=== PATIENT | female | born 1955 | race Caucasian/White ===

== ENCOUNTER → 2019-06-13 | Outpatient (CLI) | payer SELFPAY | PROVIDERS: Family Provider Family Medicine; Visit Provider Internal Medicine Rheumatology | DX: M85.872 Other specified disorders of bone density and structure, left ankle and foot (principal) | CPT/HCPCS: 73130 ×2; 73630 ×2 ==

== ENCOUNTER → 2019-06-20 10:30 | Outpatient (BNVA) | payer MEDICARE, MEDICAID, SELFPAY | PROVIDERS: PCP Family Medicine; Visit Provider Internal Medicine Rheumatology | DX: M06.00 Rheumatoid arthritis without rheumatoid factor, unspecified site (principal); E11.65 Type 2 diabetes mellitus with hyperglycemia; I10 Essential (primary) hypertension; D64.9 Anemia, unspecified; Z79.52 Long term (current) use of systemic steroids; Z79.4 Long term (current) use of insulin | CPT/HCPCS: 99214 ==

== ENCOUNTER → 2019-07-24 09:52 | Outpatient (BNVA) | payer MEDICARE, MEDICAID, SELFPAY | PROVIDERS: Family Provider Family Medicine; PCP Family Medicine; Visit Provider Internal Medicine Rheumatology | DX: M06.00 Rheumatoid arthritis without rheumatoid factor, unspecified site (principal); Z79.899 Other long term (current) drug therapy | CPT/HCPCS: 36415; 80076; 82565; 85651; 86140 ==

== ENCOUNTER → 2019-07-24 11:37 | Outpatient (BNVA) | payer MEDICARE, MEDICAID, SELFPAY | PROVIDERS: Family Provider Family Medicine; PCP Family Medicine; Visit Provider Internal Medicine Rheumatology | DX: M06.00 Rheumatoid arthritis without rheumatoid factor, unspecified site (principal) | CPT/HCPCS: 85025 ==

== ENCOUNTER → 2019-08-21 09:18 | Outpatient (BNVA) | payer MEDICARE, MEDICAID, SELFPAY | PROVIDERS: Family Provider Family Medicine; PCP Family Medicine; Visit Provider Internal Medicine Rheumatology | DX: M06.00 Rheumatoid arthritis without rheumatoid factor, unspecified site (principal); Z79.899 Other long term (current) drug therapy; M06.4 Inflammatory polyarthropathy; E11.69 Type 2 diabetes mellitus with other specified complication; D64.9 Anemia, unspecified; R59.0 Localized enlarged lymph nodes; R91.1 Solitary pulmonary nodule; Z79.4 Long term (current) use of insulin; I10 Essential (primary) hypertension | CPT/HCPCS: 99214 ==

== ENCOUNTER → 2019-09-28 12:51 | Outpatient (BNVA) | payer MEDICARE, MEDICAID, SELFPAY | PROVIDERS: Family Provider Family Medicine; PCP Family Medicine; Visit Provider Internal Medicine Rheumatology | DX: Z79.899 Other long term (current) drug therapy (principal); M06.00 Rheumatoid arthritis without rheumatoid factor, unspecified site | CPT/HCPCS: 36415; 80076; 82565; 85025; 85651; 86140 ==

== ENCOUNTER → 2019-10-19 08:55 | Outpatient (BNVA) | payer MEDICARE, MEDICAID, SELFPAY | PROVIDERS: Family Provider Family Medicine; PCP Family Medicine; Visit Provider Internal Medicine Rheumatology | DX: M06.00 Rheumatoid arthritis without rheumatoid factor, unspecified site (principal); Z79.899 Other long term (current) drug therapy; M06.4 Inflammatory polyarthropathy; E11.69 Type 2 diabetes mellitus with other specified complication; D64.9 Anemia, unspecified; R59.0 Localized enlarged lymph nodes; R91.1 Solitary pulmonary nodule; Z79.4 Long term (current) use of insulin; I10 Essential (primary) hypertension | CPT/HCPCS: 36415; 80076; 82565; 85025; 85651; 86140 ==

== ENCOUNTER → 2019-10-19 09:52 | Outpatient (BNVA) | payer MEDICARE, MEDICAID, SELFPAY | PROVIDERS: Family Provider Family Medicine; PCP Family Medicine; Visit Provider Internal Medicine Rheumatology | DX: Z79.899 Other long term (current) drug therapy (principal) | CPT/HCPCS: 85025 ==

== ENCOUNTER → 2019-10-26 14:03 | Outpatient (BNVA) | payer MEDICARE, SELFPAY | PROVIDERS: Family Provider Family Medicine; PCP Family Medicine; Visit Provider Internal Medicine Rheumatology | DX: M06.00 Rheumatoid arthritis without rheumatoid factor, unspecified site (principal); Z79.899 Other long term (current) drug therapy; E11.22 Type 2 diabetes mellitus with diabetic chronic kidney disease; N18.3 Chronic kidney disease, stage 3 (moderate); Z79.4 Long term (current) use of insulin; Z90.5 Acquired absence of kidney; Z89.421 Acquired absence of other right toe(s) | CPT/HCPCS: 99214 ==

== ENCOUNTER 2019-11-14 08:05 | Outpatient (CLI) | payer MEDICARE, SELFPAY ==
--- NOTE | 2019-11-14 13:05 | PFTS_ITS ---
Date of Study:11/14/19 Date of Dictation: MECHANICS: Forced vital capacity (FVC) is reduced. Forced expiratory volume in one second (FEV1) is normal. FEV1/FVC is normal. FLOW VOLUME LOOP: Narrow. There is a plateau phase in the forced expiratory maneuver. This could be related to intrathoracic variable obstruction or chest be related to the effort. LUNG VOLUMES: Total lung capacity (TLC) is reduced. Residual volume (RV) is reduced. DIFFUSING CAPACITY FOR CARBON MONOXIDE: Normal. INTERPRETATION: The pulmonary function tests are consistent with mild restriction. Total lung capacity is mildly diminished.. Gas exchange (DLCO) is normal. The contour of the flow volume loop could be suggestive of variable intrathoracic obstruction. MTDD
== END 2019-11-14 08:06 | disposition home or self-care (01) ==
LOC: RT 08:09
PROVIDERS: Family Provider Family Medicine; PCP Family Medicine; Visit Provider Internal Medicine Critical Care Medicine
DX: R59.0 Localized enlarged lymph nodes (principal)
CPT/HCPCS: 94010; 94726; 94729

== ENCOUNTER → 2020-02-08 14:05 | Outpatient (BNVA) | payer MEDICARE, SELFPAY | PROVIDERS: Family Provider Family Medicine; PCP Family Medicine; Visit Provider Internal Medicine Rheumatology | DX: M06.00 Rheumatoid arthritis without rheumatoid factor, unspecified site (principal); Z79.899 Other long term (current) drug therapy; D64.9 Anemia, unspecified; R91.1 Solitary pulmonary nodule; E11.22 Type 2 diabetes mellitus with diabetic chronic kidney disease; I13.0 Hypertensive heart and chronic kidney disease with heart failure and stage 1 through stage 4 chronic kidney disease, or unspecified chronic kidney disease; N18.3 Chronic kidney disease, stage 3 (moderate); I50.30 Unspecified diastolic (congestive) heart failure; Z79.4 Long term (current) use of insulin | CPT/HCPCS: 99214 ==

== ENCOUNTER → 2020-02-09 11:39 | Outpatient (BNVA) | payer MEDICARE, SELFPAY | PROVIDERS: Family Provider Family Medicine; PCP Family Medicine; Visit Provider Internal Medicine Rheumatology | DX: Z79.899 Other long term (current) drug therapy (principal) | CPT/HCPCS: 80076; 82565; 85025; 85651; 86140 ==

== ENCOUNTER → 2020-03-06 15:13 | Outpatient (BNVA) | payer MEDICARE, SELFPAY | PROVIDERS: Family Provider Family Medicine; PCP Family Medicine; Visit Provider Nurse Practitioner Family | DX: E11.65 Type 2 diabetes mellitus with hyperglycemia (principal); N18.9 Chronic kidney disease, unspecified; D64.9 Anemia, unspecified; E04.1 Nontoxic single thyroid nodule; E78.2 Mixed hyperlipidemia; Z76.89 Persons encountering health services in other specified circumstances; E03.9 Hypothyroidism, unspecified; I10 Essential (primary) hypertension; E55.9 Vitamin D deficiency, unspecified; N39.0 Urinary tract infection, site not specified | CPT/HCPCS: 80053; 80061; 81003; 82306; 82607; 82746; 83036; 83550; 83721; 83735; 83880; 84100; 84439; 84443; 84481; 85025; 87077; 87086; 87186 ==

== ENCOUNTER → 2020-03-14 16:36 | Outpatient (BNVA) | payer MEDICARE, SELFPAY | PROVIDERS: Family Provider Family Medicine; PCP Family Medicine; Visit Provider Nurse Practitioner Family | DX: R31.9 Hematuria, unspecified (principal) | CPT/HCPCS: 81003 ==

== ENCOUNTER → 2020-03-21 11:34 | Outpatient (BNVA) | payer MEDICARE, SELFPAY | PROVIDERS: Family Provider Family Medicine; PCP Family Medicine; Visit Provider Nurse Practitioner Family | DX: R31.9 Hematuria, unspecified (principal); N39.0 Urinary tract infection, site not specified; E11.65 Type 2 diabetes mellitus with hyperglycemia; R60.9 Edema, unspecified | CPT/HCPCS: 80053; 81003; 85025 ==

== ENCOUNTER → 2020-04-01 14:39 | Outpatient (BNVA) | payer MEDICARE, SELFPAY | PROVIDERS: Family Provider Family Medicine; PCP Family Medicine; Visit Provider Internal Medicine Nephrology | DX: N18.30 Chronic kidney disease, stage 3 unspecified (principal) | CPT/HCPCS: 80069; 82043; 85025 ==

== ENCOUNTER → 2020-04-22 10:13 | Outpatient (BNVA) | payer MEDICARE, SELFPAY | PROVIDERS: Family Provider Family Medicine; PCP Nurse Practitioner Family; Visit Provider Nurse Practitioner Family | DX: N18.30 Chronic kidney disease, stage 3 unspecified (principal); R60.1 Generalized edema | CPT/HCPCS: 36415; 80053; 80069; 82043; 85025 ==

== ENCOUNTER → 2020-06-04 10:20 | Outpatient (BNVA) | payer MEDICARE, SELFPAY | PROVIDERS: Family Provider Family Medicine; PCP Nurse Practitioner Family; Visit Provider Family Medicine | DX: N39.0 Urinary tract infection, site not specified (principal); A49.9 Bacterial infection, unspecified | CPT/HCPCS: 81003; 87077; 87086; 87184 ==

== ENCOUNTER → 2020-06-21 13:49 | Outpatient (BNVA) | payer MEDICARE, SELFPAY | PROVIDERS: Family Provider Family Medicine; PCP Nurse Practitioner Family; Visit Provider Nurse Practitioner Family | DX: R06.02 Shortness of breath (principal); I51.7 Cardiomegaly; I25.10 Atherosclerotic heart disease of native coronary artery without angina pectoris | CPT/HCPCS: 71046 ==

== ENCOUNTER 2020-07-08 14:14 | Inpatient (IN) | payer MEDICARE, MEDICAID, SELFPAY ==
[2020-07-08] VITALS (8 sets, daily range): BP systolic 150–193; BP diastolic 66–90; PULSE 89–95; RESP 16–30; TEMP 36.8–36.9; O2SAT 86–94; BMI 49.5
--- NOTE | 2020-07-08 15:11 | XR_ITS ---
WS: [id number] Exam: XR chest 1V portable [id number] Date/Time of Exam: 07/08/2020 3:35 PM Reason For Exam: sob Comparison 06/21/2020 There are patchy groundglass infiltrates identified in the upper and lower left lung and also the rig ht perihilar region. Cardiac enlargement with slightly increased pulmonary vascularity. There may be small left pleural effusion. The lungs are fully inflated. A permanent cardiac pacer superimposes the left chest. The mediastinum and bony thorax are unremarkable. XR/XR chest 1V portable [id number] IMPRESSION: 1. Patchy groundglass infiltrates throughout most of the left lung and the righ t perihilar region. These findings suggest active pneumonia. This pattern is no nspecific but can be seen with Covid pneumonia. 2. Mild cardiac enlargement with increased pulmonary vascularity.
--- NOTE | 2020-07-08 15:11 | ECG_ITS ---
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: CHARLI HEALYB: 1955 Requested By: Kj Jeronimo Order Number: [id number] Reading MD: MEGHANN BARRON Measurements Intervals [place] Rate: 92 P: 57 MO: 165 QRS: 93 QRSD: 137 T: -40 QT: 376 QTc: 465 Interpretive Statements SINUS RHYTHM RIGHT BUNDLE BRANCH BLOCK [120+ ms QRS DURATION, UPRIGHT V1, 40+ ms S IN I/aVL/V4/V5/V6] MODERATE T-WAVE ABNORMALITY, CONSIDER INFERIOR ISCHEMIA [-0.1+ mV T WAVE IN II/aVF] Compared to ECG 05/31/2019 00:33:07 T-wave abnormality now present Possible ischemia now present Electronically Signed On 07-08-2020 18:32:54 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
[2020-07-08 15:28] LABS: Basophils # 0.1 10^3/uL (0.0-0.1); Basophils % 0.3 %; Eosinophils # 0.2 10^3/uL (0.0-0.8); Eosinophils % 0.7 %; Hematocrit 30.2 % (37.0-47.0); Hemoglobin 9.4 g/dL (11.5-15.3); Lymphocytes # 1.8 10^3/uL (0.8-4.8); Lymphocytes % 6.9 %; Mean Corpuscular HGB Conc 31.1 g/dL (30.0-36.0); Mean Corpuscular Hemoglobin 29.4 pg (28.0-34.0); Mean Corpuscular Volume 94.4 fL (81-99); Mean Platelet Volume 10.4 fL (7.4-10.4); Monocytes # 1.2 10^3/uL (0.2-0.9); Monocytes % 4.8 %; Neutrophils # 22.12 10^3/uL (1.8-7.7); Neutrophils % 86.6 %; Nucleated Red Blood Cells % 0 %; Platelet Count 288 10^3/cmm (130-400); Red Cell Distribution Width 14.4 % (12.1-15.1); White Blood Count 25.6 10^3/uL (4.0-10.0)
[2020-07-08 15:36] LABS: INR 1.04 (0.8-1.2)
[2020-07-08 16:07] LABS: Troponin(5th) Baseline 42 ng/L (0-10)
[2020-07-08 16:16] LABS: Alanine Aminotransferase 14 U/L (0-33); Albumin Level 3.7 g/dL (3.5-5.2); Alkaline Phosphatase 120 IU/L (35-105); Anion Gap 14.1 (5-19); Aspartate Amino Transferase 12 U/L (0-32); Blood Urea Nitrogen 46 mg/dL (8-23); Calcium 9.2 mg/dL (8.5-10.5); Carbon Dioxide 33 mmol/L (22-29); Chloride 92 mmol/L (98-107); Globulin 2.7 g/dL (1.3-4.6); Glomerular Filtration Rate 28.5 mL/min (90-130); Glucose 234 mg/dL (65-115); NT Pro B Type Natriuretic Pept 1030 pg/mL (0-125); Osmolality Calculated 297 mOsm/kg (285-295); Potassium 5.1 mmol/L (3.5-5.1); Sodium 134 mmol/L (136-145); Total Bilirubin 0.5 mg/dL (0.15-1.2); Total Protein 6.4 g/dL (6.6-8.7)
--- NOTE | 2020-07-08 16:22 | ED_ITS ---
HPI - SOB/Dyspnea General: Chief Complaint: Shortness of Breath/Dyspnea Stated Complaint: SOB/FLUID OVERLOAD/CP Time Seen by Provider: 07/08/20 15:40 History of Present Illness: HPI Narrative: 64-year-old female presents emergency room complaining of shortness of breath bilateral pitting lower edema up into the level of the umbilicus. She is much more short of breath than usual and normally she is using 2 L/min now in triage she was at 89% on 2 L and requi red 3 to 4 L/min to maintain her sats in the mid 90s. She is also noticed increasing orthopnea. In April 2020 she had a pacemaker replacement the pacemaker site has dry eschar in place with localized erythema there is not been any drainage. MD elicited complaint: shortness of breath, cough and chest pain Pertinent past history: COPD, congestive heart failure and other (History of coronary artery disease) Onset (ago): day(s) Context: occurred during exertion Timing: intermittent and progressively worsening Severity: moderate Exacerbating factors: lying flat, exertion and coughing Relieving factors: oxygen, rest and upright position Known history of: COPD and congestive heart failure Associated symptoms: Reports chest congestion, chest pain, cough and orthopnea; Deny abdominal pain, diaphoresis, dizziness, extremity pain, fever(s), hemoptysis, lightheadedness, myalgias, nausea, palpitations, paresthesias, polydipsia, polyuria, rash, sense of impending doom or vomiting Treatment prior to arrival: oxygen Review of Systems Const: Denies: fever(s) or diaphoresis Card: Reports: chest pain and orthopnea; Denies: palpitations or lightheadedness Resp: Reports: chest congestion; Denies: hemoptysis GI: Denies: abdominal pain, nausea or vomiting Musc: Denies: extremity pain Neuro: Denies: dizziness Endo: Denies: polyuria or polydipsia PFSH ED PFSH: Medical History (Updated 07/09/20 @ 07:35 by Pramod Rivera DO) Allergic conjunctivitis Anemia Cellulitis of drainage site, post-operative Chronic kidney disease (CKD) Diabetes mellitus type 2, uncontrolled Diastolic heart failure Dyslipidemia Easy bruising Edema Essential (primary) hypertension Fibromyalgia Generalized weakness Hematuria High risk medication use Hilar lymphadenopathy Hypothyroid Hypoxia Immunization counseling Lung nodule Mixed hyperlipidemia Obesity Otitis media Rheumatoid arthritis with negative rheumatoid factor Seronegative erosive rheumatoid arthritis Thyroid nodule She has history of biopsy of thyroid nodule that was done at [facility] Urinary tract infection Vitamin D deficiency Surgical History (Updated 07/09/20 @ 07:35 by Pramod Rivera DO) H/O removal of cyst H/O shoulder surgery H/O toe surgery H/O total cystectomy History of hysterectomy Hx of cataract surgery Hx of tonsillectomy No pertinent past surgical history Status post placement of other cardiac pacemaker Family History Mother Cancer Fibromyalgia Arthritis Father Cancer Arthritis Social History Smoking and tobacco status: never smoked Alcohol intake: never Current occupational status: disabled History of recent travel: No Current gender identity: Female Physical Exam Const: COMMON NORMALS: no acute distress GENERAL APPEARANCE: cooperative and comfortable ORIENTATION/CONSCIOUSNESS: Yes awake, Yes oriented to person, Yes oriented to place and Yes oriented to time HENMT: COMMON NORMALS: normocephalic, atraumatic and hearing grossly normal bilaterally HEAD & SCALP: normocephalic and atraumatic Neck/C-Spine: COMMON NORMALS: no JVD Lymph: LYMPHATIC: no lymphadenopathy noted and no lymphedema noted Resp: AUSCULTATION: rales and wheezes Cardio: COMMON NORMALS: no JVD, regular rate, regular rhythm and No murmurs present (Cardio) RATE: regular rate RHYTHM: regular rhythm GI: COMMON NORMALS: Soft to palpation and No hepatosplenomegaly present AUSCULTATION: Yes normoactive bowel sounds PALPATION: Yes Soft to palpation, No Tenderness to palpation present (GI), No Guarding due to palpation present (GI) and Yes No hepatosplenomegaly present Extremity: GENERAL: Yes edema (To the level of the thighs and umbilicus) Neuro: SENSORIUM/ORIENTATION: Yes oriented to person, Yes oriented to place and Yes oriented to time Skin: COMMON NORMALS: no rashes or lesions noted GENERAL SKIN EXAM: no rashes or lesions noted Course Vital Signs: Vital signs: Vital Signs Temperature 97.6 F 07/09/20 07:19 Pulse Rate 88 07/09/20 07:19 Respiratory Rate 17 07/09/20 07:19 Blood Pressure 175/72 07/09/20 07:19 Pulse Oximetry 90 07/09/20 07:19 MDM - SOB/Dyspnea MDM Narrative: Medical decision making narrative: Patient hypoxic on arrival having increased need for oxygen. Suspicious of possible COVID-19 she did have some diarrhea early on when this started rapid antigen is negative a PCR is pending we will cover for community-acquired pneumonia also given her some Lasix to diurese him and think there is some component of heart failure given the amount of swelling she has in the lower extremities. Discussed Dr. Ngo orders have been written. Lab Data: Labs: Lab Results 07/08/20 07/08/20 07/08/20 Range/Units 15:11 15:11 15:11 WBC 25.6 H (4.0-10.0) 10^3/ uL RBC 3.20 L (4.1-5.3) 10^6/u L Hgb 9.4 L (11.5-15.3) g/dL Hct 30.2 L (37.0-47.0) % MCV 94.4 (81-99) fL MCH 29.4 (28.0-34.0) pg MCHC 31.1 (30.0-36.0) g/dL RDW 14.4 (12.1-15.1) % Plt Count 288 (130-400) 10^3/c mm MPV 10.4 (7.4-10.4) fL Neut % (Auto) 86.6 % Lymph % (Auto) 6.9 % [place] % (Auto) 4.8 % Eos % (Auto) 0.7 % Baso % (Auto) 0.3 % Neut # (Auto) 22.12 H (1.8-7.7) 10^3/u L Lymph # (Auto) 1.8 (0.8-4.8) 10^3/u L [place] # (Auto) 1.2 H (0.2-0.9) 10^3/u L Eos # (Auto) 0.2 (0.0-0.8) 10^3/u L Baso # (Auto) 0.1 (0.0-0.1) 10^3/u L Nucleated RBC % (a uto) 0 % Nucleated RBCs # 0.0 /100WBC PT 13.90 (12.1-14.9) SECO NDS INR 1.04 (0.8-1.2) D-Dimer (0-0.59) ug/mIFE U Specimen Type Sample Site ABG pH (7.35-7.45) ABG pCO2 (35-45) mmHg ABG pO2 (80.0-100.0) mmH g ABG HCO3 (22-26) mmol/L ABG Base Excess (-2.0-2.0) mmol/ L Artem Test Hematocrit (37-47) % O2 Delivery Device O2 Liters/Min % FiO2 % Leave Manager ID Sodium 134 L (136-145) mmol/L Potassium 5.1 (3.5-5.1) mmol/L Chloride 92 L (98-107) mmol/L Carbon Dioxide 33 H (22-29) mmol/L Anion Gap 14.1 (5-19) BUN 46 H (8-23) mg/dL Creatinine 1.8 H (0.5-0.9) mg/dL GFR Calculation 28.5 L (90-130) mL/min Glucose 234 H (65-115) mg/dL Calculated Osmolal ity 297 H (285-295) mOsm/k g Calcium 9.2 (8.5-10.5) mg/dL Total Bilirubin 0.5 (0.15-1.2) mg/dL AST 12 (0-32) U/L ALT 14 (0-33) U/L Alkaline Phosphata se 120 H (35-105) IU/L Troponin T Baselin e (0-10) ng/L Troponin T 120 Min rampart (0-10) ng/L Delta Troponin T (0-10) ABS# NT-Pro-B Natriuret Pep 1030 H (0-125) pg/mL Total Protein 6.4 L (6.6-8.7) g/dL Albumin 3.7 (3.5-5.2) g/dL Globulin 2.7 (1.3-4.6) g/dL Procalcitonin (0-0.5) ng/mL SARS-CoV-2 Ag (Rap id) (Negative) 07/08/20 07/08/20 07/08/20 Range/Units 15:11 16:00 16:20 WBC (4.0-10.0) 10^3/ uL RBC (4.1-5.3) 10^6/u L Hgb (11.5-15.3) g/dL Hct (37.0-47.0) % MCV (81-99) fL MCH (28.0-34.0) pg MCHC (30.0-36.0) g/dL RDW (12.1-15.1) % Plt Count (130-400) 10^3/c mm MPV (7.4-10.4) fL Neut % (Auto) % Lymph % (Auto) % [place] % (Auto) % Eos % (Auto) % Baso % (Auto) % Neut # (Auto) (1.8-7.7) 10^3/u L Lymph # (Auto) (0.8-4.8) 10^3/u L [place] # (Auto) (0.2-0.9) 10^3/u L Eos # (Auto) (0.0-0.8) 10^3/u L Baso # (Auto) (0.0-0.1) 10^3/u L Nucleated RBC % (a uto) % Nucleated RBCs # /100WBC PT (12.1-14.9) SECO NDS INR (0.8-1.2) D-Dimer (0-0.59) ug/mIFE U Specimen Type Arterial Sample Site Radial, left ABG pH 7.40 (7.35-7.45) ABG pCO2 53.1 H (35-45) mmHg ABG pO2 69.0 L (80.0-100.0) mmH g ABG HCO3 33.1 H (22-26) mmol/L ABG Base Excess 7.2 H (-2.0-2.0) mmol/ L Artem Test Pos Hematocrit 30.1 L (37-47) % O2 Delivery Device Nc O2 Liters/Min 3.0 % FiO2 32.0 % Leave Manager ID Cak Sodium (136-145) mmol/L Potassium (3.5-5.1) mmol/L Chloride (98-107) mmol/L Carbon Dioxide (22-29) mmol/L Anion Gap (5-19) BUN (8-23) mg/dL Creatinine (0.5-0.9) mg/dL GFR Calculation (90-130) mL/min Glucose (65-115) mg/dL Calculated Osmolal ity (285-295) mOsm/k g Calcium (8.5-10.5) mg/dL Total Bilirubin (0.15-1.2) mg/dL AST (0-32) U/L ALT (0-33) U/L Alkaline Phosphata se (35-105) IU/L Troponin T Baselin e 42 H (0-10) ng/L Troponin T 120 Min rampart (0-10) ng/L Delta Troponin T (0-10) ABS# NT-Pro-B Natriuret Pep (0-125) pg/mL Total Protein (6.6-8.7) g/dL Albumin (3.5-5.2) g/dL Globulin (1.3-4.6) g/dL Procalcitonin (0-0.5) ng/mL SARS-CoV-2 Ag (Rap id) Negative (Negative) 07/08/20 07/08/20 07/08/20 Range/Units 16:50 16:50 16:50 WBC (4.0-10.0) 10^3/ uL RBC (4.1-5.3) 10^6/u L Hgb (11.5-15.3) g/dL Hct (37.0-47.0) % MCV (81-99) fL MCH (28.0-34.0) pg MCHC (30.0-36.0) g/dL RDW (12.1-15.1) % Plt Count (130-400) 10^3/c mm MPV (7.4-10.4) fL Neut % (Auto) % Lymph % (Auto) % [place] % (Auto) % Eos % (Auto) % Baso % (Auto) % Neut # (Auto) (1.8-7.7) 10^3/u L Lymph # (Auto) (0.8-4.8) 10^3/u L [place] # (Auto) (0.2-0.9) 10^3/u L Eos # (Auto) (0.0-0.8) 10^3/u L Baso # (Auto) (0.0-0.1) 10^3/u L Nucleated RBC % (a uto) % Nucleated RBCs # /100WBC PT (12.1-14.9) SECO NDS INR (0.8-1.2) D-Dimer 1.42 H (0-0.59) ug/mIFE U Specimen Type Sample Site ABG pH (7.35-7.45) ABG pCO2 (35-45) mmHg ABG pO2 (80.0-100.0) mmH g ABG HCO3 (22-26) mmol/L ABG Base Excess (-2.0-2.0) mmol/ L Artem Test Hematocrit (37-47) % O2 Delivery Device O2 Liters/Min % FiO2 % Leave Manager ID Sodium (136-145) mmol/L Potassium (3.5-5.1) mmol/L Chloride (98-107) mmol/L Carbon Dioxide (22-29) mmol/L Anion Gap (5-19) BUN (8-23) mg/dL Creatinine (0.5-0.9) mg/dL GFR Calculation (90-130) mL/min Glucose (65-115) mg/dL Calculated Osmolal ity (285-295) mOsm/k g Calcium (8.5-10.5) mg/dL Total Bilirubin (0.15-1.2) mg/dL AST (0-32) U/L ALT (0-33) U/L Alkaline Phosphata se (35-105) IU/L Troponin T Baselin e (0-10) ng/L Troponin T 120 Min rampart 36.62 H (0-10) ng/L Delta Troponin T -5.38 L (0-10) ABS# NT-Pro-B Natriuret Pep (0-125) pg/mL Total Protein (6.6-8.7) g/dL Albumin (3.5-5.2) g/dL Globulin (1.3-4.6) g/dL Procalcitonin 0.19 (0-0.5) ng/mL SARS-CoV-2 Ag (Rap id) (Negative) Discharge Plan Discharge Admit Provider: George Montaño Clinical Impression: Acute and chronic respiratory failure with hypoxia, Diabetes mellitus type 2, uncontrolled, Essential (primary) hypertension, Anemia, Chronic kidney disease (CKD), Status post placement of other cardiac pacemaker, CHF exacerbation, At risk for complication at site of pacemaker, Community acquired pneumonia, Suspected 2019-nCoV infection Condition: Stable Coding Level of Care Code ED Screening Representative for Wilfred Morel
[2020-07-08 16:32] LABS: ABG PCO2 53.1 mmHg (35-45); Arterial Blood Gas Hematocrit 30.1 % (37-47); Base Excess ABG 7.2 mmol/L (-2.0-2.0); Blood Gas Allen Test Pos; Blood Gas Operator Identificat CAK; Blood Gas Sample Site Radial, left; Blood Gas Sample Type Arterial; HCO3 ABG 33.1 mmol/L (22-26); Oxygen Device NC
--- NOTE | 2020-07-08 17:11 | ECG_ITS ---
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
[2020-07-08] MEDS: FUROsemide 10 mg/mL SDV 4mL 40 MG IVP (17:19)
[2020-07-08 17:28] LABS: SARS Covid-2 Antigen Negative (Negative)
[2020-07-08 17:44] LABS: D Dimer 1.42 ug/mIFEU (0-0.59)
[2020-07-08 18:14] LABS: Troponin 5 2HR 36.62 ng/L (0-10)
--- NOTE | 2020-07-08 18:14 | CTR_ITS ---
PROCEDURE INFORMATION: Exam: CT Chest Without Contrast; Diagnostic Exam date and time: 07/08/2020 7:09 PM Age: 64 years old Clinical indication: Cough and shortness of breath; Prior surgery; Surgery type: Pacemaker; Additional info: Chest wall abscess, pneumonia TECHNIQUE: Imaging protocol: Diagnostic computed tomography of the chest without contrast. Radiation optimization: All CT scans at this facility use at least one of these dose optimization techniques: automated exposure control; mA and/or kV adjustment per patient size (includes targeted exams where dose is matched to clinical indication); or iterative reconstruction. COMPARISON: 1. CTA Chest-Pulmonary Emb [id number] 05/30/2019 11:40 PM 2. CR - XR chest 2V* [id number] 06/21/2020 2:02:48 PM 3. CR - XR chest 1V portable [id number] 07/08/2020 3:33:37 PM RADIATION DOSE METRICS: Total DLP (mGy-cm): 968.78 FINDINGS: Limitations: Evaluation of the mediastinum and vasculature is limited without intravenous contrast. Tubes, catheters and devices: There is a single lead cardiac pacer via left subclavian approach. Thyroid: Calcification in the right thyroid lobe. Low-density nodule with peripheral calcification in the left thyroid lobe. This measures 1.4 x 1.1 cm, findings are stable (series 2, image 7). Lungs: Tracheobronchial structures are patent. Dense opacification with air bronchograms in the posterior left upper lobe, left lingula, and majority of the left lower lobe. Mild airspace disease and multiple areas of patchy ground-glass opacification in the right upper, middle, and lower lobes. No pulmonary parenchymal nodules or masses. Pleural space: Small left pleural effusion. Heart: Stable mild enlargement of the heart. Mediastinal space: The esophagus is unremarkable. No mediastinal hematoma. No pneumomediastinum. Aorta: Mild atherosclerotic changes in the visualized arteries. Lymph nodes: Enlarged mediastinal and right hilar lymph nodes are stable, the largest measures 1.6 cm in short axis (series 2, image 22). Liver: The visualized liver is unremarkable. Pancreas: Mild atrophy of the visualized pancreas. Spleen: The visualized spleen is unremarkable. Adrenal glands: The right and left adrenal glands are unremarkable. Kidneys and ureters: The visualized right and left kidneys are unremarkable. Bones/joints: Multilevel degenerative changes of varying severity in the visualized spine. Soft tissues: Mild body wall edema. CT/CT chest wo con [id number] IMPRESSION: 1. Findings suspicious for bilateral pneumonia, including atypical organisms. Findings are worse in the left lung. Recommend clinical correlation. Recommend followup chest imaging in 4-6 weeks to insure resolution of these findings. 2. Small left pleural effusion. 3. Mild body wall edema. 4. Stable nonspecific mediastinal and right hilar lymphadenopathy, which could be reactive in nature. 5. Stable focal calcification in the right thyroid lobe and stable nodule in the left thyroid lobe. No follow-up is recommended. The 6. Incidental/nonacute findings are listed in the report. COMMENTS: Consistent with the [employer]'s Incidental Findings Committee white paper (J Am Ines Radiol 2015): In patients aged 35 years and older with an incidental thyroid nodule equal to or greater than 1.[address], MRI or extrathyroidal US, further evaluation with dedicated thyroid US is recommended for patients with normal life expectancy and without comorbidities. For smaller nodules without suspicious features, no further evaluation or follow up is recommended. Radiation Dose CTDIVOL = (mGy): DLP = 968.78 (mGy-cm)
[2020-07-08 18:17] LABS: Troponin 5 2HR Delta -5.38 ABS# (0-10)
--- NOTE | 2020-07-08 19:40 | P.HP_ITS ---
Providers/Chief Complaint Admitting Physician: George Montaño MD Primary Care Provider: ANUSHA De La Rosa Chief Complaint: SOB History of Present Illness Ayla Montilla is a 64 year old female who has multiple comorbidities such as rheumatoid arthritis, preserved ejection fraction heart failure, grade 1 diastolic dysfunction, mild aortic valve regurgitation, immunocompromised takes prednisone and immunomodulators, status post pacemaker placement for third- degree AV block in April last year presented today with chief complaint of worsening shortness of breath. Patient is stating that at home she takes 2 L nasal cannula [id number], for last few weeks she has been experiencing more shortness of breath on exertion and now it has gotten worse to the point of orthopnea and PND, she has gained 4-5 pounds in last few days as well, she was 268 pounds last week today she was 271 pounds, she tries to follow diabetic restricted diet, denies fever, nausea but experienced 1 episode of emesis after excessive bouts of cough. She is also noticing some abdominal bloating without any pain, she experienced 1 episode of loose stools on Wednesday which resolved. She went to her PCP because of above-mentioned complaints who recommended her to go to the hospital. No active chest pain, syncope, dysuria recent change in bowel movement. Diagnostics in the ER revealed acute on chronic hypoxic respiratory failure she was requiring 4 to 5 L of nasal cannula oxygen supplementation, on exertion she was getting hypoxic in 80s on her regular 2 L nasal cannula, she met sepsis criteria in the ED, she received 40 mg IV Lasix along morphine, CT chest revealed bilateral pulmonary edema with consolidation more prominent on the left with left-sided pleural effusion however I do not see any abscess around pacemaker site, her left-sided pacemaker site does have purulent cellulitis, C ovid PCR has been sent, I have talked with shaker repairer Dr. Shaw for possible surgical site exploration. I will start her on linezolid and cefepime, will obtain blood cultures urine antigens along Covid pcr, judicious use of fluids Review of Systems Const: Denies: fever(s) Eyes: Denies: change in vision ENMT: Denies: throat pain Card: Reports: swelling of feet/ankles, dyspnea on exertion and orthopnea Resp: Reports: dyspnea and non-productive cough GI: Denies: abdominal pain : Denies: flank pain or urinary frequency Musc: Reports: muscle cramps Skin/Breast: Reports: new lesions (Pacemaker site granulation tissue with mild hyperemia and pain) Neuro: Denies: headache(s) Psych: Denies: anxiety Endo: Denies: polyuria Leeroy/Lymph: Denies: easy bruising All/Imm: Denies: urticaria Medications/Allergies Home Medications Medication Instructions Recorded Confirmed Last Taken Type montelukast 10 mg tablet 10 mg PO DAILY@1999 tab 06/12/19 07/08/20 07/07/20 History insulin lispro 100 unit/mL 1 sliding scale dose SUBCUT TID ml 09/18/19 07/08/20 07/08/20 History subcutaneous solution nitroglycerin 0.4 mg sublingual 0.4 mg SUBLINGUAL Q5M PRN 09/18/19 07/08/20 Unknown History tablet ergocalciferol (vitamin D2) 1,250 1,250 mcg PO .weekly cap 02/15/20 07/08/20 07/05/20 History mcg (50,000 unit) capsule insulin glargine 100 unit/mL 50 unit SUBCUT BID@0800,1999 ml 03/06/20 07/08/20 07/08/20 History subcutaneous solution sitagliptin 50 mg tablet See Rx Instructions .ROUTE 03/29/20 07/08/20 07/08/20 Rx .COMPLEX #30 tab furosemide 80 mg tablet 80 mg PO BID@0800,1999 PRN tab 05/14/20 07/08/20 07/08/20 History hydrocodone 5 mg-acetaminophen 325 1 tab PO TID@08,, tab 05/14/20 07/08/20 07/08/20 History mg tablet Home Oxygen Continous #1 ea 05/23/20 07/08/20 Unknown Rx Shower chair #1 ea 05/23/20 07/08/20 Unknown Rx tocilizumab 162 mg/0.9 mL 162 mg SUBCUT .Q7days #4 ml 06/03/20 07/08/20 07/07/20 Rx subcutaneous syringe atorvastatin 80 mg tablet 80 mg PO DAILY@0800 06/04/20 07/08/20 07/08/20 History Pataday 1 drp OPHTHALMIC (EYE) DAILY@0800 07/08/20 07/08/20 Unknown History albuterol sulfate See Rx Instructions .ROUTE .COMPLEX 07/08/20 07/08/20 07/08/20 History amlodipine 10 mg PO DAILY@0800 07/08/20 07/08/20 07/08/20 History duloxetine 60 mg PO DAILY@0800 07/08/20 07/08/20 07/08/20 History hydralazine 25 mg PO TID@08,12,20 07/08/20 07/08/20 07/08/20 History ketoconazole 1 applic TOPICAL BID@0800,199907/08/20 07/08/20 Unknown History metolazone 5 mg PO DAILY@0800 07/08/20 07/08/20 Unknown History pantoprazole 40 mg PO DAILY@0800 07/08/20 07/08/20 07/08/20 History potassium chloride 20 meq PO DAILY@0800 07/08/20 07/08/20 07/08/20 History prednisone 5 mg PO DAILY@0800 07/08/20 07/08/20 07/08/20 History Allergies Allergy/AdvReac Type Severity Reaction Status Date / Time Iodinated Contrast Media Allergy Hypertensio Verified 07/08/20 12:51 n sulfamethoxazole Allergy Rash Verified 07/08/20 12:51 [From Bactrim] trimethoprim [From Bactrim] Allergy Rash Verified 07/08/20 12:51 leflunomide AdvReac Intermediate diarrhea Verified 07/08/20 12:51 PFSH Acute PFSH: Medical History (Updated 07/08/20 @ 21:32 by Jesus Hancock MD) Allergic conjunctivitis Anemia Cellulitis of drainage site, post-operative Chronic kidney disease (CKD) Diabetes mellitus type 2, uncontrolled Diastolic heart failure Dyslipidemia Easy bruising Edema Essential (primary) hypertension Fibromyalgia Generalized weakness Hematuria High risk medication use Hilar lymphadenopathy Hypothyroid Hypoxia Immunization counseling Lung nodule Mixed hyperlipidemia Obesity Otitis media Rheumatoid arthritis with negative rheumatoid factor Seronegative erosive rheumatoid arthritis Thyroid nodule She has history of biopsy of thyroid nodule that was done at [facility] Urinary tract infection Vitamin D deficiency Surgical History H/O removal of cyst H/O shoulder surgery H/O toe surgery H/O total cystectomy History of hysterectomy Hx of cataract surgery Hx of tonsillectomy No pertinent past surgical history Status post placement of other cardiac pacemaker Family History Mother Cancer Fibromyalgia Arthritis Father Cancer Arthritis Social History Smoking and tobacco status: never smoked Alcohol intake: never Current occupational status: disabled History of recent travel: No Current gender identity: Female Vitals/I&O/Wt Last Vital Signs Temp 98.4 F 07/08/20 15:04 Pulse 91 07/08/20 18:50 Resp 26 H 07/08/20 18:50 BP 193/74 07/08/20 18:50 Pulse Ox 94 07/08/20 18:50 Weight last 48 hrs Weight 122.924 kg Physical Exam Narrative: EXAM NARRATIVE: Very pleasant middle-aged female who appears more than stated age Currently saturating well on 4 L nasal cannula 92% Clinical signs of fluid overload S1, S2, systolic aortic regurgitation murmur appreciated right second interc ostal space Swelling of lower extremities extending up to her abdominal wall 3+ pitting edema, Venous stasis dermatitis of lower extremities Left subclavian pacemaker site doesn't look infected with purulent cellulitis, there is granulation tissue however 0.5x0.5 wound has been purulent base, no flu ctuant deep abscess noted, pacemaker site itself is not tender Bilateral breath sounds with crepitation and crackles left greater than right No acute respiratory distress Abdomen soft bowel sound present distended abdomen Appropriate mood and affect Neurologically nonfocal deficit EOMI, PERRLA No joint swelling Urinary Catheter Management^: Culp: Cath Placed During This Visit: yes Urinary Catheter Date of Insertion: 07/08/20 Urinary Catheter Time of Insertion: 18:50 Data : 07/08/20 15:11 07/08/20 15:11 A&P Assessment and plan (1) CHF exacerbation: Status: Acute (2) Acute and chronic respiratory failure with hypoxia: Status: Acute (3) Sepsis: Status: Acute (4) Acute kidney injury superimposed on chronic kidney disease: Status: Acute (5) Cellulitis: Status: Acute (6) At risk for complication at site of pacemaker: Status: Acute Additional A&P Information Acute Grade 1 diastolic dysfunction exacerbation Clinical signs of fluid overload, x-ray consistent with pulmonary edema High BNP, hemoglobin stable 9.4 I would switch her Lasix to Bumex 1 mg twice a day along with metolazone No active sign of chest pain EKG not showing ischemic or infarctive changes Troponin with negative delta This seems to be gradual worsening of her underlying CHF I will repeat echo in the morning Acute on chronic hypoxic respiratory failure with sepsis Sepsis criteria met with tachypnea, leukocytosis, she is immunocompromised, take steroids 5 mg prednisone every day along immunomodulators I would start her on Decadron, linezolid and cefepime to cover MRSA and pseudomonal infection considering left-sided dense consolidation however procalcitonin is not high we'll get blood cultures, urine antigens sputum culture and Covid PCR Reason these antibiotics have been chosen is because of worsening creatinine DuoNeb Currently saturating well on 4 L nasal cannula at home she requires 2 L, current increase O2 demand is secondary to CHF exacerbation and possible pneumonia, heart rate has been in 80s sinus rhythm, high D-dimer is most likely secondary to underlying infection, rule out lower extremity DVT will get venous Dopplers, considering CHF exacerbation VQ scan will not be effective at this point Pacemaker site purulent cellulitis No drainable abscess seen on CT scan of chest, I will get ultrasound as well in the morning Dr. Pichardo consulted who will evaluate the patient in the morning MRSA and pseudomonal coverage with linezolid and cefepime Follow-up with blood cultures Acute on chronic kidney disease This most likely is secondary to cardiorenal, anticipate improvement with diuresis No active UTI Considering worsening creatinine I would hold duloxetine Full code Diabetic diet because of type 2 diabetes, consistent carb diet along moderate sliding scale DVT prophylaxis Heparin Attestations Medical Necessity Statement*: Anticipating stay in the hospital cross more than 2 midnights continued IV antibiotics for sepsis, diuresis with CHF and evaluation for pacemaker site infection Time Spent in Patient Care: (>than 50% of time spent in counselling and/or direct pt care on unit) . 50mins Coding Level of Care Code Acute Kier Drier for Wilfred Fwclay Diagnoses CHF exacerbation I50.9 Acute and chronic respiratory failure with hypoxia J96.21 Sepsis A41.9 Acute kidney injury superimposed on chronic kidney disease N17.9; N18.9 Cellulitis L03.90 At risk for complication at site of pacemaker Z91.89
[2020-07-08 20:41] LABS: Procalcitonin 0.19 ng/mL (0-0.5)
[2020-07-08 20:53] LABS: Glucose Point of Care 240 mg/dL (70-110)
--- NOTE | 2020-07-08 21:11 | ECG_ITS ---
[facility] Test Date: 2020-07-08 Pat Name: Ayla Montilla Department: Room: 262 Gender: Female Adult And Pediatric Neurologist: : 1955 Requested By: Kj Jeronimo Order Number: [id number] Nitish MD: Chicho Doe M.D. Measurements Intervals [place] Rate: 89 P: 59 PA: 164 QRS: 95 QRSD: 136 T: -41 QT: 379 QTc: 464 Interpretive Statements SINUS RHYTHM RIGHT BUNDLE BRANCH BLOCK [120+ ms QRS DURATION, UPRIGHT V1, 40+ ms S IN I/aVL/V4/V5/V6] MODERATE T-WAVE ABNORMALITY, CONSIDER INFERIOR ISCHEMIA [-0.1+ mV T WAVE IN II/aVF] Compared to ECG 07/08/2020 17:39:14 T-wave abnormality now present Possible ischemia now present Electronically Signed On 07-09-2020 17:15:44 ELECTRONIC COMPONENTS ASSEMBLER by Chicho Doe M.D. [email or web address]
[2020-07-08 21:17] LABS: Troponin 5 6HR 37.92 ng/L (0-10)
[2020-07-08 21:18] LABS: Troponin 5 6HR Delta -4.08 ng/L (0-12)
[2020-07-08] MEDS: heparin 5,000 unit/mL INJ 1 mL 5000 UNIT SUBCUT (21:22)
[2020-07-08] MEDS: insulin glargine 100 units/1 mL 50 UNIT SUBCUT (21:23)
[2020-07-08] MEDS: hyDRALAzine 25 mg Tablet PO (21:23)
[2020-07-08] MEDS: HYDROcodone-acetaminophen 5-325 mg Tablet 1 TAB PO (21:23)
[2020-07-08 21:55] LABS: Lactic Sepsis W/Reflex 1.2 mmol/L (0.5-2.2)
[2020-07-08] MEDS: cefepime 2,000 MG in sodium chloride 0.9% (plus) 50 ML 100 MG IV (22:15)
[2020-07-08] MEDS: ketoconazole Cream 15 gm 1 APPLIC TOPICAL (22:18)
[2020-07-09] VITALS (10 sets, daily range): BP systolic 148–175; BP diastolic 71–74; PULSE 84–89; RESP 16–18; TEMP 36.4–36.7; O2SAT 88–92
[2020-07-09] MEDS: linezolid premix 600 MG/300 ML PREMIX 300 MG IV (00:11)
[2020-07-09 01:38] LABS: Glucose Point of Care 222 mg/dL (70-110)
[2020-07-09 06:25] LABS: Glucose Point of Care 225 mg/dL (70-110)
[2020-07-09] MEDS: heparin 5,000 unit/mL INJ 1 mL 5000 UNIT SUBCUT ×2 (06:38→11:34)
[2020-07-09 06:43] LABS: Basophils # 0.1 10^3/uL (0.0-0.1); Basophils % 0.3 %; Eosinophils # 0.3 10^3/uL (0.0-0.8); Eosinophils % 1.1 %; Hematocrit 28.6 % (37.0-47.0); Hemoglobin 8.6 g/dL (11.5-15.3); Lymphocytes # 1.9 10^3/uL (0.8-4.8); Lymphocytes % 8.5 %; Mean Corpuscular HGB Conc 30.1 g/dL (30.0-36.0); Mean Corpuscular Hemoglobin 28.5 pg (28.0-34.0); Mean Corpuscular Volume 94.7 fL (81-99); Mean Platelet Volume 10.4 fL (7.4-10.4); Monocytes # 1.1 10^3/uL (0.2-0.9); Monocytes % 4.9 %; Neutrophils # 18.53 10^3/uL (1.8-7.7); Neutrophils % 84.3 %; Nucleated Red Blood Cells % 0 %; Platelet Count 284 10^3/cmm (130-400); Red Blood Count 3.02 10^6/uL (4.1-5.3); Red Cell Distribution Width 14.6 % (12.1-15.1)
[2020-07-09 07:14] LABS: Alanine Aminotransferase 11 U/L (0-33); Albumin Level 3.3 g/dL (3.5-5.2); Alkaline Phosphatase 154 IU/L (35-105); Anion Gap 14.1 (5-19); Aspartate Amino Transferase 10 U/L (0-32); Blood Urea Nitrogen 45 mg/dL (8-23); Calcium 8.9 mg/dL (8.5-10.5); Carbon Dioxide 32 mmol/L (22-29); Chloride 94 mmol/L (98-107); Globulin 3.4 g/dL (1.3-4.6); Glomerular Filtration Rate 30.5 mL/min (90-130); Glucose 208 mg/dL (65-115); Osmolality Calculated 300 mOsm/kg (285-295); Potassium 4.1 mmol/L (3.5-5.1); Sodium 136 mmol/L (136-145); Total Bilirubin 0.5 mg/dL (0.15-1.2); Total Protein 6.7 g/dL (6.6-8.7)
[2020-07-09] MEDS: metOLazone 5 MG Tablet PO (08:09)
[2020-07-09] MEDS: dexamethasone 4 mg Tablet 6 MG PO (08:09)
[2020-07-09] MEDS: pantoprazole DR 40 mg Tablet PO (08:10)
[2020-07-09] MEDS: atorvastatin 40 mg Tablet 80 MG PO (08:10)
[2020-07-09] MEDS: HYDROcodone-acetaminophen 5-325 mg Tablet 1 TAB PO ×2 (08:10→13:17)
[2020-07-09] MEDS: hyDRALAzine 25 mg Tablet PO ×2 (08:10→13:25)
[2020-07-09] MEDS: potassium chloride ER 20 mEq Tablet PO (08:11)
[2020-07-09] MEDS: bumetanide 0.25 mg/mL SDV 4 mL 1 MG IV (08:11)
[2020-07-09] MEDS: insulin glargine 100 units/1 mL 50 UNIT SUBCUT (08:36)
[2020-07-09] MEDS: ketoconazole Cream 15 gm 1 APPLIC TOPICAL (08:36)
[2020-07-09] MEDS: cefepime 2,000 MG in sodium chloride 0.9% (plus) 50 ML 100 MG IV (08:36)
--- NOTE | 2020-07-09 09:51 | PM.CONSULT ---
Providers/Reason For Consult Consulting Physican/Specialty*: Chicho Doe MD/ Cardiology Reason for Consult*: Possible pacemaker pocket infection Attending Physician: George Montaño MD Primary Care Provider: ANUSHA De La Rosa History of Present Illness History of Present Illness 64 year old female with past medical history of rheumatoid arthritis, preserved ejection fraction heart failure, grade 1 diastolic dysfunction, mild aortic valve regurgitation, immunocompromised takes prednisone and immunomodulators, status post pacemaker placement for third-degree AV block in [address] Cortez in [place] presented with worsening shortness of breath. Patient is on chronic 2 L oxygen however over the last few weeks her oxygen requirement was increasing and she was more short of breath. She has also gained some weight. Cough has been worsening. Her NT proBNP was 1030. She had a pacemaker placed in April 2020 for third-degree AV block at [facility]. She was consulted as there is concern for pacemaker pocket infection. Patient has been picking on the pacemaker site. It has a scab and is fluctuant. There was some pus seen oozing out at pacemaker site. She is afebrile however white cell count was 25,000 on presentation. Review of Systems Narrative: CONSTITUTIONAL: No fever chills weight loss or gain or night sweats. [] HEENT: Normocephalic, atraumatic.[] RESPIRATORY: No cough, sputum, hemoptysis or wheezing.[] CARDIOVASCULAR: No shortness of breath, chest pain, PND, orthopnea, lower extremity edema, presyncope or syncope. [] GI: no nausea vomiting diarrhea. [] FINISHING MANAGER: No numbness, tingling, weakness or loss of function in any part of the body. [] MUSCULOSKELETAL: No knee or joint pain or rashes. [] Meds/Allergies Home Medications and Allergies Home Medications Medication Instructions Recorded Confirmed Last Taken Type montelukast 10 mg tablet 10 mg PO DAILY@1999 tab 06/12/19 07/08/20 07/07/20 History insulin lispro 100 unit/mL 1 sliding scale dose SUBCUT TID ml 09/18/19 07/08/20 07/08/20 History subcutaneous solution nitroglycerin 0.4 mg sublingual 0.4 mg SUBLINGUAL Q5M PRN 09/18/19 07/08/20 Unknown History tablet ergocalciferol (vitamin D2) 1,250 1,250 mcg PO .weekly cap 02/15/20 07/08/20 07/05/20 History mcg (50,000 unit) capsule insulin glargine 100 unit/mL 50 unit SUBCUT BID@0800,1999 ml 03/06/20 07/08/20 07/08/20 History subcutaneous solution sitagliptin 50 mg tablet See Rx Instructions .ROUTE 03/29/20 07/08/20 07/08/20 Rx .COMPLEX #30 tab furosemide 80 mg tablet 80 mg PO BID@799,1999 PRN tab 05/14/20 07/08/20 07/08/20 History hydrocodone 5 mg-acetaminophen 325 1 tab PO TID@, tab 05/14/20 07/08/20 07/08/20 History mg tablet Home Oxygen Continous #1 ea 05/23/20 07/08/20 Unknown Rx Shower chair #1 ea 05/23/20 07/08/20 Unknown Rx tocilizumab 162 mg/0.9 mL 162 mg SUBCUT .Q7days #4 ml 06/03/20 07/08/20 07/07/20 Rx subcutaneous syringe atorvastatin 80 mg tablet 80 mg PO DAILY@0800 06/04/20 07/08/20 07/08/20 History Pataday 1 drp OPHTHALMIC (EYE) DAILY@79907/08/20 07/08/20 Unknown History albuterol sulfate See Rx Instructions .ROUTE .COMPLEX 07/08/20 07/08/20 07/08/20 History amlodipine 10 mg PO DAILY@79907/08/20 07/08/20 07/08/20 History duloxetine 60 mg PO DAILY@0807/08/20 07/08/20 07/08/20 History hydralazine 25 mg PO TID@08,12,07/08/20 07/08/20 07/08/20 History ketoconazole 1 applic TOPICAL BID@799,199907/08/20 07/08/20 Unknown History metolazone 5 mg PO DAILY@0807/08/20 07/08/20 Unknown History pantoprazole 40 mg PO DAILY@0807/08/20 07/08/20 07/08/20 History potassium chloride 20 meq PO DAILY@0807/08/20 07/08/2021 History prednisone 5 mg PO DAILY@0800 07/08/20 07/08/20 07/08/20 History Allergies Allergy/AdvReac Type Severity Reaction Status Date / Time Iodinated Contrast Media Allergy Hypertensio Verified 07/08/20 12:51 n sulfamethoxazole Allergy Rash Verified 07/08/20 12:51 [From Bactrim] trimethoprim [From Bactrim] Allergy Rash Verified 07/08/20 12:51 leflunomide AdvReac Intermediate diarrhea Verified 07/08/20 12:51 Current Medications Current Medications Generic Name Dose Route Start Last Admin Trade Name Freq PRN Reason Stop Dose Admin Hydrocodone Bitart/Acetaminophen 1 tab 07/08/20 20:05 07/09/20 08:10 Hydrocodone-Acetaminophen 5-325 Mg Tablet PO 1 tab TID@ JOHANN Administration Atorvastatin Calcium 80 mg 07/09/20 08:00 07/09/20 08:10 Atorvastatin 40 Mg Tablet PO 80 mg DAILY@0800 JOHANN Administration Bumetanide 1 mg 07/09/20 09:00 07/09/20 08:11 Bumetanide 0.25 Mg/Ml Sdv 4 Ml IV 1 mg BID JOHANN Administration Dexamethasone 6 mg 07/09/20 09:00 07/09/20 08:09 Dexamethasone 4 Mg Tablet PO 6 mg DAILY JOHANN Administration Heparin Sodium (Beef Lung) 5,000 unit 07/08/20 20:05 07/09/20 06:38 Heparin 5,000 Unit/Ml Inj 1 Ml SUBCUT 5,000 unit Q8H JOHANN Administration Hydralazine HCl 25 mg 07/08/20 20:05 07/09/20 08:10 Hydralazine 25 Mg Tablet PO 25 mg TID@ JOHANN Administration Linezolid 600 mg in 300 mls @ 300 mls/hr 07/08/20 22:00 07/09/20 00:11 Zyvox Premix IV 300 mls/hr Q12H JOHANN Administration Protocol Cefepime HCl 2,000 mg/ Sodium 50 mls @ 100 mls/hr 07/08/20 21:30 07/09/20 08:36 Chloride IV 100 mls/hr Q12H JOHANN Administration Protocol Insulin Aspart 0 unit 07/08/20 21:00 07/09/20 08:09 Insulin Aspart 100 Unit/1 Ml SUBCUT 8 unit WM&BEDTIME JOHANN Administration Protocol Insulin Glargine 50 unit 07/08/20 20:05 07/09/20 08:36 Insulin Glargine 100 Units/1 Ml SUBCUT 50 unit BID@ JOHANN Administration Ketoconazole 1 applic 07/08/20 20:05 07/09/20 08:36 Ketoconazole Cream 15 Gm TOPICAL 1 applic BID@ JOHANN Administration Metolazone 5 mg 07/09/20 09:00 07/09/20 08:09 Metolazone 5 Mg Tablet PO 5 mg BID JOHANN Administration Pantoprazole Sodium 40 mg 07/09/20 08:00 07/09/20 08:[address] 40 Mg Tablet PO 40 mg DAILY@0800 JOHANN Administration Potassium Chloride 20 meq 07/09/20 08:00 07/09/20 08:11 Potassium Chloride Er 20 Meq Tablet PO 20 meq DAILY@0800 JOHANN Administration PFSH Acute PFSH: Medical History Allergic conjunctivitis Anemia Cellulitis of drainage site, post-operative Chronic kidney disease (CKD) Diabetes mellitus type 2, uncontrolled Diastolic heart failure Dyslipidemia Easy bruising Edema Essential (primary) hypertension Fibromyalgia Generalized weakness Hematuria High risk medication use Hilar lymphadenopathy Hypothyroid Hypoxia Immunization counseling Lung nodule Mixed hyperlipidemia Obesity Otitis media Rheumatoid arthritis with negative rheumatoid factor Seronegative erosive rheumatoid arthritis Thyroid nodule She has history of biopsy of thyroid nodule that was done at [facility] Urinary tract infection Vitamin D deficiency Surgical History H/O removal of cyst H/O shoulder surgery H/O toe surgery H/O total cystectomy History of hysterectomy Hx of cataract surgery Hx of tonsillectomy No pertinent past surgical history Status post placement of other cardiac pacemaker Family History Mother Cancer Fibromyalgia Arthritis Father Cancer Arthritis Social History Smoking and tobacco status: never smoked Alcohol intake: never Current occupational status: disabled History of recent travel: No Current gender identity: Female Vitals/I&O/Wt Last Vital Signs Temp 97.6 F 07/09/20 07:19 Pulse 88 07/09/20 07:19 Resp 17 07/09/20 07:19 BP 175/72 07/09/20 07:19 Pulse Ox 90 07/09/20 07:19 07/08/20 07/09/20 07/09/20 22:59 06:59 14:59 Intake Total 50 / 50 720 / 720 Output Total 700 / 700 100 / 100 Balance 50 / 50 -700 / -650 620 / 620 Weight last 48 hrs Weight 271 lb Physical Exam Narrative: EXAM NARRATIVE: GENERAL: Patient is alert, awake and oriented x3. [] NECK: No jugular vein distension. [] HEENT: No cyanosis. No icterus. No pallor. [] Chest: Patient has scabs over the pacemaker site. There is mild fluctuance noted and pus seen at site. HEART: Regular S1 and S2. No murmur, rub or gallop. [] LUNGS: Clear to auscultate bilaterally. [] ABDOMEN: Soft, nontender and nondistended. Positive bowel sounds. No guarding, rebound or tenderness. [] CENTRAL NERVOUS SYSTEM: Grossly nonfocal. [] EXTREMITIES: Lower extremities with 1+ edema bilaterally. Pulses palpable in the lower extremities, both dorsalis pedis and posterior tibial. [] Urinary Catheter Management^: Culp: Cath Placed During This Visit: yes Reason for Continuing Indwelling Catheter: Accurate Measurement of Urinary Output in Critically Ill Patients Urinary Catheter Date of Insertion: 07/08/20 Urinary Catheter Time of Insertion: 18:50 Data Micro: Micro: Microbiology 07/08/20 21:15 Blood Culture - Pr eliminary Blood SPECIMEN [facility] 07/08/20 21:24 Blood Culture - Pr eliminary Blood SPECIMEN [facility] A&P Assessment and plan (1) At risk for complication at site of pacemaker: Status: Acute (2) CHF exacerbation: Status: Acute (3) Diastolic CHF: Status: Acute (4) Dyslipidemia: Status: Acute (5) Obesity: Status: Acute (6) Infection of pacemaker pocket: Status: Acute (7) Community acquired pneumonia: Status: Acute Patient has possible pacemaker pocket infection. There is fluctuance and small amount of pus seen at the pacemaker site. Her white cell count is elevated. Pacemaker was put in by Dr. Cortez in [facility]. I spoke with him that she will need evaluation and possible extraction of pacemaker secondary to infection. We will transfer the patient to [facility] in [place]. Continue diuresis. Continue antibiotics. She has possible pneumonia on the CT scan that was performed. Thank you for involving us with care of this patient. Please call with questions. Coding Level of Care Code Acute Cloth Measurer Machine for Wilfred Fwd Diagnoses At risk for complication at site of pacemaker Z91.89 CHF exacerbation I50.9 Diastolic CHF I50.30 Dyslipidemia E78.5 Obesity E66.9 Infection of pacemaker pocket T82.7XXA Community acquired pneumonia J18.9
[2020-07-09 10:37] LABS: Lactate Dehydrogenase 288 U/L (135-214)
[2020-07-09] MEDS: azithromycin 250 mg Tablet 500 MG PO (11:34)
[2020-07-09] MEDS: amlodipine 10 mg Tablet PO (11:35)
--- NOTE | 2020-07-09 12:38 | PM.TDS ---
Transfer Summary Providers Date of Admission: 07/08/20 18:21 Date of Discharge: 07/09/20 Attending Provider at Admission: George Montaño MD Attending Provider at Transfer: George Montaño MD Consults: Cardiology: Dr. Shaw Primary Care Provider: ANUSHA De La Rosa Anticipated Date of Transfer: Anticipated date of transfer: 07/09/20 Receiving Facility & Provider: Receiving Provider: [Dr. Brown] Receiving facility: [[facility]] Diagnoses at Discharge Discharge Diagnosis (1) CHF exacerbation: Status: Acute (2) Acute and chronic respiratory failure with hypoxia: Status: Acute (3) Sepsis: Status: Acute (4) Acute kidney injury superimposed on chronic kidney disease: Status: Acute (5) Cellulitis: Status: Acute (6) At risk for complication at site of pacemaker: Status: Acute Reason for Visit Reason for Visit: SOB Hospital Course Hospital Course Ayla Montilla is a 64 year old female who has multiple comorbidities such as rheumatoid arthritis, preserved ejection fraction heart failure, grade 1 diastolic dysfunction, mild aortic valve regurgitation, immunocompromised takes prednisone and immunomodulators, status post pacemaker placement for third-degree AV block in April last year presented today with chief complaint of worsening shortness of breath. Patient is stating that at home she takes 2 L nasal cannula [id number], for last few weeks she has been experiencing more shortness of breath on exertion and now it has gotten worse to the point of orthopnea and PND, she has gained 4-5 pounds in last few days as well, she was 268 pounds last week today she was 271 pounds, she tries to follow diabetic restricted diet, denies fever, nausea but experienced 1 episode of emesis after excessive bouts of cough. She is also noticing some abdominal bloating without any pain, she experienced 1 episode of loose stools on Wednesday which resolved. She went to her PCP because of above-mentioned complaints who recommended her to go to the hospital. No active chest pain, syncope, dysuria recent change in bowel movement. Diagnostics in the ER revealed acute on chronic hypoxic respiratory failure she was requiring 4 to 5 L of nasal cannula oxygen supplementation, on exertion she was getting hypoxic in 80s on her regular 2 L nasal cannula, she met sepsis criteria in the ED, she received 40 mg IV Lasix along morphine, CT chest revealed bilateral pulmonary edema with consolidation more prominent on the left with left-sided pleural effusion however I do not see any abscess around pacemaker site, her left-sided pacemaker site does have purulent cellulitis, Covid PCR has been sent. She was started on broad-spectrum antibiotics. Cardiology was consulted for high likelihood of pacemaker site infection. CT chest was done which was consistent with bilateral groundglass opacities more on the left. Patient remained hemodynamically stable and afebrile during hospitalization. As per cardiology recommendation patient has l high likelihood of possible pacemaker site infection because of arrhythmia, fluctuance. Because of the same cardiology recommended patient to be transferred to [facility] where patient got pacemaker implanted in April for possible pacemaker site exploration and if needed surgical debridement. Because of all the above cardiology team spoke with Dr. Cortez at [facility] who had done pacemaker implantation for the patient in April 2020. Patient was gracefully accepted by the team at [facility] and has been transferred for further care. She has been transferring hemodynamically stable condition. Physical Exam Narrative: EXAM NARRATIVE: Very pleasant middle-aged female who appears more than stated age Currently saturating well on 4 L nasal cannula 92% Clinical signs of fluid overload S1, S2, systolic aortic regurgitation murmur appreciated right second intercostal space Swelling of lower extremities extending up to her abdominal wall 3+ pitting edema, Venous stasis dermatitis of lower extremities Left subclavian pacemaker site doesn't look infected with purulent cellulitis, there is granulation tissue however 0.5x0.5 wound has been purulent base, no fluctuant deep abscess noted, pacemaker site itself is not tender Bilateral breath sounds with crepitation and crackles left greater than right No acute respiratory distress Abdomen soft bowel sound present distended abdomen Appropriate mood and affect Neurologically nonfocal deficit EOMI, PERRLA No joint swelling Urinary Catheter Management^: Culp: Cath Placed During This Visit: yes Reason for Continuing Indwelling Catheter: Accurate Measurement of Urinary Output in Critically Ill Patients Urinary Catheter Date of Insertion: 07/08/20 Urinary Catheter Time of Insertion: 18:50 TS Data Data Completed and Pending: Completed Studies During Hospitalization Category Date Time Status CT chest wo con 7 1250 Stat Cat Scan 07/08/20 18:14 Completed XR chest 1V tammy ble [id number] Stat Exams 07/08/20 15:11 Completed Pending at discharge Category Date Time Status Bacterial Antigen Stat Lab 07/08/20 20:09 Ordered Blood Culture Sta t Lab 07/08/20 21:15 Results Coronavirus Test [facility] ne Lab 07/08/20 18:53 Received Legionella Antige n STAT Stat Lab 07/08/20 20:09 Ordered Sputum Culture an d Gram Stain Stat Lab 07/09/20 10:03 Uncollected Urinalysis and Mi croscopic Routine Lab 07/09/20 10:03 Uncollected CV echo complete* [id number] Routine Ultrasound 07/09/20 21:41 Taken Labs from last 24 hours 07/09/20 07/09/20 07/09/20 06:10 05:48 05:48 WBC RBC Hgb Hct MCV MCH MCHC RDW Plt Count MPV Neut % (Auto) Lymph % (Auto) [place]ombs % (Auto) Eos % (Auto) Baso % (Auto) Neut # (Auto) Lymph # (Auto) [place]ombs # (Auto) Eos # (Auto) Baso # (Auto) Nucleated RBC % (a uto) Nucleated RBCs # PT INR D-Dimer Specimen Type Sample Site ABG pH ABG pCO2 ABG pO2 ABG HCO3 ABG Base Excess Artem Test Hematocrit O2 Delivery Device O2 Liters/Min FiO2 Microphone Boom Operator ID Sodium 136 Potassium 4.1 Chloride 94 L Carbon Dioxide 32 H Anion Gap 14.1 BUN 45 H Creatinine 1.7 H GFR Calculation 30.5 L Glucose 208 H POC Glucose 225 H Calculated Osmolal ity 300 H Lactic Acid Calcium 8.9 Total Bilirubin 0.5 AST 10 ALT 11 Alkaline Phosphata se 154 H Lactate Dehydrogen ase 288 H Troponin T Baselin e Troponin T 120 Min table mountain Delta Troponin T Troponin T Hi Sens 6Hr Troponin T Hi Sens 6Hr Delta NT-Pro-B Natriuret Pep Total Protein 6.7 Albumin 3.3 L Globulin 3.4 Procalcitonin Nasal/Oral COVID-1 9 PCR SARS-CoV-2 Ag (Rap id) 07/09/20 07/09/20 07/08/20 05:48 01:34 21:15 WBC 22.0 H RBC 3.02 L Hgb 8.6 L Hct 28.6 L MCV 94.7 MCH 28.5 MCHC 30.1 RDW 14.6 Plt Count 284 MPV 10.4 Neut % (Auto) 84.3 Lymph % (Auto) 8.5 Toombs % (Auto) 4.9 Eos % (Auto) 1.1 Baso % (Auto) 0.3 Neut # (Auto) 18.53 H Lymph # (Auto) 1.9 Toombs # (Auto) 1.1 H Eos # (Auto) 0.3 Baso # (Auto) 0.1 Nucleated RBC % (a uto) 0 Nucleated RBCs # 0.0 PT INR D-Dimer Specimen Type Sample Site ABG pH ABG pCO2 ABG pO2 ABG HCO3 ABG Base Excess Artem Test Hematocrit O2 Delivery Device O2 Liters/Min FiO2 Microphone Boom Operator ID Sodium Potassium Chloride Carbon Dioxide Anion Gap BUN Creatinine GFR Calculation Glucose POC Glucose 222 H Calculated Osmolal ity Lactic Acid 1.2 Calcium Total Bilirubin AST ALT Alkaline Phosphata se Lactate Dehydrogen ase Troponin T Baselin e Troponin T 120 Min table mountain Delta Troponin T Troponin T Hi Sens 6Hr Troponin T Hi Sens 6Hr Delta NT-Pro-B Natriuret Pep Total Protein Albumin Globulin Procalcitonin Nasal/Oral COVID-1 9 PCR SARS-CoV-2 Ag (Rap id) 07/08/20 07/08/20 07/08/20 20:41 20:32 18:53 WBC RBC Hgb Hct MCV MCH MCHC RDW Plt Count MPV Neut % (Auto) Lymph % (Auto) Toombs % (Auto) Eos % (Auto) Baso % (Auto) Neut # (Auto) Lymph # (Auto) Toombs # (Auto) Eos # (Auto) Baso # (Auto) Nucleated RBC % (a uto) Nucleated RBCs # PT INR D-Dimer Specimen Type Sample Site ABG pH ABG pCO2 ABG pO2 ABG HCO3 ABG Base Excess Artem Test Hematocrit O2 Delivery Device O2 Liters/Min FiO2 Microphone Boom Operator ID Sodium Potassium Chloride Carbon Dioxide Anion Gap BUN Creatinine GFR Calculation Glucose POC Glucose 240 H Calculated Osmolal ity Lactic Acid Calcium Total Bilirubin AST ALT Alkaline Phosphata se Lactate Dehydrogen ase Troponin T Baselin e Troponin T 120 Min table mountain Delta Troponin T Troponin T Hi Sens 6Hr 37.92 H Troponin T Hi Sens 6Hr Delta -4.08 L NT-Pro-B Natriuret Pep Total Protein Albumin Globulin Procalcitonin Nasal/Oral COVID-1 9 PCR Pending SARS-CoV-2 Ag (Rap id) 07/08/20 07/08/20 07/08/20 16:50 16:50 16:50 WBC RBC Hgb Hct MCV MCH MCHC RDW Plt Count MPV Neut % (Auto) Lymph % (Auto) Toombs % (Auto) Eos % (Auto) Baso % (Auto) Neut # (Auto) Lymph # (Auto) [place]ombs # (Auto) Eos # (Auto) Baso # (Auto) Nucleated RBC % (a uto) Nucleated RBCs # PT INR D-Dimer 1.42 H Specimen Type Sample Site ABG pH ABG pCO2 ABG pO2 ABG HCO3 ABG Base Excess Artem Test Hematocrit O2 Delivery Device O2 Liters/Min FiO2 Microphone Boom Operator ID Sodium Potassium Chloride Carbon Dioxide Anion Gap BUN Creatinine GFR Calculation Glucose POC Glucose Calculated Osmolal ity Lactic Acid Calcium Total Bilirubin AST ALT Alkaline Phosphata se Lactate Dehydrogen ase Troponin T Baselin e Troponin T 120 Min table mountain 36.62 H Delta Troponin T -5.38 L Troponin T Hi Sens 6Hr Troponin T Hi Sens 6Hr Delta NT-Pro-B Natriuret Pep Total Protein Albumin Globulin Procalcitonin 0.19 Nasal/Oral COVID-1 9 PCR SARS-CoV-2 Ag (Rap id) 07/08/20 07/08/20 07/08/20 16:20 16:00 15:11 WBC RBC Hgb Hct MCV MCH MCHC RDW Plt Count MPV Neut % (Auto) Lymph % (Auto) [place]ombs % (Auto) Eos % (Auto) Baso % (Auto) Neut # (Auto) Lymph # (Auto) [place]ombs # (Auto) Eos # (Auto) Baso # (Auto) Nucleated RBC % (a uto) Nucleated RBCs # PT INR D-Dimer Specimen Type Arterial Sample Site Radial, left ABG pH 7.40 ABG pCO2 53.1 H ABG pO2 69.0 L ABG HCO3 33.1 H ABG Base Excess 7.2 H Artem Test Pos Hematocrit 30.1 L O2 Delivery Device Nc O2 Liters/Min 3.0 FiO2 32.0 Microphone Boom Operator ID Cak Sodium Potassium Chloride Carbon Dioxide Anion Gap BUN Creatinine GFR Calculation Glucose POC Glucose Calculated Osmolal ity Lactic Acid Calcium Total Bilirubin AST ALT Alkaline Phosphata se Lactate Dehydrogen ase Troponin T Baselin e 42 H Troponin T 120 Min table mountain Delta Troponin T Troponin T Hi Sens 6Hr Troponin T Hi Sens 6Hr Delta NT-Pro-B Natriuret Pep Total Protein Albumin Globulin Procalcitonin Nasal/Oral COVID-1 9 PCR SARS-CoV-2 Ag (Rap id) Negative 07/08/20 07/08/20 07/08/20 15:11 15:11 15:11 WBC 25.6 H RBC 3.20 L Hgb 9.4 L Hct 30.2 L MCV 94.4 MCH 29.4 MCHC 31.1 RDW 14.4 Plt Count 288 MPV 10.4 Neut % (Auto) 86.6 Lymph % (Auto) 6.9 Toombs % (Auto) 4.8 Eos % (Auto) 0.7 Baso % (Auto) 0.3 Neut # (Auto) 22.12 H Lymph # (Auto) 1.8 Toombs # (Auto) 1.2 H Eos # (Auto) 0.2 Baso # (Auto) 0.1 Nucleated RBC % (a uto) 0 Nucleated RBCs # 0.0 PT 13.90 INR 1.04 D-Dimer Specimen Type Sample Site ABG pH ABG pCO2 ABG pO2 ABG HCO3 ABG Base Excess Artem Test Hematocrit O2 Delivery Device O2 Liters/Min FiO2 Microphone Boom Operator ID Sodium 134 L Potassium 5.1 Chloride 92 L Carbon Dioxide 33 H Anion Gap 14.1 BUN 46 H Creatinine 1.8 H GFR Calculation 28.5 L Glucose 234 H POC Glucose Calculated Osmolal ity 297 H Lactic Acid Calcium 9.2 Total Bilirubin 0.5 AST 12 ALT 14 Alkaline Phosphata se 120 H Lactate Dehydrogen ase Troponin T Baselin e Troponin T 120 Min table mountain Delta Troponin T Troponin T Hi Sens 6Hr Troponin T Hi Sens 6Hr Delta NT-Pro-B Natriuret Pep 1030 H Total Protein 6.4 L Albumin 3.7 Globulin 2.7 Procalcitonin Nasal/Oral COVID-1 9 PCR SARS-CoV-2 Ag (Rap id) Vitals: Last Vital Signs Temp 97.9 F 07/09/20 11:42 Pulse 85 07/09/20 11:42 Resp 17 07/09/20 11:42 BP 173/74 07/09/20 11:42 Pulse Ox 91 07/09/20 11:42 TS Medications Medications Home Medications montelukast 10 mg tablet 10 mg PO DAILY@1999 tab 06/12/19 [History Confirmed 07/08/20] insulin lispro 100 unit/mL subcutaneous solution 1 sliding scale dose SUBCUT TID ml 09/18/19 [History Confirmed 07/08/20] nitroglycerin 0.4 mg sublingual tablet 0.4 mg SUBLINGUAL Q5M PRN 09/18/19 [History Confirmed 07/08/20] ergocalciferol (vitamin D2) 1,250 mcg (50,000 unit) capsule 1,250 mcg PO .weekly cap 02/15/20 [History Confirmed 07/08/20] insulin glargine 100 unit/mL subcutaneous solution 50 unit SUBCUT BID@08,1999 ml 03/06/20 [History Confirmed 07/08/20] sitagliptin 50 mg tablet See Rx Instructions .ROUTE .COMPLEX #30 tab 03/29/20 [Rx Confirmed 07/08/20] furosemide 80 mg tablet 80 mg PO BID@799,1999 PRN tab 05/14/20 [History Confirmed 07/08/20] hydrocodone 5 mg-acetaminophen 325 mg tablet 1 tab PO TID@ tab 05/14/20 [History Confirmed 07/08/20] Home Oxygen Continous #1 ea 05/23/20 [Rx Confirmed 07/08/20] Shower chair #1 ea 05/23/20 [Rx Confirmed 07/08/20] tocilizumab 162 mg/0.9 mL subcutaneous syringe 162 mg SUBCUT .Q7days #4 ml 06/03/20 [Rx Confirmed 07/08/20] atorvastatin 80 mg tablet 80 mg PO DAILY@0800 06/04/20 [History Confirmed 07/08/20] Pataday 1 drp OPHTHALMIC (EYE) DAILY@0807/08/20 [History Confirmed 07/08/20] albuterol sulfate See Rx Instructions .ROUTE .COMPLEX 07/08/20 [History Confirmed 07/08/20] amlodipine 10 mg PO DAILY@0807/08/20 [History Confirmed 07/08/20] duloxetine 60 mg PO DAILY@0807/08/20 [History Confirmed 07/08/20] hydralazine 25 mg PO TID@07/08/20 [History Confirmed 07/08/20] ketoconazole 1 applic TOPICAL BID@07/08/20 [History Confirmed 07/08/20] metolazone 5 mg PO DAILY@0807/08/20 [History Confirmed 07/08/20] pantoprazole 40 mg PO DAILY@0807/08/20 [History Confirmed 07/08/20] potassium chloride 20 meq PO DAILY@0821 [History Confirmed 07/08/20] prednisone 5 mg PO DAILY@0800 07/08/20 [History Confirmed 07/08/20] Active Medications Hydrocodone Bitart/Acetaminophen (Hydrocodone-Acetaminophen 5-325 Mg Tablet) 1 tab PO TID@,, [facility] Last Admin: 07/09/20 08:10 Dose: 1 tab Documented by: Albuterol/Ipratropium (Ipratropium-Albuterol 3 Ml Neb) 3 ml INHALATION Q4H PRN PRN Reason: SHORTNESS OF BREATH Amlodipine Besylate (Amlodipine 10 Mg Tablet) 10 mg PO DAILY@0800 [facility] Last Admin: 07/09/20 11:35 Dose: 10 mg Documented by: Atorvastatin Calcium (Atorvastatin 40 Mg Tablet) 80 mg PO DAILY@0800 [facility] Last Admin: 07/09/20 08:10 Dose: 80 mg Documented by: Azithromycin (Azithromycin 250 Mg Tablet) 500 mg PO DAILY [facility]; Protocol Last Admin: 07/09/20 11:34 Dose: 500 mg Documented by: Duloxetine HCl (Duloxetine 60 Mg Capsule) 60 mg PO DAILY@0800 [facility] Furosemide (Furosemide 10 Mg/Ml Sdv 10ml) 80 mg IVP Q12H [facility] Heparin Sodium (Beef Lung) (Heparin 5,000 Unit/Ml Inj 1 Ml) 5,000 unit SUBCUT Q12H [facility] Last Admin: 07/09/20 11:34 Dose: 5,000 unit Documented by: Hydralazine HCl (Hydralazine 25 Mg Tablet) 25 mg PO TID@ [facility] Last Admin: 07/09/20 08:10 Dose: 25 mg Documented by: Piperacillin Sod/Tazobactam (Sod 3.375 gm/ Sodium Chloride) 50 mls @ 12.5 mls/hr IV Q8H [facility]; Protocol Vancomycin/PEG/NADA/Lysine/Water (Vancocin) 1,250 mg in 250 mls @ 200 mls/hr IV Q24H [facility] Insulin Aspart (Insulin Aspart 100 Unit/1 Ml) 0 unit SUBCUT WM&BEDTIME [facility]; Protocol Last Admin: 07/09/20 08:09 Dose: 8 unit Documented by: Insulin Glargine (Insulin Glargine 100 Units/1 Ml) 50 unit SUBCUT BID@0800,1999 [facility] Last Admin: 07/09/20 08:36 Dose: 50 unit Documented by: Ketoconazole (Ketoconazole Cream 15 Gm) 1 applic TOPICAL BID@ [facility] Last Admin: 07/09/20 08:36 Dose: 1 applic Documented by: Metolazone (Metolazone 5 Mg Tablet) 5 mg PO DAILY [facility] Montelukast Sodium (Montelukast Sodium 10 Mg Tablet) 10 mg PO DAILY@1999 [facility] Morphine Sulfate (Morphine 4 Mg/Ml Sdv 1 Ml) 2 mg IVP Q4H PRN PRN Reason: SEVERE PAIN Ondansetron HCl (Ondansetron 2 Mg/Ml Sdv 2 Ml) 4 mg IVP Q6H PRN PRN Reason: NAUSEA AND VOMITING Pantoprazole Sodium (Pantoprazole Dr 40 Mg Tablet) 40 mg PO DAILY@08 [facility] Last Admin: 07/09/20 08:10 Dose: 40 mg Documented by: Potassium Chloride (Potassium Chloride Er 20 Meq Tablet) 20 meq PO DAILY@08 [facility] Last Admin: 07/09/20 08:11 Dose: 20 meq Documented by: Prednisone (Prednisone 5 Mg Tablet) 5 mg PO DAILY@08 [facility] Discharge Plan Discharge Patient Disposition: Home Condition: Stable Prescriptions: No Action montelukast [Singulair] 10 mg tablet 10 mg PO DAILY@1999 RF: 0 hydrocodone-acetaminophen 5-325 mg tablet 1 tab PO TID@ RF: 0 furosemide [Lasix] 80 mg tablet 80 mg PO BID@ PRN (Reason: Edema) RF: 0 Lantus U-100 Insulin 100 unit/mL solution 50 unit SUBCUT BID@ RF: 0 (DME) Home Oxygen Continous See Rx Instructions .Route .MEDSUPPLY Qty: 1 RF: 0 (DME) Shower chair See Rx Instructions .Route .MEDSUPPLY Qty: 1 RF: 0 atorvastatin [Lipitor] 80 mg tablet 80 mg PO DAILY@08 RF: 0 insulin lispro [Humalog U-100 Insulin] 100 unit/mL solution 1 sliding scale dose SUBCUT TID RF: 0 nitroglycerin [Nitrostat] 0.4 mg tablet, sublingual 0.4 mg SUBLINGUAL Q5M PRN (Reason: chest pains) RF: 0 ergocalciferol (vitamin D2) 1,250 mcg (50,000 unit) capsule 1,250 mcg PO .weekly RF: 0 sitagliptin [Januvia] 50 mg tablet See Rx Instructions .ROUTE .COMPLEX Qty: 30 RF: 2 Actemra 162 mg/0.9 mL syringe 162 mg SUBCUT .Q7days Qty: 4 RF: 3 albuterol sulfate 90 mcg/actuation HFA aerosol inhaler See Rx Instructions .ROUTE .COMPLEX RF: 0 prednisone 5 mg tablet 5 mg PO DAILY@0800 RF: 0 metolazone 5 mg tablet 5 mg PO DAILY@0800 RF: 0 hydralazine 25 mg tablet 25 mg PO TID@08,12,20 RF: 0 potassium chloride 20 mEq tablet,ER particles/crystals 20 meq PO DAILY@0800 RF: 0 amlodipine 10 mg tablet 10 mg PO DAILY@0800 RF: 0 pantoprazole 40 mg tablet,delayed release (DR/EC) 40 mg PO DAILY@0800 RF: 0 ketoconazole 2 % cream 1 applic topical BID@0800,1999 RF: 0 duloxetine 60 mg capsule,delayed release(DR/EC) 60 mg PO DAILY@0800 RF: 0 Pataday 0.2 % drops 1 drp ophthalmic (eye) DAILY@0800 RF: 0 Discharge Orders: Transfer Out of Facility (Order); Ordered 07/09/20 Ordered By: George Montaño Transfer Attestations Time Spent in Transfer Care*: greater than 30 min Specific Discharge Activities: Specific discharge activities: educating patient, discussing with pcp/other providers, discussing with watch caser/social workers/dc planners and documenting/other paperwork Status at Transfer: Cognitive status at transfer: cognitively intact, Behavioral status at transfer: cooperative, Functional status at transfer: independent ambulation Overall status at transfer: patient is progressing back to baseline Quality Metrics Clinical Quality Measures: During this hospital stay, did patient experience: None Coding Level of Care Code Acute Tool Profiling Machine Set Up Operator for Wilfred Fwd Diagnoses CHF exacerbation I50.9 Acute and chronic respiratory failure with hypoxia J96.21 Sepsis A41.9 Acute kidney injury superimposed on chronic kidney disease N17.9; N18.9 Cellulitis L03.90 At risk for complication at site of pacemaker Z91.89
[2020-07-09] MEDS: vancomycin 1,250 MG/250 ML PIGGYBACK 200 MG IV (13:20)
[2020-07-09 14:10] LABS: Glucose Urine UA 2+ (Normal); Protein Urine 3+ (Negative); Specific Gravity, Urine 1.015 (1.005-1.030); Urine Appearance Hazy (CLEAR); Urine Color Yellow (Yellow); pH Urine 5 (5-7)
[2020-07-09 14:11] LABS: Bilirubin Urine Neg (Negative); Blood Urine 2+ (Negative); Ketones Urine Negative (Negative); Leukocyte Esterase Urine 2+ (Negative); Nitrate Urine Negative (Negative); Urobilinogen Urine Norm (Negative)
[2020-07-09 14:14] LABS: Amorphous Sediment Urine 2+ /hpf; Bacteria Urine 2+ /hpf; Mucus Urine 1+ /hpf; RBC Urine 0-4 /hpf (0-2); Squamous Epithelial Cell Urine 0-4 /hpf (0-5); WBC Urine TOO NUMEROUS TO CNT /hpf (0-5)
[2020-07-09 14:15] LABS: Add Urine Culture? Yes; Hyaline Casts Urine 25-40 /lpf
[2020-07-09] MEDS: piperacillin-tazobactam 3.375 GM in sodium chloride 0.9% (plus) 50 ML IV (14:18)
[2020-07-09 16:15] LABS: Glucose Point of Care 298 mg/dL (70-110)
[2020-07-09 16:15] LABS: Glucose Point of Care 388 mg/dL (70-110)
[2020-07-09 16:53] LABS: Coronavirus Test Green County Not Detected
[2020-07-09] MEDS: FUROsemide 10 mg/mL SDV 10mL 80 MG IVP (17:10)
--- NOTE | 2020-07-09 19:50 | PC.NURSE ---
1745 patient transferred to [facility] to drip pumper for possible pacemaker site infection. Patient discharged in the care of EMS in stable condition.
--- NOTE | 2020-07-09 21:41 | USCV_ITS ---
Ayla Montilla Age: 64 Gender: F : 1955 Exam Date: 07/09/2020 06:28 Ordering Phys: Jesus Hancock MD Technologist: Ralph Martinez Exam Location: [facility] [place] Indication: CHF AND PM CELLUTIS BP: 132 / 75 HR: 86 Rhythm: Sinus Technical Quality: Very technically difficult study MEASUREMENTS (Male / Female) Normal Values 2D ECHO LV Diastolic Diameter PLAX 4.0 cm 4.2 - 5.9 / 3.9 - 5.3 cm LV Systolic Diameter PLAX 2.9 cm IVS Diastolic Thickness 0.9 cm 0.6 - 1.0 / 0.6 - 0.9 cm IVS Systolic Thickness 1.4 cm LVPW Diastolic Thickness 1.1 cm 0.6 - 1.0 / 0.6 - 0.9 cm LVPW Systolic Thickness 1.5 cm LVOT Diameter 2.0 cm LV Ejection Fraction 2D Teich 54.7 % LV Ejection Fraction MOD 2C 62.0 % LV Ejection Fraction 2C AL 60.3 % LA Diameter 3.7 cm LA Width 4.4 cm LA Height 5.7 cm RA Width 4.1 cm RA Height 5.7 cm Aorta at Sinotubular Diameter 2.5 cm M-MODE LV Diastolic Diameter MM 5.1 cm 4.2 - 5.9 / 3.9 - 5.3 cm LV Systolic Diameter MM 3.1 cm LV Ejection Fraction MM Teich 69.7 % IVS Diastolic Thickness MM 1.3 cm 0.6 - 1.0 / 0.6 - 0.9 cm IVS Systolic Thickness MM 1.8 cm LVPW Diastolic Thickness MM 1.4 cm 0.6 - 1.0 / 0.6 - 0.9 cm LVPW Systolic Thickness MM 1.9 cm RV Diastolic Diameter MM 1.8 cm Aortic Annulus Diameter 3.7 cm LA Ao Ratio MM 1.2 MV E Point Septal Separation 0.8 cm DOPPLER AV Peak Velocity 187.0 cm/s LVOT Peak Velocity 124.0 cm/s AV Area Cont Eq vti 2.4 cm squared AV Area Cont Eq pk 2.2 cm squared MV Area PHT 5.0 cm squared Mitral E to A Ratio 0.9 MV E' Velocity 74.5 cm/s Mitral E to MV E' Ratio 17.8 Mitral E to LV E' Lateral Ratio 14.6 Mitral E to LV E' Septal Ratio 22.7 TR Peak Velocity 155.0 cm/s TR Peak Gradient 9.6 mmHg TV Peak E Velocity 85.0 cm/s Right Atrial Pressure 3.0 mmHg Pulmonary Artery Systolic Pressu 12.6 mmHg FINDINGS Left Ventricle Normal left ventricular cavity size. Normal left ventricular systolic function. Left ventricular ejection fraction is estimated at 69 %. No regional wall motion abnormalities. Grade I/IV diastolic dysfunction (abnormal relaxation filling pattern), normal to mildly elevated filling pressures. Right Ventricle The right ventricle is normal in size and function. Right Atrium The right atrium is normal in size. Left Atrium The left atrium is normal in size. Mitral Valve Structurally normal mitral valve without significant stenosis or prolapse. There is no mitral regurgitation. Aortic Valve Structurally normal aortic valve without significant sclerosis or stenosis. There is no aortic regurgitation. Tricuspid Valve Structurally normal tricuspid valve without significant stenosis or regurgitation. Pulmonary artery systolic pressure is normal. Pulmonic Valve Structurally normal pulmonic valve without significant stenosis. There is no pulmonic regurgitation. Pericardium Normal pericardium without effusion. Aorta Normal ascending aorta dimension. CONCLUSIONS 1-Normal left ventricular cavity size. Normal left ventricular systolic function. Left ventricular ejection fraction is estimated at 69 %. No regional wall motion abnormalities. Grade I/IV diastolic dysfunction (abnormal relaxation filling pattern), normal to mildly elevated filling pressures. 2-No significant valve abnormalities. 3-There is no pericardial effusion. 4-Pulmonary artery systolic pressure is within normal limits. 5-Right atrial pressure is around 5 mm of mercury. 6-No significant change since the prior echocardiogram study of 08/04/2018.. Jesus Tai MD (Electronically Signed) Final Date: 09 July 2020 18:53 S
== END 2020-07-09 17:45 | disposition skilled nursing facility (03) | DRG 871 ==
LOC: ER 15:40 → MEDSURG 19:21
PROVIDERS: Internal Medicine; Nurse Practitioner Family; Admitting Provider Student in an Organized Health Care Education/Training Program; Emergency Provider Family Medicine; PCP Nurse Practitioner Family; Visit Provider Student in an Organized Health Care Education/Training Program
DX: A41.9 Sepsis, unspecified organism (principal); J96.21 Acute and chronic respiratory failure with hypoxia; I50.33 Acute on chronic diastolic (congestive) heart failure; J18.9 Pneumonia, unspecified organism; D84.9 Immunodeficiency, unspecified; T82.7XXA Infection and inflammatory reaction due to other cardiac and vascular devices, implants and grafts, initial encounter; I13.0 Hypertensive heart and chronic kidney disease with heart failure and stage 1 through stage 4 chronic kidney disease, or unspecified chronic kidney disease; Z68.42 Body mass index [BMI] 45.0-49.9, adult; N17.9 Acute kidney failure, unspecified; M06.00 Rheumatoid arthritis without rheumatoid factor, unspecified site; I35.1 Nonrheumatic aortic (valve) insufficiency; Z95.0 Presence of cardiac pacemaker; Y71.1 Therapeutic (nonsurgical) and rehabilitative cardiovascular devices associated with adverse incidents; E11.22 Type 2 diabetes mellitus with diabetic chronic kidney disease; E11.65 Type 2 diabetes mellitus with hyperglycemia; N18.9 Chronic kidney disease, unspecified; E78.2 Mixed hyperlipidemia; M79.7 Fibromyalgia; R59.0 Localized enlarged lymph nodes; E03.9 Hypothyroidism, unspecified; E66.9 Obesity, unspecified; Z87.440 Personal history of urinary (tract) infections; E55.9 Vitamin D deficiency, unspecified; Z79.891 Long term (current) use of opiate analgesic; Z79.4 Long term (current) use of insulin
CPT/HCPCS: 12345; 36415; 36416; 36600; 51702; 71045; 71250; 80053; 81001; 82803; 82962; 83605; 83615; 83880; 84145; 84484; 85025; 85378; 85610; 87040; 87086; 87426; 87635; 93005; 93306; 96372; 99282; J0692; J1644; J1815 ×2; J1940; J2020; J2543; J3370; J3490; J8540; Q0144

== ENCOUNTER 2020-09-09 09:09 | Emergency (ER) | payer MEDICARE, MEDICAID, SELFPAY ==
[2020-09-09 09:09] VITALS: BP 161/74; PULSE 79; RESP 17; TEMP 36.8; O2SAT 97; BMI 47.5
--- NOTE | 2020-09-09 09:19 | W.ED.HA ---
HPI - Headache General: Chief Complaint: Headache Stated Complaint: HEADACHE/ FOOT PAIN Time Seen by Provider: 09/09/20 09:17 History of Present Illness: HPI Narrative: Patient is a 64-year-old female comes to the ED with headache. Patient has a past medical history of heart failure, hypertension, dyslipidemia, obesity, diabetes. patient says she woke up with a 10 out of 10 headache that starts in the front of her head. She also endorses nausea and some photophobia. She states she has had history of headaches in the past but has never woken up with this headache. She described it as her head being squeezed. Patient took a hydrocodone 5/325 mg tablet this morning when she woke up and now her headache is rated a 5 out of 10. She states she does not currently need 1 anything here to treat her headache. Denies any vision changes, numbness tingling to face or extremities, weakness to extremities or face. She did say that over the weekend she had bilateral ear pain. Denies any fever, chills, chest pain shortness of breath, abdominal pain, vomiting, bladder or bowel symptoms. Patient does endorse some bilateral lower extremity edema over the past several weeks that has been improving. She says that approximately 2 months ago she was hospitalized and her leg edema was a lot worse then. Client Solutions Manager put her on the current Lasix schedule to remove the fluid, while taking it easy on her kidneys. She states that her lower extremity edema is a lot better than it was previously but she still has some pain in her legs. She tries to elevate them daily. Patient takes furosemide and metolazone to help manage fluid retention. Patient also weighs herself daily and is currently been losing weight. Associated symptoms: Deny chest pain, fever(s), nausea, rash or vomiting Review of Systems Const: Denies: fever(s), chills or fatigue Eyes: Denies: change in vision or eye discomfort ENMT: Denies: throat pain, odynophagia, nasal discharge or nasal congestion Card: Denies: chest pain, palpitations, edema, swelling of feet/ankles, dyspnea on exertion or orthopnea Resp: Denies: dyspnea, productive cough or non-productive cough GI: Denies: abdominal pain, nausea, vomiting, diarrhea, constipation or hematochezia : Denies: flank pain, dysuria or hematuria Musc: Reports: extremity swelling (Bilateral lower extremity edema.); Denies: neck pain or back pain Skin/Breast: Denies: rash or new lesions Neuro: Reports: headache(s); Denies: numbness in extremities or weakness in extremities PFSH ED PFSH: Medical History Allergic conjunctivitis Anemia Cellulitis of drainage site, post-operative Chronic kidney disease (CKD) Diabetes mellitus type 2, uncontrolled Diastolic heart failure Dyslipidemia Easy bruising Edema Essential (primary) hypertension Fibromyalgia Generalized weakness Hematuria High risk medication use Hilar lymphadenopathy Hypothyroid Hypoxia Immunization counseling Lung nodule Mixed hyperlipidemia Obesity Otitis media Rheumatoid arthritis with negative rheumatoid factor Seronegative erosive rheumatoid arthritis Thyroid nodule She has history of biopsy of thyroid nodule that was done at [facility] Urinary tract infection Vitamin D deficiency Surgical History H/O removal of cyst H/O shoulder surgery H/O toe surgery H/O total cystectomy History of hysterectomy Hx of cataract surgery Hx of tonsillectomy No pertinent past surgical history Status post placement of other cardiac pacemaker Family History Mother Cancer Fibromyalgia Arthritis Father Cancer Arthritis Social History Smoking and tobacco status: never smoked Alcohol intake: never Current occupational status: disabled History of recent travel: No Current gender identity: Female Physical Exam Const: COMMON NORMALS: no acute distress, patient oriented x3 and alert GENERAL APPEARANCE: cooperative and comfortable NUTRITIONAL APPEARANCE: obese HENMT: COMMON NORMALS: normocephalic HEAD & SCALP: normocephalic TYMPANIC MEMBRANE: TM abnormal TM laterality: right Details: dull and left Details: obstructed by cerumen MOUTH: Normal oral and palatal mucosa present THROAT: posterior oropharynx normal and uvula midline Neck/C-Spine: COMMON NORMALS: supple GENERAL: Yes normal visual inspection Resp: COMMON NORMALS: normal respiratory effort, No retractions, No use of accessory muscles and clear to auscultation bilaterally AUSCULTATION: clear to auscultation bilaterally Cardio: COMMON NORMALS: regular rate, regular rhythm, S1 normal heart sound present, S2 normal heart sound present, No gallops present (Cardio), No clicks present (Cardio), No murmurs present (Cardio) and Peripheral pulses 2+ throughout RATE: regular rate RHYTHM: regular rhythm HEART SOUNDS: S1 normal heart sound present and S2 normal heart sound present PERIPHERAL PULSES: Peripheral pulses 2+ throughout GI: COMMON NORMALS: Normal to inspection, nondistended, normoactive bowel sounds present, Soft to palpation, non-tender and no masses PALPATION: Yes Soft to palpation : COMMON NORMALS: Yes no CVA tenderness BLADDER/KIDNEY EXAM: Yes no CVA tenderness Back/Pelvis: COMMON NORMALS: no CVA tenderness Extremity: GENERAL: Yes edema (Bilateral 3+ pitting edema in lower extremities?edema goes up to the knee) Neuro: COMMON NORMALS: patient oriented x3, CN's II-XII intact bilaterally, moves all extremities, no focal motor deficits and no sensory deficits noted SENSORIUM/ORIENTATION: Yes alert COORDINATION/BALANCE: [id number] test normal SPEECH: speech normal SENSORY EXAM: Yes extremities (intact bilaterally) MOTOR EXAM: 5/5 motor strength present throughout COORDINATION: [id number] test normal Skin: GENERAL SKIN EXAM: dry skin Course Vital Signs: Vital signs: Vital Signs Temperature 98.3 F 09/09/20 09:09 Pulse Rate 78 09/09/20 11:04 Respiratory Rate 18 09/09/20 11:04 Blood Pressure 162/86 09/09/20 11:04 Pulse Oximetry 92 09/09/20 11:04 MDM - Headache MDM Narrative: Medical decision making narrative: Patient is a 64-year-old female comes to the ED with headache. She reports having some nausea and photophobia. Patient also has some bilateral lower extremity edema. She states that the edema was a lot worse about a month ago doctor put her on a different Lasix schedule and her lower extremity edema has been improving ever since. Denies any shortness of breath or chest pain. Physical exam shows a 64-year-old female who appears nontoxic and is in no acute distress. Patient has 3+ lower extremity edema bilaterally. CT of head shows no acute findings. Patient was given hydrocodone while here in the ED and her symptoms improved. Patient was diagnosed with a migraine headache and discharged home. She was told to follow-up with her PCP and practice advisor within the next week for reevaluation. Return to ED precautions given. Patient understood and agree with plan. Imaging Data^: CT Head: Attestation: I personally reviewed and interpreted this imaging study as follows: Radiologist's impression: [address] [place] [address] CT Scan Report Signed Patient: Ayla Montilla Unit #: [id number] : 1955 Age/Sex: 64 / F ADM Date: 09/09/20 Loc: ER Room/Bed: Attending Dr: Ordering Provider/Ordering MD: Cisco Marcos Date of Service: 09/09/20 Procedure(s): CT head wo con* [id number] Accession Number(s): [id number] Report Number: [id number] WS: [id number] CT HEAD NONCONTRAST HISTORY: severe sudden headache TECHNIQUE: Contiguous axial imaging performed through the brain in 2.5 mm imaging. Bone and soft tissue windows. Sagittal and coronal reformats reviewed. All CT scans at [facility] use at least one of these dose optimization techniques: automated exposure control; mA and/or kV adjustment per patient size (includes targeted exams where dose is matched to clinical indication); or iterative reconstruction. DLP: 893.1 mGy.cm COMPARISON: None available. No acute intracranial hemorrhage, midline shift or mass effect. Mild atrophy and mild chronic microvascular ischemic disease. Very tiny lacunar infarcts in the anterior limbs of the internal capsules. Additional small lacunar infarct in the LEFT basal ganglia. Ventricles: Normal size with no hydrocephalus. Paranasal sinuses: As visualized are clear. Mastoid air cells: Well pneumatized. Calvarium and scalp: Hyperostosis frontalis interna. CT/CT head wo con* [id number] IMPRESSION: 1. No acute intracranial hemorrhage or edema. 2. Small lacunar infarcts as described above. No acute infarct. Dictated By: Mary Jordan DO Signed By: Mary Jordan DO Signed Date/Time: 09/09/20 1014 DD/ 1012 Discharge Plan Discharge Patient Disposition: Home Clinical Impression: Leg edema Migraine Qualifiers: Migraine type: without aura Status migrainosus presence: without status migrainosus Intractability: not intractable Qualified Code(s): G43.009 - Migraine without aura, not intractable, without status migrainosus Condition: Stable Prescriptions: No Action montelukast [Singulair] 10 mg tablet 10 mg PO DAILY@1999 RF: 0 hydrocodone-acetaminophen 5-325 mg tablet 1 tab PO TID@ RF: 0 furosemide [Lasix] 80 mg tablet 80 mg PO BID@799,1999 PRN (Reason: Edema) RF: 0 Lantus U-100 Insulin 100 unit/mL solution 50 unit SUBCUT BID@ RF: 0 (DME) Home Oxygen Continous See Rx Instructions .Route .MEDSUPPLY Qty: 1 RF: 0 (DME) Shower chair See Rx Instructions .Route .MEDSUPPLY Qty: 1 RF: 0 atorvastatin [Lipitor] 80 mg tablet 80 mg PO DAILY@799 RF: 0 insulin lispro [Humalog U-100 Insulin] 100 unit/mL solution 1 sliding scale dose SUBCUT TID RF: 0 nitroglycerin [Nitrostat] 0.4 mg tablet, sublingual 0.4 mg SUBLINGUAL Q5M PRN (Reason: chest pains) RF: 0 ergocalciferol (vitamin D2) 1,250 mcg (50,000 unit) capsule 1,250 mcg PO .weekly RF: 0 hydralazine 25 mg tablet 50 mg PO TID@ RF: 0 sitagliptin [Januvia] 50 mg tablet See Rx Instructions .ROUTE .COMPLEX Qty: 30 RF: 2 Actemra 162 mg/0.9 mL syringe 162 mg SUBCUT .Q7days Qty: 4 RF: 3 albuterol sulfate 90 mcg/actuation HFA aerosol inhaler See Rx Instructions .ROUTE .COMPLEX RF: 0 prednisone 5 mg tablet 5 mg PO DAILY@0800 RF: 0 metolazone 5 mg tablet 5 mg PO DAILY@0800 RF: 0 potassium chloride 20 mEq tablet,ER particles/crystals 20 meq PO DAILY@0800 RF: 0 amlodipine 10 mg tablet 10 mg PO DAILY@0800 RF: 0 pantoprazole 40 mg tablet,delayed release (DR/EC) 40 mg PO DAILY@0800 RF: 0 ketoconazole 2 % cream 1 applic topical BID@ RF: 0 duloxetine 60 mg capsule,delayed release(DR/EC) 60 mg PO DAILY@08 RF: 0 Pataday 0.2 % drops 1 drp ophthalmic (eye) DAILY@0800 RF: 0 Discharge Orders: Discharge ED (Routine); Ordered 09/09/20 Ordered By: Cisco Marcos Referrals: STELLA Trevino, GAMBLING COUNSELLOR [Primary Care Provider] - Discharge Diet: Regular Discharge Activity: Increase activity as tolerated Patient Instructions: Migraine Headache (ED) Activity Restrictions/Additional Instructions: Follow-up with medical provider as directed. Contact your practice advisor and PCP to set up an appointment for reevaluation. Continue taking all home medications as previously prescribed. Return to the ER or your medical provider if condition worsens. Please read and understand discharge instructions. If any questions, please ask. Coding Level of Care Code ED Senior Asic Design Engineer for Dominguezg Fwd Exam Comprehensive
--- NOTE | 2020-09-09 09:46 | CT_ITS ---
WS: [id number] CT HEAD NONCONTRAST HISTORY: severe sudden headache TECHNIQUE: Contiguous axial imaging performed through the brain in 2.5 mm imaging. Bone and soft tiss ue windows. Sagittal and coronal reformats reviewed. All CT scans at [facility] use at ast one of these dose optimization techniques: automated exposure control; mA and/or kV adjustment pe r patient size (includes targeted exams where dose is matched to clinical indication); or iterative r econstruction. DLP: 893.1 mGy.cm COMPARISON: None available. No acute intracranial hemorrhage, midline shift or mass effect. Mild atrophy and mild chronic microvascular ischemic disease. Very tiny lacunar infarcts in the anter ior limbs of the internal capsules. Additional small lacunar infarct in the LEFT basal ganglia. Ventricles: Normal size with no hydrocephalus. Paranasal sinuses: As visualized are clear. Mastoid air cells: Well pneumatized. Calvarium and scalp: Hyperostosis frontalis interna. CT/CT head wo con* [id number] IMPRESSION: 1. No acute intracranial hemorrhage or edema. 2. Small lacunar infarcts as described above. No acute infarct.
--- NOTE | 2020-09-09 09:56 | PC.NURSE ---
EMS started and maintained IV. IV flushes without difficulty.
--- NOTE | 2020-09-09 09:56 | PC.NURSE ---
Patient ambulated to the bathroom without difficulty.
[2020-09-09] MEDS: HYDROcodone-acetaminophen 5-325 mg Tablet 1 TAB PO (11:00)
[2020-09-09 11:04] VITALS: BP 162/86; PULSE 78; RESP 18; O2SAT 92
== END 2020-09-09 11:11 | disposition home or self-care (01) ==
PROVIDERS: Emergency Provider Physician Assistant; PCP Nurse Practitioner Family
DX: G43.009 Migraine without aura, not intractable, without status migrainosus (principal); Z79.4 Long term (current) use of insulin; E11.9 Type 2 diabetes mellitus without complications; I11.0 Hypertensive heart disease with heart failure; I50.30 Unspecified diastolic (congestive) heart failure; E78.2 Mixed hyperlipidemia; Z95.0 Presence of cardiac pacemaker
CPT/HCPCS: 70450; 99283

== ENCOUNTER 2020-10-04 16:39 | Inpatient (IN) | payer MEDICARE, MEDICAID, SELFPAY ==
[2020-10-04] VITALS (7 sets, daily range): BP systolic 175–197; BP diastolic 61–94; PULSE 80–87; RESP 14–18; TEMP 36.5; O2SAT 93–98; BMI 52.3
--- NOTE | 2020-10-04 16:53 | XRR_ITS ---
PROCEDURE INFORMATION: Exam: XR Chest Exam date and time: 10/04/2020 4:55 PM Age: 64 years old Clinical indication: Cough and dyspnea; Prior surgery; Surgery type: Pacemaker; Additional info: Dyspnea/cough TECHNIQUE: Imaging protocol: XR of the chest. Views: 1 view. COMPARISON: 1. CT chest wo con [id number] 07/08/2020 7:11 PM 2. CR XR chest 1V portable [id number] 07/08/2020 3:33:37 PM FINDINGS: Tubes, catheters and devices: Intact Single lead left subclavian pacemaker. Lungs: Vascular congestion. Diffuse interstitial and central ground-glass opacities in both lungs. No focal consolidation. Pleural spaces: Probable small pleural effusions. No pneumothorax. Heart/Mediastinum: Cardiomegaly. Bones/joints: Unremarkable. XR/XR chest 1V portable [id number] IMPRESSION: Congestive heart failure pattern.
--- NOTE | 2020-10-04 16:54 | ECG_ITS ---
[facility] Test Date: 2020-10-04 Pat Name: Ayla Montilla Department: Room: Gender: Female Roll Coverer: : 1955 Requested By: Pramod Bell Order Number: [id number] Nitish MD: Sruthi Coronel M.D. Measurements Intervals Muir Rate: 83 P: 48 MS: 151 QRS: 93 QRSD: 146 T: -17 QT: 408 QTc: 481 Interpretive Statements SINUS RHYTHM BORDERLINE RIGHT AXIS DEVIATION [QRS AXIS > 90] INTRAVENTRICULAR CONDUCTION DELAY [130+ ms QRS DURATION] Compared to ECG 07/08/2020 21:18:26 Intraventricular conduction delay now present Right bundle-branch block no longer present T-wave abnormality no longer present Possible ischemia no longer present Electronically Signed On 10-05-2020 5:15:20 CDT by Sruthi Coronel M.D. [id number]
--- NOTE | 2020-10-04 16:55 | W.ED.SOB ---
HPI - SOB/Dyspnea General: Chief Complaint: Shortness of Breath/Dyspnea Stated Complaint: SOB/ ACUTE CHF Time Seen by Provider: 10/04/20 16:42 History of Present Illness: HPI Narrative: 64-year-old female presents emergency room from the correction and [place]. She was seen by a midlevel practitioner who helps cover for the physician who is her attending. He is more short of breath or more swelling in her legs so she was sent to the emergency room. She has not had any chest pain she is not had any dysuria urgency or frequency no abdominal pain she did recently have an adjustment in her diuretics by her rate analyst. MD elicited complaint: shortness of breath Pertinent past history: congestive heart failure Onset (ago): hour(s) Timing: constant Severity: severe Exacerbating factors: exertion and coughing Relieving factors: oxygen, rest and upright position Known history of: congestive heart failure Associated symptoms: Reports chest congestion, extremity pain and orthopnea; Deny abdominal pain, chest pain, cough, diaphoresis, dizziness, fever(s), hemoptysis, lightheadedness, myalgias, nausea, palpitations, paresthesias, polydipsia, polyuria, rash, sense of impending doom, syncope or vomiting Treatment prior to arrival: oxygen Review of Systems Const: Denies: fever(s) or diaphoresis ENMT: Denies: throat pain, ear or mastoid pain, nasal discharge or nasal congestion Card: Reports: orthopnea; Denies: chest pain, palpitations, lightheadedness or syncope Resp: Reports: chest congestion; Denies: hemoptysis GI: Denies: abdominal pain, nausea or vomiting : Denies: flank pain, difficulty voiding, dysuria, urinary frequency or urinary urgency Musc: Reports: extremity pain Skin/Breast: Denies: rash or pruritus Neuro: Denies: dizziness Endo: Denies: polyuria or polydipsia PFSH ED PFSH: Medical History Allergic conjunctivitis Anemia Cellulitis of drainage site, post-operative Chronic kidney disease (CKD) Diabetes mellitus type 2, uncontrolled Diastolic heart failure Dyslipidemia Easy bruising Edema Essential (primary) hypertension Fibromyalgia Generalized weakness Hematuria High risk medication use Hilar lymphadenopathy Hypothyroid Hypoxia Immunization counseling Lung nodule Mixed hyperlipidemia Obesity Otitis media Rheumatoid arthritis with negative rheumatoid factor Seronegative erosive rheumatoid arthritis Thyroid nodule She has history of biopsy of thyroid nodule that was done at [facility] Urinary tract infection Vitamin D deficiency Surgical History H/O removal of cyst H/O shoulder surgery H/O toe surgery H/O total cystectomy History of hysterectomy Hx of cataract surgery Hx of tonsillectomy No pertinent past surgical history Status post placement of other cardiac pacemaker Family History Mother Cancer Fibromyalgia Arthritis Father Cancer Arthritis Social History Smoking and tobacco status: never smoked Alcohol intake: never Current occupational status: disabled History of recent travel: No Current gender identity: Female Physical Exam Const: COMMON NORMALS: no acute distress GENERAL APPEARANCE: cooperative and comfortable ORIENTATION/CONSCIOUSNESS: Yes awake, Yes oriented to person, Yes oriented to place and Yes oriented to time HENMT: COMMON NORMALS: normocephalic, atraumatic and hearing grossly normal bilaterally HEAD & SCALP: normocephalic and atraumatic Neck/C-Spine: COMMON NORMALS: no JVD Resp: COMMON NORMALS: normal respiratory effort, No retractions, No use of accessory muscles and clear to auscultation bilaterally AUSCULTATION: clear to auscultation bilaterally Cardio: COMMON NORMALS: no JVD, regular rate, regular rhythm and No murmurs present (Cardio) RATE: regular rate RHYTHM: regular rhythm GI: COMMON NORMALS: Soft to palpation and No hepatosplenomegaly present AUSCULTATION: Yes normoactive bowel sounds PALPATION: Yes Soft to palpation, No Tenderness to palpation present (GI), No Guarding due to palpation present (GI) and Yes No hepatosplenomegaly present Extremity: GENERAL: Yes edema Neuro: SENSORIUM/ORIENTATION: Yes oriented to person, Yes oriented to place and Yes oriented to time Skin: COMMON NORMALS: no rashes or lesions noted GENERAL SKIN EXAM: no rashes or lesions noted Course Vital Signs: Vital signs: Vital Signs Temperature 97.7 F 10/04/20 16:45 Pulse Rate 85 10/04/20 16:45 Respiratory Rate 18 10/04/20 16:45 Blood Pressure 175/61 10/04/20 16:45 Pulse Oximetry 96 10/04/20 16:45 Discharge Plan Discharge Prescriptions: No Action montelukast [Singulair] 10 mg tablet 10 mg PO DAILY@1999 RF: 0 hydrocodone-acetaminophen 5-325 mg tablet 1 tab PO TID@ RF: 0 furosemide [Lasix] 80 mg tablet 80 mg PO BID@799,1999 PRN (Reason: Edema) RF: 0 Lantus U-100 Insulin 100 unit/mL solution 50 unit SUBCUT BID@ RF: 0 (DME) Home Oxygen Continous See Rx Instructions .Route .MEDSUPPLY Qty: 1 RF: 0 (DME) Shower chair See Rx Instructions .Route .MEDSUPPLY Qty: 1 RF: 0 atorvastatin [Lipitor] 80 mg tablet 80 mg PO DAILY@799 RF: 0 insulin lispro [Humalog U-100 Insulin] 100 unit/mL solution 1 sliding scale dose SUBCUT TID RF: 0 nitroglycerin [Nitrostat] 0.4 mg tablet, sublingual 0.4 mg SUBLINGUAL Q5M PRN (Reason: chest pains) RF: 0 ergocalciferol (vitamin D2) 1,250 mcg (50,000 unit) capsule 1,250 mcg PO .weekly RF: 0 hydralazine 25 mg tablet 50 mg PO TID@ RF: 0 sitagliptin [Januvia] 50 mg tablet See Rx Instructions .ROUTE .COMPLEX Qty: 30 RF: 2 Actemra 162 mg/0.9 mL syringe 162 mg SUBCUT .Q7days Qty: 4 RF: 3 albuterol sulfate 90 mcg/actuation HFA aerosol inhaler See Rx Instructions .ROUTE .COMPLEX RF: 0 prednisone 5 mg tablet 5 mg PO DAILY@0800 RF: 0 metolazone 5 mg tablet 5 mg PO DAILY@0800 RF: 0 potassium chloride 20 mEq tablet,ER particles/crystals 20 meq PO DAILY@0800 RF: 0 amlodipine 10 mg tablet 10 mg PO DAILY@0800 RF: 0 pantoprazole 40 mg tablet,delayed release (DR/EC) 40 mg PO DAILY@0800 RF: 0 ketoconazole 2 % cream 1 applic topical BID@ RF: 0 duloxetine 60 mg capsule,delayed release(DR/EC) 60 mg PO DAILY@0800 RF: 0 Pataday 0.2 % drops 1 drp ophthalmic (eye) DAILY@0800 RF: 0 Coding Level of Care Code ED Golf Player Assistant for Wilfred Morel
[2020-10-04 17:16] LABS: Basophils # 0.1 10^3/uL (0.0-0.1); Basophils % 0.4 %; Eosinophils # 0.1 10^3/uL (0.0-0.8); Eosinophils % 0.5 %; Hematocrit 24.5 % (37.0-47.0); Hemoglobin 7.5 g/dL (11.5-15.3); Lymphocytes # 1.6 10^3/uL (0.8-4.8); Lymphocytes % 9.5 %; Mean Corpuscular HGB Conc 30.6 g/dL (30.0-36.0); Mean Corpuscular Hemoglobin 25.9 pg (28.0-34.0); Mean Corpuscular Volume 84.5 fL (81-99); Monocytes # 0.9 10^3/uL (0.2-0.9); Monocytes % 5.6 %; Neutrophils # 13.32 10^3/uL (1.8-7.7); Neutrophils % 80.9 %; Nucleated Red Blood Cells % 0.1 %; Platelet Count 340 10^3/cmm (130-400); Red Cell Distribution Width 16.1 % (12.1-15.1); White Blood Count 16.5 10^3/uL (4.0-10.0)
[2020-10-04 17:27] LABS: ABG PH Result 7.36 (7.35-7.45); Arterial Blood Gas Hematocrit 23.6 % (37-47); Base Excess ABG 11.2 mmol/L (-2.0-2.0); Blood Gas Allen Test Pos; Blood Gas Sample Site Radial, left; Blood Gas Sample Type Arterial; Carboxyhemoglobin 1.5 %THgb (0.4-20.1); HCO3 ABG 38.1 mmol/L (22-26); HGB O2 Sat 97.1 % (95-100); Ionized Calcium Level - ABG 1.1 mmol/L (1.1-1.4); Methemoglobin 0.7 % (0.4-1.5); Oxygen Device NC; Oxygen Saturation ABG 99.2; Potassium Level - ABG 4.1 mmol/L (3.5-5.0); Total Hemoglobin 7.7 g/dL (12-16)
[2020-10-04 17:28] LABS: ABG PCO2 67.1 mmHg (35-45)
[2020-10-04 17:30] LABS: Alanine Aminotransferase 12 U/L (0-33); Albumin Level 3.7 g/dL (3.5-5.2); Alkaline Phosphatase 120 IU/L (35-105); Aspartate Amino Transferase 14 U/L (0-32); Blood Urea Nitrogen 54 mg/dL (8-23); Calcium 8.3 mg/dL (8.5-10.5); Carbon Dioxide 36 mmol/L (22-29); Chloride 79 mmol/L (98-107); Creatine Phosphokinase 41 U/L (26-192); Globulin 2.8 g/dL (1.3-4.6); Glomerular Filtration Rate 25.2 mL/min (90-130); Glucose 343 mg/dL (65-115); Osmolality Calculated 286 mOsm/kg (285-295); Sodium 124 mmol/L (136-145); Total Bilirubin 0.3 mg/dL (0.15-1.2); Total Protein 6.5 g/dL (6.6-8.7)
[2020-10-04 17:32] LABS: Troponin(5th) Baseline 44 ng/L (0-10)
[2020-10-04 17:36] LABS: Anion Gap 13.5 (5-19); Potassium 4.5 mmol/L (3.5-5.1)
[2020-10-04 17:57] LABS: Add Urine Microscopic? NO; Charge for UA Resulting for Rev
[2020-10-04] MEDS: FUROsemide 10 mg/mL SDV 10mL 100 MG IVP (17:59)
[2020-10-04 18:00] LABS: Bilirubin Urine Neg (Negative); Blood Urine Neg (Negative); Glucose Urine UA Norm (Normal); Ketones Urine Negative (Negative); Leukocyte Esterase Urine Negative (Negative); Nitrate Urine Negative (Negative); Protein Urine Neg (Negative); Urine Appearance Clear (CLEAR); Urine Color Yellow (Yellow); Urobilinogen Urine Norm (Negative); pH Urine 7 (5-7)
--- NOTE | 2020-10-04 18:48 | PM.HP ---
Providers/Chief Complaint Admitting Physician: Triston Boles MD Primary Care Provider: ANUSHA De La Rosa Chief Complaint: SOB/ ACUTE CHF History of Present Illness Ayla Montilla is a 64 year old female with a past medical history of diastolic CHF, bilateral lower extremity edema, chronic O2 liters, history of pacemaker placement for third-degree AV block, with history of pacemaker site infection status post surgical intervention, insulin-dependent type 2 diabetes mellitus, hypertension, hyperlipidemia, GERD, rheumatoid arthritis on methotrexate and tocilizumab, who presents to [facility] from [facility] for complaints of shortness of breath and bilateral extremity edema. Patient tells me for the last month she has been feeling increased shortness of breath, bilateral extremity edema, increased swelling, increased weight gain, she tells me that her membership sales manager took her off Lasix and put her on Bumex, but she continues to swell. No chest pain, no palpitations, no lightheadedness, dizziness, no nausea, no vomiting. Does also complain of abdominal wall edema. Review of Systems Const: Denies: fever(s), chills, fatigue or malaise Eyes: Denies: change in vision or blurry vision ENMT: Denies: nasal congestion Card: Reports: edema; Denies: chest pain, palpitations or syncope Resp: Reports: dyspnea; Denies: productive cough, non-productive cough or wheezing GI: Denies: abdominal pain, nausea, vomiting, hematemesis, diarrhea, constipation, hematochezia or melena : Denies: flank pain, dysuria or urinary frequency Musc: Denies: neck pain or back pain Skin/Breast: Denies: rash Neuro: Denies: headache(s), dizziness or vertigo Psych: Denies: anxiety or depression Endo: Denies: polyuria or polydipsia Medications/Allergies Home Medications Medication Instructions Recorded Confirmed Last Taken Type montelukast 10 mg tablet 10 mg PO DAILY@1999 tab 06/12/19 10/04/20 10/03/20 History insulin lispro 100 unit/mL 1 sliding scale dose SUBCUT TID ml 09/18/19 10/04/20 10/04/20 History subcutaneous solution 5 UNITS nitroglycerin 0.4 mg sublingual 0.4 mg SUBLINGUAL Q5M PRN 09/18/19 10/04/20 Unknown History tablet ergocalciferol (vitamin D2) 1,250 1,250 mcg PO Q7D cap 02/15/20 10/04/20 10/04/20 History mcg (50,000 unit) capsule insulin glargine 100 unit/mL 62 unit SUBCUT BEDTIME@1999 ml 03/06/20 10/04/20 10/04/20 History subcutaneous solution hydrocodone 5 mg-acetaminophen 325 1 tab PO TID@ PRN tab 05/14/20 10/04/20 10/04/20 History mg tablet Home Oxygen Continous #1 ea 05/23/20 10/04/20 Unknown Rx Shower chair #1 ea 05/23/20 10/04/20 Unknown Rx tocilizumab 162 mg/0.9 mL 162 mg SUBCUT .Q7days #4 ml 06/03/20 10/04/20 07/07/20 Rx subcutaneous syringe atorvastatin 80 mg tablet 80 mg PO DAILY@199906/04/20 10/04/20 10/03/20 History amlodipine 10 mg PO DAILY@0807/08/20 10/04/20 10/04/20 History duloxetine [Cymbalta] 60 mg PO DAILY@79907/08/20 10/04/20 10/04/20 History metolazone 2.5 mg PO DAILY@0807/08/20 10/04/20 10/04/20 History pantoprazole 40 mg PO DAILY@0807/08/20 10/04/20 10/04/20 History potassium chloride 20 meq PO DAILY@79907/08/20 10/04/20 10/04/20 History hydralazine 25 mg tablet 50 mg PO Q8H tab 08/15/20 10/04/20 10/04/20 History Humalog U-100 Insulin 8 unit SUBCUT TID@10/04/20 10/04/20 10/04/20 History Januvia 50 mg PO DAILY@79910/04/20 10/04/20 10/04/20 History acetaminophen [Tylenol] 650 mg PO Q6H PRN 10/04/20 10/04/20 10/04/20 11:49 History bumetanide [Bumex] 2 mg PO BID@08,199910/04/20 10/04/20 10/04/20 History cetirizine [Zyrtec] 10 mg PO DAILY PRN 10/04/20 10/04/20 Unknown History dextromethorphan-guaifenesin 10 ml PO Q6H PRN 10/04/20 10/04/20 Unknown History [Robitussin Cough-Chest Antonio DM] docusate sodium [Colace] 100 mg PO BID@0800,199910/04/20 10/04/20 10/04/20 History fluticasone propionate [Flovent 2 inh INHALATION BID@0800,199910/04/20 10/04/20 10/04/20 History HFA] nystatin See Rx Instructions .ROUTE .COMPLEX 10/04/20 10/04/20 Unknown History prednisone 10 mg PO DAILY@0800 10/04/20 10/04/20 10/04/20 History triamcinolone acetonide See Rx Instructions .ROUTE .COMPLEX 10/04/20 10/04/20 10/04/20 History Allergies Allergy/AdvReac Type Severity Reaction Status Date / Time Iodinated Contrast Media Allergy Hypertensio Verified 09/09/20 09:16 n sulfamethoxazole Allergy Rash Verified 09/09/20 09:16 [From Bactrim] trimethoprim [From Bactrim] Allergy Rash Verified 09/09/20 09:16 leflunomide AdvReac Intermediate diarrhea Verified 09/09/20 09:16 PFSH Acute PFSH: Medical History Allergic conjunctivitis Anemia Cellulitis of drainage site, post-operative Chronic kidney disease (CKD) Diabetes mellitus type 2, uncontrolled Diastolic heart failure Dyslipidemia Easy bruising Edema Essential (primary) hypertension Fibromyalgia Generalized weakness Hematuria High risk medication use Hilar lymphadenopathy Hypothyroid Hypoxia Immunization counseling Lung nodule Mixed hyperlipidemia Obesity Otitis media Rheumatoid arthritis with negative rheumatoid factor Seronegative erosive rheumatoid arthritis Thyroid nodule She has history of biopsy of thyroid nodule that was done at [facility] Urinary tract infection Vitamin D deficiency Surgical History H/O removal of cyst H/O shoulder surgery H/O toe surgery H/O total cystectomy History of hysterectomy Hx of cataract surgery Hx of tonsillectomy No pertinent past surgical history Status post placement of other cardiac pacemaker Family History Mother Cancer Fibromyalgia Arthritis Father Cancer Arthritis Social History Smoking and tobacco status: never smoked Alcohol intake: never Current occupational status: disabled History of recent travel: No Current gender identity: Female Vitals/I&O/Wt Last Vital Signs Temp 97.7 F 10/04/20 16:45 Pulse 87 10/04/20 18:05 Resp 14 10/04/20 18:05 BP 197/87 10/04/20 18:05 Pulse Ox 98 10/04/20 18:05 Weight last 48 hrs Weight 129.727 kg Physical Exam Const: COMMON NORMALS: no acute distress and patient oriented x3 HENMT: COMMON NORMALS: normocephalic HEAD & SCALP: normocephalic Eye: COMMON NORMALS: Equal, round and reactive pupils present GENERAL EYE: appearance normal, both eyes and all related structures PUPIL: Yes Equal, round and reactive pupils present Neck/C-Spine: COMMON NORMALS: full ROM, no lymphadenopathy and no JVD Lymph: LYMPHATIC: no lymphadenopathy noted Resp: COMMON NORMALS: normal respiratory effort, No retractions and No use of accessory muscles AUSCULTATION: crackles Cardio: COMMON NORMALS: no JVD, regular rate, regular rhythm, S1 normal heart sound present, S2 normal heart sound present, No gallops present (Cardio), No clicks present (Cardio) and No murmurs present (Cardio) RATE: regular rate RHYTHM: regular rhythm HEART SOUNDS: S1 normal heart sound present and S2 normal heart sound present GI: COMMON NORMALS: Normal to inspection, nondistended, normoactive bowel sounds present, Soft to palpation, non-tender and No hepatosplenomegaly present PALPATION: Yes Soft to palpation and Yes No hepatosplenomegaly present OTHER: Abdominal wall edema Extremity: NARRATIVE EXTREMITY EXAM: 3+ pitting edema bilaterally Neuro: COMMON NORMALS: patient oriented x3, CN's II-XII intact bilaterally, moves all extremities and no focal motor deficits Psych: COMMON NORMALS: mental status grossly normal, Normal thought process present and cooperative THOUGHT PROCESS: Normal thought process present Urinary Catheter Management^: Culp: Cath Placed During This Visit: yes Urinary Catheter Date of Insertion: 10/04/20 Urinary Catheter Time of Insertion: 17:45 Data : 10/04/20 17:00 10/04/20 17:00 A&P Assessment and plan (1) Acute hypercapnic respiratory failure: -Secondary to diastolic CHF Plan: -Admit to CSU -Fluid restrictions 1500 cc -Bumex 2 mg IV every 8 hours -Monitor creatinine, monitor potassium, monitor urine output, Culp catheter in place -BiPAP -Monitor respiratory status closely -Full code -scd for DVT prophylaxis Status: Acute (2) Diastolic CHF: Status: Acute (3) Mixed hyperlipidemia: Status: Acute (4) Insulin dependent type 2 diabetes mellitus: -Insulin sliding scale -Lantus 62 units units at bedtime Status: Acute (5) Acute anemia: -Baseline hemoglobin is between 8 and 9 -Hemoglobin today 7.5 -No reported bloody or black stools -Monitor hemoglobin, monitor for bloody for black stools, ferritin, iron studies, -Hold Lovenox -Protonix 40 IV twice daily, Carafate -Etiology likely multifactorial from CKD, slow GI bleed Status: Acute (6) Chronic kidney disease (CKD): Status: Acute (7) Hyponatremia: Likely secondary to severe heart failure, monitor Status: Acute Attestations Medical Necessity Statement*: Patient requires hospitalization, inpatient, greater than 2 midnights, for diastolic CHF exacerbation, acute hypercapnic respiratory failure, anemia Coding Level of Care Code Acute Machine Clothing Replacer for [facility] Fwd Diagnoses Acute hypercapnic respiratory failure J96.02 Diastolic CHF I50.30 Mixed hyperlipidemia E78.2 Insulin dependent type 2 diabetes mellitus E11.9; Z79.4 Acute anemia D64.9 Chronic kidney disease (CKD) N18.9 Hyponatremia E87.1
[2020-10-04] MEDS: HYDROcodone-acetaminophen 5-325 mg Tablet 1 TAB PO (19:14)
[2020-10-04 19:26] LABS: Reticulocyte % 5.8 % (0.5-2.0)
--- NOTE | 2020-10-04 22:42 | PC.NURSE ---
NURSING NOTE: PT ARRIVED TO UNIT AT 2200 TODAY. BUMEX ORDERED AT 1815 AND NOT GIVEN IN ED. NOTIFIED DR. TALLEY AND RECEIVED ORDERS TO HOLD 1815 DOSE AND START MEDICATION IN AM.
--- NOTE | 2020-10-04 22:54 | ECG_ITS ---
[facility] Test Date: 2020-10-05 Pat Name: Ayla Montilla Department: Room: 103 Gender: Female Connie Cleaner: : 1955 Requested By: Pramod Bell Order Number: [id number] Reading MD: MEGHANN BARRON Measurements Intervals [place] Rate: 81 P: 36 NM: 164 QRS: 97 QRSD: 149 T: -33 QT: 404 QTc: 470 Interpretive Statements SINUS RHYTHM WITH OCCASIONAL VENTRICULAR PREMATURE COMPLEXES BORDERLINE RIGHT AXIS DEVIATION [QRS AXIS > 90] INTRAVENTRICULAR CONDUCTION DELAY [130+ ms QRS DURATION] POSSIBLE INFERIOR MYOCARDIAL INFARCTION [30 ms Q WAVE IN II/aVF], OF INDETERMINATE AGE Compared to ECG 10/04/2020 17:18:05 Ventricular premature complex(es) now present Myocardial infarct finding now present Electronically Signed On 10-05-2020 19:20:37 CDT by MEGHANN BARRON [id number]
[2020-10-04 22:57] LABS: Ferritin 77 ng/mL (15-150); Iron 20 ug/dL (37-145)
[2020-10-04 23:06] LABS: Glucose Point of Care 305 mg/dL (70-110)
[2020-10-04] MEDS: pantoprazole 40 mg SDV IVP (23:15)
[2020-10-04] MEDS: atorvastatin 40 mg Tablet 80 MG PO (23:15)
[2020-10-04] MEDS: montelukast sodium 10 mg Tablet PO (23:16)
[2020-10-04] MEDS: docusate sodium 100 mg Capsule PO (23:16)
[2020-10-04] MEDS: sucralfate 1 gm Tablet PO (23:17)
[2020-10-04] MEDS: insulin glargine 100 units/1 mL 62 UNIT SUBCUT (23:18)
[2020-10-04] MEDS: hyDRALAzine 50 mg Tablet PO (23:33)
[2020-10-04] MEDS: ergocalciferol (vitamin D2) 50,000 Unit Capsule 50000 UNIT PO (23:34)
[2020-10-05] VITALS (14 sets, daily range): BP systolic 153–183; BP diastolic 62–80; PULSE 77–85; RESP 13–20; TEMP 36.4–36.7; O2SAT 91–95
[2020-10-05] MEDS: bumetanide 0.25 mg/mL SDV 10 mL 2 MG IV ×3 (02:32→18:47)
[2020-10-05] MEDS: HYDROcodone-acetaminophen 5-325 mg Tablet 1 TAB PO ×3 (02:48→21:03)
[2020-10-05 04:46] LABS: Basophils # 0.1 10^3/uL (0.0-0.1); Basophils % 0.4 %; Eosinophils # 0.2 10^3/uL (0.0-0.8); Eosinophils % 1.1 %; Hematocrit 23.2 % (37.0-47.0); Hemoglobin 7.2 g/dL (11.5-15.3); Lymphocytes # 1.6 10^3/uL (0.8-4.8); Lymphocytes % 12.5 %; Mean Corpuscular Hemoglobin 26.2 pg (28.0-34.0); Mean Corpuscular Volume 84.4 fL (81-99); Mean Platelet Volume 9.3 fL (7.4-10.4); Monocytes # 0.8 10^3/uL (0.2-0.9); Monocytes % 6.1 %; Neutrophils # 10.09 10^3/uL (1.8-7.7); Neutrophils % 77.3 %; Nucleated Red Blood Cells % 0 %; Platelet Count 315 10^3/cmm (130-400); Red Blood Count 2.75 10^6/uL (4.1-5.3); Red Cell Distribution Width 16.3 % (12.1-15.1); White Blood Count 13.1 10^3/uL (4.0-10.0)
[2020-10-05 05:11] LABS: Alanine Aminotransferase 10 U/L (0-33); Albumin Level 3.6 g/dL (3.5-5.2); Alkaline Phosphatase 118 IU/L (35-105); Anion Gap 14.5 (5-19); Aspartate Amino Transferase 10 U/L (0-32); Blood Urea Nitrogen 57 mg/dL (8-23); Calcium 8.4 mg/dL (8.5-10.5); Carbon Dioxide 37 mmol/L (22-29); Chloride 82 mmol/L (98-107); Globulin 3.2 g/dL (1.3-4.6); Glomerular Filtration Rate 25.2 mL/min (90-130); Glucose 232 mg/dL (65-115); Magnesium 1.8 mg/dL (1.7-2.3); NT Pro B Type Natriuretic Pept 1638 pg/mL (0-125); Osmolality Calculated 293 mOsm/kg (285-295); Phosphorus 5.2 mg/dL (2.5-4.5); Potassium 3.5 mmol/L (3.5-5.1); Sodium 130 mmol/L (136-145); Thyroid Stimulating Hormone 3.71 uIU/mL (0.27-4.20); Total Bilirubin 0.3 mg/dL (0.15-1.2); Total Protein 6.8 g/dL (6.6-8.7)
[2020-10-05 05:23] LABS: ABG PH Result 7.38 (7.35-7.45); Arterial Blood Gas Hematocrit 24.3 % (37-47); Base Excess ABG 12.2 mmol/L (-2.0-2.0); Blood Gas Allen Test Pos; Blood Gas Sample Site Radial, right; Blood Gas Sample Type Arterial; HCO3 ABG 38.9 mmol/L (22-26); Oxygen Device NC; PO2 ABG 66.5 mmHg (80.0-100.0)
[2020-10-05 05:26] LABS: ABG PCO2 65.7 mmHg (35-45)
[2020-10-05 06:54] LABS: Glucose Point of Care 219 mg/dL (70-110)
--- NOTE | 2020-10-05 07:00 | XRR_ITS ---
PROCEDURE INFORMATION: Exam: XR Chest Exam date and time: 10/05/2020 4:55 AM Age: 64 years old Clinical indication: Prior surgery; Surgery type: Pacer; Patient HX: Chf exacerbation; Additional info: SOB TECHNIQUE: Imaging protocol: XR of the chest. Views: 1 view. COMPARISON: CR XR chest 1V portable [id number] 10/04/2020 4:54 PM FINDINGS: Tubes, catheters and devices: There is left-sided pacemaker with intact lead overlying the right ventricle.. Lungs: There is mild cardiomegaly with increase in pulmonary vascularity and interstitial markings. Pleural spaces: Unremarkable. No pleural effusion. No pneumothorax. Heart/Mediastinum: Unremarkable. No cardiomegaly. Bones/joints: Unremarkable. XR/XR chest 1V portable [id number] IMPRESSION: Mild improvement in congestive heart failure.
[2020-10-05] MEDS: sucralfate 1 gm Tablet PO ×2 (08:12→16:53)
[2020-10-05] MEDS: amlodipine 10 mg Tablet PO (08:13)
[2020-10-05] MEDS: duloxetine 60 mg Capsule PO (08:13)
[2020-10-05] MEDS: hyDRALAzine 50 mg Tablet PO ×3 (08:13→21:04)
[2020-10-05] MEDS: pantoprazole 40 mg SDV IVP ×2 (08:13→21:04)
[2020-10-05] MEDS: potassium chloride ER 20 mEq Tablet 40 MEQ PO (08:13)
[2020-10-05] MEDS: docusate sodium 100 mg Capsule PO ×2 (08:45→21:04)
[2020-10-05] MEDS: metOLazone 5 MG Tablet 10 MG PO (09:42)
--- NOTE | 2020-10-05 10:07 | PC.CHAP ---
Pastoral Care Encounter/Spiritual Assessment Type of Contact [] Declined chinchilla farmer visit [] Patient/Family/Request visit [] Outpatient visit [] Follow-up visit [] Physician referral [] Code/Alert [XX] Routine visit [] Staff referral [] Actively dying [XX] Patient sleeping [] Family support [] [] Out of room [] Palliative care [] [] Receiving care in room [] Pre-surgical visit [] Trauma [] Long length of stay [] ICU visit [] Other: Relational/Emotional Strength [] Patient feels connected with others/family/visitors/staff [] Distress [] Loneliness/isolation [] Abandonment Spirituality of Patient [] Person of Jessica [] Attends Cheondoism of their Jessica [] Believes in Prayer [] Reads Bible or Restoration materials [] There are Spiritual issues to be addressed Revenue Director Interventions [] Prayer [] Active listening [] Non-anxious presence [] Spiritual/emotional support [] Crisis/trauma care [] Spiritual counseling [] Bereavement support [] Provided bereavement packet [] Provided Bible/devotional materials [] Provided toy/stuffed animal, coloring book to patient or family member [] Provided Communion [] Anointing/[place] [] Salvation [] Completed spiritual assessment [] Other: Impact on Illness or Injury [] Angry [] Fearful [] Anxious [] Often cries [] Exhaustion [] Unable to work [] Unable to attend judaism [] Unable to walk/stand [] Unable to read [] Unable to drive [] Unable to eat/drink [] Unable to sleep [] Unable to be with family [] Patient intubated [] Other: Summary Time spent with patient
[2020-10-05 12:24] LABS: Glucose Point of Care 460 mg/dL (70-110)
--- NOTE | 2020-10-05 14:23 | PC.NUTR ---
NUTR WT ASSESSMENT: Pt ht 64 and wt of 286 lbs with BMI of 52.3 kg/m2 indicates MORBID OBESITY.
--- NOTE | 2020-10-05 14:49 | PM.PN ---
Subjective Subjective: Interval history: Patient was examined this morning, she tells me that she is doing a bit better, is ambulating a bit more without shortness of breath, but still has bilateral extremity edema, she uses a BiPAP minimally overnight, as she has trouble using BiPAP Vitals/I&O/Wt Last Vital Signs Temp 98.0 F 10/05/20 10:52 Pulse 82 10/05/20 10:52 Resp 16 10/05/20 10:52 BP 161/77 10/05/20 10:52 Pulse Ox 92 10/05/20 10:52 10/04/20 10/05/20 10/05/20 22:59 06:59 14:59 Intake Total 120 / 120 240 / 240 Output Total 350 / 350 1175 / 1525 900 / 900 Balance -230 / -230 -1175 / -1405 -660 / -660 Weight last 48 hrs Weight 129.727 kg Physical Exam Const: COMMON NORMALS: no acute distress and patient oriented x3 Eye: COMMON NORMALS: Equal, round and reactive pupils present GENERAL EYE: appearance normal, both eyes and all related structures PUPIL: Yes Equal, round and reactive pupils present Neck/C-Spine: COMMON NORMALS: no JVD Resp: COMMON NORMALS: normal respiratory effort, No retractions and No use of accessory muscles AUSCULTATION: crackles Cardio: COMMON NORMALS: no JVD, regular rate, regular rhythm, S1 normal heart sound present, S2 normal heart sound present, No gallops present (Cardio), No clicks present (Cardio) and No murmurs present (Cardio) RATE: regular rate RHYTHM: regular rhythm HEART SOUNDS: S1 normal heart sound present and S2 normal heart sound present GI: COMMON NORMALS: Normal to inspection, nondistended, normoactive bowel sounds present, Soft to palpation, non-tender and No hepatosplenomegaly present PALPATION: Yes Soft to palpation and Yes No hepatosplenomegaly present OTHER: Abdominal wall edema Extremity: NARRATIVE EXTREMITY EXAM: 3+ pitting edema bilaterally Neuro: COMMON NORMALS: patient oriented x3 Urinary Catheter Management^: Culp: Cath Placed During This Visit: yes Reason for Continuing Indwelling Catheter: Accurate Measurement of Urinary Output in Critically Ill Patients Urinary Catheter Date of Insertion: 10/04/20 Urinary Catheter Time of Insertion: 17:45 Data : 10/05/20 03:19 10/05/20 03:19 A&P Assessment and plan (1) Acute hypercapnic respiratory failure: -Secondary to diastolic CHF Plan: -Admit to CSU -Fluid restrictions 1500 cc -Bumex 2 mg IV every 8 hours -Add metolazone 10 mg daily -Monitor creatinine 2.0, monitor potassium 3.5, monitor urine output 2 L, Culp catheter in place -BiPAP -Monitor respiratory status closely -Full code -scd for DVT prophylaxis Status: Acute (2) Diastolic CHF: Status: Acute (3) Mixed hyperlipidemia: Status: Acute (4) Insulin dependent type 2 diabetes mellitus: -Insulin sliding scale -Lantus 62 units units at bedtime Status: Acute (5) Acute anemia: -Baseline hemoglobin is between 8 and 9 -Hemoglobin today 7.2 -No reported bloody or black stools -Monitor hemoglobin, monitor for bloody for black stools, ferritin, iron studies, -Hold Lovenox -Protonix 40 IV twice daily, Carafate -Etiology likely multifactorial from CKD, slow GI bleed Status: Acute (6) Chronic kidney disease (CKD): Status: Acute (7) Hyponatremia: Likely secondary to severe heart failure, monitor Status: Acute Attestations Medical Necessity Statement*: Patient requires hospitalization for acute hypercapnic respiratory failure, hyponatremia, anemia Coding Level of Care Code Acute Power Lineman Technician for [facility] Diagnoses Acute hypercapnic respiratory failure J96.02 Diastolic CHF I50.30 Mixed hyperlipidemia E78.2 Insulin dependent type 2 diabetes mellitus E11.9; Z79.4 Acute anemia D64.9 Chronic kidney disease (CKD) N18.9 Hyponatremia E87.1
[2020-10-05 16:36] LABS: Glucose Point of Care 293 mg/dL (70-110)
[2020-10-05 19:24] LABS: Basophils # 0.1 10^3/uL (0.0-0.1); Basophils % 0.4 %; Eosinophils # 0.2 10^3/uL (0.0-0.8); Eosinophils % 1.7 %; Hematocrit 24.3 % (37.0-47.0); Hemoglobin 7.3 g/dL (11.5-15.3); Lymphocytes # 1.6 10^3/uL (0.8-4.8); Lymphocytes % 11.1 %; Mean Corpuscular Hemoglobin 25.5 pg (28.0-34.0); Mean Platelet Volume 8.8 fL (7.4-10.4); Monocytes % 7.2 %; Neutrophils % 77.9 %; Nucleated Red Blood Cells % 0.1 %; Platelet Count 329 10^3/cmm (130-400); Red Blood Count 2.86 10^6/uL (4.1-5.3); Red Cell Distribution Width 16.6 % (12.1-15.1); White Blood Count 14.4 10^3/uL (4.0-10.0)
[2020-10-05 19:59] LABS: Anion Gap 14.5 (5-19); Blood Urea Nitrogen 58 mg/dL (8-23); Calcium 8.4 mg/dL (8.5-10.5); Carbon Dioxide 36 mmol/L (22-29); Chloride 80 mmol/L (98-107); Glomerular Filtration Rate 26.8 mL/min (90-130); Glucose 237 mg/dL (65-115); Osmolality Calculated 288 mOsm/kg (285-295); Potassium 3.5 mmol/L (3.5-5.1); Sodium 127 mmol/L (136-145)
--- NOTE | 2020-10-05 20:05 | PC.NURSE ---
Patient is refusing to wear Bipap. Patient was educated on importance and need for Bipap. Patient states she feels like she is choking when she wears it.
[2020-10-05 20:22] LABS: Glucose Point of Care 294 mg/dL (70-110)
[2020-10-05] MEDS: montelukast sodium 10 mg Tablet PO (21:03)
[2020-10-05] MEDS: insulin glargine 100 units/1 mL 62 UNIT SUBCUT (21:04)
[2020-10-05] MEDS: atorvastatin 40 mg Tablet 80 MG PO (21:04)
[2020-10-06] VITALS (15 sets, daily range): BP systolic 156–173; BP diastolic 59–76; PULSE 77–86; RESP 13–25; TEMP 36.4–36.7; O2SAT 85–96
[2020-10-06] MEDS: bumetanide 0.25 mg/mL SDV 10 mL 2 MG IV ×3 (01:00→17:34)
--- NOTE | 2020-10-06 01:08 | PC.NURSE ---
Patient has been assisted to the chair and back to bed x3 throughout shift. Patient did well with standy by assist.
--- NOTE | 2020-10-06 04:07 | PC.RESP ---
Pt is refusing for RT to draw ABG at this time. Pt states that she has been getting poked so much throughout her stay, and that she would prefer not to be stuck at this time. Pt has not been wearing the BIPAP at night, as for she states that she cannot tolerate the pressure. I spoke with nurse earlier regarding this matter, and there was no medication ordered to help with her anxiety.
[2020-10-06 06:17] LABS: Basophils # 0.1 10^3/uL (0.0-0.1); Basophils % 0.3 %; Eosinophils # 0.3 10^3/uL (0.0-0.8); Eosinophils % 1.8 %; Hematocrit 24.8 % (37.0-47.0); Hemoglobin 7.5 g/dL (11.5-15.3); Lymphocytes # 1.7 10^3/uL (0.8-4.8); Lymphocytes % 11.3 %; Mean Corpuscular HGB Conc 30.2 g/dL (30.0-36.0); Mean Corpuscular Hemoglobin 25.6 pg (28.0-34.0); Mean Corpuscular Volume 84.6 fL (81-99); Monocytes # 1.1 10^3/uL (0.2-0.9); Monocytes % 7.4 %; Neutrophils # 11.57 10^3/uL (1.8-7.7); Neutrophils % 77.7 %; Nucleated Red Blood Cells % 0.1 %; Platelet Count 351 10^3/cmm (130-400); Red Blood Count 2.93 10^6/uL (4.1-5.3); Red Cell Distribution Width 16.6 % (12.1-15.1); White Blood Count 14.9 10^3/uL (4.0-10.0)
[2020-10-06 06:41] LABS: Glucose Point of Care 176 mg/dL (70-110)
[2020-10-06 06:51] LABS: Alanine Aminotransferase 9 U/L (0-33); Albumin Level 3.3 g/dL (3.5-5.2); Alkaline Phosphatase 123 IU/L (35-105); Anion Gap 13.3 (5-19); Aspartate Amino Transferase 8 U/L (0-32); Blood Urea Nitrogen 57 mg/dL (8-23); Calcium 8.7 mg/dL (8.5-10.5); Carbon Dioxide 38 mmol/L (22-29); Chloride 82 mmol/L (98-107); Globulin 3.3 g/dL (1.3-4.6); Glomerular Filtration Rate 28.5 mL/min (90-130); Glucose 153 mg/dL (65-115); Magnesium 1.7 mg/dL (1.7-2.3); NT Pro B Type Natriuretic Pept 1316 pg/mL (0-125); Osmolality Calculated 289 mOsm/kg (285-295); Phosphorus 4.4 mg/dL (2.5-4.5); Potassium 3.3 mmol/L (3.5-5.1); Sodium 130 mmol/L (136-145); Total Bilirubin 0.3 mg/dL (0.15-1.2); Total Protein 6.6 g/dL (6.6-8.7)
[2020-10-06] MEDS: HYDROcodone-acetaminophen 5-325 mg Tablet 1 TAB PO ×2 (07:13→15:44)
[2020-10-06] MEDS: sucralfate 1 gm Tablet PO ×2 (08:12→16:25)
[2020-10-06] MEDS: hyDRALAzine 50 mg Tablet PO ×3 (08:12→22:20)
[2020-10-06] MEDS: duloxetine 60 mg Capsule PO (08:13)
[2020-10-06] MEDS: amlodipine 10 mg Tablet PO (08:13)
[2020-10-06] MEDS: potassium chloride ER 20 mEq Tablet 40 MEQ PO (08:13)
[2020-10-06] MEDS: pantoprazole 40 mg SDV IVP ×2 (08:13→21:33)
[2020-10-06] MEDS: docusate sodium 100 mg Capsule PO ×2 (08:13→21:33)
[2020-10-06] MEDS: metOLazone 5 MG Tablet 10 MG PO (09:35)
[2020-10-06] MEDS: spironolactone 25 mg Tablet PO ×2 (09:35→21:33)
[2020-10-06] MEDS: acetaZOLAMIDE 250 mg Tablet PO ×2 (09:35→21:31)
[2020-10-06 11:27] LABS: Glucose Point of Care 265 mg/dL (70-110)
--- NOTE | 2020-10-06 12:34 | P.PN_ITS ---
Subjective Subjective: Interval history: This morning patient was examined, she tells me that she is feeling better, continues to have bilateral lower extremity edema, anasarca, but overall doing better, Vitals/I&O/Wt Last Vital Signs Temp 98.0 F 10/06/20 07:51 Pulse 78 10/06/20 10:38 Resp 19 H 10/06/20 07:51 BP 162/59 10/06/20 07:51 Pulse Ox 96 10/06/20 10:38 10/05/20 10/06/20 10/06/20 22:59 06:59 14:59 Intake Total 360 / 600 300 / 900 120 / 120 Output Total 300 / 1200 1000 / 2200 500 / 500 Balance 60 / -600 -700 / -1300 -380 / -380 Weight last 48 hrs Weight 129.727 kg Physical Exam Const: COMMON NORMALS: no acute distress and patient oriented x3 HENMT: COMMON NORMALS: normocephalic HEAD & SCALP: normocephalic Neck/C-Spine: COMMON NORMALS: no JVD Resp: COMMON NORMALS: normal respiratory effort, No retractions, No use of accessory muscles and clear to auscultation bilaterally AUSCULTATION: clear to auscultation bilaterally Cardio: COMMON NORMALS: no JVD, regular rate, regular rhythm, S1 normal heart sound present and S2 normal heart sound present RATE: regular rate RHYTHM: regular rhythm HEART SOUNDS: S1 normal heart sound present and S2 normal heart sound present GI: COMMON NORMALS: Normal to inspection, nondistended, normoactive bowel sounds present, Soft to palpation, non-tender, No hepatosplenomegaly present, no masses and no bruits PALPATION: Yes Soft to palpation and Yes No hepatosplenomegaly present Extremity: NARRATIVE EXTREMITY EXAM: 2+ pitting edema, with generalized anasarca Neuro: COMMON NORMALS: patient oriented x3 Psych: COMMON NORMALS: mental status grossly normal Urinary Catheter Management^: Culp: Cath Placed During This Visit: yes Reason for Continuing Indwelling Catheter: Other Urinary Catheter Date of Insertion: 10/04/20 Urinary Catheter Time of Insertion: 17:45 Data : 10/06/20 04:53 10/06/20 04:53 A&P Assessment and plan (1) Acute hypercapnic respiratory failure: -Secondary to diastolic CHF Plan: -Admit to CSU -Fluid restrictions 1500 cc -Bumex 2 mg IV every 8 hours -Add metolazone 10 mg daily -Add spironolactone 25 mg BID -Has cardiorenal syndrome, creatinine improving with diuresis -Monitor creatinine 1.8, monitor potassium 3.3, monitor urine output 2.2 L, Culp catheter in place -BiPAP -Monitor respiratory status closely -Full code -scd for DVT prophylaxis Status: Acute (2) Diastolic CHF: Status: Acute (3) Mixed hyperlipidemia: Status: Acute (4) Insulin dependent type 2 diabetes mellitus: -Insulin sliding scale -Lantus 62 units units at bedtime Status: Acute (5) Acute anemia: -Baseline hemoglobin is between 8 and 9 -Hemoglobin today 7.5 -No reported bloody or black stools -Monitor hemoglobin, monitor for bloody for black stools, ferritin, iron stud ies, -Hold Lovenox -Protonix 40 IV twice daily, Carafate -Etiology likely multifactorial from CKD, slow GI bleed Status: Acute (6) Chronic kidney disease (CKD): Status: Acute (7) Hyponatremia: Likely secondary to severe heart failure, monitor Status: Acute Additional A&P Information Hypertension, add clonidine 0.1 mg twice daily, spironolactone 25 mg twice daily Attestations Medical Necessity Statement*: Patient requires hospitalization, due to acute respiratory failure, sacral diastolic CHF,, anemia Coding Level of Care Code Acute Mold Presser for [facility] Fwd Diagnoses Acute hypercapnic respiratory failure J96.02 Diastolic CHF I50.30 Mixed hyperlipidemia E78.2 Insulin dependent type 2 diabetes mellitus E11.9; Z79.4 Acute anemia D64.9 Chronic kidney disease (CKD) N18.9 Hyponatremia E87.1
[2020-10-06] MEDS: cloNIDine 0.1 mg Tablet PO ×2 (14:30→17:33)
[2020-10-06 18:43] LABS: Basophils % 0.3 %; Eosinophils # 0.2 10^3/uL (0.0-0.8); Eosinophils % 1.8 %; Hematocrit 24.3 % (37.0-47.0); Hemoglobin 7.4 g/dL (11.5-15.3); Lymphocytes # 1.3 10^3/uL (0.8-4.8); Lymphocytes % 10.1 %; Mean Corpuscular HGB Conc 30.5 g/dL (30.0-36.0); Mean Corpuscular Hemoglobin 26.2 pg (28.0-34.0); Mean Corpuscular Volume 86.2 fL (81-99); Mean Platelet Volume 9.2 fL (7.4-10.4); Monocytes # 0.8 10^3/uL (0.2-0.9); Monocytes % 6.5 %; Neutrophils % 80.2 %; Nucleated Red Blood Cells % 0 %; Platelet Count 334 10^3/cmm (130-400); Red Blood Count 2.82 10^6/uL (4.1-5.3); Red Cell Distribution Width 16.7 % (12.1-15.1); White Blood Count 12.8 10^3/uL (4.0-10.0)
[2020-10-06 19:00] LABS: Anion Gap 9.8 (5-19); Blood Urea Nitrogen 56 mg/dL (8-23); Calcium 8.4 mg/dL (8.5-10.5); Carbon Dioxide 40 mmol/L (22-29); Chloride 83 mmol/L (98-107); Glomerular Filtration Rate 28.5 mL/min (90-130); Glucose 257 mg/dL (65-115); Osmolality Calculated 292 mOsm/kg (285-295); Potassium 3.8 mmol/L (3.5-5.1); Sodium 129 mmol/L (136-145)
[2020-10-06] MEDS: montelukast sodium 10 mg Tablet PO (21:31)
[2020-10-06] MEDS: potassium chloride ER 20 mEq Tablet PO (21:32)
[2020-10-06] MEDS: atorvastatin 40 mg Tablet 80 MG PO (21:32)
[2020-10-06] MEDS: potassium chloride ER 10 mEq Tablet PO (21:33)
[2020-10-06] MEDS: insulin glargine 100 units/1 mL 62 UNIT SUBCUT (21:34)
[2020-10-06 21:40] LABS: Glucose Point of Care 327 mg/dL (70-110)
[2020-10-07] VITALS (23 sets, daily range): BP systolic 129–171; BP diastolic 49–83; PULSE 78–94; RESP 16–26; TEMP 36.6–36.8; O2SAT 90–98
[2020-10-07] MEDS: bumetanide 0.25 mg/mL SDV 10 mL 2 MG IV ×3 (02:25→17:48)
[2020-10-07 05:07] LABS: Alanine Aminotransferase 6 U/L (0-33); Albumin Level 3.1 g/dL (3.5-5.2); Alkaline Phosphatase 106 IU/L (35-105); Anion Gap 10.7 (5-19); Aspartate Amino Transferase 6 U/L (0-32); Blood Urea Nitrogen 58 mg/dL (8-23); Calcium 8.4 mg/dL (8.5-10.5); Carbon Dioxide 39 mmol/L (22-29); Chloride 84 mmol/L (98-107); Globulin 3.2 g/dL (1.3-4.6); Glomerular Filtration Rate 30.5 mL/min (90-130); Glucose 176 mg/dL (65-115); Magnesium 1.7 mg/dL (1.7-2.3); NT Pro B Type Natriuretic Pept 1015 pg/mL (0-125); Osmolality Calculated 290 mOsm/kg (285-295); Phosphorus 4.4 mg/dL (2.5-4.5); Potassium 3.7 mmol/L (3.5-5.1); Sodium 130 mmol/L (136-145); Total Bilirubin 0.3 mg/dL (0.15-1.2); Total Protein 6.3 g/dL (6.6-8.7)
[2020-10-07 05:25] LABS: Basophils % 0.3 %; Eosinophils # 0.2 10^3/uL (0.0-0.8); Eosinophils % 2.1 %; Hematocrit 23.1 % (37.0-47.0); Hemoglobin 6.9 g/dL (11.5-15.3); Lymphocytes # 1.4 10^3/uL (0.8-4.8); Lymphocytes % 12.2 %; Mean Corpuscular HGB Conc 29.9 g/dL (30.0-36.0); Mean Corpuscular Hemoglobin 25.7 pg (28.0-34.0); Mean Corpuscular Volume 85.9 fL (81-99); Mean Platelet Volume 9.2 fL (7.4-10.4); Monocytes # 0.9 10^3/uL (0.2-0.9); Monocytes % 7.4 %; Neutrophils # 8.87 10^3/uL (1.8-7.7); Neutrophils % 76.8 %; Nucleated Red Blood Cells % 0 %; Platelet Count 333 10^3/cmm (130-400); Red Blood Count 2.69 10^6/uL (4.1-5.3); Red Cell Distribution Width 16.7 % (12.1-15.1); White Blood Count 11.6 10^3/uL (4.0-10.0)
[2020-10-07] MEDS: hyDRALAzine 50 mg Tablet PO ×3 (06:07→20:22)
[2020-10-07] MEDS: sucralfate 1 gm Tablet PO ×2 (06:08→17:48)
[2020-10-07 06:58] LABS: Glucose Point of Care 228 mg/dL (70-110)
[2020-10-07] MEDS: cloNIDine 0.1 mg Tablet PO ×2 (10:14→17:48)
[2020-10-07] MEDS: acetaZOLAMIDE 250 mg Tablet PO ×2 (10:15→20:21)
[2020-10-07] MEDS: docusate sodium 100 mg Capsule PO ×2 (10:16→20:22)
[2020-10-07] MEDS: metOLazone 5 MG Tablet 10 MG PO (10:16)
[2020-10-07] MEDS: potassium chloride ER 20 mEq Tablet PO ×2 (10:16→20:22)
[2020-10-07] MEDS: potassium chloride ER 10 mEq Tablet PO ×2 (10:16→20:21)
[2020-10-07] MEDS: duloxetine 60 mg Capsule PO (10:17)
[2020-10-07] MEDS: amlodipine 10 mg Tablet PO (10:17)
[2020-10-07] MEDS: spironolactone 25 mg Tablet PO ×2 (10:17→20:21)
[2020-10-07] MEDS: pantoprazole 40 mg SDV IVP ×2 (10:19→20:22)
--- NOTE | 2020-10-07 11:12 | PC.SOCIAL ---
*IMM UPDATE* Gave patient IMM update. Provided copy of page 2 of IMM. Verbalized understanding. 10/07/20 @ 1027 Initialed, dated, timed and placed in chart.
[2020-10-07 11:30] LABS: Glucose Point of Care 442 mg/dL (70-110)
[2020-10-07] MEDS: HYDROcodone-acetaminophen 5-325 mg Tablet 1 TAB PO ×2 (12:21→20:22)
[2020-10-07] MEDS: sodium chloride 0.9% (100 ml) 100 ML 50 ML (12:24)
[2020-10-07] MEDS: magnesium sulfate premix 2 GM/50 ML PIGGYBACK IV (15:18)
[2020-10-07 15:40] LABS: Retic Production Index 3.36; Reticulocyte % 5.6 % (0.5-2.0)
[2020-10-07 15:42] LABS: LAB Peripheral Smear Sent for Review
[2020-10-07 17:03] LABS: Glucose Point of Care 249 mg/dL (70-110)
[2020-10-07 19:59] LABS: Glucose Point of Care 263 mg/dL (70-110)
[2020-10-07] MEDS: montelukast sodium 10 mg Tablet PO (20:21)
[2020-10-07] MEDS: atorvastatin 40 mg Tablet 80 MG PO (20:22)
[2020-10-07] MEDS: insulin glargine 100 units/1 mL 62 UNIT SUBCUT (20:22)
--- NOTE | 2020-10-07 21:42 | PM.PN ---
Subjective Subjective: Interval history: Today she is feeling tired. Overall she is losing water weight, with some decrease in significant swelling in her lower extremities, upper extremities. Denies chest pain. Vitals/I&O/Wt Last Vital Signs Temp 98.1 F 10/07/20 19:17 Pulse 91 10/07/20 19:38 Resp 18 10/07/20 19:36 BP 165/70 10/07/20 19:17 Pulse Ox 94 10/07/20 19:36 10/07/20 10/07/20 10/07/20 06:59 14:59 22:59 Intake Total 150 / 1310 360 / 360 610 / 970 Output Total 2000 / 3575 1400 / 1400 700 / 2100 Balance -1850 / -2265 -1040 / -1040 -90 / -1130 Physical Exam Const: COMMON NORMALS: no acute distress, patient oriented x3 and alert GENERAL APPEARANCE: cooperative NUTRITIONAL APPEARANCE: obese ORIENTATION/CONSCIOUSNESS: Yes awake OTHER: Pleasant, conversant. HENMT: COMMON NORMALS: oropharynx normal Neck/C-Spine: COMMON NORMALS: no JVD Resp: COMMON NORMALS: normal respiratory effort OTHER: Few minimal crackles at bases. Cardio: COMMON NORMALS: no JVD, regular rhythm, S1 normal heart sound present, S2 normal heart sound present and No murmurs present (Cardio) RHYTHM: regular rhythm HEART SOUNDS: S1 normal heart sound present and S2 normal heart sound present GI: COMMON NORMALS: Normal to inspection, nondistended, normoactive bowel sounds present, Soft to palpation and non-tender PALPATION: Yes Soft to palpation Extremity: COMMON NORMALS: no joint enlargement GENERAL: Yes edema (Severe bilateral lower, moderate upper extremity edema. No weeping.) Neuro: COMMON NORMALS: patient oriented x3 and moves all extremities SENSORIUM/ORIENTATION: Yes alert Skin: COMMON NORMALS: no rashes or lesions noted GENERAL SKIN EXAM: no rashes or lesions noted Urinary Catheter Management^: Culp: Cath Placed During This Visit: yes Reason for Continuing Indwelling Catheter: Accurate Measurement of Urinary Output in Critically Ill Patients Urinary Catheter Date of Insertion: 10/04/20 Urinary Catheter Time of Insertion: 17:45 Data : 10/07/20 02:55 10/07/20 02:55 A&P Assessment and plan (1) Diastolic CHF: Continue diuresis, but will slow down as she is becoming symptomatic and fatigue. Discussed with her some of the fatigue may be secondary to anemia for which transfusion was requested. We will hold metolazone for now. Reduce Bumex to twice daily dosing. We will give a small dose of albumin. Otherwise continue Bumex 2 mg every 12 hours. Continue spironolactone, acetazolamide for now. Continue to monitor renal function. Status: Acute (2) Acute anemia: Hemoglobin decreased to 6.9. PBC transfusion. Discussed with her and her son. Appears she has had quite extensive work-up for anemia back in February. Appears most likely cause at this time that this is anemia of chronic disease. However, discussed with her cannot entirely exclude anemia with acute blood loss. Normal MCV. Hemoccult requested. She has had bowel movements, denies melena or hematochezia. Denies hematuria. No outward bleeding. Discussed with her concern otherwise also regarding production of RBC cell line. Requested reticulocyte production index. Peripheral smear. Previously B12, folic acid checked and were normal. TSH noncontributory. -Hold Lovenox -Protonix 40 IV twice daily, Carafate Status: Acute (3) Acute hypercapnic respiratory failure: Continue treatment of CHF exacerbation. -BiPAP support as needed -Monitor respiratory status closely Status: Acute (4) Mixed hyperlipidemia: Status: Acute (5) Insulin dependent type 2 diabetes mellitus: -Insulin sliding scale -Lantus Status: Acute (6) Chronic kidney disease (CKD): Status: Acute (7) Hyponatremia: With gradual improvement. Continue treatment of CHF. Likely secondary to severe heart failure, monitor Status: Acute Additional A&P Information Hypertension: Continue diuresis, clonidine 0.1 mg twice daily, spironolactone 25 mg twice daily Attestations Medical Necessity Statement*: Continue admission for assessment and management of acute CHF, acute on chronic anemia requiring PRBC transfusion. Coding Level of Care Code Acute Ct Scan Special Procedures Technologist for Wilfred Morel Diagnoses Diastolic CHF I50.30 Acute anemia D64.9 Acute hypercapnic respiratory failure J96.02 Mixed hyperlipidemia E78.2 Insulin dependent type 2 diabetes mellitus E11.9; Z79.4 Chronic kidney disease (CKD) N18.9 Hyponatremia E87.1
[2020-10-07] MEDS: albumin 12.5 GM/50 ML VIAL IV (22:57)
[2020-10-08] VITALS (36 sets, daily range): BP systolic 132–188; BP diastolic 54–83; PULSE 78–95; RESP 11–29; TEMP 36.6–37.2; O2SAT 82–95; BMI 52.3
[2020-10-08 05:16] LABS: Basophils % 0.3 %; Eosinophils # 0.2 10^3/uL (0.0-0.8); Eosinophils % 1.8 %; Hematocrit 25.4 % (37.0-47.0); Hemoglobin 7.7 g/dL (11.5-15.3); Lymphocytes # 1.4 10^3/uL (0.8-4.8); Lymphocytes % 14.1 %; Mean Corpuscular HGB Conc 30.3 g/dL (30.0-36.0); Mean Corpuscular Hemoglobin 26.1 pg (28.0-34.0); Mean Corpuscular Volume 86.1 fL (81-99); Mean Platelet Volume 9.1 fL (7.4-10.4); Monocytes # 0.9 10^3/uL (0.2-0.9); Monocytes % 8.9 %; Neutrophils # 7.22 10^3/uL (1.8-7.7); Neutrophils % 73.6 %; Nucleated Red Blood Cells % 0 %; Platelet Count 312 10^3/cmm (130-400); Red Blood Count 2.95 10^6/uL (4.1-5.3); Red Cell Distribution Width 16.8 % (12.1-15.1); White Blood Count 9.8 10^3/uL (4.0-10.0)
[2020-10-08] MEDS: HYDROcodone-acetaminophen 5-325 mg Tablet 1 TAB PO (05:35)
[2020-10-08] MEDS: sucralfate 1 gm Tablet PO ×2 (05:35→17:12)
[2020-10-08] MEDS: bumetanide 0.25 mg/mL SDV 10 mL 2 MG IV ×2 (05:36→17:13)
[2020-10-08] MEDS: hyDRALAzine 50 mg Tablet PO ×3 (05:36→21:15)
[2020-10-08 06:02] LABS: Alanine Aminotransferase < 5 U/L (0-33); Albumin Level 3.2 g/dL (3.5-5.2); Alkaline Phosphatase 95 IU/L (35-105); Anion Gap 9.8 (5-19); Aspartate Amino Transferase 7 U/L (0-32); Blood Urea Nitrogen 56 mg/dL (8-23); Calcium 8.7 mg/dL (8.5-10.5); Chloride 84 mmol/L (98-107); Globulin 3.1 g/dL (1.3-4.6); Glomerular Filtration Rate 32.7 mL/min (90-130); Glucose 163 mg/dL (65-115); Osmolality Calculated 291 mOsm/kg (285-295); Potassium 3.8 mmol/L (3.5-5.1); Sodium 131 mmol/L (136-145); Total Bilirubin 0.4 mg/dL (0.15-1.2); Total Protein 6.3 g/dL (6.6-8.7)
[2020-10-08 06:22] LABS: Carbon Dioxide 41 mmol/L (22-29)
[2020-10-08 06:51] LABS: Glucose Point of Care 189 mg/dL (70-110)
[2020-10-08] MEDS: acetaZOLAMIDE 250 mg Tablet PO ×2 (08:32→21:16)
[2020-10-08] MEDS: spironolactone 25 mg Tablet PO ×2 (08:32→21:16)
[2020-10-08] MEDS: duloxetine 60 mg Capsule PO (08:32)
[2020-10-08] MEDS: potassium chloride ER 10 mEq Tablet PO ×2 (08:33→21:16)
[2020-10-08] MEDS: potassium chloride ER 20 mEq Tablet PO ×2 (08:33→21:16)
[2020-10-08] MEDS: cloNIDine 0.1 mg Tablet PO ×2 (08:33→17:12)
[2020-10-08] MEDS: amlodipine 10 mg Tablet PO (08:34)
[2020-10-08] MEDS: docusate sodium 100 mg Capsule PO ×2 (08:34→21:16)
[2020-10-08] MEDS: pantoprazole 40 mg SDV IVP ×2 (08:34→21:17)
[2020-10-08] MEDS: acetaminophen 325 mg Tablet 650 MG PO ×2 (10:54→21:15)
[2020-10-08 11:12] LABS: Glucose Point of Care 179 mg/dL (70-110)
--- NOTE | 2020-10-08 11:42 | PM.PN ---
Subjective Subjective: Interval history: She is feeling a little bit less tired than yesterday. Denies chest pain. Denies trouble breathing. Noticed having occasional drops/jerks in her hands/arms when lifting them. Vitals/I&O/Wt Last Vital Signs Temp 97.8 F 10/08/20 07:43 Pulse 89 10/08/20 09:05 Resp 18 10/08/20 09:00 BP 137/68 10/08/20 08:33 Pulse Ox 91 10/08/20 09:00 10/07/20 10/08/20 10/08/20 22:59 06:59 14:59 Intake Total 655.833 / 1115.833 200 / 1315.833 360 / 360 Output Total 700 / 2100 1800 / 3900 Balance -44.167 / -984.167 -1600 / -2584.167 360 / 360 Weight last 48 hrs Weight 129.727 kg Physical Exam Narrative: EXAM NARRATIVE: Son at bedside Const: COMMON NORMALS: no acute distress, patient oriented x3 and alert GENERAL APPEARANCE: cooperative NUTRITIONAL APPEARANCE: obese ORIENTATION/CONSCIOUSNESS: Yes awake OTHER: Pleasant, conversant. HENMT: COMMON NORMALS: oropharynx normal Neck/C-Spine: COMMON NORMALS: no JVD Resp: COMMON NORMALS: normal respiratory effort and clear to auscultation bilaterally AUSCULTATION: clear to auscultation bilaterally and crackles (Bases, left greater than right) Cardio: COMMON NORMALS: no JVD, regular rhythm, S1 normal heart sound present, S2 normal heart sound present and No murmurs present (Cardio) RHYTHM: regular rhythm HEART SOUNDS: S1 normal heart sound present and S2 normal heart sound present GI: COMMON NORMALS: Normal to inspection, nondistended, normoactive bowel sounds present, Soft to palpation and non-tender PALPATION: Yes Soft to palpation Extremity: COMMON NORMALS: no joint enlargement and no pedal edema GENERAL: Yes edema (Severe bilateral lower, moderate upper extremity edema. No weeping.) Neuro: COMMON NORMALS: patient oriented x3 and moves all extremities SENSORIUM/ORIENTATION: Yes alert Skin: COMMON NORMALS: no rashes or lesions noted GENERAL SKIN EXAM: no rashes or lesions noted Urinary Catheter Management^: Culp: Cath Placed During This Visit: yes Reason for Continuing Indwelling Catheter: Accurate Measurement of Urinary Output in Critically Ill Patients Urinary Catheter Date of Insertion: 10/04/20 Urinary Catheter Time of Insertion: 17:45 Data : 10/08/20 04:19 10/08/20 04:19 A&P Assessment and plan (1) Diastolic CHF: Seems to be doing a bit better with slowing down diuresis somewhat. Still negative balance, -2.5 L since yesterday. Not feeling as fatigued today. Severe edema of lower extremities with slow gradual improvement. Continue diuresis. Discussed with her and her son difficulty that may be posed by her current kidney disease, although so far renal functions allow diuresis. Mobilize with physical therapy. Continue spironolactone, acetazolamide for now. Continue to monitor renal function. Status: Acute (2) Acute anemia: Received 1 unit PBC transfusion. Hemoglobin up to 7.7 up from 6.9. Follow hemoglobin. Follow-up pending studies. Pending peripheral smear. Request MMA. Reticulocyte production index appears to be diminished slightly at 1.6. Perhaps there is a degree of hypoproliferation as well. Appears she has had quite extensive work-up for anemia back in February. Appears most likely cause at this time that this is anemia of chronic disease. However, discussed with her cannot entirely exclude anemia with acute blood loss. Normal MCV. Hemoccult requested. She has had bowel movements, denies melena or hematochezia. Denies hematuria. No outward bleeding. Previously B12, folic acid checked and were normal. TSH noncontributory. -Hold Lovenox -Protonix 40 IV twice daily, Carafate Status: Acute (3) Acute hypercapnic respiratory failure: Continue treatment of CHF exacerbation. -BiPAP support as needed -Monitor respiratory status closely Reports she has history of sleep apnea diagnosed several years ago, but could not tolerate CPAP well. She is willing to repeat sleep study to see if there are different options for masks that she could tolerate better. Discussed with her and her son concern regarding contribution not only from CHF, CHANNING, but also possible contribution from O[facility]. We discussed that long-term even after treatment/improvement of CHF is admission, will benefit from weight loss. After discharge consider referral for PFT, sleep study. Status: Acute (4) Metabolic encephalopathy: Noted minimal metabolic encephalopathy, does appear to have some mild intermittent asterixis symptoms which she had noticed. Discussed with her son. Possibly combination secondary to hypercapnia noted on presentation. Electrolyte alert derangements, although sodium appears to be improving. Potassium is normal. Labs do not seem to suggest significant hepatic dysfunction. TSH was normal. We will go ahead and decrease her Cymbalta dose. Low threshold for additional assessment by ABG in case of worsening. Status: Acute (5) Mixed hyperlipidemia: Status: Acute (6) Insulin dependent type 2 diabetes mellitus: -Insulin sliding scale -Lantus Status: Acute (7) Chronic kidney disease (CKD): Status: Acute (8) Hyponatremia: Improving. Continue treatment of CHF. Likely secondary to severe heart failure, monitor Status: Acute Additional A&P Information Hypertension: Blood pressure is variable, ranging from 130s systolic to 180 early this afternoon. Add isosorbide. Continue hydralazine. Continue diuresis, clonidine 0.1 mg twice daily, spironolactone 25 mg twice daily Attestations Medical Necessity Statement*: Continue admission for assessment management of acute diastolic_failure, severe edema, in setting of chronic kidney disease, optimization of hypertension control, assessment of mild metabolic encephalopathy. Coding Level of Care Code Acute Dietary Worker for g Fwd Diagnoses Diastolic CHF I50.30 Acute anemia D64.9 Acute hypercapnic respiratory failure J96.02 Metabolic encephalopathy G93.41 Mixed hyperlipidemia E78.2 Insulin dependent type 2 diabetes mellitus E11.9; Z79.4 Chronic kidney disease (CKD) N18.9 Hyponatremia E87.1
[2020-10-08] MEDS: isosorbide dinitrate 20 mg Tablet PO ×2 (15:08→21:16)
--- NOTE | 2020-10-08 15:57 | PC.NURSE ---
Pt presents lying in bed resting with eyes open talking to staff. Pt A&O x3. Pt resp even and non-labored no distress noted. Pt IV patent no redness or swelling noted. Pt had no c/o pain or discomfort at the present time. Call light in reach.
[2020-10-08 16:56] LABS: Glucose Point of Care 199 mg/dL (70-110)
[2020-10-08 20:42] LABS: Glucose Point of Care 217 mg/dL (70-110)
[2020-10-08] MEDS: atorvastatin 40 mg Tablet 80 MG PO (21:16)
[2020-10-08] MEDS: montelukast sodium 10 mg Tablet PO (21:16)
[2020-10-08] MEDS: insulin glargine 100 units/1 mL 62 UNIT SUBCUT (21:16)
--- NOTE | 2020-10-08 21:27 | PC.NURSE ---
Patient is currently on 4 L NC with oxygen saturation of 93 percent. Patient is drowsy, but easily awaken and is alert and oriented x4.
--- NOTE | 2020-10-08 21:37 | PC.NURSE ---
Addendum entered by Angie Escobar RN 10/08/20 22:16: Dr. Hancock went in room to see patient. Patient wore her Bipap for 10 minutes and couldn't tolerate anymore. Original Note: Dr. Hancock notified of patient being more pale and more lethargic than previous night. Patient is refusing Bipap.
[2020-10-09] VITALS (21 sets, daily range): BP systolic 133–159; BP diastolic 54–65; PULSE 76–87; RESP 14–27; TEMP 36.4–36.8; O2SAT 90–98; BMI 52.3
[2020-10-09] MEDS: bumetanide 0.25 mg/mL SDV 10 mL 2 MG IV ×2 (05:22→17:52)
[2020-10-09 06:45] LABS: Glucose Point of Care 116 mg/dL (70-110)
--- NOTE | 2020-10-09 07:17 | PC.NURSE ---
Pt presents lying in bed resting with eyes closed. Pts resp even and non-labored no distress noted. Pt had no s/s of pain or discomfort at the present time. Call light in reach.
[2020-10-09] MEDS: amlodipine 10 mg Tablet PO (08:19)
[2020-10-09] MEDS: sucralfate 1 gm Tablet PO ×2 (08:19→17:51)
[2020-10-09] MEDS: hyDRALAzine 50 mg Tablet PO ×2 (08:19→15:15)
[2020-10-09] MEDS: docusate sodium 100 mg Capsule PO ×2 (08:19→21:00)
[2020-10-09] MEDS: duloxetine 30 mg Capsule PO (08:20)
[2020-10-09] MEDS: pantoprazole 40 mg SDV IVP ×2 (08:20→21:00)
[2020-10-09] MEDS: cloNIDine 0.1 mg Tablet PO ×2 (08:21→17:51)
[2020-10-09] MEDS: acetaZOLAMIDE 250 mg Tablet PO ×2 (08:21→21:28)
[2020-10-09] MEDS: potassium chloride ER 20 mEq Tablet PO ×2 (08:22→21:28)
[2020-10-09] MEDS: potassium chloride ER 10 mEq Tablet PO ×2 (08:22→21:27)
[2020-10-09] MEDS: isosorbide dinitrate 20 mg Tablet PO ×3 (08:22→21:29)
[2020-10-09] MEDS: spironolactone 25 mg Tablet PO ×2 (08:22→21:28)
[2020-10-09 09:49] LABS: Basophils % 0.3 %; Eosinophils # 0.2 10^3/uL (0.0-0.8); Eosinophils % 2.5 %; Hematocrit 24.3 % (37.0-47.0); Hemoglobin 7.2 g/dL (11.5-15.3); Lymphocytes # 1.4 10^3/uL (0.8-4.8); Lymphocytes % 14.8 %; Mean Corpuscular HGB Conc 29.6 g/dL (30.0-36.0); Mean Corpuscular Hemoglobin 26.2 pg (28.0-34.0); Mean Corpuscular Volume 88.4 fL (81-99); Monocytes % 10.4 %; Neutrophils # 6.65 10^3/uL (1.8-7.7); Neutrophils % 70.4 %; Nucleated Red Blood Cells % 0 %; Platelet Count 290 10^3/cmm (130-400); Red Blood Count 2.75 10^6/uL (4.1-5.3); Red Cell Distribution Width 16.7 % (12.1-15.1); White Blood Count 9.5 10^3/uL (4.0-10.0)
--- NOTE | 2020-10-09 09:53 | PC.SOCIAL ---
IMM Updated Updated pt on Pg 2 IMM. No questions voiced. Provided pt a copy. Initialed, dated, & timed copy in chart.
[2020-10-09 10:08] LABS: Alanine Aminotransferase < 5 U/L (0-33); Alkaline Phosphatase 92 IU/L (35-105); Anion Gap 11.7 (5-19); Aspartate Amino Transferase 8 U/L (0-32); Blood Urea Nitrogen 53 mg/dL (8-23); Calcium 8.5 mg/dL (8.5-10.5); Carbon Dioxide 40 mmol/L (22-29); Chloride 82 mmol/L (98-107); Globulin 3.1 g/dL (1.3-4.6); Glomerular Filtration Rate 32.7 mL/min (90-130); Glucose 159 mg/dL (65-115); Magnesium 1.9 mg/dL (1.7-2.3); Osmolality Calculated 288 mOsm/kg (285-295); Potassium 3.7 mmol/L (3.5-5.1); Sodium 130 mmol/L (136-145); Total Bilirubin 0.4 mg/dL (0.15-1.2); Total Protein 6.1 g/dL (6.6-8.7)
[2020-10-09 11:47] LABS: Glucose Point of Care 161 mg/dL (70-110)
[2020-10-09 16:24] LABS: Glucose Point of Care 169 mg/dL (70-110)
[2020-10-09 19:53] LABS: Glucose Point of Care 257 mg/dL (70-110)
--- NOTE | 2020-10-09 20:21 | P.PN_ITS ---
Subjective Subjective: Interval history: Last night reported to have some episodes of confusion. This morning she reports feeling a bit better. Denies chest pain or pressure. She is now tolerating some BiPAP therapy. Currently feeling little bit less tired. Still experiencing asterixis. Vitals/I&O/Wt Last Vital Signs Temp 98.3 F 10/09/20 19:35 Pulse 86 10/09/20 19:47 Resp 18 10/09/20 19:43 BP 142/65 10/09/20 19:35 Pulse Ox 96 10/09/20 19:47 10/09/20 10/09/20 10/09/20 06:59 14:59 22:59 Intake Total 150 / 630 480 / 480 240 / 720 Output Total 1900 / 3000 1500 / 1500 650 / 2150 Balance -1750 / -2370 -1020 / -1020 -410 / -1430 Weight last 48 hrs Weight 129.727 kg Weight 129.727 kg Physical Exam Const: COMMON NORMALS: no acute distress, patient oriented x3 and alert GENERAL APPEARANCE: cooperative NUTRITIONAL APPEARANCE: obese ORIENTATION/CONSCIOUSNESS: Yes awake OTHER: Resting. BiPAP on. Wakes up to talk to me. Cooperates with exam. HENMT: COMMON NORMALS: oropharynx normal Neck/C-Spine: COMMON NORMALS: no JVD Resp: COMMON NORMALS: normal respiratory effort and clear to auscultation bilaterally AUSCULTATION: clear to auscultation bilaterally Cardio: COMMON NORMALS: no JVD, regular rhythm, S1 normal heart sound present, S2 normal heart sound present and No murmurs present (Cardio) RHYTHM: regular rhythm HEART SOUNDS: S1 normal heart sound present and S2 normal heart sound present GI: COMMON NORMALS: Normal to inspection, nondistended, normoactive bowel sounds present, Soft to palpation and non-tender PALPATION: Yes Soft to palpation Extremity: COMMON NORMALS: no joint enlargement and no pedal edema GENERAL: Yes edema (Severe bilateral lower and upper extremity edema. No weeping.) Neuro: COMMON NORMALS: patient oriented x3 and moves all extremities SENSORIUM/ORIENTATION: Yes alert Skin: COMMON NORMALS: no rashes or lesions noted GENERAL SKIN EXAM: no rash es or lesions noted Urinary Catheter Management^: Culp: Cath Placed During This Visit: yes Reason for Continuing Indwelling Catheter: Accurate Measurement of Urinary Output in Critically Ill Patients Urinary Catheter Date of Insertion: 10/04/20 Urinary Catheter Time of Insertion: 17:45 Data : 10/09/20 09:29 10/09/20 09:29 A&P Assessment and plan (1) Diastolic CHF: She is having good urine output. I see that she is persistently negative balance. At the same time I see that weight appears unchanged in the last 10 days. I do not know that this is accurate as it appears the same number is recorded at times. We will need to confirm with nursing staff. At this time we will continue with diuresis. Intake appears recorded below 1 L. Mobilize with physical therapy as tolerating. Continue spironolactone, acetazolamide for now. Continue to monitor renal function. Status: Acute (2) Metabolic encephalopathy: With noted worsening, last night having confusion. Asterixis. She had agreed to and tolerating BiPAP this afternoon. Tolerating it pretty well when I had seen her. Requested for a.m. ABG. Decreased dose of duloxetine. TSH was normal. Status: Acute (3) Acute hypercapnic respiratory failure: Continue treatment of CHF exacerbation. Will request for a.m. ABG. -BiPAP support as tolerating -Monitor respiratory status closely Reports she has history of sleep apnea diagnosed several years ago, but could not tolerate CPAP well. She is willing to repeat sleep study to see if there a re different options for masks that she could tolerate better. Discussed with her and her son concern regarding contribution not only from CHF, CHANNING, but also possible contribution from O[facility]. We discussed that long-term even after treatment/improvement of CHF is admission, will benefit from weight loss. After discharge consider referral for PFT, sleep study. Status: Acute (4) Acute anemia: Received 1 unit PBC transfusion. Monitor hemoglobin. Peripheral smear with mild borderline leukocytosis, normocytic anemia. No malignant appearing cells. Reticulocyte production index appears to be diminished slightly at 1.6. Perhaps there is a degree of hypoproliferation as well. Requested MMA. Appears she has had quite extensive work-up for anemia back in February. Appears most likely cause at this time that this is anemia of chronic disease. However, discussed with her cannot entirely exclude anemia with acute blood loss. Normal MCV. Hemoccult requested. She has had bowel movements, denies melena or hematochezia. Denies hematuria. No outward bleeding. Previously B12, folic acid checked and were normal. TSH noncontributory. -Hold Lovenox. Continue SCD. -Protonix 40 IV twice daily, Carafate Status: Acute (5) Mixed hyperlipidemia: Status: Acute (6) Insulin dependent type 2 diabetes mellitus: -Insulin sliding scale -Lantus Status: Acute (7) Chronic kidney disease (CKD): Status: Acute (8) Hyponatremia: Plateaued at 130. Continue treatment of CHF. Likely secondary to severe heart failure, monitor Status: Acute Additional A&P Information Hypertension: Better. Still room to improve. Continue isosorbide. Continue hydralazine. Continue diuresis, clonidine 0.1 mg twice daily, spironolactone 25 mg twice daily Attestations Medical Necessity Statement*: Continue admission for treatment of congestive heart failure in the setting of chronic kidney disease, with anasarca, acute metabolic encephalopathy, acute on chronic anemia, hypercapnic respiratory failure. Coding Level of Care Code Acute Sack Cleaner for [facility] Diagnoses Diastolic CHF I50.30 Metabolic encephalopathy G93.41 Acute hypercapnic respiratory failure J96.02 Acute anemia D64.9 Mixed hyperlipidemia E78.2 Insulin dependent type 2 diabetes mellitus E11.9; Z79.4 Chronic kidney disease (CKD) N18.9 Hyponatremia E87.1
[2020-10-09] MEDS: atorvastatin 40 mg Tablet 80 MG PO (21:00)
[2020-10-09] MEDS: montelukast sodium 10 mg Tablet PO (21:00)
[2020-10-09] MEDS: insulin glargine 100 units/1 mL 62 UNIT SUBCUT (21:29)
[2020-10-10] VITALS (16 sets, daily range): BP systolic 136–167; BP diastolic 46–66; PULSE 80–99; RESP 15–28; TEMP 36.4–36.8; O2SAT 93–98
[2020-10-10 04:40] LABS: Basophils % 0.4 %; Eosinophils # 0.3 10^3/uL (0.0-0.8); Eosinophils % 3.2 %; Hematocrit 25.5 % (37.0-47.0); Hemoglobin 7.5 g/dL (11.5-15.3); Lymphocytes # 1.5 10^3/uL (0.8-4.8); Lymphocytes % 15.3 %; Mean Corpuscular HGB Conc 29.4 g/dL (30.0-36.0); Mean Corpuscular Hemoglobin 25.9 pg (28.0-34.0); Mean Corpuscular Volume 87.9 fL (81-99); Mean Platelet Volume 9.2 fL (7.4-10.4); Monocytes % 10.1 %; Neutrophils % 69.7 %; Nucleated Red Blood Cells % 0 %; Platelet Count 307 10^3/cmm (130-400); Red Cell Distribution Width 16.5 % (12.1-15.1); White Blood Count 9.9 10^3/uL (4.0-10.0)
[2020-10-10 04:52] LABS: Alanine Aminotransferase 6 U/L (0-33); Albumin Level 3.2 g/dL (3.5-5.2); Alkaline Phosphatase 94 IU/L (35-105); Anion Gap 11.9 (5-19); Aspartate Amino Transferase 9 U/L (0-32); Blood Urea Nitrogen 48 mg/dL (8-23); Calcium 8.7 mg/dL (8.5-10.5); Carbon Dioxide 39 mmol/L (22-29); Chloride 85 mmol/L (98-107); Globulin 3.2 g/dL (1.3-4.6); Glomerular Filtration Rate 38.1 mL/min (90-130); Glucose 186 mg/dL (65-115); Magnesium 1.9 mg/dL (1.7-2.3); Osmolality Calculated 291 mOsm/kg (285-295); Potassium 3.9 mmol/L (3.5-5.1); Sodium 132 mmol/L (136-145); Total Bilirubin 0.4 mg/dL (0.15-1.2); Total Protein 6.4 g/dL (6.6-8.7)
[2020-10-10 05:12] LABS: ABG PCO2 64.3 mmHg (35-45); ABG PH Result 7.41 (7.35-7.45); Arterial Blood Gas Hematocrit 23.3 % (37-47); Base Excess ABG 14.8 mmol/L (-2.0-2.0); Blood Gas Allen Test Pos; Blood Gas Operator Identificat HARKR; Blood Gas Sample Site Radial, left; Blood Gas Sample Type Arterial; HCO3 ABG 41.1 mmol/L (22-26); Oxygen Device NC; PO2 ABG 67.6 mmHg (80.0-100.0)
[2020-10-10] MEDS: bumetanide 0.25 mg/mL SDV 10 mL 2 MG IV ×2 (05:26→17:03)
[2020-10-10] MEDS: acetaminophen 325 mg Tablet 650 MG PO (05:36)
[2020-10-10 06:40] LABS: Glucose Point of Care 184 mg/dL (70-110)
[2020-10-10] MEDS: sucralfate 1 gm Tablet PO ×2 (06:41→17:03)
[2020-10-10] MEDS: hyDRALAzine 50 mg Tablet PO ×4 (06:41→23:14)
[2020-10-10] MEDS: duloxetine 30 mg Capsule PO (08:03)
[2020-10-10] MEDS: pantoprazole 40 mg SDV IVP ×2 (08:03→20:48)
[2020-10-10] MEDS: docusate sodium 100 mg Capsule PO ×2 (08:07→20:48)
[2020-10-10] MEDS: isosorbide dinitrate 20 mg Tablet PO ×3 (08:07→20:48)
[2020-10-10] MEDS: spironolactone 25 mg Tablet PO ×2 (08:07→20:48)
[2020-10-10] MEDS: cloNIDine 0.1 mg Tablet PO ×2 (08:07→17:03)
[2020-10-10] MEDS: amlodipine 10 mg Tablet PO (08:07)
[2020-10-10] MEDS: potassium chloride ER 20 mEq Tablet PO ×2 (08:07→20:48)
[2020-10-10] MEDS: acetaZOLAMIDE 250 mg Tablet PO ×2 (08:07→20:48)
[2020-10-10] MEDS: potassium chloride ER 10 mEq Tablet PO ×2 (08:07→20:48)
[2020-10-10 11:24] LABS: Glucose Point of Care 248 mg/dL (70-110)
--- NOTE | 2020-10-10 12:14 | P.PN_ITS ---
Subjective Subjective: Interval history: Today she feels slightly better. Still feels having some asterixis, but better than yesterday. Denies chest pain or pressure. Breathing without trouble. Per report had episode of confusion last night. She tells me she could not sleep much at night so she is getting some rest now. Prescription with her nurse declined to additionally wear BiPAP this morning. Vitals/I&O/Wt Last Vital Signs Temp 98.0 F 10/10/20 07:07 Pulse 83 10/10/20 09:35 Resp 17 10/10/20 09:32 BP 136/51 10/10/20 08:07 Pulse Ox 96 10/10/20 09:34 10/09/20 10/10/20 10/10/20 22:59 06:59 14:59 Intake Total 240 / 720 150 / 870 120 / 120 Output Total 1250 / 2750 1100 / 3850 1000 / 1000 Balance -1010 / -2030 -950 / -2980 -880 / -880 Weight last 48 hrs Weight 129.727 kg Physical Exam Const: COMMON NORMALS: no acute distress, patient oriented x3 (All she is at [facility] in [place], year is 2020.) and alert GENERAL APPEARANCE: cooperative NUTRITIONAL APPEARANCE: obese ORIENTATION/CONSCIOUSNESS: Yes awake OTHER: Sleeping, wakes up to voice. States could not sleep much during the night so getting some rest now. Wakes up to talk to me. Cooperates with exam. HENMT: COMMON NORMALS: oropharynx normal Neck/C-Spine: COMMON NORMALS: no JVD Resp: COMMON NORMALS: normal respiratory effort and clear to auscultation bilaterally AUSCULTATION: clear to auscultation bilaterally Cardio: COMMON NORMALS: no JVD, regular rhythm, S1 normal heart sound present, S2 normal heart sound present and No murmurs present (Cardio) RHYTHM: regular rhythm HEART SOUNDS: S1 normal heart sound present and S2 normal heart sound present GI: COMMON NORMALS: Normal to inspection, nondistended, normoactive bowel sounds present, Soft to palpation and non-tender PALPATION: Yes Soft to palpation Extremity: COMMON NORMALS: no joint enlargement and no pedal edema GENERAL: Yes edema (Severe bilateral lower and upper extremity edema. No weeping.) Neuro: COMMON NORMALS: patient oriented x3 (All she is at [facility] in [place], year is 2020.) and moves all extremities SENSORIUM/ORIENTATION: Yes alert Skin: COMMON NORMALS: no rashes or lesions noted GENERAL SKIN EXAM: no rashes or lesions noted Urinary Catheter Management^: Culp: Cath Placed During This Visit: yes Reason for Continuing Indwelling Catheter: Accurate Measurement of Urinary Output in Critically Ill Patients Urinary Catheter Date of Insertion: 10/04/20 Urinary Catheter Time of Insertion: 17:45 Data : 10/10/20 04:03 10/10/20 04:03 A&P Assessment and plan (1) Diastolic CHF: Weight not available today, but appears to be negative balance, -2.84 L since yesterday. Swelling still quite severe, but appears to be gradually decreasing. Some wrinkling is appearing on extremities. No weeping. Renal function so far is tolerating diuresis. At this time she is diuresing well, so we will continue the same with IV Bumex, spironolactone, acetazolamide Mobilize with physical therapy as tolerating. Could not reach either of her children on the phone numbers listed for update. Status: Acute (2) Metabolic encephalopathy: Mental status appears to be on and off. Perhaps slightly better today, although again reported to have possibly cold her family yesterday, not speaking on phone. To me appears to be oriented x3 currently, she is resting as she says she cannot sleep at night, but wakes up, cooperates with conversation, examination. Reports still having some asterixis, but that it is better than yesterday. Declines to wear BiPAP today. ABG 7.41/64.3/67.6/41.1. We will continue with decreased dose duloxetine currently. Continue to monitor mental status, treat CHF exacerbation, monitor for any signs of worsening hypercapnia. BiPAP as needed and as tolerating. TSH was normal. Status: Acute (3) Acute hypercapnic respiratory failure: Continue treatment of CHF exacerbation. ABG 7.41/64.3/67.6/41.1 -BiPAP support as tolerating -Monitor respiratory status closely Reports she has history of sleep apnea diagnosed several years ago, but could not tolerate CPAP well. She is willing to repeat sleep study to see if there are different options for masks that she could tolerate better. Discussed with her and her son concern regarding contribution not only from CHF, CHANNING, but also possible contribution from OHS. We discussed that long-term even after treatment/improvement of CHF is admission, will benefit from weight loss. After discharge consider referral for PFT, sleep study. Status: Acute (4) Acute anemia: Appears to have stated around 7.5. Received 1 unit PBC transfusion. Monitor hemoglobin. Collect stool for occult blood testing. Peripheral smear with mild borderline leukocytosis, normocytic anemia. No malignant appearing cells. Reticulocyte production index appears to be diminished slightly at 1.6. Perhaps there is a degree of hypoproliferation as well. Requested MMA. Appears she has had quite extensive work-up for anemia back in February. Appea rs most likely cause at this time that this is anemia of chronic disease. However, discussed with her cannot entirely exclude anemia with acute blood loss. Normal MCV. Hemoccult requested. She has had bowel movements, denies melena or hematochezia. Denies hematuria. No outward bleeding. Previously B12, folic acid checked and were normal. TSH noncontributory. -Hold Lovenox. Continue SCD. -Protonix 40 IV twice daily, Carafate Status: Acute (5) Mixed hyperlipidemia: Status: Acute (6) Insulin dependent type 2 diabetes mellitus: -Insulin sliding scale -Lantus Status: Acute (7) Chronic kidney disease (CKD): Status: Acute (8) Hyponatremia: Improving with diuresis. Continue treatment of CHF. Likely secondary to severe heart failure, monitor Status: Acute Additional A&P Information Hypertension: Closer to goal. Continue isosorbide. Continue hydralazine. Continue diuresis, clonidine 0.1 mg twice daily, spironolactone 25 mg twice daily Attestations Medical Necessity Statement*: Continue admission for assessment of management of CHF exacerbation, severe edema, episodes of hypercapnia, acute encephalopathy, in the setting of chronic kidney disease, assessment of acute on chronic anemia. Coding Level of Care Code Acute Felt Hooker for Chg Fwd Exam Comprehensive Diagnoses Diastolic CHF I50.30 Metabolic encephalopathy G93.41 Acute hypercapnic respiratory failure J96.02 Acute anemia D64.9 Mixed hyperlipidemia E78.2 Insulin dependent type 2 diabetes mellitus E11.9; Z79.4 Chronic kidney disease (CKD) N18.9 Hyponatremia E87.1
[2020-10-10 16:52] LABS: Glucose Point of Care 318 mg/dL (70-110)
[2020-10-10 20:25] LABS: Glucose Point of Care 324 mg/dL (70-110)
[2020-10-10] MEDS: montelukast sodium 10 mg Tablet PO (20:48)
[2020-10-10] MEDS: atorvastatin 40 mg Tablet 80 MG PO (20:48)
[2020-10-10] MEDS: insulin glargine 100 units/1 mL 62 UNIT SUBCUT (20:48)
[2020-10-11] VITALS (18 sets, daily range): BP systolic 128–155; BP diastolic 56–77; PULSE 77–93; RESP 14–30; TEMP 36.1–37; O2SAT 91–99
[2020-10-11] MEDS: guaiFENesin-dextromethorphan UDC 10 mL 5 ML PO (02:21)
[2020-10-11 04:51] LABS: Basophils % 0.3 %; Eosinophils # 0.4 10^3/uL (0.0-0.8); Eosinophils % 3.3 %; Hematocrit 24.5 % (37.0-47.0); Hemoglobin 7.2 g/dL (11.5-15.3); Lymphocytes # 1.8 10^3/uL (0.8-4.8); Lymphocytes % 15.3 %; Mean Corpuscular HGB Conc 29.4 g/dL (30.0-36.0); Mean Corpuscular Hemoglobin 25.7 pg (28.0-34.0); Mean Corpuscular Volume 87.5 fL (81-99); Mean Platelet Volume 8.7 fL (7.4-10.4); Monocytes % 8.6 %; Neutrophils # 8.31 10^3/uL (1.8-7.7); Neutrophils % 71.2 %; Nucleated Red Blood Cells % 0 %; Platelet Count 316 10^3/cmm (130-400); Red Cell Distribution Width 16.6 % (12.1-15.1); White Blood Count 11.7 10^3/uL (4.0-10.0)
[2020-10-11 05:07] LABS: Alanine Aminotransferase 6 U/L (0-33); Albumin Level 3.3 g/dL (3.5-5.2); Alkaline Phosphatase 95 IU/L (35-105); Anion Gap 8.8 (5-19); Aspartate Amino Transferase 8 U/L (0-32); Blood Urea Nitrogen 43 mg/dL (8-23); Calcium 8.8 mg/dL (8.5-10.5); Carbon Dioxide 40 mmol/L (22-29); Chloride 88 mmol/L (98-107); Globulin 3.2 g/dL (1.3-4.6); Glomerular Filtration Rate 35.2 mL/min (90-130); Glucose 183 mg/dL (65-115); Osmolality Calculated 292 mOsm/kg (285-295); Potassium 3.8 mmol/L (3.5-5.1); Sodium 133 mmol/L (136-145); Total Bilirubin 0.6 mg/dL (0.15-1.2); Total Protein 6.5 g/dL (6.6-8.7)
[2020-10-11] MEDS: bumetanide 0.25 mg/mL SDV 10 mL 2 MG IV ×2 (06:08→17:24)
[2020-10-11] MEDS: hyDRALAzine 50 mg Tablet PO ×3 (06:08→23:48)
[2020-10-11] MEDS: sucralfate 1 gm Tablet PO ×2 (06:08→17:23)
[2020-10-11 06:41] LABS: Glucose Point of Care 181 mg/dL (70-110)
[2020-10-11] MEDS: potassium chloride ER 20 mEq Tablet PO ×2 (08:21→20:35)
[2020-10-11] MEDS: duloxetine 30 mg Capsule PO (08:21)
[2020-10-11] MEDS: potassium chloride ER 10 mEq Tablet PO ×2 (08:21→20:34)
[2020-10-11] MEDS: acetaZOLAMIDE 250 mg Tablet PO ×2 (08:21→20:35)
[2020-10-11] MEDS: amlodipine 10 mg Tablet PO (08:22)
[2020-10-11] MEDS: spironolactone 25 mg Tablet PO ×2 (08:22→20:35)
[2020-10-11] MEDS: isosorbide dinitrate 20 mg Tablet PO ×3 (08:22→20:34)
[2020-10-11] MEDS: cloNIDine 0.1 mg Tablet PO ×2 (08:22→17:22)
[2020-10-11] MEDS: docusate sodium 100 mg Capsule PO (08:22)
[2020-10-11] MEDS: pantoprazole 40 mg SDV IVP ×2 (08:23→22:04)
[2020-10-11] MEDS: acetaminophen 325 mg Tablet 650 MG PO ×3 (08:48→23:48)
--- NOTE | 2020-10-11 09:23 | PC.SOCIAL ---
IMM Update Pg.2 of IMM updated. Initialed, dated, and timed, and placed in chart/copy provided to patient.
--- NOTE | 2020-10-11 09:30 | PC.NURSE ---
Bowel Movement Dr. Espinosa notified patient had a tarry stool, but nurse was unable to collect specimen. Patient educated on need for stool specimen. No new orders received at this time.
[2020-10-11 11:15] LABS: Glucose Point of Care 210 mg/dL (70-110)
[2020-10-11 16:32] LABS: Glucose Point of Care 236 mg/dL (70-110)
--- NOTE | 2020-10-11 18:14 | PC.NURSE ---
Report called to WESLEY Gabriel on medsurg. No further questions at this time. Patient transferred via wheelchair on 2L NC O2.
[2020-10-11] MEDS: atorvastatin 40 mg Tablet 80 MG PO (20:33)
[2020-10-11] MEDS: montelukast sodium 10 mg Tablet PO (20:34)
--- NOTE | 2020-10-11 21:31 | P.PN_ITS ---
Subjective Subjective: Interval history: She is doing better today. She is more alert, she is sitting up in chair. She reports asterixis is resolving. No reported episodes of confusion today from what I hear. Reports breathing is doing well. She has been curious about when she might be going home. Vitals/I&O/Wt Last Vital Signs Temp 97.5 F L 10/11/20 19:27 Pulse 81 10/11/20 21:25 Resp 16 10/11/20 21:25 BP 140/70 10/11/20 19:27 Pulse Ox 95 10/11/20 21:25 10/11/20 10/11/20 10/11/20 06:59 14:59 22:59 Intake Total 240 / 240 240 / 480 Output Total 550 / 3650 1000 / 1000 700 / 1700 Balance -550 / -3530 -760 / -760 -460 / -1220 Weight last 48 hrs Weight 125.055 kg Physical Exam Const: COMMON NORMALS: no acute distress, patient oriented x3 and alert GENERAL APPEARANCE: cooperative and comfortable NUTRITIONAL APPEARANCE: obese ORIENTATION/CONSCIOUSNESS: Yes awake OTHER: Awake, alert, conversant, sitting up in chair. HENMT: COMMON NORMALS: oropharynx normal Neck/C-Spine: COMMON NORMALS: no JVD Resp: COMMON NORMALS: normal respiratory effort and clear to auscultation bilaterally AUSCULTATION: clear to auscultation bilaterally Cardio: COMMON NORMALS: no JVD, regular rhythm, S1 normal heart sound present, S2 normal heart sound present and No murmurs present (Cardio) RHYTHM: regular rhythm HEART SOUNDS: S1 normal heart sound present and S2 normal heart sound present GI: COMMON NORMALS: Normal to inspection, nondistended, normoactive bowel sounds present, Soft to palpation and non-tender PALPATION: Yes Soft to palpation Extremity: COMMON NORMALS: no joint enlargement GENERAL: Yes edema (I mproving severe bilateral lower and upper extremity edema. No weeping.) Neuro: COMMON NORMALS: patient oriented x3 and moves all extremities SENSORIUM/ORIENTATION: Yes alert Skin: COMMON NORMALS: no rashes or lesions noted GENERAL SKIN EXAM: no rashes or lesions noted Urinary Catheter Management^: Culp: Cath Placed During This Visit: yes Reason for Continuing Indwelling Catheter: Accurate Measurement of Urinary Output in Critically Ill Patients Urinary Catheter Date of Insertion: 10/04/20 Urinary Catheter Time of Insertion: 17:45 Data : 10/11/20 04:28 10/11/20 04:28 A&P Assessment and plan (1) Diastolic CHF: Continue diuresis. Her weight appears to be improving, trending closer to her baseline. Renal function so far is tolerating diuresis. At this time she is diuresing well, so we will continue the same with IV Bumex, spironolactone, acetazolamide Mobilize with physical therapy as tolerating. Could not reach either of her children on the phone numbers listed for update. Status: Acute (2) Metabolic encephalopathy: Appears to be resolving. She is awake, alert, sitting up in chair. Asterixis resolving. She has not had reported episodes of confusion today. We will continue with decreased dose duloxetine currently. Continue to monitor mental status, treat CHF exacerbation, monitor for any signs of worsening hypercapnia. BiPAP as needed and as tolerating. TSH was normal. Status: Acute (3) Acute hypercapnic respiratory failure: Continue treatment of CHF exacerbation. Appears to be compensated currently. BiPAP as tolerating in case of worsening mental status/hypercapnia. -BiPAP support as tolerating -Monitor respiratory status closely Reports she has history of sleep apnea diagnosed several years ago, but could not tolerate CPAP well. She is willing to repeat sleep study to see if there are different options for masks that she could tolerate better. Discussed with her and her son concern regarding contribution not only from CHF, CHANNING, but also possible contribution from [facility]. We discussed that long-term even after treatment/improvement of CHF is admission, will benefit from weight loss. After discharge consider referral for PFT, sleep study. Status: Acute (4) Acute anemia: Today reported to have had a dark loose bowel movement. She went so quickly her nurse was unable to obtain a sample. Hemoccult ordered. Discussed with her to notify in case she needs to go again. Recheck hemoglobin. Received 1 unit PBC transfusion. Peripheral smear with mild borderline leukocytosis, normocytic anemia. No malignant appearing cells. Reticulocyte production index appears to be diminished slightly at 1.6. Perhaps there is a degree of hypoproliferation as well. Check iron studies. Requested MMA. Appears she has had quite extensive work-up for anemia back in February. Appears most likely cause at this time that this is anemia of chronic disease. However, discussed with her cannot entirely exclude anemia with acute blood loss. Normal MCV. Hemoccult requested. She has had bowel movements, denies melena or hematochezia. Denies hematuria. No outward bleeding. Previously B12, folic acid checked and were normal. TSH noncontributory. -Hold Lovenox. Continue SCD. -Protonix 40 IV twice daily, Carafate Status: Acute (5) Mixed hyperlipidemia: Status: Acute (6) Insulin dependent type 2 diabetes mellitus: -Insulin sliding scale -Lantus Status: Acute (7) Chronic kidney disease (CKD): Status: Acute (8) Hyponatremia: Improving with diuresis. Continue treatment of CHF. Likely secondary to severe heart failure, monitor Status: Acute Additional A&P Information Hypertension: Closer to goal. Continue isosorbide. Continue hydralazine. Continue diuresis, clonidine 0.1 mg twice daily, spironolactone 25 mg twice daily Attestations Medical Necessity Statement*: Continue admission for assessment of management of acute CHF with severe edema, gradual diuresis in the setting of chronic kidney disease, monitoring for any recurrence of metabolic encephalopathy, assessment of anemia with dark stool reported today. 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
[2020-10-11] MEDS: insulin glargine 100 units/1 mL 62 UNIT SUBCUT (22:37)
[2020-10-11] MEDS: ergocalciferol (vitamin D2) 50,000 Unit Capsule 50000 UNIT PO (23:48)
[2020-10-12] VITALS (14 sets, daily range): BP systolic 135–162; BP diastolic 68–72; PULSE 78–88; RESP 16–20; TEMP 36.2–37; O2SAT 92–97
[2020-10-12] MEDS: bumetanide 0.25 mg/mL SDV 10 mL 2 MG IV ×2 (05:58→17:47)
[2020-10-12 06:23] LABS: Basophils # 0.1 10^3/uL (0.0-0.1); Basophils % 0.5 %; Eosinophils # 0.3 10^3/uL (0.0-0.8); Eosinophils % 3.1 %; Hematocrit 24.7 % (37.0-47.0); Hemoglobin 7.3 g/dL (11.5-15.3); Lymphocytes # 1.5 10^3/uL (0.8-4.8); Lymphocytes % 15.2 %; Mean Corpuscular HGB Conc 29.6 g/dL (30.0-36.0); Mean Corpuscular Hemoglobin 25.8 pg (28.0-34.0); Mean Corpuscular Volume 87.3 fL (81-99); Monocytes # 0.8 10^3/uL (0.2-0.9); Monocytes % 7.7 %; Neutrophils # 7.09 10^3/uL (1.8-7.7); Neutrophils % 72.3 %; Nucleated Red Blood Cells % 0 %; Platelet Count 323 10^3/cmm (130-400); Red Blood Count 2.83 10^6/uL (4.1-5.3); Red Cell Distribution Width 16.6 % (12.1-15.1); White Blood Count 9.8 10^3/uL (4.0-10.0)
[2020-10-12] MEDS: sucralfate 1 gm Tablet PO ×2 (06:25→17:47)
[2020-10-12] MEDS: hyDRALAzine 50 mg Tablet PO ×3 (06:25→22:52)
[2020-10-12 06:54] LABS: Alanine Aminotransferase < 5 U/L (0-33); Albumin Level 3.2 g/dL (3.5-5.2); Alkaline Phosphatase 92 IU/L (35-105); Anion Gap 13.1 (5-19); Aspartate Amino Transferase 9 U/L (0-32); Blood Urea Nitrogen 39 mg/dL (8-23); Calcium 8.9 mg/dL (8.5-10.5); Carbon Dioxide 36 mmol/L (22-29); Chloride 89 mmol/L (98-107); Ferritin 131 ng/mL (15-150); Globulin 3.4 g/dL (1.3-4.6); Glomerular Filtration Rate 32.7 mL/min (90-130); Glucose 113 mg/dL (65-115); Iron 23 ug/dL (37-145); Osmolality Calculated 288 mOsm/kg (285-295); Percent Saturation 10.2 % (20-50); Potassium 4.1 mmol/L (3.5-5.1); Sodium 134 mmol/L (136-145); Total Bilirubin 0.4 mg/dL (0.15-1.2); Total Iron Binding Capacity 225 mcg/dl; Total Protein 6.6 g/dL (6.6-8.7); Unsaturated Iron Binding 202 ug/dL (112-347)
[2020-10-12] MEDS: docusate sodium 100 mg Capsule PO ×2 (08:11→21:07)
[2020-10-12] MEDS: isosorbide dinitrate 20 mg Tablet PO ×3 (08:11→20:56)
[2020-10-12] MEDS: potassium chloride ER 20 mEq Tablet PO ×2 (08:11→20:56)
[2020-10-12] MEDS: potassium chloride ER 10 mEq Tablet PO ×2 (08:11→20:56)
[2020-10-12] MEDS: amlodipine 10 mg Tablet PO (08:11)
[2020-10-12] MEDS: cloNIDine 0.1 mg Tablet PO ×2 (08:11→17:47)
[2020-10-12] MEDS: spironolactone 25 mg Tablet PO ×2 (08:11→20:56)
[2020-10-12] MEDS: duloxetine 30 mg Capsule PO (08:11)
[2020-10-12] MEDS: pantoprazole 40 mg SDV IVP ×2 (08:12→20:35)
[2020-10-12] MEDS: acetaZOLAMIDE 250 mg Tablet PO ×2 (08:18→20:56)
[2020-10-12 08:23] LABS: Glucose Point of Care 130 mg/dL (70-110)
[2020-10-12 11:01] LABS: Glucose Point of Care 164 mg/dL (70-110)
[2020-10-12] MEDS: acetaminophen 325 mg Tablet 650 MG PO ×3 (11:56→21:07)
--- NOTE | 2020-10-12 12:37 | PC.NURSE ---
Assessed patient pain, patient states that her pain never gets below a 5 on a 0-10 scale. Patient has been resting on and off all day.
[2020-10-12 17:04] LABS: Glucose Point of Care 202 mg/dL (70-110)
[2020-10-12 19:53] LABS: Glucose Point of Care 280 mg/dL (70-110)
[2020-10-12] MEDS: atorvastatin 40 mg Tablet 80 MG PO (20:56)
[2020-10-12] MEDS: montelukast sodium 10 mg Tablet PO (20:56)
[2020-10-12] MEDS: insulin glargine 100 units/1 mL 62 UNIT SUBCUT (21:08)
--- NOTE | 2020-10-12 22:23 | PM.PN ---
Subjective Subjective: Interval history: She was able to finally get a little bit more sleep last night. Still having some burning sensation in her feet, although lidocaine gel is available to numb the discomfort least partially. States her symptoms did not respond to gabapentin in the past. Otherwise denies chest pain. Reports breathing is comfortable on current level of oxygen. Reports asterixis is mostly gone. Vitals/I&O/Wt Last Vital Signs Temp 97.4 F L 10/12/20 19:39 Pulse 88 10/12/20 19:58 Resp 19 H 10/12/20 19:58 BP 162/72 10/12/20 19:39 Pulse Ox 94 10/12/20 19:58 10/12/20 10/12/20 10/12/20 06:59 14:59 22:59 Intake Total 240 / 240 360 / 600 Output Total 500 / 3000 1350 / 1350 450 / 1800 Balance -500 / -2520 -1110 / -1110 -90 / -1200 Weight last 48 hrs Weight 123.944 kg Weight 125.055 kg Physical Exam Const: COMMON NORMALS: no acute distress, patient oriented x3 and alert GENERAL APPEARANCE: cooperative and comfortable NUTRITIONAL APPEARANCE: obese ORIENTATION/CONSCIOUSNESS: Yes awake OTHER: Awake, alert, conversant, sitting at the edge of the bed. Just walked back from the restroom mostly on her own, but with some supervision from nursing students. HENMT: COMMON NORMALS: oropharynx normal Neck/C-Spine: COMMON NORMALS: no JVD Resp: COMMON NORMALS: normal respiratory effort and clear to auscultation bilaterally AUSCULTATION: clear to auscultation bilaterally Cardio: COMMON NORMALS: no JVD, regular rhythm, S1 normal heart sound present, S2 normal heart sound present and No murmurs present (Cardio) RHYTHM: regular rhythm HEART SOUNDS: S1 normal heart sound present and S2 normal heart sound present GI: COMMON NORMALS: Normal to inspection, nondistended, normoactive bowel sounds present, Soft to palpation and non-tender PALPATION: Yes Soft to palpation Extremity: COMMON NORMALS: no joint enlargement GENERAL: Yes edema (Improving severe bilateral lower and upper extremity edema. No weeping.) Neuro: COMMON NORMALS: patient oriented x3 and moves all extremities SENSORIUM/ORIENTATION: Yes alert Skin: COMMON NORMALS: no rashes or lesions noted GENERAL SKIN EXAM: no rashes or lesions noted Urinary Catheter Management^: Culp: Cath Placed During This Visit: yes Reason for Continuing Indwelling Catheter: Other Urinary Catheter Date of Insertion: 10/04/20 Urinary Catheter Time of Insertion: 17:45 Data : 10/12/20 06:05 10/12/20 06:05 A&P Assessment and plan (1) Diastolic CHF: Continues to diurese well. Appears to be regaining mobility, walked to the restroom with some supervision Continue diuresis. Weight appears to be approaching closer to baseline. 123.9 kg today. Renal function so far is tolerating diuresis. At this time she is diuresing well, so we will continue the same with IV Bumex, spironolactone, acetazolamide Mobilize with physical therapy as tolerating. Status: Acute (2) Metabolic encephalopathy: Appears to be resolving. She is mobilizing. Reports asterixis resolving. Continue treatment of CHF, continue supportive care, mobilization. We will continue with decreased dose duloxetine currently. Continue to monitor mental status, treat CHF exacerbation, monitor for any signs of worsening hypercapnia. BiPAP as needed and as tolerating. TSH was normal. Status: Acute (3) Acute hypercapnic respiratory failure: Appears to have achieved resolution of episodes requiring BiPAP. Continue treat CHF at this time. Continue to monitor. BiPAP as tolerating in case of worsening mental status/hypercapnia. Reports she has history of sleep apnea diagnosed several years ago, but could not tolerate CPAP well. She is willing to repeat sleep study to see if there are different options for masks that she could tolerate better. Discussed with her and her son concern regarding contribution not only from CHF, CHANNING, but also possible contribution from [facility]. We discussed that long-term even after treatment/improvement of CHF is admission, will benefit from weight loss. After discharge consider referral for PFT, sleep study. Status: Acute (4) Acute anemia: Looks like loose stool may have been secondary to stool softener. Hold for now. She takes iron as well. Hemoccult has been ordered and pending, so far collected. Follow-up. Recheck hemoglobin. Received 1 unit PBC transfusion. Peripheral smear with mild borderline leukocytosis, normocytic anemia. No malignant appearing cells. Reticulocyte production index appears to be diminished slightly at 1.6. Perhaps there is a degree of hypoproliferation as well. Appears to have combination iron deficiency anemia, anemia chronic disease. Pending MMA. Appears she has had quite extensive work-up for anemia back in February. Appears most likely cause at this time that this is anemia of chronic disease. However, discussed with her cannot entirely exclude anemia with acute blood loss. Normal MCV. Hemoccult requested. She has had bowel movements, denies melena or hematochezia. Denies hematuria. No outward bleeding. Previously B12, folic acid checked and were normal. TSH noncontributory. -Hold Lovenox. Continue SCD. -Protonix 40 IV twice daily, Carafate Status: Acute (5) Mixed hyperlipidemia: Status: Acute (6) Insulin dependent type 2 diabetes mellitus: -Insulin sliding scale -Lantus Status: Acute (7) Chronic kidney disease (CKD): Status: Acute (8) Hyponatremia: Improving with diuresis. Continue treatment of CHF. Likely secondary to severe heart failure, monitor Status: Acute Additional A&P Information Hypertension: Appears for the most part closer to goal, but with some outstanding values. For now continue without change. Continue diuresis. Continue isosorbide. Continue hydralazine. Clonidine 0.1 mg twice daily, spironolactone 25 mg twice daily Attestations Medical Necessity Statement*: Continue admission for assessment management of CHF, severe edema, improving metabolic encephalopathy, resolving episodes of hypercapnic respiratory failure requiring BiPAP support. 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
[2020-10-13] VITALS (14 sets, daily range): BP systolic 135–161; BP diastolic 64–77; PULSE 72–85; RESP 16–20; TEMP 36.4–37.2; O2SAT 93–98
[2020-10-13] MEDS: guaiFENesin-dextromethorphan UDC 10 mL 5 ML PO ×2 (04:23→20:45)
[2020-10-13] MEDS: bumetanide 0.25 mg/mL SDV 10 mL 2 MG IV ×2 (05:56→18:18)
[2020-10-13] MEDS: hyDRALAzine 50 mg Tablet PO ×3 (06:06→22:00)
[2020-10-13] MEDS: sucralfate 1 gm Tablet PO ×2 (06:06→18:17)
[2020-10-13 06:41] LABS: Glucose Point of Care 171 mg/dL (70-110)
[2020-10-13 06:48] LABS: Basophils # 0.1 10^3/uL (0.0-0.1); Basophils % 0.5 %; Eosinophils # 0.3 10^3/uL (0.0-0.8); Eosinophils % 3.5 %; Hematocrit 24.9 % (37.0-47.0); Hemoglobin 7.2 g/dL (11.5-15.3); Lymphocytes # 1.4 10^3/uL (0.8-4.8); Mean Corpuscular HGB Conc 28.9 g/dL (30.0-36.0); Mean Corpuscular Hemoglobin 25.4 pg (28.0-34.0); Mean Platelet Volume 9.1 fL (7.4-10.4); Monocytes # 0.8 10^3/uL (0.2-0.9); Monocytes % 8.4 %; Neutrophils # 6.72 10^3/uL (1.8-7.7); Neutrophils % 71.3 %; Nucleated Red Blood Cells % 0 %; Platelet Count 341 10^3/cmm (130-400); Red Blood Count 2.83 10^6/uL (4.1-5.3); Red Cell Distribution Width 16.5 % (12.1-15.1); White Blood Count 9.4 10^3/uL (4.0-10.0)
[2020-10-13 07:20] LABS: Blood Urea Nitrogen 39 mg/dL (8-23); Calcium 8.8 mg/dL (8.5-10.5); Carbon Dioxide 33 mmol/L (22-29); Chloride 89 mmol/L (98-107); Creatinine Clr Calc Pharmacy 48.2706; Glomerular Filtration Rate 35.2 mL/min (90-130); Glucose 147 mg/dL (65-115); Magnesium 1.7 mg/dL (1.7-2.3); Osmolality Calculated 288 mOsm/kg (285-295); Sodium 133 mmol/L (136-145)
[2020-10-13] MEDS: acetaZOLAMIDE 250 mg Tablet PO ×2 (08:52→20:34)
[2020-10-13] MEDS: amlodipine 10 mg Tablet PO (08:53)
[2020-10-13] MEDS: potassium chloride ER 20 mEq Tablet PO ×2 (08:53→20:34)
[2020-10-13] MEDS: potassium chloride ER 10 mEq Tablet PO ×2 (08:53→20:34)
[2020-10-13] MEDS: cloNIDine 0.1 mg Tablet PO ×2 (08:53→18:17)
[2020-10-13] MEDS: duloxetine 30 mg Capsule PO (08:53)
[2020-10-13] MEDS: isosorbide dinitrate 20 mg Tablet PO ×3 (08:53→20:34)
[2020-10-13] MEDS: pantoprazole 40 mg SDV IVP ×2 (08:54→20:50)
[2020-10-13] MEDS: spironolactone 25 mg Tablet PO ×2 (10:41→20:34)
[2020-10-13] MEDS: acetaminophen 325 mg Tablet 650 MG PO ×2 (10:44→21:53)
--- NOTE | 2020-10-13 11:07 | PC.SOCIAL ---
*IMM UPDATE* Gave patient IMM update, provided her copy of pg 2. Verbalized understanding. 10/13/20 @ 0947. Initialed, dated, timed and placed in chart.
[2020-10-13 11:21] LABS: Glucose Point of Care 252 mg/dL (70-110)
[2020-10-13 17:43] LABS: Glucose Point of Care 242 mg/dL (70-110)
--- NOTE | 2020-10-13 19:42 | PM.PN ---
Subjective Subjective: Interval history: She reports she is doing pretty well. She still having discomfort in her feet which is making it difficult for her to fall asleep. Discussed with her consideration that we may increase duloxetine back up to the original dose given her mental status has been significantly better, and asterixis has resolved. She is agreeable and would like to proceed. She states otherwise she is doing quite well. Reports with nasal cannula breathing is good. Denies chest pain or pressure. The size of her legs continues to gradually decrease. She would like the Culp catheter removed so she may try to mobilize more easily. Vitals/I&O/Wt Last Vital Signs Temp 97.8 F 10/13/20 16:00 Pulse 82 10/13/20 16:00 Resp 16 10/13/20 16:00 BP 141/64 10/13/20 18:17 Pulse Ox 95 10/13/20 16:00 10/13/20 10/13/20 10/13/20 06:59 14:59 22:59 Intake Total 480 / 480 360 / 840 Output Total 1050 / 2850 1375 / 1375 825 / 2200 Balance -1050 / -2250 -895 / -895 -465 / -1360 Weight last 48 hrs Weight 121.427 kg Weight 123.944 kg Physical Exam Narrative: EXAM NARRATIVE: Son at bedside Const: COMMON NORMALS: no acute distress, patient oriented x3 and alert GENERAL APPEARANCE: cooperative and comfortable NUTRITIONAL APPEARANCE: obese ORIENTATION/CONSCIOUSNESS: Yes awake OTHER: Awake, alert, conversant, sitting at the edge of the bed. Just walked back from the restroom mostly on her own, but with some supervision from nursing students. HENMT: COMMON NORMALS: oropharynx normal Neck/C-Spine: COMMON NORMALS: no JVD Resp: COMMON NORMALS: normal respiratory effort and clear to auscultation bilaterally AUSCULTATION: clear to auscultation bilaterally Cardio: COMMON NORMALS: no JVD, regular rhythm, S1 normal heart sound present, S2 normal heart sound present and No murmurs present (Cardio) RHYTHM: regular rhythm HEART SOUNDS: S1 normal heart sound present and S2 normal heart sound present GI: COMMON NORMALS: Normal to inspection, nondistended, normoactive bowel sounds present, Soft to palpation and non-tender PALPATION: Yes Soft to palpation Extremity: COMMON NORMALS: no joint enlargement GENERAL: Yes edema (Improving severe bilateral lower and upper extremity edema. No weeping.) Neuro: COMMON NORMALS: patient oriented x3 and moves all extremities SENSORIUM/ORIENTATION: Yes alert Skin: COMMON NORMALS: no rashes or lesions noted GENERAL SKIN EXAM: no rashes or lesions noted Urinary Catheter Management^: Culp: Cath Placed During This Visit: yes Reason for Continuing Indwelling Catheter: Acute Urinary Retention or Obstruction Urinary Catheter Date of Insertion: 10/04/20 Urinary Catheter Time of Insertion: 17:45 Data : 10/13/20 05:53 10/13/20 05:53 A&P Assessment and plan (1) Diastolic CHF: Lower extremity edema continues to gradually improve. She is experiencing somewhat more burning sensation, possibly secondary to decreasing of the size of the swelling. Discussed with her increasing duloxetine dose back up to 60, and she wants to proceed. Monitor for any additional changes in mental status. Continue to moisturize. Lidocaine jelly as needed. Her weight is coming down as well, closer to her dry weight which appears may be some around 118-119 kg which she may be approaching soon. Today down to 121.4. Continue IV diuretic for additional 1-2 days, subsequently likely may be will switch to oral diuretic, [facility] She would like to DC Culp so that she may mobilize little bit more readily. We will go ahead and request to discontinue. Renal function so far is tolerating diuresis. At this time she is diuresing well, so we will continue the same with IV Bumex, spironolactone, acetazolamide Mobilize with physical therapy as tolerating. Status: Acute (2) Metabolic encephalopathy: Appears to be resolved. She reports asterixis has resolved. Continues to have burning in her feet with the decreasing size of her legs/drinking edema. Discussed with her about cautiously increasing duloxetine back to her usual dose, reducing back in case of return of encephalopathy. She would like to proceed. Continue treatment of CHF, continue supportive care, mobilization. We will continue with decreased dose duloxetine currently. Continue to monitor mental status, treat CHF exacerbation, monitor for any signs of worsening hypercapnia. BiPAP as needed and as tolerating. TSH was normal. Status: Acute (3) Acute hypercapnic respiratory failure: Appears to have achieved resolution of episodes requiring BiPAP. Continue to treat CHF at this time. Continue to monitor. BiPAP as tolerating in case of worsening mental status/hypercapnia. Reports she has history of sleep apnea diagnosed several years ago, but could not tolerate CPAP well. She is willing to repeat sleep study to see if there are different options for masks that she could tolerate better. Discussed with her and her son concern regarding contribution not only from CHF, CHANNING, but also possible contribution from [facility]. We discussed that long-term even after treatment/improvement of CHF is admission, will benefit from weight loss. After discharge consider referral for PFT, sleep study. Status: Acute (4) Acute anemia: Looks like loose stool may have been secondary to stool softener. Hold for now. She takes iron as well. Hemoccult has been ordered and pending, so far not collected. Encouraged her to let the nurse know if she is going to have a bowel movement. Follow-up. Received 1 unit PBC transfusion. Peripheral smear with mild borderline leukocytosis, normocytic anemia. No malignant appearing cells. Reticulocyte production index appears to be diminished slightly at 1.6. Perhaps there is a degree of hypoproliferation as well. Appears to have combination iron deficiency anemia, anemia chronic disease. Pending MMA. Appears she has had quite extensive work-up for anemia back in February. Appears most likely cause at this time that this is anemia of chronic disease. However, discussed with her cannot entirely exclude anemia with acute blood loss. Normal MCV. Hemoccult requested. She has had bowel movements, denies melena or hematochezia. Denies hematuria. No outward bleeding. Previously B12, folic acid checked and were normal. TSH noncontributory. -Hold Lovenox. Continue SCD. -Protonix 40 IV twice daily, Carafate Status: Acute (5) Mixed hyperlipidemia: Status: Acute (6) Insulin dependent type 2 diabetes mellitus: -Insulin sliding scale -Lantus Status: Acute (7) Chronic kidney disease (CKD): Status: Acute (8) Hyponatremia: Improving with diuresis. Continue treatment of CHF. Likely secondary to severe heart failure, monitor Status: Acute Additional A&P Information Hypertension: Appears for the most part closer to goal, but with some outstanding values. For now continue without change. Continue diuresis. Continue isosorbide. Continue hydralazine. Clonidine 0.1 mg twice daily, spironolactone 25 mg twice daily Attestations Medical Necessity Statement*: Continue admission for assessment management of CHF exacerbation, severe lower extremity edema, limiting mobility, resumption of prior dose of neuropathic pain medication following episode of encephalopathy, disposition planning. 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
[2020-10-13] MEDS: montelukast sodium 10 mg Tablet PO (20:33)
[2020-10-13] MEDS: atorvastatin 40 mg Tablet 80 MG PO (20:33)
[2020-10-13 20:50] LABS: Glucose Point of Care 327 mg/dL (70-110)
[2020-10-13] MEDS: magnesium sulfate premix 2 GM/50 ML PIGGYBACK IV (21:29)
[2020-10-13] MEDS: insulin glargine 100 units/1 mL 62 UNIT SUBCUT (21:30)
[2020-10-14] VITALS (11 sets, daily range): BP systolic 134–152; BP diastolic 64–77; PULSE 77–85; RESP 16–20; TEMP 36.4–36.7; O2SAT 93–99
[2020-10-14 05:02] LABS: Basophils # 0.1 10^3/uL (0.0-0.1); Basophils % 0.6 %; Eosinophils # 0.3 10^3/uL (0.0-0.8); Hematocrit 25.3 % (37.0-47.0); Hemoglobin 7.4 g/dL (11.5-15.3); Lymphocytes # 1.5 10^3/uL (0.8-4.8); Lymphocytes % 15.3 %; Mean Corpuscular HGB Conc 29.2 g/dL (30.0-36.0); Mean Corpuscular Hemoglobin 25.5 pg (28.0-34.0); Mean Corpuscular Volume 87.2 fL (81-99); Mean Platelet Volume 8.9 fL (7.4-10.4); Monocytes # 0.8 10^3/uL (0.2-0.9); Neutrophils # 6.99 10^3/uL (1.8-7.7); Neutrophils % 71.3 %; Nucleated Red Blood Cells % 0 %; Platelet Count 357 10^3/cmm (130-400); Red Cell Distribution Width 16.7 % (12.1-15.1); White Blood Count 9.8 10^3/uL (4.0-10.0)
[2020-10-14 05:17] LABS: Anion Gap 13.3 (5-19); Blood Urea Nitrogen 36 mg/dL (8-23); Calcium 8.5 mg/dL (8.5-10.5); Carbon Dioxide 34 mmol/L (22-29); Chloride 91 mmol/L (98-107); Glomerular Filtration Rate 30.5 mL/min (90-130); Glucose 182 mg/dL (65-115); Osmolality Calculated 291 mOsm/kg (285-295); Potassium 4.3 mmol/L (3.5-5.1); Sodium 134 mmol/L (136-145)
[2020-10-14] MEDS: sucralfate 1 gm Tablet PO ×2 (06:16→18:04)
[2020-10-14] MEDS: hyDRALAzine 50 mg Tablet PO ×2 (06:16→15:21)
[2020-10-14] MEDS: bumetanide 0.25 mg/mL SDV 10 mL 2 MG IV (06:22)
[2020-10-14 06:31] LABS: Glucose Point of Care 190 mg/dL (70-110)
[2020-10-14] MEDS: isosorbide dinitrate 20 mg Tablet PO ×2 (08:47→15:21)
[2020-10-14] MEDS: pantoprazole 40 mg SDV IVP (08:47)
[2020-10-14] MEDS: acetaZOLAMIDE 250 mg Tablet PO (08:47)
[2020-10-14] MEDS: potassium chloride ER 20 mEq Tablet PO (08:47)
[2020-10-14] MEDS: cloNIDine 0.1 mg Tablet PO ×2 (08:47→18:04)
[2020-10-14] MEDS: spironolactone 25 mg Tablet PO (08:47)
[2020-10-14] MEDS: amlodipine 10 mg Tablet PO (08:47)
[2020-10-14] MEDS: potassium chloride ER 10 mEq Tablet PO (08:47)
[2020-10-14] MEDS: duloxetine 30 mg Capsule 60 MG PO (08:48)
[2020-10-14] MEDS: acetaminophen 325 mg Tablet 650 MG PO (10:15)
[2020-10-14 11:56] LABS: Glucose Point of Care 280 mg/dL (70-110)
--- NOTE | 2020-10-14 15:43 | PM.DCS ---
Discharge Providers Date of Admission: 10/04/20 17:49 Date of Discharge: October 14, 2020 Attending Provider at Admission: Triston Boles MD Attending Provider at Discharge: George Montaño MD Primary Care Provider: ANUSHA De La Rosa Diagnoses at Discharge Discharge Diagnosis (1) Diastolic CHF: Status: Acute (2) Metabolic encephalopathy: Status: Acute (3) Acute hypercapnic respiratory failure: Status: Acute (4) Acute anemia: Status: Acute (5) Mixed hyperlipidemia: Status: Acute (6) Insulin dependent type 2 diabetes mellitus: Status: Acute (7) Chronic kidney disease (CKD): Status: Acute (8) Hyponatremia: Status: Acute Reason for Visit Reason for Visit: SOB/ ACUTE CHF Hospital Course Hospital Course Ayla Montilla is a 64 year old female with a past medical history of diastolic CHF, bilateral lower extremity edema, chronic O2 liters, history of pacemaker placement for third-degree AV block, with history of pacemaker site infection status post surgical intervention, insulin-dependent type 2 diabetes mellitus, hypertension, hyperlipidemia, GERD, rheumatoid arthritis on methotrexate and tocilizumab, who presents to [facility] from [facility] for complaints of shortness of breath and bilateral extremity edema. Patient tells me for the last month she has been feeling increased shortness of breath, bilateral extremity edema, increased swelling, increased weight gain, she tells me that her information technology instructor took her off Lasix and put her on Bumex, but she continues to swell. No chest pain, no palpitations, no lightheadedness, dizziness, no nausea, no vomiting. Does also complain of abdominal wall edema. Patient admitted to hospital for management of shortness of breath, CHF exacerbation. She had long hospitalization complicated by slow eventual dialysis, episodes of multifactorial angiopathy most likely from hypercapnia requiring BiPAP ventilation support along with polypharmacy of chronic psychiatric sedating medications and acute on chronic anemia. Patient was treated with IV diuresis to which she responded slow but well and eventually was 22 L negative by the day of discharge. She is back to her baseline dry body weight. Patient was found to have iron deficiency anemia which was treated with oral iron supplementation. Her hospitalization was also complicated by her developing elevated blood pressures for which multiple antihypertensives were adjusted. Patient is found to have hemoglobin of 7.4 which has remained stable but is lower than what it was in late part of 2019. In February 2020 she had extensive work-up for same and was diagnosed of combination of iron deficiency and anemia of chronic disease. Patient needs to follow-up with surgery as an outpatient for possible need of endoscopy and colonoscopy for further work-up of anemia. She has been discharged on oral iron supplementation. Patient is been discharged hemodynamically stable condition with advised to follow-up with her primary care provider within next 4 to 7 days with repeat BMP. Physical Exam Narrative: EXAM NARRATIVE: Son at bedside Const: COMMON NORMALS: no acute distress, patient oriented x3 and alert GENERAL APPEARANCE: cooperative and comfortable NUTRITIONAL APPEARANCE: obese ORIENTATION/CONSCIOUSNESS: Yes awake OTHER: Awake, alert, conversant, sitting at the edge of the bed. Just walked back from the restroom mostly on her own, but with some supervision from nursing students. HENMT: COMMON NORMALS: normocephalic and oropharynx normal HEAD & SCALP: normocephalic Eye: COMMON NORMALS: Equal, round and reactive pupils present GENERAL EYE: appearance normal, both eyes and all related structures PUPIL: Yes Equal, round and reactive pupils present Neck/C-Spine: COMMON NORMALS: full ROM, no lymphadenopathy and no JVD Lymph: LYMPHATIC: no lymphadenopathy noted Resp: COMMON NORMALS: normal respiratory effort, No retractions, No use of accessory muscles and clear to auscultation bilaterally AUSCULTATION: clear to auscultation bilaterally OTHER: Few minimal crackles at bases. Cardio: COMMON NORMALS: no JVD, regular rate, regular rhythm, S1 normal heart sound present, S2 normal heart sound present, No gallops present (Cardio), No clicks present (Cardio) and No murmurs present (Cardio) RATE: regular rate RHYTHM: regular rhythm HEART SOUNDS: S1 normal heart sound present and S2 normal heart sound present GI: COMMON NORMALS: Normal to inspection, nondistended, normoactive bowel sounds present, Soft to palpation, non-tender, No hepatosplenomegaly present, no masses and no bruits PALPATION: Yes Soft to palpation and Yes No hepatosplenomegaly present OTHER: Abdominal wall edema Extremity: COMMON NORMALS: no joint enlargement NARRATIVE EXTREMITY EXAM: 2+ pitting edema, with generalized anasarca GENERAL: Yes edema (Improving severe bilateral lower and upper extremity edema. No weeping.) Neuro: COMMON NORMALS: patient oriented x3, CN's II-XII intact bilaterally, moves all extremities and no focal motor deficits SENSORIUM/ORIENTATION: Yes alert Psych: COMMON NORMALS: mental status grossly normal, Normal thought process present and cooperative THOUGHT PROCESS: Normal thought process present Skin: COMMON NORMALS: no rashes or lesions noted GENERAL SKIN EXAM: no rashes or lesions noted Urinary Catheter Management^: Culp: Cath Placed During This Visit: yes, but has since been removed by the nurse Reason for Continuing Indwelling Catheter: Not indwelling catheter Urinary Catheter Date of Insertion: 10/04/20 Urinary Catheter Time of Insertion: 17:45 Date Urinary Catheter Removed: 10/13/20 Time Urinary Catheter Discontinued: 20:00 Discharge Data Data Completed and Pending: Completed Studies During Hospitalization Category Date Time Status XR chest 1V tammy ble [id number] Routine Exams 10/05/20 07:00 Completed XR chest 1V tammy ble [id number] Stat Exams 10/04/20 16:53 Completed Pending at discharge Category Date Time Status Complete Blood Co unt w/Auto AM LABS Lab 10/15/20 04:00 Ordered Comprehensive Met abolic Panel AM LA BS Lab 10/15/20 04:00 Ordered Immunochemical Fe susan OCB Routine Lab 10/04/20 18:47 Uncollected Immunochemical Fe susan OCB Routine Lab 10/10/20 13:27 Uncollected Methylmalonic Aci d Routine Lab 10/08/20 04:19 Received Labs from last 24 hours 10/14/20 10/14/20 10/14/20 11:34 06:23 04:25 WBC RBC Hgb Hct MCV MCH MCHC RDW Plt Count MPV Neut % (Auto) Lymph % (Auto) [place] % (Auto) Eos % (Auto) Baso % (Auto) Neut # (Auto) Lymph # (Auto) [place] # (Auto) Eos # (Auto) Baso # (Auto) Nucleated RBC % (a uto) Nucleated RBCs # Sodium 134 L Potassium 4.3 Chloride 91 L Carbon Dioxide 34 H Anion Gap 13.3 BUN 36 H Creatinine 1.7 H GFR Calculation 30.5 L Glucose 182 H POC Glucose 280 H 190 H Calculated Osmolal ity 291 Calcium 8.5 10/14/20 10/13/20 10/13/20 04:25 20:42 17:35 WBC 9.8 RBC 2.90 L Hgb 7.4 L Hct 25.3 L MCV 87.2 MCH 25.5 L MCHC 29.2 L RDW 16.7 H Plt Count 357 MPV 8.9 Neut % (Auto) 71.3 Lymph % (Auto) 15.3 [place] % (Auto) 8.0 Eos % (Auto) 3.0 Baso % (Auto) 0.6 Neut # (Auto) 6.99 Lymph # (Auto) 1.5 [place] # (Auto) 0.8 Eos # (Auto) 0.3 Baso # (Auto) 0.1 Nucleated RBC % (a uto) 0 Nucleated RBCs # 0.0 Sodium Potassium Chloride Carbon Dioxide Anion Gap BUN Creatinine GFR Calculation Glucose POC Glucose 327 H 242 H Calculated Osmolal ity Calcium Vitals: Last Vital Signs Temp 97.6 F 10/14/20 15:22 Pulse 82 10/14/20 15:22 Resp 20 H 10/14/20 15:22 BP 145/69 10/14/20 15:22 Pulse Ox 99 10/14/20 15:22 Discharge Plan Discharge Patient Disposition: Xfer SNF Condition: Stable Prescriptions: New clonidine HCl 0.1 mg Tablet 0.1 mg PO BID Qty: 60 RF: 0 ferrous sulfate 300 mg (60 mg iron)/5 mL Liquid 300 mg PO BIDWM Qty: 60 RF: 0 hydralazine 50 mg Tablet 100 mg PO Q8H Qty: 180 RF: 0 sucralfate 1 gram Tablet 1 g PO BIDAC Qty: 30 RF: 0 spironolactone 25 mg Tablet 25 mg PO DAILY Qty: 30 RF: 0 Continued montelukast [Singulair] 10 mg tablet 10 mg PO DAILY@1999 RF: 0 hydrocodone-acetaminophen 5-325 mg tablet 1 tab PO TID@08,12,20 PRN (Reason: FIBROMALGIA) RF: 0 Lantus U-100 Insulin 100 unit/mL solution 62 unit SUBCUT BEDTIME@1999 RF: 0 (DME) Home Oxygen Continous See Rx Instructions .Route .MEDSUPPLY Qty: 1 RF: 0 (DME) Shower chair See Rx Instructions .Route .MEDSUPPLY Qty: 1 RF: 0 atorvastatin [Lipitor] 80 mg tablet 80 mg PO DAILY@1999 RF: 0 insulin lispro [Humalog U-100 Insulin] 100 unit/mL solution 1 sliding scale dose SUBCUT TID RF: 0 nitroglycerin [Nitrostat] 0.4 mg tablet, sublingual 0.4 mg SUBLINGUAL Q5M PRN (Reason: chest pains) RF: 0 ergocalciferol (vitamin D2) 1,250 mcg (50,000 unit) capsule 1,250 mcg PO Q7D RF: 0 Actemra 162 mg/0.9 mL syringe 162 mg SUBCUT .Q7days Qty: 4 RF: 3 potassium chloride 20 mEq tablet,ER particles/crystals 20 meq PO DAILY@0800 RF: 0 amlodipine 10 mg tablet 10 mg PO DAILY@0800 RF: 0 pantoprazole 40 mg tablet,delayed release (DR/EC) 40 mg PO DAILY@0800 RF: 0 duloxetine [Cymbalta] 60 mg capsule,delayed release(DR/EC) 60 mg PO DAILY@0800 RF: 0 bumetanide 2 mg Tablet 2 mg PO BID@799,1999 RF: 0 Flovent HFA 44 mcg/actuation HFA aerosol inhaler 2 inh INHALATION BID@799,1999 RF: 0 Colace 100 mg Capsule 100 mg PO BID@799,1999 RF: 0 Tylenol 325 mg Tablet 650 mg PO Q6H PRN (Reason: Pain) RF: 0 prednisone 10 mg Tablet 10 mg PO DAILY@0800 RF: 0 Zyrtec 10 mg Tablet 10 mg PO DAILY PRN (Reason: ALLERGIES) RF: 0 nystatin 100,000 unit/gram ointment See Rx Instructions .ROUTE .COMPLEX RF: 0 triamcinolone acetonide 0.1 % cream See Rx Instructions .ROUTE .COMPLEX RF: 0 Robitussin Cough-Chest Antonio DM 5-100 mg/5 mL Liquid 10 ml PO Q6H PRN (Reason: Cough) RF: 0 Humalog U-100 Insulin 8 unit SUBCUT TID@08,,20 RF: 0 Januvia 50 mg tablet 50 mg PO DAILY@0800 RF: 0 Discontinued hydralazine 25 mg tablet 50 mg PO Q8H RF: 0 metolazone 5 mg tablet 2.5 mg PO DAILY@0800 RF: 0 Discharge Orders: Discharge Order (Routine); Ordered 10/14/20 Ordered By: George Montaño Referrals: STELLA Trevino, STORE ADMINISTRATOR [Primary Care Provider] - 4-7 days Gokul Avila MD [Physician] - (Need of EGD and colonoscopy for anemia work-up) Discharge Diet: Cardiac and Diabetic Discharge Activity: Resume usual activity Patient Instructions: Opioid Safety Activity Restrictions/Additional Instructions: Antihypertensives have been adjusted. Please check BMP in 1 week. Please follow-up with a primary care provider within next 3 to 4 days. Please follow-up with information technology instructor in 1 month. Discharge Attestations Time Spent in Discharge Care*: greater than 30 min Specific Discharge Activities: educating patient, discussing with pcp/other providers, discussing with immigration case manager/social workers/dc planners, documenting/other paperwork and evaluating patient/reviewing data Status at Discharge: Cognitive status at discharge: cognitively intact, Behavioral status at discharge: cooperative, Functional status at discharge: uses cane/walker Overall status at discharge: patient is back to baseline Quality Metrics Clinical Quality Measures During this hospital stay, did patient experience: None Coding Level of Care Code Acute Chg FW DC note Diagnoses Diastolic CHF I50.30 Metabolic encephalopathy G93.41 Acute hypercapnic respiratory failure J96.02 Acute anemia D64.9 Mixed hyperlipidemia E78.2 Insulin dependent type 2 diabetes mellitus E11.9; Z79.4 Chronic kidney disease (CKD) N18.9 Hyponatremia E87.1
--- NOTE | 2020-10-14 17:05 | PC.NURSE ---
Report called to Luz at [facility].
[2020-10-14 17:26] LABS: Glucose Point of Care 249 mg/dL (70-110)
[2020-10-15 22:57] LABS: Methylmalonic Acid 538 nmol/L (87-318)
== END 2020-10-14 19:12 | disposition skilled nursing facility (03) | DRG 291 ==
LOC: ER 17:16 → MEDSURG 18:08 → CSU 20:17 → MEDSURG 10-11 18:05
PROVIDERS: Internal Medicine; Admitting Provider Family Medicine; Emergency Provider Family Medicine; PCP Nurse Practitioner Family; Visit Provider Student in an Organized Health Care Education/Training Program
DX: I13.0 Hypertensive heart and chronic kidney disease with heart failure and stage 1 through stage 4 chronic kidney disease, or unspecified chronic kidney disease (principal); J96.02 Acute respiratory failure with hypercapnia; I50.31 Acute diastolic (congestive) heart failure; G93.41 Metabolic encephalopathy; E87.1 Hypo-osmolality and hyponatremia; Z68.42 Body mass index [BMI] 45.0-49.9, adult; E11.22 Type 2 diabetes mellitus with diabetic chronic kidney disease; E11.65 Type 2 diabetes mellitus with hyperglycemia; N18.9 Chronic kidney disease, unspecified; D63.1 Anemia in chronic kidney disease; D50.9 Iron deficiency anemia, unspecified; E78.2 Mixed hyperlipidemia; K21.9 Gastro-esophageal reflux disease without esophagitis; M06.00 Rheumatoid arthritis without rheumatoid factor, unspecified site; M79.7 Fibromyalgia; E66.9 Obesity, unspecified; E55.9 Vitamin D deficiency, unspecified; R20.8 Other disturbances of skin sensation; Z79.899 Other long term (current) drug therapy; Z95.0 Presence of cardiac pacemaker; Z79.4 Long term (current) use of insulin; Z79.52 Long term (current) use of systemic steroids; Z79.891 Long term (current) use of opiate analgesic; Z74.09 Other reduced mobility; Z99.81 Dependence on supplemental oxygen
CPT/HCPCS: 36415; 36416; 36430; 36600; 51702; 71045; 80048; 80051; 80053; 80500; 81003; 82330; 82550; 82728; 82803; 82805; 82962; 83540; 83550; 83735; 83880; 83921; 84100; 84443; 84484; 85014; 85025; 85045; 86850; 86900; 86920; 93005; 94640; 94660; 94664; 96372; 96374; 97116; 97161; 97166; 97530; 99285; C9113; J1815 ×2; J1940; J3475; J3490; J3535; P9040; P9047

== ENCOUNTER → 2020-11-22 10:55 | Day surgery (SDC) | payer MEDICARE, MEDICAID, SELFPAY | PROVIDERS: PCP Internal Medicine; Visit Provider Surgery | DX: Z01.818 Encounter for other preprocedural examination (principal) | CPT/HCPCS: 93005 ==

== ENCOUNTER → 2020-11-22 11:50 | Outpatient (BNVA) | payer MEDICARE, MEDICAID, SELFPAY | PROVIDERS: PCP Internal Medicine; Visit Provider Surgery | DX: Z01.818 Encounter for other preprocedural examination (principal); Z20.822 Contact with and (suspected) exposure to COVID-19 | CPT/HCPCS: 87635 ==

== ENCOUNTER 2020-11-28 08:57 | Day surgery (SDC) | payer MEDICARE, MEDICAID, SELFPAY ==
--- NOTE | 2020-11-22 10:52 | ANES.PREANE2 ---
Pre-Anesthetic Assessment Pre-Anesthetic Assessment: Height/Weight: Height 1.57 m Preop Diagnosis: anemia Proposed Procedure: Operation Date: 11/28/20 10:00 Proposed Procedures p EGD/colon 81152 72603 R31.9(Not Applicable) - Gokul Avila MD s Colonoscopy(Not Applicable) - Gokul Avila MD Familial anesthetic complications: none Social: Social History: No alcohol and No tobacco Exam: Pre-Anes Outpt Exam: alert, oriented x 3, clear to auscultation bilaterally and regular rate & rhythm Airway: Cervical ROM: Other (limited neck extension) MP: 4 Dentition: Full Additional comments: large neck, small mouth opening Pulmonary: Pulmonary: COPD (2 L NC continously) CV/HEM: CV/HEM: Anemia, Arrythmia and HTN Comments: Patient developed 3rd degree heart block and experience heart failure around that time- she had pacemaker placed. She saw dr. Doe in office today 11/22 for 3 month follow up. No changes in management. He told her she's doing well, that she is ok to have the endoscopies next 07/04 echo EF 69%, mild restrictive pattern : : Chronic renal Insufficiency Metabolic: Metabolic: DM and Morbid obesity Musc/skel: Musc/skel: RA (limited neck extension - unaware of any ligament laxity) Anesthetic Plan: ASA status: 4 Anesthesia: MAC Risk of > 500 ml blood loss (7ml/kg in children): No PFSH Anesthesia PFSH: Medical History (Updated 10/26/20 @ 08:15 by Gokul Avila MD) Acute hypercapnic respiratory failure Allergic conjunctivitis Anemia Chronic kidney disease (CKD) Diabetes mellitus type 2, uncontrolled Diastolic CHF Dyslipidemia Essential (primary) hypertension Fibromyalgia Generalized weakness Hilar lymphadenopathy Hypothyroid Insulin dependent type 2 diabetes mellitus Mixed hyperlipidemia CHANNING (obstructive sleep apnea) Otitis media Rheumatoid arthritis with negative rheumatoid factor Urinary tract infection Vitamin D deficiency Surgical History (Updated 10/26/20 @ 08:14 by Gokul Avila MD) H/O removal of cyst H/O shoulder surgery H/O toe surgery H/O total cystectomy History of hysterectomy Hx of cataract surgery Hx of tonsillectomy Status post colonoscopy Status post placement of other cardiac pacemaker Family History Mother Cancer Fibromyalgia Arthritis Father Cancer Arthritis Social History Smoking and tobacco status: never smoked Alcohol intake: never Current occupational status: disabled Current occupation: disability History of recent travel: No Current gender identity: Female Data Anesthesia Cardiac Studies: No Data to Display
--- NOTE | 2020-11-22 10:55 | ECG_ITS ---
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 Measurements Intervals [place] Rate: 79 P: 29 [place]: 188 QRS: 93 QRSD: 145 T: -15 QT: 395 QTc: 455 Interpretive Statements SINUS RHYTHM WITH SINUS ARRHYTHMIA BORDERLINE RIGHT AXIS DEVIATION [QRS AXIS > 90] RIGHT BUNDLE BRANCH BLOCK Compared to ECG 10/05/2020 04:45:00 Ventricular premature complex(es) no longer present Myocardial infarct finding no longer present Electronically Signed On 11-25-2020 23:15:35 CDT by Sruthi Coronel M.D. [id number]
[2020-11-22 10:57] VITALS: BMI 44.6
[2020-11-22 11:25] LABS: Basophils # 0.1 10^3/uL (0.0-0.1); Basophils % 0.5 %; Eosinophils # 0.1 10^3/uL (0.0-0.8); Eosinophils % 0.7 %; Hematocrit 28.3 % (37.0-47.0); Hemoglobin 8.9 g/dL (11.5-15.3); Lymphocytes # 1.3 10^3/uL (0.8-4.8); Lymphocytes % 8.2 %; Mean Corpuscular HGB Conc 31.4 g/dL (30.0-36.0); Mean Corpuscular Hemoglobin 25.5 pg (28.0-34.0); Mean Corpuscular Volume 81.1 fL (81-99); Monocytes # 0.7 10^3/uL (0.2-0.9); Monocytes % 4.7 %; Neutrophils # 12.95 10^3/uL (1.8-7.7); Neutrophils % 84.2 %; Nucleated Red Blood Cells % 0 %; Platelet Count 320 10^3/cmm (130-400); Red Blood Count 3.49 10^6/uL (4.1-5.3); Red Cell Distribution Width 15.4 % (12.1-15.1); White Blood Count 15.4 10^3/uL (4.0-10.0)
[2020-11-22 11:41] LABS: Anion Gap 15.7 (5-19); Blood Urea Nitrogen 67 mg/dL (8-23); Calcium 9.1 mg/dL (8.5-10.5); Carbon Dioxide 32 mmol/L (22-29); Chloride 82 mmol/L (98-107); Glucose 169 mg/dL (65-115); Osmolality Calculated 283 mOsm/kg (285-295); Potassium 4.7 mmol/L (3.5-5.1); Sodium 125 mmol/L (136-145)
--- NOTE | 2020-11-28 09:28 | P.ANESUD_ITS ---
Pre-Anesthetic Update Pre-Anesthetic Assessment: Date of Surgery/Procedure: 11/28/20 Preop Ching gnosis: panendoscopy Proposed Procedure: Operation Date: 11/28/20 10:00 Proposed Procedures p EGD/colon 43406 35861 R31.9(Not Applicable) - Gokul Avila MD s Colonoscopy(Not Applicable) - Gokul Avila MD Any changes to Pre-Anesthetic Assessment?: No Exam: Pre-Anes Outpt Exam: alert, oriented x 3, clear to auscultation bilaterally and regular rate & rhythm Cardiac Studies: No Data to Display
[2020-11-28 09:44] VITALS: BP 159/68; PULSE 86; RESP 18; TEMP 36.1; O2SAT 100
--- NOTE | 2020-11-28 09:56 | P.HP_ITS ---
Same Day Surgery H&P Indication for Procedure/HPI DATE OF PROCEDURE: November 28, 2020 CHIEF COMPLAINT/INDICATIONFOR SURGICAL PROCEDURE: Anemia requiring panendoscopy PREOP DIAGNOSIS: panendoscopy PLANNED PROCEDRUE: Operation Date: 11/28/20 10:00 Proposed Procedures p EGD/colon 25923 21122 R31.9(Not Applicable) - Gokul Avila MD s Colonoscopy(Not Applicable) - Gokul Avila MD Medications/Allergies* Home Medications Medication Instructions Recorded Confirmed Type montelukast 10 mg tablet 10 mg PO DAILY@1999 tab 06/12/19 11/22/20 History insulin lispro 100 unit/mL 1 sliding scale dose SUBCUT TID ml 09/18/19 11/22/20 History subcutaneous solution nitroglycerin 0.4 mg sublingual 0.4 mg SUBLINGUAL Q5M PRN 09/18/19 11/22/20 History tablet ergocalciferol (vitamin D2) 1,250 1,250 mcg PO Q7D cap 02/15/20 11/22/20 History mcg (50,000 unit) capsule insulin glargine 100 unit/mL 62 unit SUBCUT BEDTIME@1999 ml 03/06/20 11/22/20 History subcutaneous solution hydrocodone 5 mg-acetaminophen 325 1 tab PO TID@ PRN tab 05/14/20 11/22/20 History mg tablet atorvastatin 80 mg tablet 80 mg PO DAILY@199906/04/20 11/22/20 History duloxetine [Cymbalta] 60 mg PO DAILY@79907/08/20 11/22/20 History pantoprazole 40 mg PO DAILY@79907/08/20 11/22/20 History potassium chloride 20 meq PO DAILY@79907/08/20 11/22/20 History Flovent HFA 2 inh INHALATION BID@10/04/20 11/22/20 History Humalog U-100 Insulin 8 unit SUBCUT TID@10/04/20 11/22/20 History Januvia 50 mg PO DAILY@79910/04/20 11/22/20 History Robitussin Cough-Chest Antonio DM 10 ml PO Q6H PRN 10/04/20 11/22/20 History acetaminophen [Tylenol] 650 mg PO Q6H PRN 10/04/20 11/22/20 History bumetanide 2 mg PO BID@0800,199910/04/20 11/22/20 History cetirizine [Zyrtec] 10 mg PO DAILY PRN 10/04/20 11/22/20 History docusate sodium [Colace] 100 mg PO BID@0800,199910/04/20 11/22/20 History nystatin See Rx Instructions .ROUTE .COMPLEX 10/04/20 11/22/20 History prednisone 10 mg PO DAILY@0800 10/04/20 11/22/20 History triamcinolone acetonide See Rx Instructions .ROUTE .COMPLEX 10/04/20 11/22/20 History amlodipine 10 mg tablet 5 mg PO DAILY@0800 tab 11/22/20 11/22/20 History bisacodyl [Dulcolax (bisacodyl)] 10 mg PO DAILY PRN 11/22/20 11/22/20 History gabapentin 300 mg PO BEDTIME 11/22/20 11/22/20 History magnesium hydroxide [Milk of 30 ml PO DAILY PRN 11/22/20 11/22/20 History Magnesia] tamsulosin [Flomax] 0.4 mg PO BEDTIME 11/22/20 11/22/20 History Allergies/Adverse Reactions Allergy/AdvReac Type Severity Reaction Status Date / Time Iodinated Contrast Media Allergy Hypertensio Verified 10/25/20 11:09 n sulfamethoxazole Allergy Rash Verified 10/25/20 11:09 [From Bactrim] trimethoprim [From Bactrim] Allergy Rash Verified 10/25/20 11:09 leflunomide AdvReac Intermediate diarrhea Verified 10/25/20 11:09 Pertinent History/Comorbid Conditions* Medical History (Updated 10/26/20 @ 08:15 by Gokul Avila MD) Acute hypercapnic respiratory failure Allergic conjunctivitis Anemia Chronic kidney disease (CKD) Diabetes mellitus type 2, uncontrolled Diastolic CHF Dyslipidemia Essential (primary) hypertension Fibromyalgia Generalized weakness Hilar lymphadenopathy Hypothyroid Insulin dependent type 2 diabetes mellitus Mixed hyperlipidemia CHANNING (obstructive sleep apnea) Otitis media Rheumatoid arthritis with negative rheumatoid factor Urinary tract infection Vitamin D deficiency Surgical History (Updated 10/26/20 @ 08:14 by Gokul Avila MD) H/O removal of cyst H/O shoulder surgery H/O toe surgery H/O total cystectomy History of hysterectomy Hx of cataract surgery Hx of tonsillectomy Status post colonoscopy Status post placement of other cardiac pacemaker Family History (Updated 06/12/19 @ 14:42 by Yanet Guevara LPN) Arthritis Mother Father Fibromyalgia Mother Cancer Mother Father Social History Smoking and tobacco status: never smoked Alcohol intake: never Current occupational status: disabled Current occupation: disability History of recent travel: No Current gender identity: Female Pertinent Exam Findings alert, oriented x 3 and regular rate & rhythm Recommendations Surgery/Procedure today Coding Level of Care Code Acute 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
[2020-11-28] MEDS: sodium chloride 0.9% 1,000 ML 30 ML IV (10:01)
[2020-11-28 10:05] LABS: Glucose Point of Care 225 mg/dL (70-110)
[2020-11-28 10:33] VITALS: BP 115/66; PULSE 90; RESP 18; TEMP 36.1; O2SAT 97
[2020-11-28 10:55] VITALS: BP 169/74; PULSE 88; RESP 18; O2SAT 98
--- NOTE | 2020-11-28 13:39 | ANE.PACU2 ---
Inpatient post-anesthesia follow up: Airway intact: Yes Vital signs: Temperature 97 F Pulse Rate 88 Respiratory Rate 18 Blood Pressure 169/74 Pulse Oximetry 98 Oxygen Delivery Me thod Room Air Oxygen Flow Rate 2 Fraction of Inspir ed Oxygen Hydration adequate: Yes Nausea and vomiting: No Pain level: 1 Mental status: Baseline
== END 2020-11-28 11:16 | disposition home or self-care (01) ==
PROVIDERS: Anesthesiology; PCP Internal Medicine; Visit Provider Surgery
PROC: 0DJ08ZZ Inspection of Upper Intestinal Tract, Via Natural or Artificial Opening Endoscopic (ICD-10-PCS; CPT 43235; principal; 2020-11-28 09:45)
PROC: 0DJD8ZZ Inspection of Lower Intestinal Tract, Via Natural or Artificial Opening Endoscopic (ICD-10-PCS; CPT 45378; 2020-11-28 09:45)
DX: D64.9 Anemia, unspecified (principal); K44.9 Diaphragmatic hernia without obstruction or gangrene; K31.7 Polyp of stomach and duodenum; K64.8 Other hemorrhoids; K63.5 Polyp of colon; E11.22 Type 2 diabetes mellitus with diabetic chronic kidney disease; I13.0 Hypertensive heart and chronic kidney disease with heart failure and stage 1 through stage 4 chronic kidney disease, or unspecified chronic kidney disease; N18.9 Chronic kidney disease, unspecified; I50.30 Unspecified diastolic (congestive) heart failure; M79.7 Fibromyalgia; E03.9 Hypothyroidism, unspecified; E78.2 Mixed hyperlipidemia; G47.33 Obstructive sleep apnea (adult) (pediatric); E55.9 Vitamin D deficiency, unspecified; J44.9 Chronic obstructive pulmonary disease, unspecified; Z99.81 Dependence on supplemental oxygen; Z95.0 Presence of cardiac pacemaker; E66.01 Morbid (severe) obesity due to excess calories; Z68.41 Body mass index [BMI] 40.0-44.9, adult; M06.9 Rheumatoid arthritis, unspecified
CPT/HCPCS: 36415; 36416; 43251; 45378; 80048; 82962; 85025; 88305; 96360; J2704; J7030

== ENCOUNTER 2021-05-06 09:55 | Outpatient (CLI) | payer MEDICARE, MEDICAID, SELFPAY | END 2021-05-06 09:56 | disposition home or self-care (01) | LOC: WOUND 09:56 | PROVIDERS: PCP Internal Medicine; Visit Provider Nurse Practitioner Family | DX: E11.621 Type 2 diabetes mellitus with foot ulcer (principal); L97.511 Non-pressure chronic ulcer of other part of right foot limited to breakdown of skin; M06.9 Rheumatoid arthritis, unspecified; I10 Essential (primary) hypertension | CPT/HCPCS: 11042; G0463 ==

== ENCOUNTER 2021-05-13 10:44 | Outpatient (CLI) | payer MEDICARE, MEDICAID, SELFPAY | END 2021-05-13 10:45 | disposition home or self-care (01) | LOC: WOUND 10:45 | PROVIDERS: PCP Internal Medicine; Visit Provider Nurse Practitioner Family | DX: I96 Gangrene, not elsewhere classified (principal); E11.621 Type 2 diabetes mellitus with foot ulcer; L97.511 Non-pressure chronic ulcer of other part of right foot limited to breakdown of skin; M06.9 Rheumatoid arthritis, unspecified; I10 Essential (primary) hypertension | CPT/HCPCS: 11042 ==

== ENCOUNTER 2021-05-21 10:25 | Outpatient (CLI) | payer MEDICARE, MEDICAID, SELFPAY | END 2021-05-21 10:26 | disposition home or self-care (01) | LOC: WOUND 10:27 | PROVIDERS: PCP Internal Medicine; Visit Provider Thoracic Surgery (Cardiothoracic Vascular Surgery) | DX: E11.621 Type 2 diabetes mellitus with foot ulcer (principal); L97.511 Non-pressure chronic ulcer of other part of right foot limited to breakdown of skin | CPT/HCPCS: 97597 ==

== ENCOUNTER 2021-05-28 13:26 | Outpatient (CLI) | payer MEDICARE, MEDICAID, SELFPAY | END 2021-05-28 13:27 | disposition home or self-care (01) | LOC: WOUND 13:35 | PROVIDERS: PCP Internal Medicine; Visit Provider Thoracic Surgery (Cardiothoracic Vascular Surgery) | DX: E11.621 Type 2 diabetes mellitus with foot ulcer (principal); L97.511 Non-pressure chronic ulcer of other part of right foot limited to breakdown of skin | CPT/HCPCS: 97597 ==

== ENCOUNTER 2021-06-04 09:34 | Outpatient (CLI) | payer MEDICARE, MEDICAID, SELFPAY | END 2021-06-04 09:35 | disposition home or self-care (01) | LOC: WOUND 09:34 | PROVIDERS: PCP Internal Medicine; Visit Provider Nurse Practitioner Family | DX: E11.621 Type 2 diabetes mellitus with foot ulcer (principal); L97.511 Non-pressure chronic ulcer of other part of right foot limited to breakdown of skin | CPT/HCPCS: 11042 ==

== ENCOUNTER 2021-06-11 13:09 | Outpatient (CLI) | payer MEDICARE, MEDICAID, SELFPAY | END 2021-06-11 13:10 | disposition home or self-care (01) | LOC: WOUND 13:10 | PROVIDERS: PCP Internal Medicine; Visit Provider Nurse Practitioner Family | DX: E11.621 Type 2 diabetes mellitus with foot ulcer (principal); L97.511 Non-pressure chronic ulcer of other part of right foot limited to breakdown of skin; N18.9 Chronic kidney disease, unspecified; D64.9 Anemia, unspecified; I50.30 Unspecified diastolic (congestive) heart failure | CPT/HCPCS: 11042; 80048; 83880 ==

== ENCOUNTER 2021-06-26 15:13 | Outpatient (CLI) | payer MEDICARE, MEDICAID, SELFPAY | END 2021-06-26 15:14 | disposition home or self-care (01) | LOC: WOUND 15:14 | PROVIDERS: PCP Internal Medicine; Visit Provider Emergency Medicine | DX: E11.621 Type 2 diabetes mellitus with foot ulcer (principal); L97.511 Non-pressure chronic ulcer of other part of right foot limited to breakdown of skin; M06.9 Rheumatoid arthritis, unspecified | CPT/HCPCS: 97597 ==

== ENCOUNTER 2021-07-18 09:39 | Inpatient (IN) | payer MEDICARE, MEDICAID, SELFPAY ==
[2021-07-18] VITALS (12 sets, daily range): BP systolic 104–165; BP diastolic 52–86; PULSE 91–127; RESP 15–24; TEMP 36.9–37.2; O2SAT 91–99; BMI 44.8
--- NOTE | 2021-07-18 09:52 | XR_ITS ---
WS: [id number] XR chest 1V portable [id number] REASON FOR EXAM: sob, recent covid FINDINGS: Cardiac device over the left chest with transvenous left subclavian lead to the right ventricular ape x. Cardiomegaly. Pulmonary venous congestion with enlargement of the upper lobe veins. Ill-defined linear and patchy opacities in the right lower lung, most prominent medially. (Somewhat e quivocal). No other significant findings. XR/XR chest 1V portable [id number] IMPRESSION: Definite pulmonary vascular congestion. Opacities in the right lower lung could represent pulmonary edema or pneumoniti s.
--- NOTE | 2021-07-18 09:52 | ECG_ITS ---
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 Measurements Intervals [place] Rate: 93 P: 73 NM: 200 QRS: 113 QRSD: 142 T: -22 QT: 379 QTc: 472 Interpretive Statements SINUS RHYTHM RIGHT BUNDLE BRANCH BLOCK [120+ ms QRS DURATION, UPRIGHT V1, 40+ ms S IN I/aVL/V4/V5/V6] LEFT POSTERIOR FASCICULAR BLOCK [QRS AXIS > 109, INFERIOR Q] MODERATE T-WAVE ABNORMALITY, CONSIDER INFERIOR ISCHEMIA [-0.1+ mV T-WAVE IN II/aVF] Compared to ECG 11/22/2020 11:01:12 Left posterior fascicular block now present T-wave abnormality now present Possible ischemia now present Sinus arrhythmia no longer present Electronically Signed On 07-18-2021 17:39:33 SSIS ARCHITECT by Chicho Doe M.D. [id number]
--- NOTE | 2021-07-18 09:53 | ED_ITS ---
Documented by User: ANUSHA Calvo 07/18/21 13:02 HPI - Weakness General: Chief complaint: ER Hold Stated complaint: WEAKNESS Time Seen by Provider: 07/18/21 09:41 History of Present Illness: Patient arrives via ambulance from long term with complaint of increased weakness. Patient with recent Covid diagnosis. Patient is on O2 at 2 L which is her usual requirement. Patient also noted to have chronic cough. Patient is a diabetic with hypertension, pacemaker, CH and is immunocompromisd. Onset (ago): hour(s) Associated symptoms: Denies chest pain, chills, fever(s) or headache(s) Review of Systems Narrative: Patient complains increased weakness since yesterday. Patient has a recent Covid diagnosis. Const: Denies: fever(s), chills or body aches Eyes: Denies: eye discomfort ENMT: Denies: throat pain Card: Denies: chest pain Resp: Reports: non-productive cough (Chronic); Denies: dyspnea GI: Denies: abdominal pain Skin/Breast: Denies: rash Neuro: Denies: headache(s) Psych: Denies: depression or suicidal ideation PFSH ED PFSH: Medical History Acute hypercapnic respiratory failure Allergic conjunctivitis Anemia Chronic kidney disease (CKD) Diabetes mellitus type 2, uncontrolled Diastolic CHF Dyslipidemia Essential (primary) hypertension Fibromyalgia Hilar lymphadenopathy Hypothyroid Insulin dependent type 2 diabetes mellitus Mixed hyperlipidemia CHANNING (obstructive sleep apnea) Otitis media Rheumatoid arthritis with negative rheumatoid factor Urinary tract infection Vitamin D deficiency Surgical History H/O esophagogastroduodenoscopy (11/28/20) H/O removal of cyst H/O shoulder surgery H/O toe surgery H/O total cystectomy History of hysterectomy Hx of cataract surgery Hx of tonsillectomy Status post colonoscopy (11/28/20) Status post placement of other cardiac pacemaker Family History Mother Cancer Fibromyalgia Arthritis Father Cancer Arthritis Social History Smoking and tobacco status: never smoked Alcohol intake: never Current occupational status: disabled Current occupation: disability History of recent travel: No Current gender identity: Female Physical Exam Const: COMMON NORMALS: no acute distress, patient oriented x3 and alert OTHER: Patient does not seem to be struggling to be able to breathe. Patient does answer questions but it does take a little while for her to answer them and she does answer them appropriately HENMT: COMMON NORMALS: normocephalic HEAD & SCALP: normocephalic Eye: COMMON NORMALS: EOMs intact bilaterally Neck/C-Spine: COMMON NORMALS: no JVD Resp: COMMON NORMALS: normal respiratory effort and No use of accessory muscles AUSCULTATION: diminished lung sounds Cardio: COMMON NORMALS: no JVD RATE: tachycardic HEART SOUNDS: Other heart sounds present (Slightly muffled) OTHER: Patient has 3+ pitting edema to lower extremities all the way up to the knee. GI: INSPECTION: Yes normal to inspection Extremity: COMMON NORMALS: normal to inspection and full ROM Neuro: COMMON NORMALS: patient oriented x3 SENSORIUM/ORIENTATION: Yes alert Psych: COMMON NORMALS: mental status grossly normal Skin: COMMON NORMALS: no rashes or lesions noted NARRATIVE SKIN EXAM: Patient has areas of mechanical debridement superficially on her arms. Looks like areas that maybe she picked at with her fingers GENERAL SKIN EXAM: no rashes or lesions noted Course Vital Signs: Vital signs: Vital Signs Temperature 98.2 F 07/21/21 17:05 Pulse Rate 93 07/21/21 17:05 Respiratory Rate 18 07/21/21 17:05 Blood Pressure 156/73 07/21/21 17:05 Pulse Oximetry 93 07/21/21 17:05 MDM - Weakness Medical Decision Making Patient's care transferred to Dr. Hoang Lab Data : 07/21/21 04:35 07/21/21 04:35 Radiology Impressions Chest X-Ray 07/18/21 09:52 IMPRESSION: Definite pulmonary vascular congestion. Opacities in the right lower lung could represent pulmonary edema or pneumonitis. Head CT 07/18/21 13:02 IMPRESSION: 1. No acute intracranial hemorrhage or edema. 2. Small lacunar infarcts, cerebral atrophy and chronic ischemic disease, similar to 09/09/2020. No acute change. Chest CT 07/18/21 13:05 IMPRESSION: 1. Multilobar mild scattered subsegmental consolidations and groundglass opacification. Most likely due to pneumonitis. 2. Cardiomegaly. 3. Suspect enlarged hilar lymph nodes which cannot be accurately evaluated on this noncontrast study. These could be reactive lymph nodes. Lumbar Spine X-Ray 07/18/21 18:03 IMPRESSION: 1. No acute injury. 2. Degenerative changes of the lumbar spine. Abdomen/Pelvis CT 07/20/21 15:12 IMPRESSION: 1. Mild bibasilar pneumonia. 2. Culp balloon catheter in the urinary bladder. 3. Gallstones and or sludge in the dependent portion of the gallbladder. 4. Stable cortical atrophy and calcified scarring in the left lateral mid pole kidney. Laboratory Results WBC 19.6 10^3/uL (4.0-10.0) H 07/18/21 09:51 RBC 3.09 10^6/uL (4.1-5.3) L 07/18/21 09:51 Hgb 8.5 g/dL (11.5-15.3) L 07/18/21 09:51 Hct 28.3 % (37.0-47.0) L 07/18/21 09:51 MCV 91.6 fl (81-99) 07/18/21 09:51 MCH 27.5 pg (28.0-34.0) L 07/18/21 09:51 MCHC 30.0 g/dL (30.0-36.0) 07/18/21 09:51 RDW 16.6 % (12.1-15.1) H 07/18/21 09:51 Plt Count 370 10^3/cmm (130-400) 07/18/21 09:51 MPV 9.2 fL (7.4-10.4) 07/18/21 09:51 Neut % (Auto) 82.4 % 07/18/21 09:51 Lymph % (Auto) 10.7 % 07/18/21 09:51 [place] % (Auto) 4.3 % 07/18/21 09:51 Eos % (Auto) 0.3 % 07/18/21 09:51 Baso % (Auto) 0.2 % 07/18/21 09:51 Neut # (Auto) 16.14 10^3/uL (1.8-7.7) H 07/18/21 09:51 Lymph # (Auto) 2.1 10^3/uL (0.8-4.8) 07/18/21 09:51 [place] # (Auto) 0.9 10^3/uL (0.2-0.9) 07/18/21 09:51 Eos # (Auto) 0.1 10^3/uL (0.0-0.8) 07/18/21 09:51 Baso # (Auto) 0.0 10^3/uL (0.0-0.1) 07/18/21 09:51 Nucleated RBC % (auto) 0.1 % 07/18/21 09:51 Nucleated RBCs # 0.0 /100WBC 07/18/21 09:51 Specimen Type Arterial 07/18/21 11:25 Sample Site Radial, left 07/18/21 11:25 ABG pH 7.43 (7.35-7.45) 07/18/21 11:25 ABG pCO2 59.3 mmHg (35-45) H 07/18/21 11:25 ABG pO2 81.5 mmHg (80.0-100.0) 07/18/21 11:25 ABG HCO3 39.7 mmol/L (22-26) H 07/18/21 11:25 ABG Base Excess 13.5 mmol/L (-2.0-2.0) H 07/18/21 11:25 Artem Test Pos 07/18/21 11:25 Hematocrit 30.3 % (37-47) L 07/18/21 11:25 O2 Delivery Device Nc 07/18/21 11:25 O2 Liters/Min 2.0 % 07/18/21 11:25 FiO2 28.0 % 07/18/21 11:25 Airline Stewardess ID glc 07/18/21 11:25 Sodium 136 mmol/L (136-145) 07/18/21 09:51 Potassium 4.2 mmol/L (3.5-5.1) 07/18/21 09:51 Chloride 86 mmol/L (98-107) L 07/18/21 09:51 Carbon Dioxide 31 mmol/L (22-29) H 07/18/21 09:51 Anion Gap 23.2 (5-19) H 07/18/21 09:51 BUN 86 mg/dL (8-23) H* 07/18/21 09:51 Creatinine 1.9 mg/dL (0.5-0.9) H 07/18/21 09:51 GFR Calculation 26.7 mL/min (90-130) L 07/18/21 09:51 Glucose 186 mg/dL (65-115) H 07/18/21 09:51 Calculated Osmolality 313 mOsm/kg (285-295) H 07/18/21 09:51 Lactic Acid 0.9 mmol/L (0.5-2.2) 07/18/21 11:43 Calcium 9.2 mg/dL (8.5-10.5) 07/18/21 09:51 Total Bilirubin 0.3 mg/dL (0.15-1.2) 07/18/21 09:51 AST 9 U/L (0-32) 07/18/21 09:51 ALT 10 U/L (0-33) 07/18/21 09:51 Alkaline Phosphatase 108 IU/L (35-105) H 07/18/21 09:51 NT-Pro-B Natriuret Pep 404 pg/mL (0-125) H 07/18/21 09:51 Total Protein 6.7 g/dL (6.6-8.7) 07/18/21 09:51 Albumin 3.8 g/dL (3.5-5.2) 07/18/21 09:51 Globulin 2.9 g/dL (1.3-4.6) 07/18/21 09:51 Urine Color Yellow (Yellow) 07/18/21 10:22 Urine Appearance Hazy (CLEAR) A 07/18/21 10:22 Urine pH 5 (5-7) 07/18/21 10:22 Ur Specific [place] 1.015 (1.005-1.030) 07/18/21 10:22 Urine Protein 1+ (Negative) H 07/18/21 10:22 Urine Glucose (UA) Norm (Normal) 07/18/21 10:22 Urine Ketones Negative (Negative) 07/18/21 10:22 Urine Blood Neg (Negative) 07/18/21 10:22 Urine Nitrate Positive (Negative) H 07/18/21 10:22 Urine Bilirubin Neg (Negative) 07/18/21 10:22 Urine Urobilinogen Norm mg/dL (Negative) 07/18/21 10:22 Ur Leukocyte Esterase 2+ (Negative) H 07/18/21 10:22 Urine RBC 0-4 /hpf (0-2) H 07/18/21 10:22 Urine WBC >100 /hpf (0-5) H 07/18/21 10:22 Ur Squamous Epith Cells 0-4 /hpf (0-5) H 07/18/21 10:22 Amorphous Sediment Not Reportable 07/18/21 10:22 Urine Bacteria 2+ /hpf (NONE) H 07/18/21 10:22 EKG Data EKG 1: Computer generated interpretation: Sinus rhythm with right bundle branch block patient ventricular rate 93 bpm TN interval 200 ms QRS duration 142 ms QT 379 ms Discharge Plan Discharge Patient Disposition: Admitted As Inpatient Admit Provider: Jesus Hancock Clinical Impression: Acute on chronic diastolic heart failure, Pulmonary edema, Complicated urinary tract infection Condition: Stable Discharge Diet: Cardiac Discharge Activity: Increase activity as tolerated Sign Out Sign Out Data: Patient Sign Out occurred on 07/18/21 at 11:10. Patient's care was discussed, and care was transferred from to Edmund Hoang MD. Coding Level of Care Code ED Electronic Warfare Linguist for Chg Fwd Exam Comprehensive Documented by User: Edmund Hoang MD 07/22/21 23:05 HPI - Weakness General: Chief complaint: ER Hold Stated complaint: WEAKNESS Time Seen by Provider: 07/18/21 09:41 PFSH ED PFSH: Medical History Acute hypercapnic respiratory failure Allergic conjunctivitis Anemia Chronic kidney disease (CKD) Diabetes mellitus type 2, uncontrolled Diastolic CHF Dyslipidemia Essential (primary) hypertension Fibromyalgia Hilar lymphadenopathy Hypothyroid Insulin dependent type 2 diabetes mellitus Mixed hyperlipidemia CHANNING (obstructive sleep apnea) Otitis media Rheumatoid arthritis with negative rheumatoid factor Urinary tract infection Vitamin D deficiency Surgical History H/O esophagogastroduodenoscopy (11/28/20) H/O removal of cyst H/O shoulder surgery H/O toe surgery H/O total cystectomy History of hysterectomy Hx of cataract surgery Hx of tonsillectomy Status post colonoscopy (11/28/20) Status post placement of other cardiac pacemaker Family History Mother Cancer Fibromyalgia Arthritis Father Cancer Arthritis Social History Smoking and tobacco status: never smoked Alcohol intake: never Current occupational status: disabled Current occupation: disability History of recent travel: No Current gender identity: Female Course Vital Signs: Vital signs: Vital Signs Temperature 98.2 F 07/21/21 17:05 Pulse Rate 93 07/21/21 17:05 Respiratory Rate 18 07/21/21 17:05 Blood Pressure 156/73 07/21/21 17:05 Pulse Oximetry 93 07/21/21 17:05 MDM - Weakness Medical Decision Making Patient's care transferred to Dr. Hoang Patient care handoff received from Kj Jeronimo NP. I personally evaluated and reperformed najera portions of E/M. Upon my examination with the patient history significantly limited by altered mental status, she is quite somnolent. Additional labs ordered at this time. Unable to obtain ROS GENERAL/CONSTITUTIONAL - somewhat ill appearing. Eyes - PERRL, no conjunctival injection ENMT - Atraumatic external nose and ears. Dry mucous membranes NECK - supple. trachea midline CARDIOVASCULAR - regular rate and rhythm. Peripheral pulses 2+ and equal RESPIRATORY - diminished/coarse to auscultation bilaterally. Supplemental oxygen in place ABDOMEN/GI - Nontender, Nondistended. No tenderness to percussion or evidence of peritonitis MSK - Extremities without obvious deformity SKIN - Warm, Dry NEURO - somnolent, limited history Moves all extremities equally. - Labs and imaging obtained and reviewed - Labs notable for leukocytosis, normocytic anemia. Metabolic panel with similar findings to recent comparative studies. Urinalysis concerning for urinary tract infection. ABG with hypercapnia, BiPAP ordered. Patient had difficulty keeping the sound - Imaging notable for pulmonary vascular congestion. Negative head CT for acute process - Upon serial reexamination after treatment the patient was waxing and waning baseline though markedly improved upon later discussion regarding acceptable/desired treatment options. Patient would like to be intubated if needed though, currently given mental status, does not require intubation - Based on patient history, evaluation, labs, and imaging as interpreted the most likely cause of the patient's condition is altered mental status likely multifactorial including uremia and acute on chronic hypercapnic and hypoxic respiratory failure - The results of ED evaluation were discussed with the patient including plan for admission due to requirement for level of care not available if discharged to prevent significant worsening/deterioration. - Admitting service was contacted and Dr Hancock with the hospitalist service agreed to admit the patient - Patient was admitted without further deterioration or significant events. Note: Click bubbles or prepopulated espinoza in note writing are used for assistance with data collection and billing and are inherently more limited than narrative and other text portions of this note. Please use narrative for additional clinical history and defer to narrative/free test for any case of contradictory information. If information appears in only free text or click bubble it should be considered present or absent as reported. Please contact note copy writer for clarifications of clinical information or contradictory information. MDM is a brief summary, contradictory or erroneous seeming information should be clarified and full note should be reviewed. Lab Data : 07/21/21 04:35 07/21/21 04:35 Radiology Impressions Chest X-Ray 07/18/21 09:52 IMPRESSION: Definite pulmonary vascular congestion. Opacities in the right lower lung could represent pulmonary edema or pneumonitis. Head CT 07/18/21 13:02 IMPRESSION: 1. No acute intracranial hemorrhage or edema. 2. Small lacunar infarcts, cerebral atrophy and chronic ischemic disease, similar to 09/09/2020. No acute change. Chest CT 07/18/21 13:05 IMPRESSION: 1. Multilobar mild scattered subsegmental consolidations and groundglass opacification. Most likely due to pneumonitis. 2. Cardiomegaly. 3. Suspect enlarged hilar lymph nodes which cannot be accurately evaluated on this noncontrast study. These could be reactive lymph nodes. Lumbar Spine X-Ray 07/18/21 18:03 IMPRESSION: 1. No acute injury. 2. Degenerative changes of the lumbar spine. Abdomen/Pelvis CT 07/20/21 15:12 IMPRESSION: 1. Mild bibasilar pneumonia. 2. Culp balloon catheter in the urinary bladder. 3. Gallstones and or sludge in the dependent portion of the gallbladder. 4. Stable cortical atrophy and calcified scarring in the left lateral mid pole kidney. Laboratory Results WBC 19.6 10^3/uL (4.0-10.0) H 07/18/21 09:51 RBC 3.09 10^6/uL (4.1-5.3) L 07/18/21 09:51 Hgb 8.5 g/dL (11.5-15.3) L 07/18/21 09:51 Hct 28.3 % (37.0-47.0) L 07/18/21 09:51 MCV 91.6 fl (81-99) 07/18/21 09:51 MCH 27.5 pg (28.0-34.0) L 07/18/21 09:51 MCHC 30.0 g/dL (30.0-36.0) 07/18/21 09:51 RDW 16.6 % (12.1-15.1) H 07/18/21 09:51 Plt Count 370 10^3/cmm (130-400) 07/18/21 09:51 MPV 9.2 fL (7.4-10.4) 07/18/21 09:51 Neut % (Auto) 82.4 % 07/18/21 09:51 Lymph % (Auto) 10.7 % 07/18/21 09:51 [place] % (Auto) 4.3 % 07/18/21 09:51 Eos % (Auto) 0.3 % 07/18/21 09:51 Baso % (Auto) 0.2 % 07/18/21 09:51 Neut # (Auto) 16.14 10^3/uL (1.8-7.7) H 07/18/21 09:51 Lymph # (Auto) 2.1 10^3/uL (0.8-4.8) 07/18/21 09:51 [place] # (Auto) 0.9 10^3/uL (0.2-0.9) 07/18/21 09:51 Eos # (Auto) 0.1 10^3/uL (0.0-0.8) 07/18/21 09:51 Baso # (Auto) 0.0 10^3/uL (0.0-0.1) 07/18/21 09:51 Nucleated RBC % (auto) 0.1 % 07/18/21 09:51 Nucleated RBCs # 0.0 /100WBC 07/18/21 09:51 Specimen Type Arterial 07/18/21 11:25 Sample Site Radial, left 07/18/21 11:25 ABG pH 7.43 (7.35-7.45) 07/18/21 11:25 ABG pCO2 59.3 mmHg (35-45) H 07/18/21 11:25 ABG pO2 81.5 mmHg (80.0-100.0) 07/18/21 11:25 ABG HCO3 39.7 mmol/L (22-26) H 07/18/21 11:25 ABG Base Excess 13.5 mmol/L (-2.0-2.0) H 07/18/21 11:25 Artem Test Pos 07/18/21 11:25 Hematocrit 30.3 % (37-47) L 07/18/21 11:25 O2 Delivery Device Nc 07/18/21 11:25 O2 Liters/Min 2.0 % 07/18/21 11:25 FiO2 28.0 % 07/18/21 11:25 Airline Stewardess ID glc 07/18/21 11:25 Sodium 136 mmol/L (136-145) 07/18/21 09:51 Potassium 4.2 mmol/L (3.5-5.1) 07/18/21 09:51 Chloride 86 mmol/L (98-107) L 07/18/21 09:51 Carbon Dioxide 31 mmol/L (22-29) H 07/18/21 09:51 Anion Gap 23.2 (5-19) H 07/18/21 09:51 BUN 86 mg/dL (8-23) H* 07/18/21 09:51 Creatinine 1.9 mg/dL (0.5-0.9) H 07/18/21 09:51 GFR Calculation 26.7 mL/min (90-130) L 07/18/21 09:51 Glucose 186 mg/dL (65-115) H 07/18/21 09:51 Calculated Osmolality 313 mOsm/kg (285-295) H 07/18/21 09:51 Lactic Acid 0.9 mmol/L (0.5-2.2) 07/18/21 11:43 Calcium 9.2 mg/dL (8.5-10.5) 07/18/21 09:51 Total Bilirubin 0.3 mg/dL (0.15-1.2) 07/18/21 09:51 AST 9 U/L (0-32) 07/18/21 09:51 ALT 10 U/L (0-33) 07/18/21 09:51 Alkaline Phosphatase 108 IU/L (35-105) H 07/18/21 09:51 NT-Pro-B Natriuret Pep 404 pg/mL (0-125) H 07/18/21 09:51 Total Protein 6.7 g/dL (6.6-8.7) 07/18/21 09:51 Albumin 3.8 g/dL (3.5-5.2) 07/18/21 09:51 Globulin 2.9 g/dL (1.3-4.6) 07/18/21 09:51 Urine Color Yellow (Yellow) 07/18/21 10:22 Urine Appearance Hazy (CLEAR) A 07/18/21 10:22 Urine pH 5 (5-7) 07/18/21 10:22 Ur Specific [place] 1.015 (1.005-1.030) 07/18/21 10:22 Urine Protein 1+ (Negative) H 07/18/21 10:22 Urine Glucose (UA) Norm (Normal) 07/18/21 10:22 Urine Ketones Negative (Negative) 07/18/21 10:22 Urine Blood Neg (Negative) 07/18/21 10:22 Urine Nitrate Positive (Negative) H 07/18/21 10:22 Urine Bilirubin Neg (Negative) 07/18/21 10:22 Urine Urobilinogen Norm mg/dL (Negative) 07/18/21 10:22 Ur Leukocyte Esterase 2+ (Negative) H 07/18/21 10:22 Urine RBC 0-4 /hpf (0-2) H 07/18/21 10:22 Urine WBC >100 /hpf (0-5) H 07/18/21 10:22 Ur Squamous Epith Cells 0-4 /hpf (0-5) H 07/18/21 10:22 Amorphous Sediment Not Reportable 07/18/21 10:22 Urine Bacteria 2+ /hpf (NONE) H 07/18/21 10:22 Critical Care Time Critical Care Time: Critical Care Time: Yes Total Critical Care Time: 55 Attestation: Due to a high probability of clinically significant, possibly life threatening deterioration, the patient required my highest level of attention and preparedness to intervene emergently and I personally spent this critical care time directly and personally managing the patient. This critical care time included obtaining a history; examining the patient; pulse oximetry; ordering and review of laboratory and imaging studies; arranging urgent treatment with development of a management plan; evaluation of patient's response to treatment; frequent reassessment; and, discussions with other providers as applicable. It was exclusive of separately billable procedures. Discharge Plan Discharge Patient Disposition: Admitted As Inpatient Admit Provider: Jesus Hancock Clinical Impression: Acute on chronic diastolic heart failure, Pulmonary edema, Complicated urinary tract infection Condition: Stable Discharge Diet: Cardiac Discharge Activity: Increase activity as tolerated Sign Out Sign Out Data: Patient Sign Out occurred on 07/18/21 at 11:10. Patient's care was discussed, and care was transferred from to Edmund Hoang MD. Coding Level of Care Code ED Electronic Warfare Linguist for Wilfred Fwd Exam Comprehensive
[2021-07-18 10:31] LABS: Add Urine Microscopic? YES; Bilirubin Urine Neg (Negative); Blood Urine Neg (Negative); Glucose Urine UA Norm (Normal); Ketones Urine Negative (Negative); Leukocyte Esterase Urine 2+ (Negative); Nitrate Urine Positive (Negative); Protein Urine 1+ (Negative); Specific Gravity, Urine 1.015 (1.005-1.030); Urine Appearance Hazy (CLEAR); Urine Color Yellow (Yellow); Urobilinogen Urine Norm (Negative); pH Urine 5 (5-7)
[2021-07-18 10:35] LABS: Basophils % 0.2 %; Eosinophils # 0.1 10^3/uL (0.0-0.8); Eosinophils % 0.3 %; Hematocrit 28.3 % (37.0-47.0); Hemoglobin 8.5 g/dL (11.5-15.3); Lymphocytes # 2.1 10^3/uL (0.8-4.8); Lymphocytes % 10.7 %; Mean Corpuscular Hemoglobin 27.5 pg (28.0-34.0); Mean Corpuscular Volume 91.6 fl (81-99); Mean Platelet Volume 9.2 fL (7.4-10.4); Monocytes # 0.9 10^3/uL (0.2-0.9); Monocytes % 4.3 %; Neutrophils # 16.14 10^3/uL (1.8-7.7); Neutrophils % 82.4 %; Nucleated Red Blood Cells % 0.1 %; Platelet Count 370 10^3/cmm (130-400); Red Blood Count 3.09 10^6/uL (4.1-5.3); Red Cell Distribution Width 16.6 % (12.1-15.1); White Blood Count 19.6 10^3/uL (4.0-10.0)
[2021-07-18 10:47] LABS: Alanine Aminotransferase 10 U/L (0-33); Albumin Level 3.8 g/dL (3.5-5.2); Alkaline Phosphatase 108 IU/L (35-105); Anion Gap 23.2 (5-19); Aspartate Amino Transferase 9 U/L (0-32); Calcium 9.2 mg/dL (8.5-10.5); Carbon Dioxide 31 mmol/L (22-29); Chloride 86 mmol/L (98-107); Globulin 2.9 g/dL (1.3-4.6); Glomerular Filtration Rate 26.7 mL/min (90-130); Glucose 186 mg/dL (65-115); Osmolality Calculated 313 mOsm/kg (285-295); Potassium 4.2 mmol/L (3.5-5.1); Sodium 136 mmol/L (136-145); Total Bilirubin 0.3 mg/dL (0.15-1.2); Total Protein 6.7 g/dL (6.6-8.7)
[2021-07-18 10:55] LABS: RBC Urine 0-4 /hpf (0-2)
[2021-07-18 10:56] LABS: Add Urine Culture? Yes; Bacteria Urine 2+ /hpf; Squamous Epithelial Cell Urine 0-4 /hpf (0-5); WBC Urine >100 /hpf (0-5)
[2021-07-18 10:59] LABS: Blood Urea Nitrogen 86 mg/dL (8-23)
[2021-07-18 11:09] LABS: NT Pro B Type Natriuretic Pept 404 pg/mL (0-125)
[2021-07-18] MEDS: cefTRIAXone 1,000 MG in sodium chloride 0.9% (plus) 50 ML 100 MG IV (11:17)
[2021-07-18 11:38] LABS: ABG PCO2 59.3 mmHg (35-45); ABG PH Result 7.43 (7.35-7.45); Arterial Blood Gas Hematocrit 30.3 % (37-47); Base Excess ABG 13.5 mmol/L (-2.0-2.0); Blood Gas Allen Test Pos; Blood Gas Operator Identificat glc; Blood Gas Sample Site Radial, left; Blood Gas Sample Type Arterial; HCO3 ABG 39.7 mmol/L (22-26); Oxygen Device NC; PO2 ABG 81.5 mmHg (80.0-100.0)
--- NOTE | 2021-07-18 11:54 | PC.RESP ---
Pt refusing bipap, notified
[2021-07-18 12:14] LABS: Lactic Sepsis W/Reflex 0.9 mmol/L (0.5-2.2)
--- NOTE | 2021-07-18 12:40 | PM.HP ---
Providers/Chief Complaint Primary Care Provider: Chucho Dick DO Chief Complaint: WEAKNESS History of Present Illness Ayla Montilla is a 65 year old female who is from [facility] presented for chief complaint of generalized weakness. Patient is stating that her symptoms started within the last 24 hours with weakness. She has been asked to use BiPAP at the facility however she is noncompliant. Her [id number] works at that facility and stated that she is very noncompliant . In the ER she was diagnosed with hypercapnia however pH is compensated, she does have asterixis, she is confused with abnormal UA she was given ceftriaxone for possible UTI, I requested CT head and Covid test. As per the family the whole family is vaccinated. In the ER she does have acute CHF exacerbation Clinically patient does have fluid overload signs with generalized anasarca appearance venous stasis dermatitis, currently requiring 4 L of oxygen to keep her O2 saturation above 90% She was given ceftriaxone 1 g I will give her 2 mg of IV Bumex Put her on BiPAP Goals of care discussed with her son and [id number] Previous echo CONCLUSIONS ?1-Normal left ventricular cavity size. Normal left ventricular ?systolic function. Left ventricular ejection fraction is ?estimated at 69 %. No regional wall motion abnormalities. Grade ?I/IV diastolic dysfunction (abnormal relaxation filling ?pattern), normal to mildly elevated filling pressures. ?2-No significant valve abnormalities. ?3-There is no pericardial effusion. ?4-Pulmonary artery systolic pressure is within normal limits. ?5-Right atrial pressure is around 5 mm of mercury. ?6-No significant change since the prior echocardiogram study of ?08/04/2018.. Review of Systems General: Reports: ROS unobtainable due to medical condition (Delirium secondary to UTI and hypercapnia) Medications/Allergies Home Medications Medication Instructions Recorded Confirmed Last Taken Type montelukast 10 mg tablet 10 mg PO DAILY@1999 tab 06/12/19 06/11/21 10/03/20 History (Singulair) insulin lispro 100 unit/mL 1 sliding scale dose SUBCUT TID ml 09/18/19 06/11/21 10/04/20 History subcutaneous solution (Humalog 5 UNITS U-100 Insulin) nitroglycerin 0.4 mg sublingual 0.4 mg SUBLINGUAL Q5M PRN 09/18/19 06/11/21 Unknown History tablet (Nitrostat) ergocalciferol (vitamin D2) 1,250 1,250 mcg PO Q7D cap 02/15/20 06/11/21 10/04/20 History mcg (50,000 unit) capsule insulin glargine 100 unit/mL 62 unit SUBCUT BEDTIME@2000 ml 03/06/20 06/11/21 10/04/20 History subcutaneous solution (Lantus U-100 Insulin) hydrocodone 5 mg-acetaminophen 325 1 tab PO TID@ PRN tab 05/14/20 06/11/21 10/04/20 History mg tablet Home Oxygen Continous #1 ea 05/23/20 06/11/21 Unknown Rx Shower chair #1 ea 05/23/20 06/11/21 Unknown Rx atorvastatin 80 mg tablet (Lipitor) 80 mg PO DAILY@199906/04/20 06/11/21 10/03/20 History duloxetine 60 mg capsule,delayed 60 mg PO DAILY@0800 07/08/20 06/11/21 10/04/20 History release (Cymbalta) pantoprazole 40 mg tablet,delayed 40 mg PO DAILY@0807/08/20 06/11/21 10/04/20 History release potassium chloride 20 mEq 20 meq PO DAILY@0807/08/20 06/11/21 10/04/20 History tablet,extended release(part/cryst) Humalog U-100 Insulin 8 unit SUBCUT TID@,10/04/20 06/11/21 10/04/20 History acetaminophen 325 mg tablet 650 mg PO Q6H PRN 10/04/20 06/11/21 10/04/20 11:49 History (Tylenol) bumetanide 2 mg tablet 2 mg PO BID@0800,199910/04/20 06/11/21 10/04/20 History cetirizine 10 mg tablet (Zyrtec) 10 mg PO DAILY PRN 10/04/20 06/11/21 Unknown History dextromethorphan-guaifenesin 5 10 ml PO Q6H PRN 10/04/20 06/11/21 Unknown History mg-100 mg/5 mL oral liquid (Robitussin Cough-Chest Congestion DM) docusate sodium 100 mg capsule 100 mg PO BID@0800,199910/04/20 06/11/21 10/04/20 History (Colace) fluticasone propionate 44 2 inh INHALATION BID@10/04/20 06/11/21 10/04/20 History mcg/actuation HFA aerosol inhaler (Flovent HFA) nystatin 100,000 unit/gram topical See Rx Instructions .ROUTE .COMPLEX 10/04/20 06/11/21 Unknown History ointment prednisone 10 mg tablet 10 mg PO DAILY@0800 10/04/20 06/11/21 10/04/20 History triamcinolone acetonide 0.1 % See Rx Instructions .ROUTE .COMPLEX 10/04/20 06/11/21 10/04/20 History topical cream clonidine HCl 0.1 mg tablet 0.1 mg PO BID #60 tab 10/14/20 06/11/21 Unknown Rx hydralazine 50 mg tablet 100 mg PO Q8H #180 tab 10/14/20 06/11/21 Unknown Rx spironolactone 25 mg tablet 25 mg PO DAILY #30 tab 10/14/20 06/11/21 Unknown Rx sucralfate 1 gram tablet 1 g PO BIDAC #30 tab 10/14/20 06/11/21 Unknown Rx amlodipine 10 mg tablet 5 mg PO DAILY@0800 tab 11/22/20 06/11/21 Unknown History bisacodyl 5 mg tablet,delayed 10 mg PO DAILY PRN 11/22/20 06/11/21 Unknown History release (Dulcolax (bisacodyl)) gabapentin 300 mg capsule 300 mg PO BEDTIME 11/22/20 06/11/21 Unknown History magnesium hydroxide 400 mg/5 mL 30 ml PO DAILY PRN 11/22/20 06/11/21 Unknown History oral suspension (Milk of Magnesia) tamsulosin 0.4 mg capsule (Flomax) 0.4 mg PO BEDTIME 11/22/20 06/11/21 Unknown History baclofen 5 mg tablet 5 mg PO BID 06/11/21 06/11/21 Unknown History calcium carbonate 500 tab PO 06/11/21 06/11/21 Unknown History mg-simethicone 20 mg chewable tablet carbamide peroxide 6.5 % ear drops 5 drp OTIC (EAR) DAILY 06/11/21 06/11/21 Unknown History (Debrox) ferrous sulfate 325 mg (65 mg 325 mg PO DAILY 06/11/21 06/11/21 Unknown History iron) tablet metolazone 2.5 mg tablet 2.5 mg PO DAILY 06/11/21 06/11/21 Unknown History oxymetazoline 0.05 % nasal spray 2 spray INTRANASAL Q12H PRN 06/11/21 06/11/21 Unknown History polyethylene glycol 3350 17 17 g PO DAILY 06/11/21 06/11/21 Unknown History gram/dose oral powder (Miralax) Allergies Allergy/AdvReac Type Severity Reaction Status Date / Time amitriptyline Allergy Unknown Unknown Verified 06/11/21 15:14 nitrofurantoin Allergy Unknown Unknown Verified 06/11/21 15:14 [From Macrobid] Iodinated Contrast Media Allergy Hypertensio Verified 06/11/21 15:14 n sulfamethoxazole Allergy Rash Verified 06/11/21 15:14 [From Bactrim] trimethoprim [From Bactrim] Allergy Rash Verified 06/11/21 15:14 leflunomide AdvReac Intermediate diarrhea Verified 10/25/20 11:09 PFSH Acute PFSH: Medical History Acute hypercapnic respiratory failure Allergic conjunctivitis Anemia Chronic kidney disease (CKD) Diabetes mellitus type 2, uncontrolled Diastolic CHF Dyslipidemia Essential (primary) hypertension Fibromyalgia Hilar lymphadenopathy Hypothyroid Insulin dependent type 2 diabetes mellitus Mixed hyperlipidemia CHANNING (obstructive sleep apnea) Otitis media Rheumatoid arthritis with negative rheumatoid factor Urinary tract infection Vitamin D deficiency Surgical History H/O esophagogastroduodenoscopy (11/28/20) H/O removal of cyst H/O shoulder surgery H/O toe surgery H/O total cystectomy History of hysterectomy Hx of cataract surgery Hx of tonsillectomy Status post colonoscopy (11/28/20) Status post placement of other cardiac pacemaker Family History Mother Cancer Fibromyalgia Arthritis Father Cancer Arthritis Social History Smoking and tobacco status: never smoked Alcohol intake: never Current occupational status: disabled Current occupation: disability History of recent travel: No Current gender identity: Female Vitals/I&O/Wt Last Vital Signs Temp 98.4 F 07/18/21 09:48 Pulse 96 07/18/21 12:22 Resp 16 07/18/21 12:22 BP 158/76 07/18/21 12:22 Pulse Ox 94 07/18/21 12:22 Weight last 48 hrs Weight 111.13 kg Physical Exam Narrative: EXAM NARRATIVE: Morbidly obese female Positive asterixis Currently on 4 L nasal cannula Very drowsy Able to follow commands Moving all of her extremities Venous stasis dermatitis Generalized anasarca Distended abdomen with obesity Bilateral breath sound with rhonchi and crackles Son at the bedside Data : 07/18/21 09:51 07/18/21 09:51 Micro: Microbiology 07/18/21 11:43 Blood Culture - Preliminary Blood SPECIMEN COLLECTED 07/18/21 11:42 Blood Culture - Preliminary Blood SPECIMEN COLLECTED A&P Assessment and plan (1) Acute on chronic diastolic heart failure: Status: Acute (2) Pulmonary edema: Status: Acute (3) Complicated urinary tract infection: Status: Acute (4) Chronic kidney disease (CKD): Status: Acute (5) Anemia: Status: Acute (6) CHANNING (obstructive sleep apnea): Status: Acute Plan Acute diastolic congestive heart failure exacerbation In the ER she was only given ceftriaxone, I will give Bumex 2 mg IV push Increase Bumex to 2 mg 3 times a day with metolazone Requested CT chest, abnormal UA noted Ceftriaxone 1 g daily for UTI Positive asterixis however hypercapnia noted with compensated pH I would like to keep her on BiPAP for now to decrease work of breathing patient is adamant that she would not tolerate BiPAP and I am reluctant to add any anxiolytics or morphine as well, family was at the bedside, I did discuss goals of care with them, DNR/DNI initially however after family meeting decision was made to keep her full code by the patient and her family She also has chronic kidney disease without acute worsening creatinine seems to be around baseline We will follow-up with urine culture CT head Coronavirus test Full code Family updated Asked one of the family members to stay with her to keep her compliant with BiPAP Culp catheter placement Attestations Medical Necessity Statement*: More than 2 midnights anticipated Coding Level of Care Code Acute Attending Radiologist for Chg Fwd Diagnoses Acute on chronic diastolic heart failure I50.33 Pulmonary edema J81.1 Complicated urinary tract infection N39.0 Chronic kidney disease (CKD) N18.9 Anemia D64.9 CHANNING (obstructive sleep apnea) G47.33
--- NOTE | 2021-07-18 13:02 | CT_ITS ---
WS: [id number] CT HEAD NONCONTRAST HISTORY: AMS TECHNIQUE: Contiguous axial imaging performed through the brain in 2.5 mm imaging. Bone and soft tiss ue windows. Sagittal and coronal reformats reviewed. All CT scans at [facility] use at least one of these dose optimization techniques: automated exposure control; mA and/or kV adjustment per pa tient size (includes targeted exams where dose is matched to clinical indication); or iterative recon struction. DLP: 877.15 mGy.cm COMPARISON: 09/09/2020 No acute intracranial hemorrhage, midline shift or mass effect. Mild atrophy. Small lacunar infarcts in the internal capsules. There is an additional lacunar infarct versus perivascular space along the inferior LEFT basal ganglia. External capsule chronic ischemic c hanges. Ventricles: Normal size with no hydrocephalus. No inferior displacement of the cerebellar tonsils. Paranasal sinuses: As visualized are clear. Mastoid air cells: Well pneumatized. Calvarium and scalp: Hyperostosis frontalis interna. CT/CT head wo con* [id number] IMPRESSION: 1. No acute intracranial hemorrhage or edema. 2. Small lacunar infarcts, cerebral atrophy and chronic ischemic disease, mani lar to 09/09/2020. No acute change.
--- NOTE | 2021-07-18 13:05 | CT_ITS ---
WS: [id number] CT CHEST WITHOUT INTRAVENOUS CONTRAST HISTORY: hypoxia TECHNIQUE: Contiguous 5 mm axial imaging performed on the thorax. Coronal and sagittal reformats are submitted. All CT scans at [facility] use at least one of these dose optimization techniques: automated exposure control; mA and/or kV adjustment per patient size (includes targeted exams where dose is matched to clinical indication); or iterative reconstruction. CONTRAST: None DLP: 862.59 mGy.cm COMPARISON: None available. Lungs and central airway: Scattered, bilateral and multi lobar opacifications and groundglass attenua tion. Most significant consolidation is in the RIGHT middle lobe. Pleura: Normal. No pleural effusion. Heart and pericardium: Moderate enlargement the cardiac silhouette. Single lead cardiac pacer wire. D iscontinuity in the wire is secondary to cardiac motion. Mediastinum and zachary: Bilateral hilar and mediastinal lymph nodes. The lymph nodes at the hilar regio ns appear enlarged but very difficult to visualize and measure accurately without IV contrast. Vessels: Mild atherosclerosis aorta. Mild enlargement of the pulmonary artery. Chest wall and lower neck: Bilateral thyroid calcifications. Partially calcified nodule inferior LEFT thyroid. Nodule measures 10 mm. Upper abdomen: Hepatic steatosis. Mild increased attenuation in the dependent portion of the gallblad katie similar to the prior study and probably represents mild cholelithiasis. No adrenal mass. Osseous structures: Mild thoracic spondylosis. No destructive lesions. CT/CT chest wo con [id number] IMPRESSION: 1. Multilobar mild scattered subsegmental consolidations and groundglass opaci fication. Most likely due to pneumonitis. 2. Cardiomegaly. 3. Suspect enlarged hilar lymph nodes which cannot be accurately evaluated on this noncontrast study. These could be reactive lymph nodes.
[2021-07-18 13:55] LABS: SARS Covid-2 Antigen Negative (Negative)
[2021-07-18] MEDS: heparin 5,000 unit/mL INJ 1 mL 5000 UNIT SUBCUT (16:05)
[2021-07-18] MEDS: hyDRALAzine 50 mg Tablet 100 MG PO ×2 (16:05→22:49)
[2021-07-18] MEDS: sucralfate 1 gm Tablet PO (16:05)
[2021-07-18] MEDS: bumetanide 0.25 mg/mL SDV 10 mL 2 MG IVP ×2 (16:15→22:41)
--- NOTE | 2021-07-18 16:50 | PC.NURSE ---
NURSE ASKED PATIENT TO BE PUT BACK ON THE BIPAP DUE TO CONDITION. PATIENT REFUSED.
[2021-07-18] MEDS: ondansetron 2 mg/ML SDV 2 mL 4 MG IVP (17:58)
--- NOTE | 2021-07-18 18:03 | XRR_ITS ---
PROCEDURE INFORMATION: Exam: XR Lumbosacral Spine Exam date and time: 07/18/2021 6:03 PM Age: 65 years old Clinical indication: Low back pain; Additional info: Fall, low back pain TECHNIQUE: Imaging protocol: XR of the lumbosacral spine. Views: 2 or 3 views. COMPARISON: CT abdomen pelvis wo con [id number] 06/02/2019 3:33 PM FINDINGS: Bones/joints: No spine curvature seen. The normal lumbar lordosis is maintained, without listhesis. No fracture identified. Vertebral body heights are well maintained. There is multilevel degenerative changes, manifested by intervertebral disc space narrowing, endplate osteophytes and facet joint arthrosis. Soft tissues: Unremarkable. XR/XR lumbar spine 2-3V* [id number] IMPRESSION: 1. No acute injury. 2. Degenerative changes of the lumbar spine.
[2021-07-18 18:12] LABS: Glucose Point of Care 195 mg/dL (70-110)
[2021-07-18] MEDS: cloNIDine 0.1 mg Tablet PO (18:26)
[2021-07-18] MEDS: insulin lispro 100 unit/1 mL SUBCUT (18:26)
[2021-07-18] MEDS: metOLazone 5 MG Tablet PO (18:26)
[2021-07-18] MEDS: tamsulosin 0.4 mg Capsule PO (21:38)
[2021-07-18] MEDS: gabapentin 300 mg Capsule PO (21:38)
[2021-07-18 22:01] LABS: Glucose Point of Care 199 mg/dL (70-110)
[2021-07-18] MEDS: HYDROcodone-acetaminophen 5-325 mg Tablet 1 TAB PO (22:40)
[2021-07-18] MEDS: insulin lispro 100 unit/1 mL 8 UNIT SUBCUT (22:41)
[2021-07-18] MEDS: insulin glargine 100 units/1 mL 62 UNIT SUBCUT (23:13)
[2021-07-19] VITALS (13 sets, daily range): BP systolic 129–159; BP diastolic 61–81; PULSE 84–102; RESP 14–20; TEMP 36.7–37.1; O2SAT 92–97
[2021-07-19] MEDS: heparin 5,000 unit/mL INJ 1 mL 5000 UNIT SUBCUT ×2 (02:57→14:20)
[2021-07-19] MEDS: acetaminophen 500 mg Tablet PO (05:57)
[2021-07-19] MEDS: sucralfate 1 gm Tablet PO ×2 (06:04→17:52)
[2021-07-19] MEDS: hyDRALAzine 50 mg Tablet 100 MG PO ×3 (06:04→23:59)
[2021-07-19 06:06] LABS: Basophils # 0.1 10^3/uL (0.0-0.1); Basophils % 0.3 %; Eosinophils # 0.1 10^3/uL (0.0-0.8); Eosinophils % 0.6 %; Hematocrit 27.7 % (37.0-47.0); Hemoglobin 8.3 g/dL (11.5-15.3); Lymphocytes # 2.3 10^3/uL (0.8-4.8); Lymphocytes % 11.5 %; Mean Corpuscular Hemoglobin 27.1 pg (28.0-34.0); Mean Corpuscular Volume 90.5 fl (81-99); Mean Platelet Volume 9.2 fL (7.4-10.4); Monocytes # 1.1 10^3/uL (0.2-0.9); Monocytes % 5.5 %; Neutrophils # 16.02 10^3/uL (1.8-7.7); Neutrophils % 80.1 %; Nucleated Red Blood Cells % 0 %; Platelet Count 367 10^3/cmm (130-400); Red Blood Count 3.06 10^6/uL (4.1-5.3); Red Cell Distribution Width 16.6 % (12.1-15.1)
[2021-07-19 06:33] LABS: Blood Urea Nitrogen 80 mg/dL (8-23); C Reactive Protein 197.8 mg/L (0.0-4.9); Calcium 8.7 mg/dL (8.5-10.5); Carbon Dioxide 32 mmol/L (22-29); Chloride 87 mmol/L (98-107); Glomerular Filtration Rate 28.4 mL/min (90-130); Glucose 159 mg/dL (65-115); Magnesium 1.5 mg/dL (1.7-2.3); Osmolality Calculated 307 mOsm/kg (285-295); Sodium 135 mmol/L (136-145)
[2021-07-19 06:50] LABS: Glucose Point of Care 181 mg/dL (70-110)
[2021-07-19] MEDS: potassium chloride ER 20 mEq Tablet PO (08:41)
[2021-07-19] MEDS: pantoprazole DR 40 mg Tablet PO (08:41)
[2021-07-19] MEDS: amlodipine 10 mg Tablet 5 MG PO (08:41)
[2021-07-19] MEDS: predniSONE 10 mg Tablet PO (08:41)
[2021-07-19] MEDS: metOLazone 5 MG Tablet PO ×2 (08:41→17:52)
[2021-07-19] MEDS: bumetanide 0.25 mg/mL SDV 10 mL 2 MG IVP ×3 (08:46→20:15)
[2021-07-19] MEDS: polyethylene glycol 3350 Pkt 17 gm PO (08:46)
[2021-07-19] MEDS: cloNIDine 0.1 mg Tablet PO ×2 (08:46→17:52)
[2021-07-19] MEDS: insulin lispro 100 unit/1 mL SUBCUT ×3 (08:47→17:52)
[2021-07-19] MEDS: insulin lispro 100 unit/1 mL 8 UNIT SUBCUT ×3 (08:47→20:14)
[2021-07-19] MEDS: HYDROcodone-acetaminophen 5-325 mg Tablet 1 TAB PO ×2 (08:49→20:20)
--- NOTE | 2021-07-19 10:04 | PC.NURSE ---
Spoke to patient's daughter in law at this time.
[2021-07-19] MEDS: cefTRIAXone 1,000 MG in sodium chloride 0.9% (plus) 50 ML 100 MG IV (10:37)
[2021-07-19 11:15] LABS: Glucose Point of Care 260 mg/dL (70-110)
--- NOTE | 2021-07-19 11:34 | P.PN_ITS ---
Subjective Subjective: Interval history: Patient this morning is feeling much improved and better She is agreeable to use BiPAP at lower settings attendance 5 son at the bedside, updated Her mentation is better, asterixis improved I noticed 1 L of urine in her bag which has not been calculated accurately in the chart Vitals/I&O/Wt Last Vital Signs Temp 98.2 F 07/19/21 07:33 Pulse 101 H 07/19/21 07:33 Resp 18 07/19/21 09:03 BP 146/76 07/19/21 08:46 Pulse Ox 96 07/19/21 09:03 07/18/21 07/19/21 07/19/21 22:59 06:59 14:59 Intake Total 50 / 50 240 / 290 Balance 50 / 50 240 / 290 Weight last 48 hrs Weight 111.13 kg Physical Exam Narrative: EXAM NARRATIVE: Patient is sitting in a chair On 2 L nasal cannula Asterixis improved Able to answer all my question Nonfocal neuro exam Abdomen distended but we still obesity Venous dermatitis Signs of fluid overload Urinary Catheter Management: Culp: Cath Placed During This Visit: yes Reason for Continuing Indwelling Catheter: Accurate Measurement of Urinary Output in Critically Ill Patients Urinary Catheter Date of Insertion: 07/18/21 Urinary Catheter Time of Insertion: 20:34 Data : 07/19/21 05:43 07/19/21 05:43 Micro: Microbiology 07/18/21 10:22 Urine Culture - Preliminary Urine,Clean Catch Gram Negative Rods 07/18/21 11:43 Blood Culture - Preliminary Blood SPECIMEN COLLECTED 07/18/21 11:42 Blood Culture - Preliminary Blood SPECIMEN COLLECTED A&P Assessment and plan (1) Acute on chronic diastolic heart failure: Status: Acute (2) Pulmonary edema: Status: Acute (3) UTI (urinary tract infection): Status: Acute (4) Chronic kidney disease (CKD): Status: Acute (5) Anemia: Status: Acute (6) CHANNING (obstructive sleep apnea): Status: Acute Plan I am planning to continue her Bumex 3 times a day along metolazone She is showing adequate response, urine output has not been calculated appropriately Creatinine has slightly improved There is slight improvement in her mentation as well Asterixis improved CT head unremarkable Asked patient to be compliant with BiPAP and use it today as well Son at the bedside Anemia is stable no acute decompensation For UTI I will keep her on ceftriaxone for now Planning to discharge her back to the care home by tomorrow if clinically stable Urine culture showing gram-negative rods Attestations Medical Necessity Statement*: Continue medical management Time Spent in Patient Care: 30min Coding Level of Care Code Acute Operating Systems Programmer for Wilfred Morel Diagnoses Acute on chronic diastolic heart failure I50.33 Pulmonary edema J81.1 UTI (urinary tract infection) N39.0 Chronic kidney disease (CKD) N18.9 Anemia D64.9 CHANNING (obstructive sleep apnea) G47.33
[2021-07-19 17:06] LABS: Glucose Point of Care 204 mg/dL (70-110)
[2021-07-19 20:01] LABS: Glucose Point of Care 271 mg/dL (70-110)
[2021-07-19] MEDS: insulin glargine 100 units/1 mL 62 UNIT SUBCUT (20:12)
[2021-07-19] MEDS: tamsulosin 0.4 mg Capsule PO (20:17)
[2021-07-19] MEDS: gabapentin 300 mg Capsule PO (20:17)
[2021-07-20] VITALS (8 sets, daily range): BP systolic 131–146; BP diastolic 56–74; PULSE 74–88; RESP 16–18; TEMP 36.4–36.8; O2SAT 94–97
[2021-07-20] MEDS: heparin 5,000 unit/mL INJ 1 mL 5000 UNIT SUBCUT (03:39)
[2021-07-20 04:41] LABS: ABG PCO2 54.1 mmHg (35-45); ABG PH Result 7.46 (7.35-7.45); Arterial Blood Gas Hematocrit 24.3 % (37-47); Base Excess ABG 12.9 mmol/L (-2.0-2.0); Blood Gas Allen Test Pos; Blood Gas Sample Site Radial, left; Blood Gas Sample Type Arterial; HCO3 ABG 38.2 mmol/L (22-26); Oxygen Device NC; PO2 ABG 69.6 mmHg (80.0-100.0)
[2021-07-20 05:33] LABS: Basophils % 0.2 %; Eosinophils # 0.1 10^3/uL (0.0-0.8); Eosinophils % 0.7 %; Hematocrit 23.3 % (37.0-47.0); Hemoglobin 7.1 g/dL (11.5-15.3); Lymphocytes # 1.7 10^3/uL (0.8-4.8); Lymphocytes % 13.4 %; Mean Corpuscular HGB Conc 30.5 g/dL (30.0-36.0); Mean Corpuscular Volume 88.6 fl (81-99); Monocytes # 0.7 10^3/uL (0.2-0.9); Monocytes % 5.7 %; Neutrophils # 9.77 10^3/uL (1.8-7.7); Nucleated Red Blood Cells % 0.2 %; Platelet Count 336 10^3/cmm (130-400); Red Blood Count 2.63 10^6/uL (4.1-5.3); Red Cell Distribution Width 16.3 % (12.1-15.1); White Blood Count 12.5 10^3/uL (4.0-10.0)
[2021-07-20 05:55] LABS: Ammonia 18 umol/L (11-51)
[2021-07-20 06:08] LABS: Anion Gap 17.6 (5-19); Blood Urea Nitrogen 80 mg/dL (8-23); Calcium 8.5 mg/dL (8.5-10.5); Carbon Dioxide 34 mmol/L (22-29); Chloride 86 mmol/L (98-107); Glomerular Filtration Rate 25.2 mL/min (90-130); Glucose 122 mg/dL (65-115); Osmolality Calculated 303 mOsm/kg (285-295); Potassium 3.6 mmol/L (3.5-5.1); Sodium 134 mmol/L (136-145); Thyroid Stimulating Hormone 1.69 uIU/mL (0.27-4.20)
[2021-07-20] MEDS: sucralfate 1 gm Tablet PO ×2 (06:12→16:40)
[2021-07-20] MEDS: hyDRALAzine 50 mg Tablet 100 MG PO ×3 (06:12→22:00)
[2021-07-20 06:30] LABS: Glucose Point of Care 130 mg/dL (70-110)
--- NOTE | 2021-07-20 07:08 | PC.NURSE ---
Bedside report received from Cass at this time.
[2021-07-20] MEDS: HYDROcodone-acetaminophen 5-325 mg Tablet 1 TAB PO ×3 (08:30→22:08)
[2021-07-20] MEDS: amlodipine 10 mg Tablet 5 MG PO (08:30)
[2021-07-20] MEDS: pantoprazole DR 40 mg Tablet PO (08:30)
[2021-07-20] MEDS: predniSONE 10 mg Tablet PO (08:30)
[2021-07-20] MEDS: cloNIDine 0.1 mg Tablet PO ×2 (08:30→18:00)
[2021-07-20] MEDS: metOLazone 5 MG Tablet PO (08:30)
[2021-07-20] MEDS: potassium chloride ER 20 mEq Tablet PO (08:30)
[2021-07-20] MEDS: bumetanide 0.25 mg/mL SDV 10 mL 2 MG IVP ×2 (08:31→15:05)
[2021-07-20] MEDS: insulin lispro 100 unit/1 mL 8 UNIT SUBCUT ×3 (08:32→21:59)
[2021-07-20 11:09] LABS: Glucose Point of Care 184 mg/dL (70-110)
[2021-07-20] MEDS: cefTRIAXone 1,000 MG in sodium chloride 0.9% (plus) 50 ML 100 MG IV (11:12)
[2021-07-20] MEDS: insulin lispro 100 unit/1 mL SUBCUT ×2 (13:33→18:00)
--- NOTE | 2021-07-20 14:59 | P.PN_ITS ---
Subjective Subjective: Interval history: Drop in hemoglobin noted, will check FOBT, no active hemoptysis or hematemesis Hold DVT prophylaxis [facility] was not able to accept her today repeat H&H today Patient's mentation is improved, patient is stating that her CPAP/BiPAP machine was returned because she was not compliant She is endorsing feeling better Agreeable with removal of Culp catheter Vitals/I&O/Wt Last Vital Signs Temp 98.1 F 07/20/21 11:59 Pulse 81 07/20/21 11:59 Resp 18 07/20/21 11:59 BP 134/69 07/20/21 11:59 Pulse Ox 96 07/20/21 11:59 07/19/21 07/20/21 07/20/21 22:59 06:59 14:59 Intake Total 100 / 630 Output Total 1200 / 2800 Balance -1100 / -2170 Physical Exam Narrative: EXAM NARRATIVE: Patient was resting comfortably She was saturating well on 2 L nasal cannula No abdominal pain Awake and alert oriented to time place and person She is endorsing feeling better Nonfocal neuro exam Not drowsy no asterixis Nonpitting edema of legs Venous stasis dermatitis Clinical signs of fluid overload Urinary Catheter Management: Culp: Cath Placed During This Visit: yes Reason for Continuing Indwelling Catheter: Acute Urinary Retention or Obstruction Urinary Catheter Date of Insertion: 07/18/21 Urinary Catheter Time of Insertion: 20:34 Data : 07/20/21 05:14 07/20/21 05:14 Micro: Microbiology 07/18/21 10:22 Urine Culture - Final Urine,Clean Catch Escherichia coli esbl 07/18/21 11:43 Blood Culture - Preliminary Blood NEGATIVE TO DATE 07/18/21 11:42 Blood Culture - Preliminary Blood NEGATIVE TO DATE A&P Assessment and plan (1) UTI (urinary tract infection): Status: Acute (2) Acute on chronic diastolic heart failure: Status: Acute (3) Pulmonary edema: Status: Acute (4) CHANNING (obstructive sleep apnea): Status: Acute (5) Chronic kidney disease (CKD): Status: Acute (6) CHF exacerbation: Status: Acute Plan tAcute CHF exacerbation Diastolic heart failure Change Bumex to 2 mg twice daily instead of 3 times a day, this is her baseline dosage of Bumex Discontinue metolazone Voiding trial today No active bleeding: Hemoglobin dropped to 7.1, check FOBT we will keep her n.p.o. in case she would require EGD colonoscopy in the morning She is agreeable to use BiPAP at lower settings / if needed for worsening respiratory stress Chronic kidney disease her baseline creatinine seems to be around 1.8-2 Negative fluid balance No significant improvement in creatinine UTI: Currently on ceftriaxone, urine culture showing E. coli ESBL, on ceftriaxone leukocytosis has improved I will change antibiotics to Zosyn Encephalopathy: Metabolic, improved She has positive asterixis due to hypercapnia which improved with use of BiPAP, however she is noncompliant and do not want to use BiPAP for prolonged pro time Plan to discharge her back to [facility] if hemoglobin stays stable they can accept her on Wednesday Attestations Medical Necessity Statement*: Anticipating discharge back to [facility] once clinically stable and hemoglobin stays above 7 Time Spent in Patient Care: Discharge in next 40 hours Coding Level of Care Code Acute Manufacturing Test Engineer for Wilfred Moerl Diagnoses UTI (urinary tract infection) N39.0 Acute on chronic diastolic heart failure I50.33 Pulmonary edema J81.1 CHANNING (obstructive sleep apnea) G47.33 Chronic kidney disease (CKD) N18.9 CHF exacerbation I50.9
--- NOTE | 2021-07-20 15:12 | CTR_ITS ---
PROCEDURE INFORMATION: Exam: CT Abdomen And Pelvis Without Contrast Exam date and time: 07/20/2021 3:12 PM Age: 65 years old Clinical indication: Abnormal findings; Abnormal lab test; Prior surgery; Surgery date: 6+ months; Surgery type: Cystectomy, hyst; Patient HX: Pyelonephritis may h&h TECHNIQUE: Imaging protocol: Computed tomography of the abdomen and pelvis without contrast. Radiation optimization: All CT scans at this facility use at least one of these dose optimization techniques: automated exposure control; mA and/or kV adjustment per patient size (includes targeted exams where dose is matched to clinical indication); or iterative reconstruction. COMPARISON: CT abdomen pelvis con [id number] 06/02/2019 3:33 PM RADIATION DOSE METRICS: Total DLP (mGy-cm): 1715.94 FINDINGS: Lungs: Mild bibasilar pneumonia. Liver: Normal. No mass. Gallbladder and bile ducts: Gallstones and or sludge in the dependent portion of the gallbladder. Pancreas: Normal. No ductal dilation. Spleen: Normal. No splenomegaly. Adrenal glands: Normal. No mass. Kidneys and ureters: Stable cortical atrophy and calcified scarring in the left lateral mid pole kidney. Stomach and bowel: Unremarkable. No obstruction. No mucosal thickening. Appendix: No evidence of appendicitis. Intraperitoneal space: Unremarkable. No free air. No significant fluid collection. Vasculature: One or more calcified pelvic phleboliths. Lymph nodes: Unremarkable. No enlarged lymph nodes. Urinary bladder: Culp balloon catheter in the urinary bladder. Reproductive: Stable hysterectomy. Bones/joints: Unremarkable. No acute fracture. Soft tissues: Unremarkable. CT/CT abdomen pelvis [facility] [id number] IMPRESSION: 1. Mild bibasilar pneumonia. 2. Culp balloon catheter in the urinary bladder. 3. Gallstones and or sludge in the dependent portion of the gallbladder. 4. Stable cortical atrophy and calcified scarring in the left lateral mid pole kidney.
[2021-07-20] MEDS: piperacillin-tazobactam 3.375 GM in sodium chloride 0.9% (plus) 50 ML IV (16:40)
[2021-07-20 17:05] LABS: Glucose Point of Care 270 mg/dL (70-110)
[2021-07-20 17:32] LABS: Hematocrit 22.9 % (37.0-47.0)
--- NOTE | 2021-07-20 17:48 | PC.NURSE ---
Notified DR. Hancock that there was not another private bed to move the patient too. Verbal order received to leave Culp Catheter in place at this time.
[2021-07-20 18:05] LABS: Adenovirus Not Detected (NOT DETECT); Chlamydia Pneumoniae Not Detected (NOT DETECT); Coronavirus 229E,HKU1,NL63,OC4 Not Detected (NOT DETECT); Human Metapneumovirus Not Detected (NOT DETECT); Human Rhinovirus/Enterovirus Not Detected (NOT DETECT); Influenza A Not Detected (NOT DETECT); Influenza A H1 Not Detected (NOT DETECT); Influenza A H1-2009 Not Detected (NOT DETECT); Influenza A H3 Not Detected (NOT DETECT); Influenza B Not Detected (NOT DETECT); Mycoplasma Pneumoniae Not Detected (NOT DETECT); Parainfluenza Virus Type 1 Not Detected (NOT DETECT); Parainfluenza Virus Type 2 Not Detected (NOT DETECT); Parainfluenza Virus Type 3 Not Detected (NOT DETECT); Parainfluenza Virus Type 4 Not Detected (NOT DETECT); Respiratory Syncytial Virus A Not Detected (NOT DETECT); Respiratory Syncytial Virus B Not Detected (NOT DETECT); SARS-COV-2 Not Detected (NOT DETECT)
[2021-07-20] MEDS: insulin glargine 100 units/1 mL 62 UNIT SUBCUT (21:57)
[2021-07-20] MEDS: tamsulosin 0.4 mg Capsule PO (22:00)
[2021-07-20] MEDS: gabapentin 300 mg Capsule PO (22:00)
[2021-07-21] VITALS (9 sets, daily range): BP systolic 128–156; BP diastolic 62–73; PULSE 82–93; RESP 16–18; TEMP 36.5–36.8; O2SAT 93–98
[2021-07-21] MEDS: piperacillin-tazobactam 3.375 GM in sodium chloride 0.9% (plus) 50 ML IV ×2 (00:10→07:45)
[2021-07-21] MEDS: bumetanide 0.25 mg/mL SDV 10 mL 2 MG IVP (04:03)
[2021-07-21] MEDS: sucralfate 1 gm Tablet PO (06:27)
[2021-07-21] MEDS: hyDRALAzine 50 mg Tablet 100 MG PO (06:27)
[2021-07-21 06:43] LABS: Basophils % 0.4 %; Eosinophils # 0.1 10^3/uL (0.0-0.8); Hematocrit 23.4 % (37.0-47.0); Hemoglobin 7.3 g/dL (11.5-15.3); Lymphocytes # 1.6 10^3/uL (0.8-4.8); Lymphocytes % 14.8 %; Mean Corpuscular HGB Conc 31.2 g/dL (30.0-36.0); Mean Corpuscular Hemoglobin 27.2 pg (28.0-34.0); Mean Corpuscular Volume 87.3 fl (81-99); Mean Platelet Volume 9.2 fL (7.4-10.4); Monocytes # 0.7 10^3/uL (0.2-0.9); Monocytes % 6.7 %; Neutrophils # 7.98 10^3/uL (1.8-7.7); Neutrophils % 74.2 %; Nucleated Red Blood Cells % 0 %; Platelet Count 406 10^3/cmm (130-400); Red Blood Count 2.68 10^6/uL (4.1-5.3); Red Cell Distribution Width 16.1 % (12.1-15.1); White Blood Count 10.8 10^3/uL (4.0-10.0)
[2021-07-21 07:05] LABS: Anion Gap 22.5 (5-19); Blood Urea Nitrogen 78 mg/dL (8-23); Calcium 9.5 mg/dL (8.5-10.5); Carbon Dioxide 31 mmol/L (22-29); Chloride 86 mmol/L (98-107); Glomerular Filtration Rate 25.2 mL/min (90-130); Glucose 126 mg/dL (65-115); Osmolality Calculated 307 mOsm/kg (285-295); Potassium 3.5 mmol/L (3.5-5.1); Sodium 136 mmol/L (136-145)
[2021-07-21] MEDS: HYDROcodone-acetaminophen 5-325 mg Tablet 1 TAB PO ×2 (07:49→16:13)
[2021-07-21 08:14] LABS: Glucose Point of Care 129 mg/dL (70-110)
[2021-07-21] MEDS: amlodipine 10 mg Tablet 5 MG PO (09:08)
[2021-07-21] MEDS: potassium chloride ER 20 mEq Tablet PO (09:08)
[2021-07-21] MEDS: pantoprazole DR 40 mg Tablet PO (09:08)
[2021-07-21] MEDS: cloNIDine 0.1 mg Tablet PO (09:08)
[2021-07-21] MEDS: predniSONE 10 mg Tablet PO (09:08)
--- NOTE | 2021-07-21 10:43 | PC.CHAP ---
Pastoral Care Encounter/Spiritual Assessment Type of Contact [] Declined technical administrator visit [] Patient/Family/Request visit [] Outpatient visit [] Follow-up visit [] Physician referral [] Code/Alert [x] Routine visit [] Staff referral [] Actively dying [] Patient sleeping [] Family support [] [] Out of room [] Palliative care [] [] Receiving care in room [] Pre-surgical visit [] Trauma [] Long length of stay [] ICU visit [] Other: Relational/Emotional Strength [x] Patient feels connected with others/family/visitors/staff [] Distress [] Loneliness/isolation [] Abandonment Spirituality of Patient [x] Person of Jessica []x Attends Yazidi of their Jessica [x] Believes in Prayer [] Reads Bible or Bahai materials [] There are Spiritual issues to be addressed Arc Cutter Plasma Arc Interventions [x] Prayer [x] Active listening [x] Non-anxious presence [x] Spiritual/emotional support [] Crisis/trauma care [] Spiritual counseling [] Bereavement support [] Provided bereavement packet [] Provided Bible/devotional materials [] Provided toy/stuffed animal, coloring book to patient or family member [] Provided Communion [] Anointing/[place] [] Salvation [x] Completed spiritual assessment [] Other: Impact on Illness or Injury [] Angry [] Fearful [] Anxious [] Often cries [] Exhaustion [] Unable to work [] Unable to attend lutheran [] Unable to walk/stand [] Unable to read [] Unable to drive [] Unable to eat/drink [] Unable to sleep [] Unable to be with family [] Patient intubated [] Other: Summary Time spent with patient 10 min
--- NOTE | 2021-07-21 11:09 | PC.SOCIAL ---
IMM Update Pg. 2 of IMM updated and reviewed with patient, who verbalized understanding. Copy provided.
[2021-07-21 13:43] LABS: Glucose Point of Care 314 mg/dL (70-110)
--- NOTE | 2021-07-21 14:16 | PM.DCS ---
Discharge Providers Date of Admission: 07/18/21 12:40 Date of Discharge: July 21, 2021 Attending Provider at Admission: Jesus Hancock MD Attending Provider at Discharge: Roosevelt Gomez DO Primary Care Provider: Chucho Dick DO Diagnoses at Discharge Discharge Diagnosis (1) UTI (urinary tract infection): Status: Resolved (2) Acute on chronic diastolic heart failure: Status: Resolved (3) Pulmonary edema: Status: Resolved (4) CHANNING (obstructive sleep apnea): (5) Chronic kidney disease (CKD): (6) CHF exacerbation: Reason for Visit Reason for Visit: WEAKNESS [place] [address] History & Physical Report Signed Patient: Ayla Montilla MR#: [id number] : 1955 Age/Sex: 65 / F ADM Date: 07/18/21 Loc: ER IP? Room/Bed: [place] [address] Note at admission; Ayla Montilla is a 65 year old female who is from [facility] presented for chief complaint of generalized weakness.? Patient is stating that her symptoms started within the last 24 hours with weakness.? She has been asked to use BiPAP at the facility however she is noncompliant.? Her [id number] works at that facility and stated that she is very noncompliant .? In the ER she was diagnosed with hypercapnia however pH is compensated, she does have asterixis, she is confused with abnormal UA she was given ceftriaxone for possible UTI, I requested CT head and Covid test.? As per the family the whole family is vaccinated.? In the ER she does have acute CHF exacerbation Clinically patient does have fluid overload signs with generalized anasarca appearance venous stasis dermatitis, currently requiring 4 L of oxygen to keep her O2 saturation above 90% She was given ceftriaxone 1 g I will give her 2 mg of IV Bumex Put her on BiPAP Goals of care discussed with her son and [id number] Previous echo CONCLUSIONS ?1-Normal left ventricular cavity size. Normal left ventricular ?systolic function. Left ventricular ejection fraction is ?estimated at 69 %. No regional wall motion abnormalities. Grade ?I/IV diastolic dysfunction (abnormal relaxation filling ?pattern), normal to mildly elevated filling pressures. ?2-No significant valve abnormalities. ?3-There is no pericardial effusion. ?4-Pulmonary artery systolic pressure is within normal limits. ?5-Right atrial pressure is around 5 mm of mercury. Hospital course Patient was admitted for management of encephalopathy related to respiratory acidosis and UTI. CHF exacerbation was diagnosed as well for which IV Bumex was used 2 mg 3 times a day with adequate diuresis, creatinine stayed around baseline, she did put out good amount of urine -3 L balance without contraction alkalosis, she is very noncompliant for her BiPAP, however with multiple reinforcement sessions she decided to use BiPAP for about a couple of hours only during hospitalization which improved her mentation. Seem like she has colonization of microorganisms with multiple UTIs in the past, urine culture positive for ESBL E. coli, her leukocytosis did improve with use of ceftriaxone however after getting urine culture I escalated antibiotics to Zosyn, she will be discharged on nitrofurantoin, daughter stating that with use of nitrofurantoin in the past she developed itching however no anaphylactic reaction or skin rash were noted. Her lung imaging did show pulmonary edema, Covid PCR negative, bilateral infiltrates are consistent with primary edema and less likely to be related to parenchymal infection. Physical Exam Narrative: EXAM NARRATIVE: Patient was resting comfortably She was saturating well on 2 L nasal cannula No abdominal pain Awake and alert oriented to time place and person She is endorsing feeling better Nonfocal neuro exam Not drowsy no asterixis Nonpitting edema of legs Venous stasis dermatitis Clinical signs of fluid overload Urinary Catheter Management: Culp: Cath Placed During This Visit: yes Reason for Continuing Indwelling Catheter: Accurate Measurement of Urinary Output in Critically Ill Patients Urinary Catheter Date of Insertion: 07/18/21 Urinary Catheter Time of Insertion: 20:34 Discharge Data Studies Completed and Pending Completed Studies During Hospitalization Category Date Time Status CT abdomen pelvis wo con [id number] Routine Cat Scan 07/20/21 15:[address] chest wo con [id number] Urgent Cat Scan 07/18/21 13:[address] head wo con* [id number] Urgent Cat Scan 07/18/21 13:02 Completed XR chest 1V portable [id number] Urgent Exams 07/18/21 09:52 Completed XR lumbar spine 2-3V* [id number] Urgent Exams 07/18/21 18:03 Completed Pending at discharge Category Date Time Status Blood Culture Stat Lab 07/18/21 11:43 Results Occult Blood Stool [Immunochemical Fecal OCB] Routine Lab 07/21/21 11:23 Received Radiology Impressions Chest X-Ray 07/18/21 09:52 IMPRESSION: Definite pulmonary vascular congestion. Opacities in the right lower lung could represent pulmonary edema or pneumonitis. Head CT 07/18/21 13:02 IMPRESSION: 1. No acute intracranial hemorrhage or edema. 2. Small lacunar infarcts, cerebral atrophy and chronic ischemic disease, similar to 09/09/2020. No acute change. Chest CT 07/18/21 13:05 IMPRESSION: 1. Multilobar mild scattered subsegmental consolidations and groundglass opacification. Most likely due to pneumonitis. 2. Cardiomegaly. 3. Suspect enlarged hilar lymph nodes which cannot be accurately evaluated on this noncontrast study. These could be reactive lymph nodes. Lumbar Spine X-Ray 07/18/21 18:03 IMPRESSION: 1. No acute injury. 2. Degenerative changes of the lumbar spine. Abdomen/Pelvis CT 07/20/21 15:12 IMPRESSION: 1. Mild bibasilar pneumonia. 2. Culp balloon catheter in the urinary bladder. 3. Gallstones and or sludge in the dependent portion of the gallbladder. 4. Stable cortical atrophy and calcified scarring in the left lateral mid pole kidney. Laboratory Results WBC 10.8 10^3/uL (4.0-10.0) H 07/21/21 04:35 RBC 2.68 10^6/uL (4.1-5.3) L 07/21/21 04:35 Hgb 7.3 g/dL (11.5-15.3) L 07/21/21 04:35 Hct 23.4 % (37.0-47.0) L 07/21/21 04:35 MCV 87.3 fl (81-99) 07/21/21 04:35 MCH 27.2 pg (28.0-34.0) L 07/21/21 04:35 MCHC 31.2 g/dL (30.0-36.0) 07/21/21 04:35 RDW 16.1 % (12.1-15.1) H 07/21/21 04:35 Plt Count 406 10^3/cmm (130-400) H 07/21/21 04:35 MPV 9.2 fL (7.4-10.4) 07/21/21 04:35 Neut % (Auto) 74.2 % 07/21/21 04:35 Lymph % (Auto) 14.8 % 07/21/21 04:35 [place] % (Auto) 6.7 % 07/21/21 04:35 Eos % (Auto) 1.0 % 07/21/21 04:35 Baso % (Auto) 0.4 % 07/21/21 04:35 Neut # (Auto) 7.98 10^3/uL (1.8-7.7) H 07/21/21 04:35 Lymph # (Auto) 1.6 10^3/uL (0.8-4.8) 07/21/21 04:35 [place] # (Auto) 0.7 10^3/uL (0.2-0.9) 07/21/21 04:35 Eos # (Auto) 0.1 10^3/uL (0.0-0.8) 07/21/21 04:35 Baso # (Auto) 0.0 10^3/uL (0.0-0.1) 07/21/21 04:35 Nucleated RBC % (auto) 0 % 07/21/21 04:35 Nucleated RBCs # 0.0 /100WBC 07/21/21 04:35 Specimen Type Arterial 07/20/21 04:29 Sample Site Radial, left 07/20/21 04:29 ABG pH 7.46 (7.35-7.45) H 07/20/21 04:29 ABG pCO2 54.1 mmHg (35-45) H 07/20/21 04:29 ABG pO2 69.6 mmHg (80.0-100.0) L 07/20/21 04:29 ABG HCO3 38.2 mmol/L (22-26) H 07/20/21 04:29 ABG Base Excess 12.9 mmol/L (-2.0-2.0) H 07/20/21 04:29 Artem Test Pos 07/20/21 04:29 Hematocrit 24.3 % (37-47) L 07/20/21 04:29 O2 Delivery Device Nc 07/20/21 04:29 O2 Liters/Min 2.0 % 07/20/21 04:29 FiO2 28.0 % 07/18/21 11:25 Press Operator Helper ID Buttr 07/20/21 04:29 Sodium 136 mmol/L (136-145) 07/21/21 04:35 Potassium 3.5 mmol/L (3.5-5.1) 07/21/21 04:35 Chloride 86 mmol/L (98-107) L 07/21/21 04:35 Carbon Dioxide 31 mmol/L (22-29) H 07/21/21 04:35 Anion Gap 22.5 (5-19) H 07/21/21 04:35 BUN 78 mg/dL (8-23) H 07/21/21 04:35 Creatinine 2.0 mg/dL (0.5-0.9) H 07/21/21 04:35 GFR Calculation 25.2 mL/min (90-130) L 07/21/21 04:35 Glucose 126 mg/dL (65-115) H 07/21/21 04:35 POC Glucose 314 mg/dL (70-110) H 07/21/21 13:34 Calculated Osmolality 307 mOsm/kg (285-295) H 07/21/21 04:35 Lactic Acid 0.9 mmol/L (0.5-2.2) 07/18/21 11:43 Calcium 9.5 mg/dL (8.5-10.5) 07/21/21 04:35 Magnesium 1.5 mg/dL (1.7-2.3) L 07/19/21 05:43 Total Bilirubin 0.3 mg/dL (0.15-1.2) 07/18/21 09:51 AST 9 U/L (0-32) 07/18/21 09:51 ALT 10 U/L (0-33) 07/18/21 09:51 Alkaline Phosphatase 108 IU/L (35-105) H 07/18/21 09:51 Ammonia 18 umol/L (11-51) 07/20/21 05:14 C-Reactive Protein 197.8 mg/L (0.0-4.9) H 07/19/21 05:43 NT-Pro-B Natriuret Pep 404 pg/mL (0-125) H 07/18/21 09:51 Total Protein 6.7 g/dL (6.6-8.7) 07/18/21 09:51 Albumin 3.8 g/dL (3.5-5.2) 07/18/21 09:51 Globulin 2.9 g/dL (1.3-4.6) 07/18/21 09:51 TSH 1.69 uIU/mL (0.27-4.20) 07/20/21 05:14 TSH Cancelled 07/20/21 05:14 Urine Color Yellow (Yellow) 07/18/21 10:22 Urine Appearance Hazy (CLEAR) A 07/18/21 10:22 Urine pH 5 (5-7) 07/18/21 10:22 Ur Specific [place] 1.015 (1.005-1.030) 07/18/21 10:22 Urine Protein 1+ (Negative) H 07/18/21 10:22 Urine Glucose (UA) Norm (Normal) 07/18/21 10:22 Urine Ketones Negative (Negative) 07/18/21 10:22 Urine Blood Neg (Negative) 07/18/21 10:22 Urine Nitrate Positive (Negative) H 07/18/21 10:22 Urine Bilirubin Neg (Negative) 07/18/21 10:22 Urine Urobilinogen Norm mg/dL (Negative) 07/18/21 10:22 Ur Leukocyte Esterase 2+ (Negative) H 07/18/21 10:22 Urine RBC 0-4 /hpf (0-2) H 07/18/21 10:22 Urine WBC >100 /hpf (0-5) H 07/18/21 10:22 Ur Squamous Epith Cells 0-4 /hpf (0-5) H 07/18/21 10:22 Amorphous Sediment Not Reportable 07/18/21 10:22 Urine Bacteria 2+ /hpf (NONE) H 07/18/21 10:22 Coronavirus 229E (PCR) Not detected (NOT DETECT) 07/20/21 15:35 SARS-CoV-2 (PCR) Not detected (NOT DETECT) 07/20/21 15:35 SARS-CoV-2 Ag (Rapid) Negative (Negative) 07/18/21 13:24 Vitals Last Vital Signs Temp 97.7 F 07/21/21 12:00 Pulse 88 07/21/21 12:00 Resp 18 07/21/21 12:00 BP 147/73 07/21/21 12:00 Pulse Ox 95 07/21/21 12:00 Discharge Plan Discharge Patient Disposition: Xfer SNF Condition: Stable Prescriptions: New Macrobid 100 mg capsule 100 mg PO BID 10 Days Qty: 20 0RF Rx Instructions: must administer with a meal/food Benadryl Allergy 25 mg tablet 25 mg PO Q8H PRN (Reason: allergic reaction) Qty: 20 0RF Continued montelukast [Singulair] 10 mg tablet 10 mg PO DAILY@1999 0RF hydrocodone-acetaminophen 5-325 mg tablet 1 tab PO TID@08,12,20 PRN (Reason: FIBROMALGIA) 0RF (DME) Home Oxygen Continous See Rx Instructions .Route .MEDSUPPLY Qty: 1 0RF Rx Instructions: As directed ([facility]) Shower chair See Rx Instructions .Route .MEDSUPPLY Qty: 1 0RF Rx Instructions: As directed atorvastatin [Lipitor] 80 mg tablet 80 mg PO DAILY@1999 0RF nitroglycerin [Nitrostat] 0.4 mg tablet, sublingual 0.4 mg SUBLINGUAL Q5M PRN (Reason: chest pains) 0RF ergocalciferol (vitamin D2) 1,250 mcg (50,000 unit) capsule 1,250 mcg PO Q7D 0RF metolazone 2.5 mg tablet 2.5 mg PO DAILY 0RF ferrous sulfate 325 mg (65 mg iron) tablet 325 mg PO DAILY 0RF polyethylene glycol 3350 [Miralax] 17 gram/dose powder 17 g PO DAILY 0RF oxymetazoline 0.05 % spray,non-aerosol 2 spray intranasal Q12H PRN (Reason: Allergy Symptoms) 0RF baclofen 5 mg tablet 5 mg PO BID 0RF potassium chloride 20 mEq tablet,ER particles/crystals 20 meq PO DAILY@0800 0RF pantoprazole 40 mg tablet,delayed release (DR/EC) 40 mg PO DAILY@0800 0RF amlodipine 10 mg tablet 5 mg PO DAILY@0800 0RF Flovent HFA 44 mcg/actuation HFA aerosol inhaler 2 inh INHALATION BID@799,1999 0RF docusate sodium [Colace] 100 mg Capsule 100 mg PO BID@799,1999 0RF acetaminophen [Tylenol] 325 mg Tablet 650 mg PO Q6H PRN (Reason: Pain) 0RF prednisone 10 mg Tablet 10 mg PO DAILY@0800 0RF cetirizine [Zyrtec] 10 mg Tablet 10 mg PO DAILY PRN (Reason: ALLERGIES) 0RF nystatin 100,000 unit/gram ointment See Rx Instructions .ROUTE .COMPLEX 0RF Rx Instructions: APPLY TOPICALLY TO AFFECTED EVERY 24 HOURS NEEDED. triamcinolone acetonide 0.1 % cream See Rx Instructions .ROUTE .COMPLEX 0RF Rx Instructions: applic topically TO BILATERAL LEGS EVERY DAY AND EVENING SHIFT FOR CELLULITIS Robitussin Cough-Chest [place] DM 5-100 mg/5 mL Liquid 10 ml PO Q6H PRN (Reason: Cough) 0RF clonidine HCl 0.1 mg Tablet 0.1 mg PO BID Qty: 60 0RF hydralazine 50 mg Tablet 100 mg PO Q8H Qty: 180 0RF sucralfate 1 gram Tablet 1 g PO BIDAC Qty: 30 0RF spironolactone 25 mg Tablet 25 mg PO DAILY Qty: 30 0RF magnesium hydroxide [Milk of Magnesia] 400 mg/5 mL Suspension 30 ml PO DAILY PRN (Reason: Constipation) 0RF tamsulosin [Flomax] 0.4 mg Capsule 0.4 mg PO BEDTIME 0RF gabapentin 300 mg capsule 300 mg PO BEDTIME 0RF bisacodyl [Dulcolax (bisacodyl)] 5 mg Tablet,Delayed Release (Dr/Ec) 10 mg PO DAILY PRN (Reason: Constipation) 0RF Imodium A-D 2 mg Capsule 2 mg PO PRN PRN (Reason: Diarrhea) 0RF baclofen 10 mg Tablet 10 mg PO BEDTIME 0RF Debrox 6.5 % Drops 5 drp OTIC (EAR) Q6H 0RF duloxetine 20 mg capsule,delayed release(DR/EC) 40 mg PO QAM 0RF Eliquis 5 mg Tablet 5 mg PO BID 0RF Novolog U-100 Insulin aspart 100 unit/mL Solution See Rx Instructions .ROUTE .COMPLEX 0RF Rx Instructions: per sliding scale Novolog Flexpen U-100 Insulin 100 unit/mL (3 mL) insulin pen 30 unit SUBCUT TIDWM 0RF Basaglar KwikPen U-100 Insulin 100 unit/mL (3 mL) insulin pen 75 unit SUBCUT BEDTIME 0RF Tums 200 mg calcium (500 mg) Tablet,Chewable 200 mg PO BID 0RF bumetanide 2 mg Tablet 4 mg PO BEDTIME Qty: 60 0RF bumetanide 2 mg tablet 4 mg PO QAM Qty: 60 0RF Discharge Orders: Discharge Order (Routine); Ordered 07/21/21 Ordered By: Jesus Hancock Referrals: Pietro Nelson [Outside] Chucho Dick DO [Primary Care Provider] - 4-7 days Discharge Diet: Cardiac Discharge Activity: Increase activity as tolerated Discharge Attestations Time Spent in Discharge Care*: less than 30 min Status at Discharge: Cognitive status at discharge: cognitively intact, Behavioral status at discharge: cooperative, Quality Metrics Clinical Quality Measures [ No reported AMI, CVA or VTE this stay] Coding Level of Care Code Acute Chg DC note Diagnoses UTI (urinary tract infection) N39.0 Acute on chronic diastolic heart failure I50.33 Pulmonary edema J81.1 CHANNING (obstructive sleep apnea) G47.33 Chronic kidney disease (CKD) N18.9 CHF exacerbation I50.9
--- NOTE | 2021-07-21 17:07 | PC.NURSE ---
Patient reports missing peach jacket.
[2021-07-23 18:15] LABS: Glucose Point of Care 322 mg/dL (70-110)
== END 2021-07-21 16:30 | disposition skilled nursing facility (03) | DRG 291 ==
LOC: ER 16:40 → ER IP 18:07 → MEDSURG 20:38
PROVIDERS: Nurse Practitioner Family; Admitting Provider Internal Medicine; Emergency Provider Emergency Medicine; PCP Internal Medicine; Visit Provider Internal Medicine
DX: I13.0 Hypertensive heart and chronic kidney disease with heart failure and stage 1 through stage 4 chronic kidney disease, or unspecified chronic kidney disease (principal); I50.33 Acute on chronic diastolic (congestive) heart failure; G93.41 Metabolic encephalopathy; N39.0 Urinary tract infection, site not specified; F05 Delirium due to known physiological condition; Z68.41 Body mass index [BMI] 40.0-44.9, adult; N18.9 Chronic kidney disease, unspecified; E11.22 Type 2 diabetes mellitus with diabetic chronic kidney disease; D63.1 Anemia in chronic kidney disease; Z95.0 Presence of cardiac pacemaker; E78.2 Mixed hyperlipidemia; M79.7 Fibromyalgia; E03.9 Hypothyroidism, unspecified; G47.33 Obstructive sleep apnea (adult) (pediatric); M06.00 Rheumatoid arthritis without rheumatoid factor, unspecified site; Z87.440 Personal history of urinary (tract) infections; Z91.19 Patient's noncompliance with other medical treatment and regimen; E66.9 Obesity, unspecified; Z79.4 Long term (current) use of insulin; Z79.01 Long term (current) use of anticoagulants; Z79.891 Long term (current) use of opiate analgesic; B96.20 Unspecified Escherichia coli [E. coli] as the cause of diseases classified elsewhere; I87.8 Other specified disorders of veins; I87.2 Venous insufficiency (chronic) (peripheral); R06.89 Other abnormalities of breathing
CPT/HCPCS: 36415; 36416; 36600; 51702; 70450; 71045; 71250; 72100; 74176; 80048; 80053; 81001; 82140; 82274; 82803; 82962; 83605; 83735; 83880; 84443; 85014; 85018; 85025; 86140; 87040; 87077; 87086; 87186; 87426; 87635; 93005; 94660; 96365; 96372; 96375; 99285; J0696; J1644; J1815 ×2; J2405; J2543; J3490; J7512

== ENCOUNTER → 2021-09-22 15:09 | Outpatient (BNVA) | payer MEDICARE, MEDICAID, SELFPAY | PROVIDERS: PCP Internal Medicine; Visit Provider Internal Medicine | DX: I13.0 Hypertensive heart and chronic kidney disease with heart failure and stage 1 through stage 4 chronic kidney disease, or unspecified chronic kidney disease (principal); I50.30 Unspecified diastolic (congestive) heart failure; N18.9 Chronic kidney disease, unspecified; E66.9 Obesity, unspecified; Z68.38 Body mass index [BMI] 38.0-38.9, adult; E78.5 Hyperlipidemia, unspecified; E11.22 Type 2 diabetes mellitus with diabetic chronic kidney disease; E11.65 Type 2 diabetes mellitus with hyperglycemia; Z79.4 Long term (current) use of insulin; Z79.01 Long term (current) use of anticoagulants | CPT/HCPCS: 36415; 80048; 83880; 99214 ==

== ENCOUNTER 2021-10-04 00:18 | Emergency (ER) | payer MEDICARE, MEDICAID, SELFPAY ==
[2021-10-04] VITALS (9 sets, daily range): BP systolic 138–181; BP diastolic 62–86; PULSE 74–88; RESP 14–22; TEMP 36.4; O2SAT 99–100; BMI 48.6
[2021-10-04 01:15] LABS: Basophils # 0.1 10^3/uL (0.0-0.1); Basophils % 0.3 %; Eosinophils # 0.1 10^3/uL (0.0-0.8); Eosinophils % 0.6 %; Hematocrit 24.1 % (37.0-47.0); Hemoglobin 7.3 g/dL (11.5-15.3); Lymphocytes % 12.9 %; Mean Corpuscular HGB Conc 30.3 g/dL (30.0-36.0); Mean Corpuscular Hemoglobin 26.6 pg (28.0-34.0); Mean Platelet Volume 9.3 fL (7.4-10.4); Monocytes # 0.9 10^3/uL (0.2-0.9); Monocytes % 5.4 %; Neutrophils # 12.14 10^3/uL (1.8-7.7); Neutrophils % 77.2 %; Nucleated Red Blood Cells % 0.3 %; Platelet Count 313 10^3/cmm (130-400); Red Blood Count 2.74 10^6/uL (4.1-5.3); Red Cell Distribution Width 17.5 % (12.1-15.1); White Blood Count 15.7 10^3/uL (4.0-10.0)
[2021-10-04 01:23] LABS: Alanine Aminotransferase 14 U/L (0-33); Alkaline Phosphatase 86 IU/L (35-105); Anion Gap 15.8 (5-19); Aspartate Amino Transferase 9 U/L (0-32); Blood Urea Nitrogen 79 mg/dL (8-23); C Reactive Protein 33.9 mg/L (0.0-4.9); Calcium 8.4 mg/dL (8.5-10.5); Carbon Dioxide 31 mmol/L (22-29); Chloride 93 mmol/L (98-107); Globulin 3.2 g/dL (1.3-4.6); Glomerular Filtration Rate 25.2 mL/min (90-130); Glucose 159 mg/dL (65-115); Osmolality Calculated 309 mOsm/kg (285-295); Potassium 3.8 mmol/L (3.5-5.1); Sodium 136 mmol/L (136-145); Total Bilirubin 0.2 mg/dL (0.15-1.2); Total Protein 7.2 g/dL (6.6-8.7)
[2021-10-04] MEDS: ondansetron 2 mg/ML SDV 2 mL 4 MG IVP (01:50)
[2021-10-04] MEDS: morphine 4 mg/mL SDV 1 mL IVP (01:51)
[2021-10-04] MEDS: sodium chloride 0.9% 1,000 ML 999 ML IV (01:51)
--- NOTE | 2021-10-04 02:00 | CTR_ITS ---
PROCEDURE INFORMATION: Exam: CT Abdomen And Pelvis Without Contrast Exam date and time: 10/04/2021 2:15 AM Age: 65 years old Clinical indication: Abdominal pain; Localized; Right; Prior surgery; Surgery type: Renal cyst; Patient HX: C/O RT flank pain. ; Additional info: Right flank pain TECHNIQUE: Imaging protocol: Computed tomography of the abdomen and pelvis without contrast. Radiation optimization: All CT scans at this facility use at least one of these dose optimization techniques: automated exposure control; mA and/or kV adjustment per patient size (includes targeted exams where dose is matched to clinical indication); or iterative reconstruction. COMPARISON: CT abdomen pelvis wo con [id number] 07/20/2021 9:18 PM RADIATION DOSE METRICS: Total DLP (mGy-cm): 1838.2 FINDINGS: Tubes, catheters and devices: Cardiac rhythm maintenance device is in place. Lungs: Interval improvement in the previously noted pneumonia in the lung bases. Heart: Cardiomegaly. Liver: Normal. No mass. Gallbladder and bile ducts: Cholelithiasis. Pancreas: Normal. No ductal dilation. Spleen: Normal. No splenomegaly. Adrenal glands: Normal. No mass. Kidneys and ureters: Similar scarring and some linear high density material along the left interpolar kidney. No hydronephrosis. Stomach and bowel: Unremarkable. No obstruction. No mucosal thickening. Appendix: No evidence of appendicitis. Intraperitoneal space: Unremarkable. No free air. No significant fluid collection. Arteries: Mild burden of atherosclerotic plaque in the abdominal aorta and branch vessels. No aneurysm. Lymph nodes: Unremarkable. No enlarged lymph nodes. Urinary bladder: Unremarkable as visualized. Reproductive: Hysterectomy. Bones/joints: Unremarkable. No acute fracture. Soft tissues: Unremarkable. CT/CT kidney stone [id number] IMPRESSION: 1. No acute findings. 2. Interval improvement in the previously noted pneumonia in the lung bases.
[2021-10-04 02:19] LABS: Add Urine Microscopic? YES; Bilirubin Urine Neg (Negative); Blood Urine Neg (Negative); Glucose Urine UA Norm (Normal); Ketones Urine Negative (Negative); Leukocyte Esterase Urine Trace (Negative); Nitrate Urine Negative (Negative); Protein Urine Trace (Negative); Urine Appearance Clear (CLEAR); Urine Color Yellow (Yellow); Urobilinogen Urine Norm (Negative); pH Urine 5 (5-7)
[2021-10-04 02:21] LABS: Add Urine Culture? No; Bacteria Urine TRACE /hpf; Squamous Epithelial Cell Urine 0-4 /hpf (0-5)
--- NOTE | 2021-10-04 02:21 | W.ED.ABDPA2 ---
HPI - Abdominal Pain General: Chief Complaint: Abdominal Pain Stated Complaint: KIDNEY PAIN Time Seen by Provider: 10/04/21 00:21 Source: patient History of Present Illness: 65-year-old female alf patient with right flank pain. She has chronic kidney disease, and was seen by her pie crust mixer 5 days ago. No changes were made. She developed right flank pain yesterday, that seem to go away, however has been present again all day today, and has worsened throughout the evening. She is nauseated, but has not thrown up. She denies any fever. No diarrhea. MD elicited complaint: abdominal pain and flank pain Pertinent past history: other Onset (ago): hour(s) Pain Consistency: constant Location: R flank Quality: stabbing Radiation: RLQ Migration to: no migration Exacerbating factors: nothing Relieving factors: nothing Associated Symptoms: Reports nausea; Denies bloating, change in stool character, coffee ground emesis, constipation, diarrhea, fever(s), hematochezia, hematuria and vomiting Review of Systems Const: Denies: fever(s) ENMT: Denies: throat pain Card: Denies: chest pain Resp: Denies: dyspnea GI: Reports: nausea; Denies: vomiting, coffee ground emesis, diarrhea, constipation, bloating, change in stool character or hematochezia : Denies: hematuria Skin/Breast: Denies: rash PFSH ED PFSH: Medical History Acute hypercapnic respiratory failure Allergic conjunctivitis Anemia CHF exacerbation Chronic kidney disease (CKD) Complicated urinary tract infection Diabetes mellitus type 2, uncontrolled Diastolic CHF Dyslipidemia Essential (primary) hypertension Fibromyalgia Hilar lymphadenopathy Hypothyroid Insulin dependent type 2 diabetes mellitus Mixed hyperlipidemia CHANNING (obstructive sleep apnea) Otitis media Rheumatoid arthritis with negative rheumatoid factor Urinary tract infection Vitamin D deficiency Surgical History H/O esophagogastroduodenoscopy (11/28/20) H/O removal of cyst H/O shoulder surgery H/O toe surgery H/O total cystectomy History of hysterectomy Hx of cataract surgery Hx of tonsillectomy Status post colonoscopy (11/28/20) Status post placement of other cardiac pacemaker Family History Mother Cancer Fibromyalgia Arthritis Father Cancer Arthritis Social History Smoking and tobacco status: never smoked Alcohol intake: never Current occupational status: disabled Current occupation: disability History of recent travel: No Current gender identity: Female Physical Exam Const: GENERAL APPEARANCE: cooperative and frail appearing (Mildly) HENMT: COMMON NORMALS: normocephalic and Normal external nose present HEAD & SCALP: normocephalic FACE & SINUS: normal facial exam NOSE: Normal external nose present Eye: COMMON NORMALS: Equal, round and reactive pupils present and EOMs intact bilaterally PUPIL: Yes Equal, round and reactive pupils present Chest: COMMONS NORMALS: normal inspection of the chest Resp: COMMON NORMALS: normal respiratory effort, No use of accessory muscles and clear to auscultation bilaterally AUSCULTATION: clear to auscultation bilaterally Cardio: COMMON NORMALS: regular rate and regular rhythm RATE: regular rate RHYTHM: regular rhythm GI: COMMON NORMALS: Soft to palpation INSPECTION: Yes normal to inspection PALPATION: Yes Soft to palpation and Yes Tenderness to palpation present (GI) Details: RLQ : BLADDER/KIDNEY EXAM: Yes CVA tenderness on the right Back/Pelvis: GENERAL BACK: Yes CVA tenderness Extremity: GENERAL: Yes edema (Significant bilaterally) Neuro: NANCY COMA SCALE: document GCS findings [place] coma scale eye opening: Spontaneous [place] coma scale verbal response: Orientated Nancy coma scale motor response: Obey commands [place] coma scale total score: 15 Course Vital Signs: Vital signs: Vital Signs Temperature 97.6 F 10/04/21 00:20 Pulse Rate 74 10/04/21 05:00 Respiratory Rate 16 10/04/21 03:30 Blood Pressure 157/83 10/04/21 05:00 Pulse Oximetry 100 10/04/21 05:00 MDM - Abdominal Pain Medical Decision Making 65-year-old alf patient with chronic kidney disease. She is chronically anemic, with a hemoglobin of 7 for the last 2 months. Her creatinine is 2, which is essentially her baseline. Her BUN is 80. Her white blood cell count is 15.7. CRP slightly elevated at 33. Urinalysis is negative for UTI, or hematuria CT is pending. CT shows no acute disease. No definite reason for right flank pain. She may have passed a stone recently, although there is no hydronephrosis or hydroureter. Lab Data : 10/04/21 00:29 10/04/21 00:29 Labs/Radiology: Radiology Impressions Abdomen/Pelvis CT 10/04/21 02:00 IMPRESSION: 1. No acute findings. 2. Interval improvement in the previously noted pneumonia in the lung bases. Laboratory Results WBC 15.7 10^3/uL (4.0-10.0) H 10/04/21 00:29 RBC 2.74 10^6/uL (4.1-5.3) L 10/04/21 00:29 Hgb 7.3 g/dL (11.5-15.3) L 10/04/21 00:29 Hct 24.1 % (37.0-47.0) L 10/04/21 00: MCV 88.0 fl (81-99) 10/04/21 00: MCH 26.6 pg (28.0-34.0) L 10/04/21 00: MCHC 30.3 g/dL (30.0-36.0) 10/04/21 00: RDW 17.5 % (12.1-15.1) H 10/04/21 00:29 Plt Count 313 10^3/cmm (130-400) 10/04/21 00: MPV 9.3 fL (7.4-10.4) 10/04/21 00: Neut % (Auto) 77.2 % 10/04/21 00: Lymph % (Auto) 12.9 % 10/04/21 00: [place] % (Auto) 5.4 % 10/04/21 00:29 Eos % (Auto) 0.6 % 10/04/21 00:29 Baso % (Auto) 0.3 % 10/04/21 00:29 Neut # (Auto) 12.14 10^3/uL (1.8-7.7) H 10/04/21 00: Lymph # (Auto) 2.0 10^3/uL (0.8-4.8) 10/04/21 00:29 [place] # (Auto) 0.9 10^3/uL (0.2-0.9) 10/04/21 00: Eos # (Auto) 0.1 10^3/uL (0.0-0.8) 10/04/21 00:29 Baso # (Auto) 0.1 10^3/uL (0.0-0.1) 10/04/21 00 Nucleated RBC % (auto) 0.3 % 10/04/21 Nucleated RBCs # 0.0 /100WBC 10/04/21 00: Sodium 136 mmol/L (136-145) 10/04/21: Potassium 3.8 mmol/L (3.5-5.1) 10/04/21: Chloride 93 mmol/L (98-107) L 10/04/21: Carbon Dioxide 31 mmol/L (22-29) H 10/04/21 00: Anion Gap 15.8 (5-19) 10/04/21 00: BUN 79 mg/dL (8-23) H 10/04/21 00: Creatinine 2.0 mg/dL (0.5-0.9) H 10/04/21 GFR Calculation 25.2 mL/min (90-130) L 10/04/21 Glucose 159 mg/dL (65-115) H 10/04/21 00: Calculated Osmolality 309 mOsm/kg (285-295) H 10/04/21: Calcium 8.4 mg/dL (8.5-10.5) L 10/04/21 00: Total Bilirubin 0.2 mg/dL (0.15-1.2) 10/04/21 AST 9 U/L (0-32) 10/04/21: ALT 14 U/L (0-33) 10/04/21: Alkaline Phosphatase 86 IU/L (35-105) 10/04/21 00: C-Reactive Protein 33.9 mg/L (0.0-4.9) H 10/04/21 00: Total Protein 7.2 g/dL (6.6-8.7) 10/04/21 00: Albumin 4.0 g/dL (3.5-5.2) 10/04/21 00: Globulin 3.2 g/dL (1.3-4.6) 10/04/21 00: Urine Color Yellow (Yellow) 10/04/21 01:30 Urine Appearance Clear (CLEAR) 10/04/21 01:30 Urine pH 5 (5-7) 10/04/21 01:30 Ur Specific [place] 1.010 (1.005-1.030) 10/04/21 01:30 Urine Protein Trace (Negative) 10/04/21 01:30 Urine Glucose (UA) Norm (Normal) 10/04/21 01:30 Urine Ketones Negative (Negative) 10/04/21 01:30 Urine Blood Neg (Negative) 10/04/21 01:30 Urine Nitrate Negative (Negative) 10/04/21 01:30 Urine Bilirubin Neg (Negative) 10/04/21 01:30 Urine Urobilinogen Norm mg/dL (Negative) 10/04/21 01:30 Ur Leukocyte Esterase Trace (Negative) H 10/04/21 01:30 Urine RBC 5-10 /hpf (0-2) H 10/04/21 01:30 Urine WBC 10-15 /hpf (0-5) H 10/04/21 01:30 Ur Squamous Epith Cells 0-4 /hpf (0-5) H 10/04/21 01:30 Amorphous Sediment Not Reportable 10/04/21 01:30 Urine Bacteria Trace /hpf (NONE) 10/04/21 01:30 Discharge Plan Discharge Patient Disposition: Home Clinical Impression: Renal colic Anemia Qualifiers: Anemia type: due to chronic kidney disease Condition: Stable Prescriptions: No Action montelukast [Singulair] 10 mg tablet 10 mg PO DAILY@1999 0RF hydrocodone-acetaminophen 5-325 mg tablet 1 tab PO TID@08,12,20 PRN (Reason: FIBROMALGIA) 0RF (DME) Home Oxygen Continous See Rx Instructions .Route .MEDSUPPLY Qty: 1 0RF Rx Instructions: As directed (DME) Shower chair See Rx Instructions .Route .MEDSUPPLY Qty: 1 0RF Rx Instructions: As directed atorvastatin [Lipitor] 80 mg tablet 80 mg PO DAILY@1999 0RF nitroglycerin [Nitrostat] 0.4 mg tablet, sublingual 0.4 mg SUBLINGUAL Q5M PRN (Reason: chest pains) 0RF ergocalciferol (vitamin D2) 1,250 mcg (50,000 unit) capsule 1,250 mcg PO Q7D 0RF metolazone 2.5 mg tablet 2.5 mg PO DAILY 0RF ferrous sulfate 325 mg (65 mg iron) tablet 325 mg PO DAILY 0RF polyethylene glycol 3350 [Miralax] 17 gram/dose powder 17 g PO DAILY 0RF oxymetazoline 0.05 % spray,non-aerosol 2 spray intranasal Q12H PRN (Reason: Allergy Symptoms) 0RF baclofen 5 mg tablet 5 mg PO BID 0RF bumetanide 2 mg tablet 4 mg PO BID 0RF Senna Plus 8.6-50 mg capsule 1 tab-cap PO BID PRN0RF potassium chloride 20 mEq tablet,ER particles/crystals 20 meq PO DAILY@0800 0RF pantoprazole 40 mg tablet,delayed release (DR/EC) 40 mg PO DAILY@0800 0RF amlodipine 10 mg tablet 5 mg PO DAILY@0800 0RF Flovent HFA 44 mcg/actuation HFA aerosol inhaler 2 inh INHALATION BID@0800,1999 0RF docusate sodium [Colace] 100 mg Capsule 100 mg PO BID@0800,1999 0RF acetaminophen [Tylenol] 325 mg Tablet 650 mg PO Q6H PRN (Reason: Pain) 0RF prednisone 10 mg Tablet 10 mg PO DAILY@0800 0RF cetirizine [Zyrtec] 10 mg Tablet 10 mg PO DAILY PRN (Reason: ALLERGIES) 0RF triamcinolone acetonide 0.1 % cream See Rx Instructions .ROUTE .COMPLEX 0RF Rx Instructions: applic topically TO BILATERAL LEGS EVERY DAY AND EVENING SHIFT FOR CELLULITIS Robitussin Cough-Chest [place] DM 5-100 mg/5 mL Liquid 10 ml PO Q6H PRN (Reason: Cough) 0RF clonidine HCl 0.1 mg Tablet 0.1 mg PO BID Qty: 60 0RF hydralazine 50 mg Tablet 100 mg PO Q8H Qty: 180 0RF sucralfate 1 gram Tablet 1 g PO BIDAC Qty: 30 0RF spironolactone 25 mg Tablet 25 mg PO DAILY Qty: 30 0RF magnesium hydroxide [Milk of Magnesia] 400 mg/5 mL Suspension 30 ml PO DAILY PRN (Reason: Constipation) 0RF tamsulosin [Flomax] 0.4 mg Capsule 0.4 mg PO BEDTIME 0RF gabapentin 300 mg capsule 300 mg PO BEDTIME 0RF Imodium A-D 2 mg Capsule 2 mg PO PRN PRN (Reason: Diarrhea) 0RF baclofen 10 mg Tablet 10 mg PO BEDTIME 0RF Debrox 6.5 % Drops 5 drp OTIC (EAR) Q6H 0RF duloxetine 20 mg capsule,delayed release(DR/EC) 40 mg PO QAM 0RF Eliquis 5 mg Tablet 5 mg PO BID 0RF Novolog U-100 Insulin aspart 100 unit/mL Solution See Rx Instructions .ROUTE .COMPLEX 0RF Rx Instructions: per sliding scale Novolog Flexpen U-100 Insulin 100 unit/mL (3 mL) insulin pen 30 unit SUBCUT TIDWM 0RF Basaglar KwikPen U-100 Insulin 100 unit/mL (3 mL) insulin pen 75 unit SUBCUT BEDTIME 0RF Tums 200 mg calcium (500 mg) Tablet,Chewable 200 mg PO BID 0RF Discharge Orders: Discharge ED (Routine); Ordered 10/04/21 Ordered By: Trevor Du Referrals: Chucho Dick DO [Primary Care Provider] - Patient Instructions: Abdominal Pain (ED), Opioid Safety Activity Restrictions/Additional Instructions: Anemia is significant, although appears stable. Repeat a blood count on Wednesday to ensure staying stable. Return for worsening belly or flank pain, fever greater than 100, vomiting liquids or medications, other concerning symptoms. Coding Level of Care Code ED Inspector Circuitry Negative for Chg Fwd Exam Comprehensive
--- NOTE | 2021-10-04 06:31 | PC.NURSE ---
transport home pt medicaid ride was called. trip # [phone]. son called and stated he could come pick her up but [facility] a ride. this nurse called [facility] and stated the pt was getting dc's and asked if they provided transportation and vt nurse stated 'not on the weekends' this nurse then returned a phone call to pt son who stated he would 'head this way from [place]'
--- NOTE | 2021-10-04 08:26 | PC.NURSE ---
Patient wheeled to family car. Patient has oxygen with her, son brought home o2. Patient breathing even and non-labored. No distress noted. Denies any questions at this time.
== END 2021-10-04 08:26 | disposition home or self-care (01) ==
PROVIDERS: Emergency Provider Emergency Medicine; PCP Internal Medicine
DX: N23 Unspecified renal colic (principal); I13.0 Hypertensive heart and chronic kidney disease with heart failure and stage 1 through stage 4 chronic kidney disease, or unspecified chronic kidney disease; I50.30 Unspecified diastolic (congestive) heart failure; E11.22 Type 2 diabetes mellitus with diabetic chronic kidney disease; N18.9 Chronic kidney disease, unspecified; D63.1 Anemia in chronic kidney disease; Z79.4 Long term (current) use of insulin; Z79.01 Long term (current) use of anticoagulants
CPT/HCPCS: 74176; 80053; 81001; 85025; 86140; 96361; 96374; 96375; 99285; J2270; J2405; J7030

== ENCOUNTER 2022-03-09 19:47 | Emergency (ER) | payer MEDICARE, MEDICAID, SELFPAY ==
[2022-03-09 20:05] VITALS: BMI 52.7
[2022-03-09 20:10] VITALS: BP 196/77; PULSE 92; RESP 16; TEMP 36.6; O2SAT 100
--- NOTE | 2022-03-09 20:11 | XRR_ITS ---
PROCEDURE INFORMATION: Exam: XR Chest Exam date and time: 03/09/2022 8:37 PM Age: 66 years old Clinical indication: Shortness of breath; Prior surgery; Surgery date: 6+ months; Surgery type: Pacemaker; Additional info: SOB TECHNIQUE: Imaging protocol: Radiologic exam of the chest. Views: 1 view. COMPARISON: CT chest con [id number] 07/18/2021 2:14 PM FINDINGS: Tubes, catheters and devices: Single lead permanent pacemaker is unchanged. Lungs: Mild pulmonary venous congestion similar to previous. No consolidation. Pleural spaces: Unremarkable. No pleural effusion. No pneumothorax. Heart/Mediastinum: Stable mild prominence of heart. Bones/joints: No acute findings. XR/XR chest 1V portable [id number] IMPRESSION: Cardiomegaly with mild pulmonary venous congestion
--- NOTE | 2022-03-09 20:19 | ED_ITS ---
HPI - Recheck/Abnormal Lab/Rx General: Chief Complaint: Recheck/Abnormal Lab/Rx Stated Complaint: LOW HEMOGLOBIN Time Seen by Provider: 03/09/22 20:05 Source: patient and EMS Mode of arrival: EMS Limitations: no limitations History of Present Illness: 66-year-old female here from long-term she has a history of chronic anemia along with chronic kidney disease she had a hemoglobin drawn on it was 6.9 long-term sent her here for possible transfusion she has no medical complaints at this time. Review of Systems Const: Denies: fever(s), chills, body aches or change in appetite Eyes: Denies: blurry vision or eye discomfort ENMT: Denies: throat pain or dental pain Card: Denies: chest pain Resp: Denies: dyspnea GI: Denies: abdominal pain, nausea, vomiting or diarrhea : Denies: dysuria Musc: Denies: neck pain or back pain Skin/Breast: Denies: rash Neuro: Denies: headache(s) Psych: Denies: depression [place]/Lymph: Denies: easy bruising All/Imm: Denies: urticaria PFSH ED PFSH: Medical History Acute hypercapnic respiratory failure Allergic conjunctivitis Anemia CHF exacerbation Chronic kidney disease (CKD) Complicated urinary tract infection Diabetes mellitus type 2, uncontrolled Diastolic CHF Dyslipidemia Essential (primary) hypertension Fibromyalgia Hilar lymphadenopathy Hypothyroid Insulin dependent type 2 diabetes mellitus Mixed hyperlipidemia CHANNING (obstructive sleep apnea) Otitis media Rheumatoid arthritis with negative rheumatoid factor Urinary tract infection Vitamin D deficiency Surgical History H/O esophagogastroduodenoscopy (11/28/20) H/O removal of cyst H/O shoulder surgery H/O toe surgery H/O total cystectomy History of hysterectomy Hx of cataract surgery Hx of tonsillectomy Status post colonoscopy (11/28/20) Status post placement of other cardiac pacemaker Family History Mother Cancer Fibromyalgia Arthritis Father Cancer Arthritis Social History Smoking and tobacco status: never smoked Alcohol intake: never Current occupational status: disabled Current occupation: disability History of recent travel: No Current gender identity: Female Physical Exam Const: COMMON NORMALS: no acute distress, patient oriented x3 and healthy a ppearing HENMT: COMMON NORMALS: normocephalic and atraumatic HEAD & SCALP: normocephalic and atraumatic Eye: COMMON NORMALS: Equal, round and reactive pupils present and EOMs intact bilaterally PUPIL: Yes Equal, round and reactive pupils present Neck/C-Spine: COMMON NORMALS: full ROM and supple Chest: COMMONS NORMALS: normal inspection of the chest and normal palpation of entire chest wall Resp: COMMON NORMALS: normal respiratory effort, No retractions, No use of accessory muscles and clear to auscultation bilaterally AUSCULTATION: clear to auscultation bilaterally Cardio: COMMON NORMALS: regular rate, regular rhythm and No murmurs present (Cardio) RATE: regular rate RHYTHM: regular rhythm GI: COMMON NORMALS: Normal to inspection, nondistended, normoactive bowel sounds present, Soft to palpation, non-tender and no masses PALPATION: Yes Soft to palpation Extremity: COMMON NORMALS: normal to inspection and full ROM Neuro: COMMON NORMALS: patient oriented x3, moves all extremities and no focal motor deficits Psych: COMMON NORMALS: mental status grossly normal, Normal thought process p resent and cooperative THOUGHT PROCESS: Normal thought process present Skin: COMMON NORMALS: no rashes or lesions noted and no wounds GENERAL SKIN EXAM: no rashes or lesions noted Course Vital Signs: Vital signs: Vital Signs Temperature 97.8 F 03/09/22 20:10 Pulse Rate 89 03/09/22 20:53 Respiratory Rate 16 03/09/22 20:53 Blood Pressure 175/76 03/09/22 20:53 Pulse Oximetry 99 03/09/22 20:53 Oxygen Delivery Me thod 03/09/22 20:53 Oxygen Flow Rate 2 03/09/22 20:10 MDM - Recheck/Abnormal Lab/Rx Medical Decision Making Patient presents here with chronic anemia her blood count here 7.9 she does not require transfusion she is well-appearing here she is stable for discharge back to long-term. Lab Data : 03/09/22 20:20 03/09/22 20:20 Radiology Impressions Chest X-Ray 03/09/22 20:11 IMPRESSION: Cardiomegaly with mild pulmonary venous congestion Laboratory Results WBC 16.6 10^3/uL (4.0-10.0) H 03/09/22 20:20 RBC 2.91 10^6/uL (4.1-5.3) L 03/09/22 20:20 Hgb 7.9 g/dL (11.5-15.3) L 03/09/22 20:20 Hct 26.3 % (37.0-47.0) L 03/09/22 20:20 MCV 90.4 fl (81-99) 03/09/22 20:20 MCH 27.1 pg (28.0-34.0) L 03/09/22 20:20 MCHC 30.0 g/dL (30.0-36.0) 03/09/22 20:20 RDW 17.7 % (12.1-15.1) H 03/09/22 20:20 Plt Count 365 10^3/cmm (130-400) 03/09/22 20:20 MPV 9.0 fL (7.4-10.4) 03/09/22 20:20 Neut % (Auto) 82.4 % 03/09/22 20:20 Lymph % (Auto) 8.5 % 03/09/22 20:20 [place] % (Auto) 4.9 % 03/09/22 20:20 Eos % (Auto) 0.7 % 03/09/22 20:20 Baso % (Auto) 0.3 % 03/09/22 20:20 Neut # (Auto) 13.72 10^3/uL (1.8-7.7) H 03/09/22 20:20 Lymph # (Auto) 1.4 10^3/uL (0.8-4.8) 03/09/22 20:20 [place] # (Auto) 0.8 10^3/uL (0.2-0.9) 03/09/22 20:20 Eos # (Auto) 0.1 10^3/uL (0.0-0.8) 03/09/22 20:20 Baso # (Auto) 0.1 10^3/uL (0.0-0.1) 03/09/22 20:20 Nucleated RBC % (auto) 0.2 % 03/09/22 20:20 Nucleated RBCs # 0.0 /100WBC 03/09/22 20:20 PT 13.70 SECONDS (12.1-14.9) 03/09/22 20:20 INR 1.02 (0.8-1.2) 03/09/22 20:20 Sodium 137 mmol/L (136-145) 03/09/22 20:20 Potassium 5.0 mmol/L (3.5-5.1) 03/09/22 20:20 Chloride 91 mmol/L (98-107) L 03/09/22 20:20 Carbon Dioxide 33 mmol/L (22-29) H 03/09/22 20:20 Anion Gap 18.0 (5-19) 03/09/22 20:20 BUN 80 mg/dL (8-23) H 03/09/22 20:20 Creatinine 2.1 mg/dL (0.5-0.9) H 03/09/22 20:20 GFR Calculation 23.7 mL/min (90-130) L 03/09/22 20:20 Glucose 171 mg/dL (65-115) H 03/09/22 20:20 Calculated Osmolality 312 mOsm/kg (285-295) H 03/09/22 20:20 Calcium 9.6 mg/dL (8.5-10.5) 03/09/22 20:20 Total Bilirubin 0.2 mg/dL (0.15-1.2) 03/09/22 20:20 AST 12 U/L (0-32) 03/09/22 20:20 ALT 15 U/L (0-33) 03/09/22 20:20 Alkaline Phosphatase 102 U/L (35-105) 03/09/22 20:20 NT-Pro-B Natriuret Pep 1298 pg/mL (0-125) H 03/09/22 20:20 Total Protein 7.8 g/dL (6.6-8.7) 03/09/22 20:20 Albumin 3.8 g/dL (3.5-5.2) 03/09/22 20:20 Globulin 4.0 g/dL (1.3-4.6) 03/09/22 20:20 Urine Color Yellow (Yellow) 03/09/22 21:51 Urine Appearance Clear (CLEAR) 03/09/22 21:51 Urine pH 5 (5-7) 03/09/22 21:51 Ur Specific [place] 1.015 (1.005-1.030) 03/09/22 21:51 Urine Protein Neg (Negative) 03/09/22 21:51 Urine Glucose (UA) Norm (Normal) 03/09/22 21:51 Urine Ketones Negative (Negative) 03/09/22 21:51 Urine Blood Neg (Negative) 03/09/22 21:51 Urine Nitrate Negative (Negative) 03/09/22 21:51 Urine Bilirubin Neg (Negative) 03/09/22 21:51 Urine Urobilinogen Norm mg/dL (Negative) 03/09/22 21:51 Ur Leukocyte Esterase Trace (Negative) H 03/09/22 21:51 Urine RBC None /hpf (0-2) 03/09/22 21:51 Urine WBC 0-4 /hpf (0-5) H 03/09/22 21:51 Ur Squamous Epith Cells 0-4 /hpf (0-5) H 03/09/22 21:51 Amorphous Sediment Not Reportable 03/09/22 21:51 Urine Bacteria Trace /hpf (NONE) 03/09/22 21:51 Blood Type A Positive 03/09/22 20:20 Rho(D) Type Positive 03/09/22 20:20 Antibody Screen Negative 03/09/22 20:20 Discharge Plan Discharge Patient Disposition: Home Clinical Impression: Anemia Condition: Stable Prescriptions: No Action montelukast [Singulair] 10 mg tablet 10 mg PO DAILY@1999 hydrocodone-acetaminophen 5-325 mg tablet 1 tab PO TID@08,12,20 PRN (Reason: FIBROMALGIA) (DME) Home Oxygen Continous See Rx Instructions .Route .MEDSUPPLY Qty: 1 0RF Rx Instructions: As directed (DME) Shower chair See Rx Instructions .Route .MEDSUPPLY Qty: 1 0RF Rx Instructions: As directed atorvastatin [Lipitor] 80 mg tablet 80 mg PO DAILY@1999 nitroglycerin [Nitrostat] 0.4 mg tablet, sublingual 0.4 mg SUBLINGUAL Q5M PRN (Reason: chest pains) ergocalciferol (vitamin D2) 1,250 mcg (50,000 unit) capsule 1,250 mcg PO Q7D metolazone 2.5 mg tablet 2.5 mg PO DAILY ferrous sulfate 325 mg (65 mg iron) tablet 325 mg PO DAILY polyethylene glycol 3350 [Miralax] 17 gram/dose powder 17 g PO DAILY oxymetazoline 0.05 % spray,non-aerosol 2 spray intranasal Q12H PRN (Reason: Allergy Symptoms) baclofen 5 mg tablet 5 mg PO BID bumetanide 2 mg tablet 4 mg PO BID Senna Plus 8.6-50 mg capsule 1 tab-cap PO BID PRN potassium chloride 20 mEq tablet,ER particles/crystals 20 meq PO DAILY@0800 pantoprazole 40 mg tablet,delayed release (DR/EC) 40 mg PO DAILY@0800 amlodipine 10 mg tablet 5 mg PO DAILY@0800 Flovent HFA 44 mcg/actuation HFA aerosol inhaler 2 inh INHALATION BID@0800,1999 docusate sodium [Colace] 100 mg Capsule 100 mg PO BID@0800,1999 acetaminophen [Tylenol] 325 mg Tablet 650 mg PO Q6H PRN (Reason: Pain) prednisone 10 mg Tablet 10 mg PO DAILY@0800 cetirizine [Zyrtec] 10 mg Tablet 10 mg PO DAILY PRN (Reason: ALLERGIES) triamcinolone acetonide 0.1 % cream See Rx Instructions .ROUTE .COMPLEX Rx Instructions: applic topically TO BILATERAL LEGS EVERY DAY AND EVENING SHIFT FOR CELLULITIS Robitussin Cough-Chest [place] DM 5-100 mg/5 mL Liquid 10 ml PO Q6H PRN (Reason: Cough) clonidine HCl 0.1 mg Tablet 0.1 mg PO BID Qty: 60 0RF hydralazine 50 mg Tablet 100 mg PO Q8H Qty: 180 0RF sucralfate 1 gram Tablet 1 g PO BIDAC Qty: 30 0RF spironolactone 25 mg Tablet 25 mg PO DAILY Qty: 30 0RF magnesium hydroxide [Milk of Magnesia] 400 mg/5 mL Suspension 30 ml PO DAILY PRN (Reason: Constipation) tamsulosin [Flomax] 0.4 mg Capsule 0.4 mg PO BEDTIME gabapentin 300 mg capsule 300 mg PO BEDTIME Imodium A-D 2 mg Capsule 2 mg PO PRN PRN (Reason: Diarrhea) baclofen 10 mg Tablet 10 mg PO BEDTIME Debrox 6.5 % Drops 5 drp OTIC (EAR) Q6H duloxetine 20 mg capsule,delayed release(DR/EC) 40 mg PO QAM Eliquis 5 mg Tablet 5 mg PO BID Novolog U-100 Insulin aspart 100 unit/mL Solution See Rx Instructions .ROUTE .COMPLEX Rx Instructions: per sliding scale Novolog Flexpen U-100 Insulin 100 unit/mL (3 mL) insulin pen 30 unit SUBCUT TIDWM Basaglar KwikPen U-100 Insulin 100 unit/mL (3 mL) insulin pen 75 unit SUBCUT BEDTIME Tums 200 mg calcium (500 mg) Tablet,Chewable 200 mg PO BID Discharge Orders: Discharge ED (Routine); Ordered 03/09/22 Ordered By: Ladonna Nolasco Referrals: Chucho Dick DO [Primary Care Provider] - 1-3 days Discharge Diet: Advance as tolerated Discharge Activity: Resume usual activity Patient Instructions: Anemia (ED) Coding Level of Care Code ED [employer] Fwd Exam Comprehensive
[2022-03-09 20:50] LABS: Basophils # 0.1 10^3/uL (0.0-0.1); Basophils % 0.3 %; Eosinophils # 0.1 10^3/uL (0.0-0.8); Eosinophils % 0.7 %; Hematocrit 26.3 % (37.0-47.0); Hemoglobin 7.9 g/dL (11.5-15.3); Lymphocytes # 1.4 10^3/uL (0.8-4.8); Lymphocytes % 8.5 %; Mean Corpuscular Hemoglobin 27.1 pg (28.0-34.0); Mean Corpuscular Volume 90.4 fl (81-99); Monocytes # 0.8 10^3/uL (0.2-0.9); Monocytes % 4.9 %; Neutrophils # 13.72 10^3/uL (1.8-7.7); Neutrophils % 82.4 %; Nucleated Red Blood Cells % 0.2 %; Platelet Count 365 10^3/cmm (130-400); Red Blood Count 2.91 10^6/uL (4.1-5.3); Red Cell Distribution Width 17.7 % (12.1-15.1); White Blood Count 16.6 10^3/uL (4.0-10.0)
[2022-03-09 20:53] VITALS: BP 175/76; PULSE 89; RESP 16; O2SAT 99
[2022-03-09] MEDS: hyDRALAzine 20 mg/mL INJ 1 mL 10 MG IVP (20:59)
[2022-03-09 21:07] LABS: INR 1.02 (0.8-1.2)
[2022-03-09 21:21] LABS: Alanine Aminotransferase 15 U/L (0-33); Albumin Level 3.8 g/dL (3.5-5.2); Alkaline Phosphatase 102 U/L (35-105); Blood Urea Nitrogen 80 mg/dL (8-23); Calcium 9.6 mg/dL (8.5-10.5); Carbon Dioxide 33 mmol/L (22-29); Chloride 91 mmol/L (98-107); Glomerular Filtration Rate 23.7 mL/min (90-130); Glucose 171 mg/dL (65-115); NT Pro B Type Natriuretic Pept 1298 pg/mL (0-125); Osmolality Calculated 312 mOsm/kg (285-295); Sodium 137 mmol/L (136-145); Total Bilirubin 0.2 mg/dL (0.15-1.2); Total Protein 7.8 g/dL (6.6-8.7)
[2022-03-09 21:31] LABS: Creatinine Clr Calc Pharmacy 35.1685
[2022-03-09 21:32] LABS: Aspartate Amino Transferase 12 U/L (0-32)
[2022-03-09 22:13] LABS: Add Urine Microscopic? YES; Bilirubin Urine Neg (Negative); Blood Urine Neg (Negative); Glucose Urine UA Norm (Normal); Ketones Urine Negative (Negative); Leukocyte Esterase Urine Trace (Negative); Nitrate Urine Negative (Negative); Protein Urine Neg (Negative); Specific Gravity, Urine 1.015 (1.005-1.030); Urine Appearance Clear (CLEAR); Urine Color Yellow (Yellow); Urobilinogen Urine Norm (Negative); pH Urine 5 (5-7)
[2022-03-09 22:15] LABS: Add Urine Culture? No; Bacteria Urine TRACE /hpf; Squamous Epithelial Cell Urine 0-4 /hpf (0-5); WBC Urine 0-4 /hpf (0-5)
[2022-03-09 22:56] VITALS: BP 186/83; PULSE 93; RESP 18; O2SAT 99
--- NOTE | 2022-03-09 22:57 | PC.NURSE ---
patient being discharged back to [facility]; will arrange for logisticare ride
[2022-03-09 23:19] VITALS: BP 180/90; PULSE 70; RESP 18; O2SAT 99
== END 2022-03-09 23:24 | disposition home or self-care (01) ==
PROVIDERS: Emergency Provider Emergency Medicine; PCP Internal Medicine
DX: D64.9 Anemia, unspecified (principal); Z79.01 Long term (current) use of anticoagulants; Z79.4 Long term (current) use of insulin; Z95.0 Presence of cardiac pacemaker; E11.9 Type 2 diabetes mellitus without complications; I11.0 Hypertensive heart disease with heart failure; I50.9 Heart failure, unspecified; E78.2 Mixed hyperlipidemia
CPT/HCPCS: 71045; 80053; 81001; 83880; 85025; 85610; 86850; 86900; 96374; 99284; J0360

== ENCOUNTER → 2022-03-24 13:55 | Outpatient (BNVA) | payer MEDICARE, MEDICAID, SELFPAY | PROVIDERS: PCP Internal Medicine; Visit Provider Internal Medicine | DX: I13.0 Hypertensive heart and chronic kidney disease with heart failure and stage 1 through stage 4 chronic kidney disease, or unspecified chronic kidney disease (principal); E11.22 Type 2 diabetes mellitus with diabetic chronic kidney disease; E11.65 Type 2 diabetes mellitus with hyperglycemia; N18.9 Chronic kidney disease, unspecified; I50.32 Chronic diastolic (congestive) heart failure; Z79.4 Long term (current) use of insulin; E78.5 Hyperlipidemia, unspecified; E66.9 Obesity, unspecified | CPT/HCPCS: 99214 ==

== ENCOUNTER → 2022-04-03 08:48 | Outpatient (BNVA) | payer MEDICARE, MEDICAID, SELFPAY | PROVIDERS: PCP Internal Medicine; Visit Provider Internal Medicine | DX: Z45.010 Encounter for checking and testing of cardiac pacemaker pulse generator [battery] (principal) | CPT/HCPCS: 93279 ==

== ENCOUNTER 2022-05-15 13:15 | Outpatient (CLI) | payer MEDICARE, MEDICAID, SELFPAY ==
[2022-05-15 13:31] LABS: Basophils # 0.1 10^3/uL (0.0-0.1); Basophils % 0.4 %; Eosinophils # 0.2 10^3/uL (0.0-0.8); Eosinophils % 1.4 %; Hematocrit 24.5 % (37.0-47.0); Hemoglobin 7.4 g/dL (11.5-15.3); Lymphocytes # 1.6 10^3/uL (0.8-4.8); Lymphocytes % 12.5 %; Mean Corpuscular HGB Conc 30.2 g/dL (30.0-36.0); Mean Corpuscular Hemoglobin 28.5 pg (28.0-34.0); Mean Corpuscular Volume 94.2 fl (81-99); Mean Platelet Volume 10.1 fL (7.4-10.4); Monocytes # 0.8 10^3/uL (0.2-0.9); Monocytes % 6.5 %; Neutrophils % 77.4 %; Nucleated Red Blood Cells % 0.2 %; Platelet Count 300 10^3/cmm (130-400); Red Cell Distribution Width 17.4 % (12.1-15.1); White Blood Count 12.8 10^3/uL (4.0-10.0)
== END 2022-05-15 13:16 | disposition home or self-care (01) ==
LOC: LAB 13:16
PROVIDERS: PCP Internal Medicine; Visit Provider Family Medicine
DX: D58.2 Other hemoglobinopathies (principal)
CPT/HCPCS: 85025

== ENCOUNTER 2022-05-16 14:14 | Outpatient (CLI) | payer MEDICARE, MEDICAID, SELFPAY ==
[2022-05-16 14:37] LABS: Basophils # 0.1 10^3/uL (0.0-0.1); Basophils % 0.3 %; Eosinophils # 0.1 10^3/uL (0.0-0.8); Eosinophils % 0.5 %; Hematocrit 28.8 % (37.0-47.0); Hemoglobin 8.6 g/dL (11.5-15.3); Lymphocytes # 1.4 10^3/uL (0.8-4.8); Mean Corpuscular HGB Conc 29.9 g/dL (30.0-36.0); Mean Corpuscular Hemoglobin 27.9 pg (28.0-34.0); Mean Corpuscular Volume 93.5 fl (81-99); Mean Platelet Volume 9.9 fL (7.4-10.4); Monocytes # 0.8 10^3/uL (0.2-0.9); Monocytes % 3.9 %; Neutrophils # 17.01 10^3/uL (1.8-7.7); Neutrophils % 86.5 %; Nucleated Red Blood Cells % 0.1 %; Platelet Count 351 10^3/cmm (130-400); Red Blood Count 3.08 10^6/uL (4.1-5.3); Red Cell Distribution Width 17.6 % (12.1-15.1); White Blood Count 19.6 10^3/uL (4.0-10.0)
[2022-05-16 14:53] LABS: Creatinine Urine, Random 95 mg/dL (28-217); Microalbumin Random Urine 5 ug/dL (0-20)
[2022-05-16 14:54] LABS: Microalbum Creatinine Ratio Ur 53 mg/dL (0-20)
[2022-05-16 14:56] LABS: Albumin Level 3.6 g/dL (3.5-5.2); Anion Gap 16.9 (5-19); Carbon Dioxide 30 mmol/L (22-29); Chloride 92 mmol/L (98-107); Glomerular Filtration Rate 25.1 mL/min (90-130); Glucose 148 mg/dL (65-115); Iron 45 ug/dL (37-145); Osmolality Calculated 308 mOsm/kg (285-295); Potassium 3.9 mmol/L (3.5-5.1); Sodium 135 mmol/L (136-145)
[2022-05-16 14:58] LABS: Calcium 9.2 mg/dL (8.5-10.5)
[2022-05-16 15:00] LABS: Blood Urea Nitrogen 84 mg/dL (8-23)
[2022-05-16 15:04] LABS: Parathyroid Hormone 211.2 pg/mL (15-65)
[2022-05-16 15:12] LABS: Vitamin B12 426 pg/mL (232-1245)
== END 2022-05-16 14:15 | disposition home or self-care (01) ==
LOC: LAB 14:16
PROVIDERS: PCP Internal Medicine; Visit Provider Family Medicine
DX: Z01.89 Encounter for other specified special examinations (principal)
CPT/HCPCS: 80048; 80069; 82044; 82310; 82607; 83540; 83970; 85025

== ENCOUNTER → 2022-05-21 09:24 | Outpatient (BNVA) | payer MEDICARE, MEDICAID, SELFPAY | PROVIDERS: PCP Family Medicine; Visit Provider Podiatrist Foot & Ankle Surgery | DX: E11.65 Type 2 diabetes mellitus with hyperglycemia (principal); L84 Corns and callosities; G62.9 Polyneuropathy, unspecified; Z89.411 Acquired absence of right great toe; Z79.4 Long term (current) use of insulin | CPT/HCPCS: 73630 ==

== ENCOUNTER 2022-05-21 09:56 | Outpatient (CLI) | payer MEDICARE, MEDICAID, SELFPAY ==
[2022-05-21 15:17] LABS: Influenza A by IFA Negative (Negative); Influenza B by IFA Negative (Negative)
== END 2022-05-21 09:57 | disposition home or self-care (01) ==
PROVIDERS: PCP Family Medicine; Visit Provider Family Medicine
DX: Z01.89 Encounter for other specified special examinations (principal); M20.41 Other hammer toe(s) (acquired), right foot; M20.42 Other hammer toe(s) (acquired), left foot; G62.9 Polyneuropathy, unspecified; E11.65 Type 2 diabetes mellitus with hyperglycemia; L84 Corns and callosities; Z79.4 Long term (current) use of insulin; Z89.411 Acquired absence of right great toe
CPT/HCPCS: 11056; 11721; 73630; 87804; 99204

== ENCOUNTER → 2022-06-02 09:03 | Outpatient (BNVA) | payer MEDICARE, MEDICAID, SELFPAY | PROVIDERS: PCP Family Medicine; Visit Provider Podiatrist Foot & Ankle Surgery | DX: M20.41 Other hammer toe(s) (acquired), right foot (principal); M20.42 Other hammer toe(s) (acquired), left foot; G62.9 Polyneuropathy, unspecified; L84 Corns and callosities; E11.65 Type 2 diabetes mellitus with hyperglycemia; Z79.4 Long term (current) use of insulin | CPT/HCPCS: 28011; A6219 ==

== ENCOUNTER → 2022-06-12 08:47 | Outpatient (BNVA) | payer MEDICARE, MEDICAID, SELFPAY | PROVIDERS: PCP Family Medicine; Visit Provider Podiatrist Foot & Ankle Surgery | DX: G62.9 Polyneuropathy, unspecified (principal); Z89.411 Acquired absence of right great toe; L84 Corns and callosities; E11.65 Type 2 diabetes mellitus with hyperglycemia; Z79.4 Long term (current) use of insulin | CPT/HCPCS: 99024 ==

== ENCOUNTER 2022-06-16 11:52 | Emergency (ER) | payer MEDICARE, MEDICAID, SELFPAY ==
--- NOTE | 2022-06-16 11:54 | W.ED.GENADLT ---
HPI - General Adult General: Chief complaint: Shortness of Breath/Dyspnea Stated complaint: Weight Gain Time Seen by Provider: 06/16/22 11:54 History of Present Illness: Ms. Machado is a 66-year-old lady with significant past medical history of chronic hypoxic respiratory failure, diabetes, CKD, hypertension, hyperlipidemia, diastolic heart failure presenting to the emergency department due to concern of volume overload and decreased urine output. She reports previous hospitalization for similar approximately 1 month ago and symptoms improved upon discharge however is having gradually increasing edema specifically in bilateral lower extremities associated with discomfort bilaterally and lately decreased urine output. She has been compliant with her medication regimen. Course of symptoms is worsened. Intensity is moderate. No other specific changes in health, exacerbating, or alleviating factors identified. Onset (ago): week(s) Severity: moderate Relieving factors: none Exacerbating factors: none Associated symptoms: Reports dyspnea, malaise and other Review of Systems General: Reports: 10 or more systems reviewed and unremarkable except in HPI and below Const: Reports: malaise Resp: Reports: dyspnea PFSH ED PFSH: Medical History Acute hypercapnic respiratory failure Allergic conjunctivitis Anemia CHF exacerbation Chronic kidney disease (CKD) Complicated urinary tract infection Diabetes mellitus type 2, uncontrolled Diastolic CHF Dyslipidemia Essential (primary) hypertension Fibromyalgia Hilar lymphadenopathy Hypothyroid Insulin dependent type 2 diabetes mellitus Mixed hyperlipidemia CHANNING (obstructive sleep apnea) Otitis media Rheumatoid arthritis with negative rheumatoid factor Urinary tract infection Vitamin D deficiency Surgical History H/O esophagogastroduodenoscopy (11/28/20) H/O removal of cyst H/O shoulder surgery H/O toe surgery H/O total cystectomy History of hysterectomy Hx of cataract surgery Hx of tonsillectomy Status post colonoscopy (11/28/20) Status post placement of other cardiac pacemaker Family History Mother Cancer Fibromyalgia Arthritis Father Cancer Arthritis Social History Smoking and tobacco status: never smoked Alcohol intake: never Current occupational status: disabled Current occupation: disability History of recent travel: No Current gender identity: Female Physical Exam Const: COMMON NORMALS: alert GENERAL APPEARANCE: cooperative and well developed NUTRITIONAL APPEARANCE: obese HENMT: COMMON NORMALS: normocephalic and atraumatic HEAD & SCALP: normocephalic and atraumatic Eye: COMMON NORMALS: conjunctivae normal CONJUNCTIVA: Yes conjunctivae normal SCLERA: sclerae normal Neck/C-Spine: COMMON NORMALS: supple GENERAL: Yes trachea midline Resp: COMMON NORMALS: clear to auscultation bilaterally EFFORT & INSPECTION: Yes able to speak in complete sentences AUSCULTATION: clear to auscultation bilaterally Cardio: COMMON NORMALS: regular rate and regular rhythm RATE: regular rate RHYTHM: regular rhythm GI: COMMON NORMALS: Soft to palpation PALPATION: Yes Soft to palpation and No Tenderness to palpation present (GI) Extremity: NARRATIVE EXTREMITY EXAM: Bilateral lower extremity edema 3+ with scattered fluid blisters, there is bilateral erythema consistent with stasis dermatitis. GENERAL: Yes normal exam except as noted and No edema Neuro: COMMON NORMALS: moves all extremities SENSORIUM/ORIENTATION: Yes alert and No Orientation impaired Psych: COMMON NORMALS: mental status grossly normal and Normal thought process present THOUGHT PROCESS: Normal thought process present Course Vital Signs: Vital signs: Vital Signs Temperature 98.4 F 06/16/22 11:55 Pulse Rate 86 06/16/22 18:44 Respiratory Rate 18 06/16/22 18:44 Blood Pressure 192/85 06/16/22 18:44 Pulse Oximetry 96 06/16/22 18:44 Oxygen Delivery Me thod 06/16/22 18:44 Oxygen Flow Rate 2 06/16/22 18:44 MDM - General Adult Medical Decision Making 66-year-old lady presenting with concern of volume overload. Exam as above. Patient is nontoxic. EKG notable for sinus rhythm with right branch block. No STEMI. Labs with leukocytosis and her baseline macrocytic anemia. Normal platelet count and no evidence of bleeding on clinical exam. Metabolic panel Relaxyl appears improved from prior. 2-hour delta troponin is negative. BNP improved from prior. No evidence of urinary tract infection. Chest x-ray with cardiomegaly, no lobar consolidation or pneumothorax. DVT study negative. Patient improved with analgesia and also given a dose of Bumex. She is on her baseline oxygen hand do not see evidence of significant pulmonary edema or respiratory distress. Given improvement in creatinine for at least maintain creatinine I believe that it is reasonable to attempt continued diuresis in the outpatient setting with increasing Bumex and close follow-up. Most likely etiology of patient's symptoms is acute on chronic heart failure with peripheral edema. The results of ED evaluation were discussed with the patient including prescriptions and/or symptomatic cares (if applicable) including appropriate and responsible use, followup plan, and return precautions. The patient verbalized understanding and felt safe for discharge. Medical Records I reviewed the patient's medical records. Lab Data I reviewed the patient's lab results. 06/16/22 12:07 06/16/22 12:07 Radiology Impressions Chest X-Ray 06/16/22 12:01 IMPRESSION: Cardiomegaly with elevated central venous pressure. Venous Duplex 06/16/22 15:47 IMPRESSION: No evidence of deep vein thrombosis. Laboratory Results WBC 14.1 10^3/uL (4.0-10.0) H 06/16/22 12:07 RBC 2.69 10^6/uL (4.1-5.3) L 06/16/22 12:07 Hgb 7.9 g/dL (11.5-15.3) L 06/16/22 12:07 Hct 27.4 % (37.0-47.0) L 06/16/22 12:07 MCV 101.9 fl (81-99) H 06/16/22 12:07 MCH 29.4 pg (28.0-34.0) 06/16/22 12:07 MCHC 28.8 g/dL (30.0-36.0) L 06/16/22 12:07 RDW 17.1 % (12.1-15.1) H 06/16/22 12:07 Plt Count 202 10^3/cmm (130-400) 06/16/22 12:07 MPV 9.9 fL (7.4-10.4) 06/16/22 12:07 Neut % (Auto) 82.9 % 06/16/22 12:07 Lymph % (Auto) 7.7 % 06/16/22 12:07 Levy % (Auto) 5.8 % 06/16/22 12:07 Eos % (Auto) 0.9 % 06/16/22 12:07 Baso % (Auto) 0.4 % 06/16/22 12:07 Neut # (Auto) 11.69 10^3/uL (1.8-7.7) H 06/16/22 12:07 Lymph # (Auto) 1.1 10^3/uL (0.8-4.8) 06/16/22 12:07 Levy # (Auto) 0.8 10^3/uL (0.2-0.9) 06/16/22 12:07 Eos # (Auto) 0.1 10^3/uL (0.0-0.8) 06/16/22 12:07 Baso # (Auto) 0.1 10^3/uL (0.0-0.1) 06/16/22 12:07 Nucleated RBC % (auto) 0 % 06/16/22 12:07 Nucleated RBCs # 0.0 /100WBC 06/16/22 12:07 Sodium 137 mmol/L (136-145) 06/16/22 12:07 Potassium 4.7 mmol/L (3.5-5.1) 06/16/22 12:07 Chloride 100 mmol/L (98-107) 06/16/22 12:07 Carbon Dioxide 28 mmol/L (22-29) 06/16/22 12:07 Anion Gap 13.7 (5-19) 06/16/22 12:07 BUN 41 mg/dL (8-23) H 06/16/22 12:07 Creatinine 1.5 mg/dL (0.5-0.9) H 06/16/22 12:07 GFR Calculation 35.0 mL/min (90-130) L 06/16/22 12:07 Glucose 256 mg/dL (65-115) H 06/16/22 12:07 Calculated Osmolality 303 mOsm/kg (285-295) H 06/16/22 12:07 Calcium 8.2 mg/dL (8.5-10.5) L 06/16/22 12:07 Total Bilirubin 0.3 mg/dL (0.15-1.2) 06/16/22 12:07 AST 15 U/L (0-32) 06/16/22 12:07 ALT 27 U/L (0-33) 06/16/22 12:07 Alkaline Phosphatase 110 U/L (35-105) H 06/16/22 12:07 Troponin T Baseline 44 ng/L (0-10) H 06/16/22 12:07 Troponin T 120 Minute 40.36 ng/L (0-10) H 06/16/22 14:06 Delta Troponin T -3.64 ABS# (0-10) L 06/16/22 14:06 NT-Pro-B Natriuret Pep 880 pg/mL (0-125) H 06/16/22 12:07 Total Protein 6.3 g/dL (6.6-8.7) L 06/16/22 12:07 Albumin 3.5 g/dL (3.5-5.2) 06/16/22 12:07 Globulin 2.8 g/dL (1.3-4.6) 06/16/22 12:07 Procalcitonin 0.13 ng/mL (0-0.5) 06/16/22 12:07 Urine Color Yellow (Yellow) 06/16/22 14:10 Urine Appearance Clear (CLEAR) 06/16/22 14:10 Urine pH 5 (5-7) 06/16/22 14:10 Ur Specific [place] 1.015 (1.005-1.030) 06/16/22 14:10 Urine Protein Neg (Negative) 06/16/22 14:10 Urine Glucose (UA) Norm (Normal) 06/16/22 14:10 Urine Ketones Negative (Negative) 06/16/22 14:10 Urine Blood Neg (Negative) 06/16/22 14:10 Urine Nitrate Negative (Negative) 06/16/22 14:10 Urine Bilirubin Neg (Negative) 06/16/22 14:10 Urine Urobilinogen Neg mg/dL (Negative) 06/16/22 14:10 Ur Leukocyte Esterase Negative (Negative) 06/16/22 14:10 Discharge Plan Discharge Patient Disposition: Home Clinical Impression: Acute on chronic clinical systolic heart failure, Leukocytosis, Anemia, macrocytic, CKD (chronic kidney disease) Condition: Stable Prescriptions: No Action hydrocodone-acetaminophen 5-325 mg tablet 1 tab PO Q6H PRN (Reason: FIBROMALGIA) (DME) Home Oxygen Continous See Rx Instructions .Route .MEDSUPPLY Qty: 1 0RF Rx Instructions: As directed (DME) Shower chair See Rx Instructions .Route .MEDSUPPLY Qty: 1 0RF Rx Instructions: As directed atorvastatin [Lipitor] 80 mg tablet 80 mg PO DAILY@2000 nitroglycerin [Nitrostat] 0.4 mg tablet, sublingual 0.4 mg SUBLINGUAL Q5M PRN (Reason: chest pains) metolazone 2.5 mg tablet 2.5 mg PO .MWF ferrous sulfate 325 mg (65 mg iron) tablet 325 mg PO DAILY Senna Plus 8.6-50 mg capsule 1 tab-cap PO BID PRN (Reason: Constipation) tizanidine 4 mg capsule 4 mg PO Q8H PRN (Reason: Muscle Pain) (DME) Diabetic shoes See Rx Instructions .Route .MEDSUPPLY Qty: 1 0RF Rx Instructions: As directed to [facility] (DME) Heated and molded inserts See Rx Instructions .Route .MEDSUPPLY Qty: 1 0RF Rx Instructions: As directed to Alpha and Amasa amoxicillin-pot clavulanate 875-125 mg tablet 1 tab PO BID 14 Days Qty: 28 0RF potassium chloride 20 mEq tablet,ER particles/crystals 20 meq PO DAILY@0800 pantoprazole 40 mg tablet,delayed release (DR/EC) 40 mg PO DAILY@0800 docusate sodium [Colace] 100 mg Capsule 100 mg PO BID@0800,2000 acetaminophen [Tylenol] 325 mg Tablet 650 mg PO Q6H PRN (Reason: Pain) prednisone 10 mg Tablet 10 mg PO DAILY@0800 triamcinolone acetonide 0.1 % cream See Rx Instructions .ROUTE .COMPLEX Rx Instructions: applic topically TO BILATERAL LEGS EVERY DAY AND EVENING SHIFT FOR CELLULITIS clonidine HCl 0.1 mg Tablet 0.1 mg PO BID Qty: 60 0RF hydralazine 50 mg Tablet 100 mg PO Q8H Qty: 180 0RF gabapentin 300 mg capsule 300 mg PO BEDTIME duloxetine 20 mg capsule,delayed release(DR/EC) 40 mg PO QAM insulin aspart U-100 [Novolog U-100 Insulin aspart] 100 unit/mL Solution See Rx Instructions .ROUTE .COMPLEX Rx Instructions: per sliding scale insulin aspart U-100 [Novolog Flexpen U-100 Insulin] 100 unit/mL (3 mL) insulin pen 40 unit SUBCUT TIDWM insulin glargine [Basaglar KwikPen U-100 Insulin] 100 unit/mL (3 mL) insulin pen 80 unit SUBCUT BEDTIME calcium carbonate [Tums] 200 mg calcium (500 mg) Tablet,Chewable 400 mg PO Q6H PRN (Reason: Indigestion) Allyson-Tussin 100 mg/5 mL Liquid 200 mg PO Q6H PRN (Reason: Cough) olopatadine 0.1 % Drops 1 drp OPHTHALMIC (EYE) BID Rx Instructions: separate doses by at least 6-8 hours bumetanide 1 mg Tablet 1 mg PO BID Dulcolax (bisacodyl) 5 mg Tablet,Delayed Release (Dr/Ec) 10 mg PO DAILY PRN (Reason: Constipation) Salonpas Adhesive Patch,Medicated 1 patch TOPICAL Q8H PRN (Reason: Pain) Acidophilus 500 million cell Tablet 500 mmu cells PO DAILY Vitamin D3 50 mcg (2,000 unit) Capsule 50 mcg PO DAILY Biofreeze 0.2-3.5 % Gel 1 applic TOPICAL Q4H PRN (Reason: Pain) Rx Instructions: rub in gently and completely Artificial Tears (cmc) 1 % Drops 2 drp OPHTHALMIC (EYE) BID PRN (Reason: Dry Eyes) naloxone 2 mg/2 mL Syringe Kit 2 mg IM Q2M PRN (Reason: overdose) Rx Instructions: NTExceed 10 mg total dose/episode Discharge Orders: Discharge ED (Routine); Ordered 06/16/22 Ordered By: Edmund Hoang Referrals: Fan Pereira MD [Primary Care Provider] - Discharge Diet: Cardiac Discharge Activity: Increase activity as tolerated Patient Instructions: Heart Failure (ED), Chronic Kidney Disease (ED), Leg Edema (ED) Activity Restrictions/Additional Instructions: Thank you for visiting the emergency department. You were seen and evaluated for concern of volume overload. Based on exam and laboratory/imaging studies I believe that it is appropriate to try increasing your Bumex for the next 4 days and reassess. For 4 days please take Bumex 2 mg twice daily and then resume normal 1 mg twice daily dosage. I recommend repeat evaluation by primary care physician in the next 2 to 4 days as well as repeat laboratory studies to reassess kidney function. Please continue your other medications as prescribed. Return to the emergency department for worsening symptoms despite treatment, decreased urine output, or anything else that you are concerned about it feel needs emergency department evaluation. Coding Level of Care Code ED Bander And Cellophaner Machine Helper for Wilfred Fwd Exam Comprehensive
[2022-06-16 11:55] VITALS: BP 159/68; PULSE 96; RESP 16; TEMP 36.9; O2SAT 96; BMI 51.9
--- NOTE | 2022-06-16 12:01 | XRR_ITS ---
PROCEDURE INFORMATION: Exam: XR Chest Exam date and time: 06/16/2022 12:06 PM Age: 66 years old Clinical indication: Other: Edema TECHNIQUE: Imaging protocol: Radiologic exam of the chest. Views: 1 view. COMPARISON: CR (CHEST, ) 03/09/2022 8:37 PM FINDINGS: Tubes, catheters and devices: Cardiac silhouette is moderately enlarged with single electrode pacemaker projecting into the right ventricle unchanged. There is pulmonary vascular redistribution indicating elevated central venous pressure. Lungs: There are minor atelectatic changes within the mid lung zones bilaterally otherwise lung espinoza are essentially clear. No pulmonary edema evident. Pleural spaces: Unremarkable. No pleural effusion. No pneumothorax. Heart/Mediastinum: Unremarkable. No cardiomegaly. Bones/joints: Unremarkable for age. XR/XR chest 1V portable [id number] IMPRESSION: Cardiomegaly with elevated central venous pressure.
[2022-06-16 12:17] LABS: Basophils # 0.1 10^3/uL (0.0-0.1); Basophils % 0.4 %; Eosinophils # 0.1 10^3/uL (0.0-0.8); Eosinophils % 0.9 %; Hematocrit 27.4 % (37.0-47.0); Hemoglobin 7.9 g/dL (11.5-15.3); Lymphocytes # 1.1 10^3/uL (0.8-4.8); Lymphocytes % 7.7 %; Mean Corpuscular HGB Conc 28.8 g/dL (30.0-36.0); Mean Corpuscular Hemoglobin 29.4 pg (28.0-34.0); Mean Corpuscular Volume 101.9 fl (81-99); Mean Platelet Volume 9.9 fL (7.4-10.4); Monocytes # 0.8 10^3/uL (0.2-0.9); Monocytes % 5.8 %; Neutrophils # 11.69 10^3/uL (1.8-7.7); Neutrophils % 82.9 %; Nucleated Red Blood Cells % 0 %; Platelet Count 202 10^3/cmm (130-400); Red Blood Count 2.69 10^6/uL (4.1-5.3); Red Cell Distribution Width 17.1 % (12.1-15.1); White Blood Count 14.1 10^3/uL (4.0-10.0)
--- NOTE | 2022-06-16 12:28 | ECG_ITS ---
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 Measurements Intervals [place] Rate: 92 P: 50 AK: 174 QRS: -71 QRSD: 139 T: 41 QT: 383 QTc: 476 Interpretive Statements SINUS RHYTHM RIGHT BUNDLE BRANCH BLOCK [120+ ms QRS DURATION, UPRIGHT V1, 40+ ms S IN I/aVL/V4/V5/V6] LEFT ANTERIOR FASCICULAR BLOCK [QRS AXIS <= -45, QR IN I, RS IN II] Compared to ECG 07/18/2021 10:11:30 Left anterior fascicular block now present Left posterior fascicular block no longer present T-wave abnormality no longer present Possible ischemia no longer present Electronically Signed On 06-16-2022 20:27:35 ACID RETORT OPERATOR by Shlomo Lerma M.D. [id number]
[2022-06-16 12:43] LABS: Troponin(5th) Baseline 44 ng/L (0-10)
[2022-06-16 12:53] LABS: NT Pro B Type Natriuretic Pept 880 pg/mL (0-125); Procalcitonin 0.13 ng/mL (0-0.5)
[2022-06-16 13:05] LABS: Alanine Aminotransferase 27 U/L (0-33); Albumin Level 3.5 g/dL (3.5-5.2); Alkaline Phosphatase 110 U/L (35-105); Anion Gap 13.7 (5-19); Aspartate Amino Transferase 15 U/L (0-32); Blood Urea Nitrogen 41 mg/dL (8-23); Calcium 8.2 mg/dL (8.5-10.5); Carbon Dioxide 28 mmol/L (22-29); Chloride 100 mmol/L (98-107); Globulin 2.8 g/dL (1.3-4.6); Glucose 256 mg/dL (65-115); Osmolality Calculated 303 mOsm/kg (285-295); Potassium 4.7 mmol/L (3.5-5.1); Sodium 137 mmol/L (136-145); Total Bilirubin 0.3 mg/dL (0.15-1.2); Total Protein 6.3 g/dL (6.6-8.7)
[2022-06-16] MEDS: bumetanide 0.25 mg/mL SDV 4 mL 1 MG IVP (13:19)
--- NOTE | 2022-06-16 14:13 | ECG_ITS ---
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 Measurements Intervals [place] Rate: 89 P: 55 MO: 168 QRS: -73 QRSD: 140 T: 75 QT: 392 QTc: 479 Interpretive Statements SINUS RHYTHM WITH OCCASIONAL VENTRICULAR PREMATURE COMPLEXES RIGHT BUNDLE BRANCH BLOCK [120+ ms QRS DURATION, UPRIGHT V1, 40+ ms S IN I/aVL/V4/V5/V6] LEFT ANTERIOR FASCICULAR BLOCK [QRS AXIS <= -45, QR IN I, RS IN II] POSSIBLE SEPTAL MYOCARDIAL INFARCTION , PROBABLY OLD [30 ms Q WAVE IN V1/V2] Compared to ECG 06/16/2022 12:28:06 Ventricular premature complex(es) now present Myocardial infarct finding now present Electronically Signed On 06-16-2022 20:48:55 TRADEMARK AFFIXER by Shlomo Lerma M.D. [id number]
[2022-06-16 14:26] LABS: Add Urine Microscopic? NO; Charge for UA Resulting for Rev
[2022-06-16 14:29] LABS: Urine Appearance Clear (CLEAR); Urine Color Yellow (Yellow)
[2022-06-16 14:30] LABS: Bilirubin Urine Neg (Negative); Blood Urine Neg (Negative); Glucose Urine UA Norm (Normal); Ketones Urine Negative (Negative); Leukocyte Esterase Urine Negative (Negative); Nitrate Urine Negative (Negative); Protein Urine Neg (Negative); Specific Gravity, Urine 1.015 (1.005-1.030); Urobilinogen Urine Neg (Negative); pH Urine 5 (5-7)
[2022-06-16 14:45] LABS: Troponin 5 2HR 40.36 ng/L (0-10)
[2022-06-16 14:48] LABS: Troponin 5 2HR Delta -3.64 ABS# (0-10)
[2022-06-16 15:09] VITALS: RESP 18
[2022-06-16] MEDS: morphine 4 mg/mL SDV 1 mL IVP (15:09)
[2022-06-16 15:12] VITALS: PULSE 93; RESP 20; O2SAT 97
--- NOTE | 2022-06-16 15:47 | USR_ITS ---
PROCEDURE INFORMATION: Exam: US Duplex Left Upper Extremity Veins, Limited Exam date and time: 06/16/2022 4:07 PM Age: 66 years old Clinical indication: Pain; Arm, lower; Left; Additional info: Arm swelling, pain TECHNIQUE: Imaging protocol: Real-time Duplex ultrasound of the Left Upper Extremity with 2-D [place] scale, color Doppler flow and spectral waveform analysis with image documentation. Limited exam focused on the left upper extremity veins. COMPARISON: US thyroid [id number] 05/31/2019 3:35 PM FINDINGS: Left deep veins: Unremarkable. Axillary and brachial veins are patent throughout without thrombus. Normal Doppler waveforms. Normal compressibility and/or augmentation response. Visualized internal jugular and subclavian veins are patent. Left superficial veins: Unremarkable. Visualized cephalic and basilic veins are patent without thrombus. Soft tissues: Unremarkable. [place] [id number] IMPRESSION: No evidence of deep vein thrombosis.
[2022-06-16 16:00] VITALS: BP 193/78; PULSE 89; RESP 16; O2SAT 97
[2022-06-16 18:44] VITALS: BP 192/85; PULSE 86; RESP 18; O2SAT 96
== END 2022-06-16 18:47 | disposition home or self-care (01) ==
PROVIDERS: Emergency Provider Emergency Medicine; PCP Family Medicine
DX: I13.0 Hypertensive heart and chronic kidney disease with heart failure and stage 1 through stage 4 chronic kidney disease, or unspecified chronic kidney disease (principal); E11.22 Type 2 diabetes mellitus with diabetic chronic kidney disease; N18.9 Chronic kidney disease, unspecified; I50.23 Acute on chronic systolic (congestive) heart failure; E78.2 Mixed hyperlipidemia; D72.829 Elevated white blood cell count, unspecified; D53.9 Nutritional anemia, unspecified; Z79.4 Long term (current) use of insulin
CPT/HCPCS: 36415; 71045; 80053; 81003; 83880; 84145; 84484; 85025; 87040; 93005; 93971; 96374; 96375; 99285; J2270; J3490

== ENCOUNTER → 2022-07-17 08:09 | Outpatient (BNVA) | payer MEDICARE, MEDICAID, SELFPAY | PROVIDERS: PCP Family Medicine; Visit Provider Podiatrist Foot & Ankle Surgery | DX: E11.65 Type 2 diabetes mellitus with hyperglycemia (principal); G62.9 Polyneuropathy, unspecified; Z89.411 Acquired absence of right great toe; L84 Corns and callosities; Z79.4 Long term (current) use of insulin | CPT/HCPCS: 99213 ==

== ENCOUNTER 2022-08-24 06:46 | Inpatient (IN) | payer MEDICARE, MEDICAID, SELFPAY ==
[2022-08-24] VITALS (53 sets, daily range): BP systolic 49–174; BP diastolic 39–96; PULSE 102–144; RESP 13–28; TEMP 36.7–37.2; O2SAT 95–100; BMI 49.0
--- NOTE | 2022-08-24 06:53 | ECG_ITS ---
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 Measurements Intervals [place] Rate: 138 P: 0 TN: 0 QRS: -66 QRSD: 140 T: -3 QT: 294 QTc: 446 Interpretive Statements ATRIAL FLUTTER/TACHYCARDIA WITH RAPID VENTRICULAR RESPONSE WITH ABERRANT CONDUCTION OR VENTRICULAR PREMATURE COMPLEXES RIGHT BUNDLE BRANCH BLOCK [120+ ms QRS DURATION, UPRIGHT V1, 40+ ms S IN I/aVL/V4/V5/V6] LEFT ANTERIOR FASCICULAR BLOCK [QRS AXIS <= -45, QR IN I, RS IN II] POSSIBLE SEPTAL MYOCARDIAL INFARCTION , PROBABLY OLD [30 ms Q WAVE IN V1/V2] Compared to ECG 06/16/2022 14:13:28 Sinus rhythm no longer present Myocardial infarct finding still present Electronically Signed On 08-25-2022 0:16:43 CDT by Shlomo Lerma M.D. [email or web address] [id number]
--- NOTE | 2022-08-24 06:57 | ED_ITS ---
HPI - Abdominal Pain General: Chief Complaint: Abdominal Pain Stated Complaint: RUQ pain Time Seen by Provider: 08/24/22 06:52 Source: patient Mode of arrival: EMS History of Present Illness: 66-year-old female presents emergency room via EMS. Her primary complaint is right upper quadrant abdominal pain. On arrival here she is in A-fib with rapid ventricular response with a rate in the 140s and 150s. She tells me she has had this before. But I find no evidence in her chart and there is no notation of a past medical history of A-fib and no previous EKGs showing atrial fibrillation. She is not on any anticoagulation nor is she on anything for rate control. Patient states she was evaluated previously for the abdominal pain pain but there is no significant finding. MD elicited complaint: abdominal pain Onset (ago): day(s) (1) Pain Consistency: constant Location: RUQ Quality: cramping Exacerbating factors: nothing Associated Symptoms: Reports GI cramping; Denies anorexia, belching, bloating, change in bowel habits, change in stool character, chills, coffee ground emesis, constipation, diarrhea, dyspepsia, dysuria, excessive flatus, fever(s), heartburn, hematochezia, hematuria, hematemesis, fecal incontinence, loose stools, melena, nausea, poor appetite, syncope and vomiting Review of Systems Const: Denies: fever(s) or chills ENMT: Denies: throat pain, ear or mastoid pain, nasal discharge or nasal congestion Card: Reports: palpitations, irregular heart rhythm and edema; Denies: chest pain or syncope Resp: Denies: dyspnea, productive cough or non-productive cough GI: Reports: GI cramping; Denies: nausea, vomiting, hematemesis, coffee ground emesis, heartburn, diarrhea, constipation, bloating, belching, excessive flatus, fecal incontinence, change in bowel habits, change in stool character, hematochezia or melena : Denies: dysuria, urinary frequency, urinary urgency or hematuria Skin/Breast: Denies: rash or pruritus [facility] ED PFSH: Medical History (Updated 08/24/22 @ 14:17 by Pramod Rivera DO) Anemia Iron deficiency and CKD Atrial fibrillation 1st identified in early 2022 during hospital stay at [place], converted to sinus rhythm before discharge Cholelithiasis Chronic kidney disease (CKD) Stage IV, progressing towards stage 5, plan for fistula placement in 10/2022, has followed with Dr Soto Chronic respiratory failure with hypoxia, on home O2 therapy Complicated urinary tract infection history COVID-19 Depression Diastolic CHF Echo 06/2020 EF 69%, normal PAP Dyslipidemia Essential (primary) hypertension Fibromyalgia GERD (gastroesophageal reflux disease) Hilar lymphadenopathy Hypothyroid Impingement syndrome of left shoulder Insulin dependent type 2 diabetes mellitus [place]ANNING (obstructive sleep apnea) Intolerant to CPAP/Bipap, has tried every kind of mask Pulmonary hypertension Severe per external records Pulmonary nodule Rheumatoid arthritis with negative rheumatoid factor Thyroid nodule She has history of biopsy of thyroid nodule that was done at [facility] Vitamin D deficiency Surgical History (Updated 08/24/22 @ 14:15 by Johanna Vazquez MD) H/O esophagogastroduodenoscopy (11/28/20) small hiatal hernia, pedunculated polyp removal from antrum H/O removal of cyst H/O shoulder surgery H/O toe surgery H/O total cystectomy left mid kidney with surgical changes as well History of amputation of right great toe History of hysterectomy Hx of cataract surgery Hx of tonsillectomy Status post colonoscopy (11/28/20) 2cm submucous lipoma in descending colon and internal hemorrhoids otherwise normal Status post placement of other cardiac pacemaker Placed secondary to third-degree AV block in 04/2020, had postplacement pocket infection Family History Mother Cancer Fibromyalgia Arthritis Father Cancer Arthritis Social History Smoking and tobacco status: never smoked Alcohol intake: never Current occupational status: disabled Current occupation: disability Current gender identity: Female Physical Exam Const: GENERAL APPEARANCE: cooperative and comfortable ORIENTATION/CONSCIOUSNESS: Yes awake, Yes oriented to person, Yes oriented to place and Yes oriented to time HENMT: COMMON NORMALS: normocephalic, atraumatic and hearing grossly normal bilaterally HEAD & SCALP: normocephalic and atraumatic Resp: COMMON NORMALS: normal respiratory effort, No retractions, No use of accessory muscles and clear to auscultation bilaterally AUSCULTATION: clear to auscultation bilaterally Cardio: COMMON NORMALS: No murmurs present (Cardio) RATE: tachycardic RHYTHM: abnormal rhythm irregularly irregular GI: COMMON NORMALS: Soft to palpation and No hepatosplenomegaly present AUSCULTATION: Yes normoactive bowel sounds PALPATION: Yes Soft to palpation, No Tenderness to palpation present (GI), No Guarding due to palpation present (GI) and Yes No hepatosplenomegaly present Extremity: COMMON NORMALS: normal to inspection, capillary refill normal and no calf tenderness GENERAL: Yes edema Neuro: SENSORIUM/ORIENTATION: Yes oriented to person, Yes oriented to place and Yes oriented to time Skin: COMMON NORMALS: no rashes or lesions noted GENERAL SKIN EXAM: no rashes or lesions noted Course Vital Signs: Vital signs: Vital Signs Temperature 98.0 F 08/24/22 06:51 Pulse Rate 127 H 08/24/22 13:50 Respiratory Rate 20 H 08/24/22 13:50 Blood Pressure 114/74 08/24/22 13:50 Pulse Oximetry 100 08/24/22 13:50 Oxygen Delivery Me thod 08/24/22 13:50 Oxygen Flow Rate 3 08/24/22 13:50 MDM - Abdominal Pain Medical Decision Making A-fib with RVR and congestive heart failure and acute kidney injury. Patient started on Cardizem did not respond switch to amiodarone as she had responded to that somewhat in the field per EMS report she responded to this poorly as well. Esmolol has been added and we are planning to add digoxin discussed Dr. beyer will admit consult nephrology. Patient has right upper quadrant abdominal pain CT was unremarkable Lab Data 08/24/22 07:22 08/24/22 07:22 Labs/Radiology: Radiology Impressions Chest X-Ray 08/24/22 07:08 IMPRESSION: Stable abnormal chest without acute abnormality. Elevated central pulmonary venous pressure. Abdomen/Pelvis CT 08/24/22 07:35 IMPRESSION: 1. New small bilateral pleural effusions, small amount of ascites and diffuse soft tissue anasarca. Likely from fluid overload. 2. Mildly enlarged heart with a small pericardial effusion. 3. Cholelithiasis without evidence for acute cholecystitis. Additional evaluation by ultrasound can be obtained if clinically thought necessary. 4. No bile duct dilatation. 5. Postsurgical changes LEFT kidney. Laboratory Results WBC 14.2 10^3/uL (4.0-10.0) H 08/24/22 07:22 RBC 3.62 10^6/uL (4.1-5.3) L 08/24/22 07:22 Hgb 10.2 g/dL (11.5-15.3) L 08/24/22 07: Hct 33.7 % (37.0-47.0) L 08/24/22 07:22 MCV 93.1 fl (81-99) 08/24/22 07: MCH 28.2 pg (28.0-34.0) 08/24/22 07: MCHC 30.3 g/dL (30.0-36.0) 08/24/22 07: RDW 15.5 % (12.1-15.1) H 08/24/22 07:22 Plt Count 417 10^3/cmm (130-400) H 08/24/22 07:22 MPV 9.4 fL (7.4-10.4) 08/24/22 07:22 Neut % (Auto) 76.4 % 08/24/22 07:22 Lymph % (Auto) 13.1 % 08/24/22 07:22 [place] % (Auto) 8.4 % 08/24/22 07:22 Eos % (Auto) 0.9 % 08/24/22 07: Baso % (Auto) 0.4 % 08/24/22 07: Neut # (Auto) 10.83 10^3/uL (1.8-7.7) H 08/24/22 07:22 Lymph # (Auto) 1.9 10^3/uL (0.8-4.8) 08/24/22 07:22 [place] # (Auto) 1.2 10^3/uL (0.2-0.9) H 08/24/22 07:22 Eos # (Auto) 0.1 10^3/uL (0.0-0.8) 08/24/22 07:22 Baso # (Auto) 0.1 10^3/uL (0.0-0.1) 08/24/22 07:22 Nucleated RBC % (auto) 0 % 08/24/22 07: Nucleated RBCs # 0.0 /100WBC 08/24/22 07:22 Sodium 135 mmol/L (136-145) L 08/24/22 07:22 Potassium 4.4 mmol/L (3.5-5.1) 08/24/22 07:22 Chloride 87 mmol/L (98-107) L 08/24/22 07:22 Carbon Dioxide 31 mmol/L (22-29) H 08/24/22 07:22 Anion Gap 21.4 (5-19) H 08/24/22 07:22 BUN 99 mg/dL (8-23) H* D 08/24/22 07:22 Creatinine 2.7 mg/dL (0.5-0.9) H 08/24/22 07:22 GFR Calculation 17.7 mL/min (90-130) L 08/24/22 07:22 Glucose 134 mg/dL (65-115) H 08/24/22 07:22 Calculated Osmolality 313 mOsm/kg (285-295) H 08/24/22 07:22 Calcium 9.2 mg/dL (8.5-10.5) 08/24/22 07:22 Total Bilirubin 0.5 mg/dL (0.15-1.2) 08/24/22 07:22 AST 28 U/L (0-32) 08/24/22 07:22 ALT 40 U/L (0-33) H 08/24/22 07:22 Alkaline Phosphatase 202 U/L (35-105) H 08/24/22 07:22 NT-Pro-B Natriuret Pep 80193 pg/mL (0-125) H 08/24/22 07:22 Total Protein 7.4 g/dL (6.6-8.7) 08/24/22 07:22 Albumin 3.5 g/dL (3.5-5.2) 08/24/22 07:22 Globulin 3.9 g/dL (1.3-4.6) 08/24/22 07:22 Lipase 30 U/L (13-60) 08/24/22 07:22 Critical Care Time Critical Care Time: Critical Care Time: Yes Total Critical Care Time: 40 Attestation: The high probability of a clinically significant, sudden or life threatening deterioration of the patient's cardiovascular renal system(s) required my full and direct attention, intervention and personal management. The critical care time is as shown. This time is in addition to time spent performing any reported procedures but includes the following: [x] Data and vital sign review and interpretation [x] Patient assessment, examination and intervention [x] Documentation [x] Medication orders and management Discharge Plan Discharge Patient Disposition: Admitted As Inpatient Admit Provider: Johanna Vazquez Clinical Impression: Atrial fibrillation with rapid ventricular response, Insulin dependent type 2 diabetes mellitus, Rheumatoid arthritis with negative rheumatoid factor, Right upper quadrant abdominal pain, Acute on chronic heart failure with preserved ejection fraction, Acute kidney injury Condition: Stable Coding Level of Care Code ED Literacy Education Professor for Wilfred Morel
--- NOTE | 2022-08-24 07:08 | XR_ITS ---
WS: [id number] XR chest 1V portable [id number] REASON FOR EXAM: dyspnea/cough FINDINGS: Battery pack overlying the left chest with left subclavian vein leads to the right ventricular apex. Significant cardiomegaly. Mild prominence of the upper lobe pulmonary veins. The chest is stable compared to 06/26/2022 with no definite evidence for pulmonary edema or other acut e/subacute pulmonary parenchymal or pleural abnormality. XR/XR chest 1V portable [id number] IMPRESSION: Stable abnormal chest without acute abnormality. Elevated central pulmonary darinel ous pressure.
[2022-08-24] MEDS: dilTIAZem 5 mg/mL SDV 5 mL 20 MG IVP (07:14)
[2022-08-24] MEDS: dilTIAZem 100 MG in sodium chloride 0.9% (add-van) 100 ML IV (07:23)
[2022-08-24 07:27] LABS: Basophils # 0.1 10^3/uL (0.0-0.1); Basophils % 0.4 %; Eosinophils # 0.1 10^3/uL (0.0-0.8); Eosinophils % 0.9 %; Hematocrit 33.7 % (37.0-47.0); Hemoglobin 10.2 g/dL (11.5-15.3); Lymphocytes # 1.9 10^3/uL (0.8-4.8); Lymphocytes % 13.1 %; Mean Corpuscular HGB Conc 30.3 g/dL (30.0-36.0); Mean Corpuscular Hemoglobin 28.2 pg (28.0-34.0); Mean Corpuscular Volume 93.1 fl (81-99); Mean Platelet Volume 9.4 fL (7.4-10.4); Monocytes # 1.2 10^3/uL (0.2-0.9); Monocytes % 8.4 %; Neutrophils # 10.83 10^3/uL (1.8-7.7); Neutrophils % 76.4 %; Nucleated Red Blood Cells % 0 %; Platelet Count 417 10^3/cmm (130-400); Red Blood Count 3.62 10^6/uL (4.1-5.3); Red Cell Distribution Width 15.5 % (12.1-15.1); White Blood Count 14.2 10^3/uL (4.0-10.0)
--- NOTE | 2022-08-24 07:35 | CT_ITS ---
WS: [id number] CT ABDOMEN AND PELVIS NONCONTRAST HISTORY: Abdominal pain RIGHT upper quadrant pain for one month with nausea. TECHNIQUE: Imaging performed through the abdomen and pelvis. Coronal and sagittal reformats are submi tted. All CT scans at [facility] use at least one of these dose optimization techniques: auto mated exposure control; mA and/or kV adjustment per patient size (includes targeted exams where dose is matched to clinical indication); or iterative reconstruction. DLP: 1357.15 mGy.cm COMPARISON: 10/04/2021, 07/20/2021 Lower thorax: Small new bilateral pleural effusions. Pulmonary congestion noted at the lung bases. He art is mildly enlarged with mild pericardial thickening or effusion. Right-sided pacer wire is identi fied. No hiatal hernia. Liver: Normal size liver. Mild hepatic steatosis. No bile duct dilatation. Gallbladder: Cholelithiasis without evidence for acute cholecystitis. No bile duct dilatation. Pancreas: Mild diffuse pancreatic atrophy. Normal size duct. No mass or pancreatitis. Spleen: Normal. Adrenal glands: Normal. No mass. Right kidney: Normal size kidney with no mass or hydronephrosis. Left kidney: Normal size. Postsurgical changes along the mid kidney are unchanged. No obstruction. Aorta: Mild atherosclerosis abdominal aorta with no aneurysm. Mild atherosclerotic plaque in the sple giovani artery. Small amount of free fluid in the abdomen. GI tract: Normally distended stomach. No small bowel obstruction. Appendix is not identified. Abdominal wall: Diffuse soft tissue anasarca is new. Pelvis: Normally distended urinary bladder. No adenopathy. Osseous structures: Unremarkable. CT/CT abdomen pelvis wo con [id number] IMPRESSION: 1. New small bilateral pleural effusions, small amount of ascites and diffuse soft tissue anasarca. Likely from fluid overload. 2. Mildly enlarged heart with a small pericardial effusion. 3. Cholelithiasis without evidence for acute cholecystitis. Additional evaluat ion by ultrasound can be obtained if clinically thought necessary. 4. No bile duct dilatation. 5. Postsurgical changes LEFT kidney.
[2022-08-24 08:00] LABS: Alanine Aminotransferase 40 U/L (0-33); Albumin Level 3.5 g/dL (3.5-5.2); Alkaline Phosphatase 202 U/L (35-105); Anion Gap 21.4 (5-19); Aspartate Amino Transferase 28 U/L (0-32); Calcium 9.2 mg/dL (8.5-10.5); Carbon Dioxide 31 mmol/L (22-29); Chloride 87 mmol/L (98-107); Globulin 3.9 g/dL (1.3-4.6); Glomerular Filtration Rate 17.7 mL/min (90-130); Glucose 134 mg/dL (65-115); Lipase 30 U/L (13-60); NT Pro B Type Natriuretic Pept 11919 pg/mL (0-125); Osmolality Calculated 313 mOsm/kg (285-295); Potassium 4.4 mmol/L (3.5-5.1); Sodium 135 mmol/L (136-145); Total Bilirubin 0.5 mg/dL (0.15-1.2); Total Protein 7.4 g/dL (6.6-8.7)
[2022-08-24 08:04] LABS: Blood Urea Nitrogen 99 mg/dL (8-23)
--- NOTE | 2022-08-24 08:35 | PC.PHAR ---
pt is from [facility] [phone] mike nurse at [facility] states the pt didnt have basaglar 80 units hs on wednesday states bs was 138 -states the pt did get basaglar on sat 08/22/22-
[2022-08-24] MEDS: FUROsemide 10 mg/mL SDV 4mL 40 MG IVP (09:05)
[2022-08-24] MEDS: morphine 4 mg/mL SDV 1 mL 2 MG IVP (10:15)
--- NOTE | 2022-08-24 11:56 | P.HP_ITS ---
Providers/Chief Complaint Admitting Physician: Johanna Vazquez MD Primary Care Provider: Fan Pereira MD Chief Complaint: RUQ pain History of Present Illness Ayla Montilla is a 66 year old female resident at [facility] who presented to the emergency room with chief complaint of left upper quadrant abdominal pain, nausea and vomiting daily, a tightness sensation in her chest and shortness of breath. The abdominal pain has been going on for more than a month now. She had an abdominal ultrasound performed on 08/19/22 that showed some gallbladder wall thickening and hepatomegaly per verbal report from nurse at [facility]. They are going to fax the study. Previous evaluation has shown hepatic enlargement and biliary sludge but no obstructive process. She does still have her gallbladder. She vomits at least once a day and at times will get to the point of dry heaving. She is almost always nauseated nowadays. She takes simethicone with some relief. She has loose stools 2-3 times a day. Denies any issues with constipation. She recently started back on iron and has been noted to have some blackening of her stools but no definite bright red blood. She does have frequent urinary tract infections and is currently on doxycycline for urinary tract infection identified on August 18 with plan for 10 days of treatment. Patient has been hospitalized twice this year at [facility]. At one of these stays she was found to have atrial fibrillation. It sounds like it was transient with conversion to sinus rhythm prior to discharge. She is not known to have chronic atrial fibrillation. She does have chronic diastolic CHF with preserved ejection fraction and known sleep apnea with intolerance to CPAP or BiPAP therapy. She also has progressively worsening chronic kidney disease. She follows with Dr. Deo here for cardiology and has been followed at Dr. Soto's office for nephrology. She is on the schedule to get fistula placement in October of this year as it is anticipated she will eventually need dialysis. Her desk director recently decreased her Bumex dosing, sounds like secondary to worsening renal function but after about 4 days dosing was increased back to usual 3 mg twice daily of Bumex because of increasing peripheral edema. According to her [id number]-zm-bay who is a nurse at [facility], she always has 2+ edema to her lower extremities. It may be slightly more than usual presently. She has a chronic nonproductive cough. While she does not have actual chest pain she feels like everything is pushing up towards her chest creating a tightness like sensation. Sounds like some orthopnea related to this. Has been having dyspnea with exertion. No recent fevers. No new sores. Chronically on oxygen at 2 L. Outside records obtained and reviewed. Hospitalized at [facility] from June 18 to 2022 with cellulitis and CHF. She was treated with broad- spectrum antibiotics and diuresis. Echocardiogram during that stay showed ejection fraction greater than 70% and evidence of severe pulmonary hypertensio n. She was again hospitalized on July 21 with symptoms similar today including abdominal pain, nausea, vomiting and diarrhea. Records indicate that she was in atrial flutter at presentation though does not appear to have had rapid ventricular response at that time. She was discharged on July 25 with primary diagnosis of abdominal pain and urinary tract infection. Does not appear that she required any treatment or intervention for arrhythmia. Discharge physical exam indicates regular rhythm. Twelve-lead EKG shows wide- complex rhythm that appears to be atrial flutter by my interpretation with mention of right bundle branch block and left anterior fascicular block. Was in bigeminy at the time as well. Review of our records shows that she had been on Eliquis in the past or at least it was on her home medication list starting in September 2021. It quit appearing on her home medication list in May 2022. No rate controlling agents. BUN and creatinine on July 25 of this year were 83/2.4 at [facility]. CRP the same date was 6.60 and procalcitonin was 0.33. White count at that time was 14,000 with a hemoglobin of 9.6 and platelet count 358. On July 21 of this year BUN and creatinine were 56/1.9. Urinalysis during the July hospital stay was abnormal with positive nitrites and leukocyte esterase though I do not have any culture results for review. TSH at the time was 4.61 with free thyroxine of 1.65. BNP at the time was 229 with normal range of 0-100 and high-sensitivity troponin was 49.8 within their normal range. Chest x-ray at that time showed no acute abnormalities. Review of Systems General: Reports: Other (ROS as per HPI or as otherwise noted here) Medications/Allergies Home Medications Medication Instructions Recorded Confirmed Last Taken Type hydrocodone 5 mg-acetaminophen 325 1 tab PO Q6H PRN Pain 05/14/20 08/24/22 08/23/22 21:22 History mg tablet Home Oxygen Continous #1 ea 05/23/20 08/24/22 Unknown Rx Shower chair #1 ea 05/23/20 08/24/22 Unknown Rx atorvastatin 80 mg tablet (Lipitor) 80 mg PO BEDTIME@20 06/04/20 08/24/22 08/23/22 History pantoprazole 40 mg tablet,delayed 40 mg PO DAILY@0800 07/08/20 08/24/22 08/23/22 History release potassium chloride 20 mEq 20 meq PO BID@08,07/08/20 08/24/22 08/23/22 History tablet,extended release(part/cryst) acetaminophen 325 mg tablet 650 mg PO Q6H PRN Pain 10/04/20 08/24/22 08/24/22 02:50 History (Tylenol) docusate sodium 100 mg capsule 100 mg PO BID@08,199910/04/20 08/24/22 08/23/22 History (Colace) prednisone 10 mg tablet 10 mg PO DAILY@0800 10/04/20 08/24/22 08/23/22 History triamcinolone acetonide 0.1 % See Rx Instructions .Route .COMPLEX 10/04/20 08/24/22 10/04/20 History topical cream gabapentin 300 mg capsule 300 mg PO BEDTIME@11/22/20 08/24/22 08/23/22 History ferrous sulfate 325 mg (65 mg 325 mg PO EVERY OTHER DAY 06/11/21 08/24/22 Unknown History iron) tablet duloxetine 20 mg capsule,delayed 20 mg PO BID@08,07/19/21 08/24/22 08/23/22 History release insulin aspart U-100 100 unit/mL See Rx Instructions .Route .COMPLEX 07/19/21 08/24/22 08/22/22 History subcutaneous solution (Novolog U-100 Insulin aspart) insulin glargine 100 unit/mL (3 80 unit SUBCUT BEDTIME@07/19/21 08/24/22 08/22/22 History mL) subcutaneous pen (Basaglar KwikPen U-100 Insulin) sennosides 8.6 mg-docusate sodium 1 tab-cap PO BID@08,20 09/22/21 08/24/22 08/23/22 History 50 mg capsule (Senna Plus) Heated and molded inserts #1 ea 05/21/22 08/24/22 Unknown Rx Lactobacillus acidophilus 500 500 mmu cells PO DAILY for loose 06/16/22 08/24/22 Unknown History million cell tablet stools r/t antibiotic therapy bisacodyl 5 mg tablet,delayed 10 mg PO DAILY PRN Constipation 06/16/22 08/24/22 Unknown History release (Dulcolax (bisacodyl)) bumetanide 1 mg tablet 3 mg PO BID@08,14 06/16/22 08/24/22 08/23/22 History camphor-menthol 0.2 %-3.5 % 1 applic topical Q4H PRN Pain 06/16/22 08/24/22 Unknown History topical gel camphor-methyl salicylate-menthol 1 patch topical Q8H PRN Pain 06/16/22 08/24/22 Unknown History topical patch carboxymethylcellulose sodium 1 % 2 drp ophthalmic (eye) BID PRN Dry 06/16/22 08/24/22 Unknown History eye drops (Artificial Tears Eyes (carboxymethylcellulose)) guaifenesin 100 mg/5 mL oral 200 mg PO Q6H PRN Cough 06/16/22 08/24/22 Unknown History liquid (Allyson-Tussin) naloxone 2 mg/2 mL syringe kit 2 mg IM Q2M PRN overdose 06/16/22 08/24/22 Unknown History olopatadine 0.1 % eye drops 1 drp ophthalmic (eye) Q12H PRN 06/16/22 08/24/22 Unknown History (Pataday Twice Daily Relief) drainage/itchiness Diabetic shoes with 3 pairs of #1 ea 07/17/22 08/24/22 Unknown Rx inserts doxycycline hyclate 100 mg tablet 100 mg PO BID@08,20 08/24/22 08/24/22 08/23/22 History hydralazine 50 mg tablet 100 mg PO TID@08,14,20 08/24/22 08/24/22 08/23/22 History hydrocodone 5 mg-acetaminophen 325 1 tab PO TID@08,15,22 08/24/22 08/24/22 08/23/22 History mg tablet ketoconazole 2 % topical cream See Rx Instructions .Route .COMPLEX 08/24/22 08/24/22 Unknown History metolazone 5 mg tablet 5 mg PO DAILY@08 08/24/22 08/24/22 08/23/22 History nitroglycerin 0.4 mg sublingual 0.4 mg sublingual Q5M PRN Chest 08/24/22 Unknown History tablet (Nitrostat) Pain simethicone 180 mg capsule 180 mg PO Q4H PRN Acid Reflux 08/24/22 08/24/22 08/24/22 00:30 History tizanidine 4 mg tablet 4 mg PO TID 08/24/22 08/24/22 Unknown History Allergies Allergy/AdvReac Type Severity Reaction Status Date / Time amitriptyline Allergy Unknown Unknown Verified 07/17/22 08:35 insulin degludec Allergy Unknown Verified 08/24/22 08:00 [From Tresiba FlexTouch U-100] Iodinated Contrast Media Allergy Hypertensio Verified 07/17/22 08:35 n nitrofurantoin Allergy Unknown Verified 08/24/22 08:00 [From Macrobid] sulfamethoxazole Allergy Rash Verified 07/17/22 08:35 [From Bactrim] tree and shrub pollen Allergy Unknown Verified 08/24/22 08:00 trimethoprim [From Bactrim] Allergy Rash Verified 07/17/22 08:35 leflunomide AdvReac Intermediate diarrhea Verified 07/17/22 08:35 PFSH Acute PFSH: Medical History (Updated 08/24/22 @ 15:16 by Johanna Vazquez MD) Anemia Iron deficiency and CKD Atrial fibrillation 1st identified in early 2022 during hospital stay at [facility], converted to sinus rhythm before discharge Cholelithiasis Chronic kidney disease (CKD) Stage IV, progressing towards stage 5, plan for fistula placement in 10/2022, has followed with Dr Soto Chronic respiratory failure with hypoxia, on home O2 therapy Complicated urinary tract infection history COVID-19 Depression Diastolic CHF Echo 06/2020 EF 69%, normal PAP Dyslipidemia Essential (primary) hypertension Fibromyalgia GERD (gastroesophageal reflux disease) With small hiatal hernia Hilar lymphadenopathy History of PFTs 11/2019 mild restriction, normal DLCO, mild decrease in TLC, flow volume loop contour could be suggestive of variable intrathoracic obstruction Hypothyroid Impingement syndrome of left shoulder Insulin dependent type 2 diabetes mellitus Morbid obesity CHANNING (obstructive sleep apnea) Intolerant to CPAP/Bipap, has tried every kind of mask Pulmonary emphysema determined by X-ray Pulmonary hypertension Severe per external records Pulmonary nodule Rheumatoid arthritis with negative rheumatoid factor Thyroid nodule She has history of biopsy of thyroid nodule that was done at [facility] Vitamin D deficiency Surgical History (Updated 08/24/22 @ 14:15 by Johanna Vazquez MD) H/O esophagogastroduodenoscopy (11/28/20) small hiatal hernia, pedunculated polyp removal from antrum H/O removal of cyst H/O shoulder surgery H/O toe surgery H/O total cystectomy left mid kidney with surgical changes as well History of amputation of right great toe History of hysterectomy Hx of cataract surgery Hx of tonsillectomy Status post colonoscopy (11/28/20) 2cm submucous lipoma in descending colon and internal hemorrhoids otherwise normal Status post placement of other cardiac pacemaker Placed secondary to third-degree AV block in 04/2020, had postplacement pocket infection Family History Mother Cancer Fibromyalgia Arthritis Father Cancer Arthritis Social History (Updated 08/24/22 @ 14:26 by Johanna Vazquez MD) Smoking and tobacco status: never smoked Alcohol intake: never Substance/Drug Use: never Housing: Long-Term Current occupational status: disabled Current occupation: disability Current gender identity: Female Vitals/I&O/Wt Last Vital Signs Temp 98.0 F 08/24/22 06:51 Pulse 140 H 08/24/22 11:00 Resp 17 08/24/22 11:00 BP 159/72 08/24/22 11:00 Pulse Ox 99 08/24/22 11:00 O2 Del Method 08/24/22 11:00 O2 Flow Rate 2 08/24/22 11:00 08/23/22 08/24/22 08/24/22 22:59 06:59 14:59 Intake Total 25.417 / 25.417 Balance 25.417 / 25.417 Weight last 48 hrs Weight 121.563 kg Physical Exam Narrative: Awake and alert. Able to answer questions. Oriented to person place and situation. Looks chronically and acutely ill. Normocephalic. Extraocular movements are intact. Nasopharynx is clear. Oropharynx with slightly dry mucous membranes. Neck is large but supple. Lungs are remarkable for decreased breath sounds both bases with some rales noted bilaterally right more so than left. Cardiovascular exam reveals a tachycardic, predominantly regular but at times irregular rhythm. Heart sounds are distant. Abdomen is soft, tender in the right upper quadrant more so than the right lower quadrant. No left-sided quadrant tenderness. Bowel sounds are positive. Right flank is also tender to palpation. 3+ pitting edema bilaterally. Chronic stasis changes. No current warmth or erythema. Skin has had application of a topical cream today. No desquamation or open sores appreciated. Minimal erythema in the sacral area. Patient had nonproductive cough a couple of times during examination. No vomiting. Face is symmetric. Speech is clear. Moves all extremities. Slight tremor noted to hands. Data 08/24/22 07:22 08/24/22 07:22 Micro: Microbiology 08/24/22 07:36 Blood Culture - Preliminary Blood SPECIMEN COLLECTED 08/24/22 07:32 Blood Culture - Preliminary Blood SPECIMEN COLLECTED A&P Assessment and plan (1) Right upper quadrant abdominal pain: Chronic at this point in time. Could be gallbladder colic but suspect secondary to hepatic congestion/contraction. Not currently consistent with acute cholecystitis. Ultrasound on August 19 from outside source did not show any pericholecystic fluid though there was some gallbladder wall thickening. No mention of stones. Common bile duct was 4.3 mm. In addition to the abdominal pain, has had nausea, vomiting and loose stools as well. Azotemia may a contributor to current nausea and vomiting but symptoms have been recently present at levels I would not expect to cause GI symptoms. EGD and colonoscopy were done in 2020 with finding of small hiatal hernia and 1 antral polyp that was removed along with submucosal lipoma on the colonoscopy. Medication effect also within the differential. She is currently on treatment for urinary tract infection. Has a history of recurrent UTIs which can contribute to GI symptoms. Family also indicates a history of renal stones. None were noted on imaging with no obstructive process in the urinary tree. This is patient's primary complaint. (2) Atrial fibrillation with rapid ventricular response: Appears to have been identified initially in July of this year when twelve- lead EKG at outside facility showed atrial flutter. Rate was 100 or below at the time. Like this admission patient's primary complaint was abdominal pain and GI symptoms. Onset of RVR appears to have been within the last 24 to 48 hours. Patient has known diastolic CHF, untreated sleep apnea due to intolerance of CPAP/BiPAP, progressively worsening chronic kidney disease and BMI of 49, among other chronic diagnoses that might contribute. Clinically she looks a bit dry. She has had adjustments to her diuretic regimen recently initially with a decrease and diuretic dose followed by resumption of previous 3 mg twice daily Bumex dosing along with metolazone. She has not responded to diltiazem in the emergency room. Amiodarone drip has been initiated without any improvement and esmolol drip was subsequently started with slight improvement with heart rate from 140s to 120s. She is not on any chronic anticoagulation nor chronic rate controlling agents though she does have a permanent pacemaker due to a history of third-degree AV block back in 2019. (3) Acute kidney injury: On top of chronic kidney disease stage IV. Patient is on the schedule to have a fistula placed in October of this year and as it is anticipated that she will eventually need dialysis. Baseline creatinine probably around 2 or just above though difficult to ascertain if she has significant variability between acute clinical presentations and values at discharge when she is probably more adequately diuresed. Azotemia to the degree she is presenting with today is higher however. Well having some nausea and vomiting. She has minimal itching that does not appear worse than baseline. Mental status has been okay. Follows with Dr. Soto clinic outpatient. (4) Acute on chronic heart failure with preserved ejection fraction: Known to have severe pulmonary hypertension. While she may be total body volume overloaded, appears intravascularly dry presently. Appears to have a narrow window between under and overdiuresis on review of some previous records. (5) UTI (urinary tract infection): Present on admission, organism unknown, on treatment with doxycycline prior to admission initiated on 08/18/2022. Has a history of recurrent UTIs. 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 (9) Dyslipidemia: On chronic statin therapy (10) CHANNING (obstructive sleep apnea): Untreated due to intolerant of CPAP or BiPAP despite trying every combination of mask. Does use oxygen by nasal cannula. (11) Hypothyroid: Diagnosis per old records. Not on chronic treatment. Recent TSH and free T4 at outside facility normal in July 2022. (12) Rheumatoid arthritis with negative rheumatoid factor: Treated with oral prednisone and as needed pain medications. Not on any biologi c agents currently though had previously been on Actemra. (13) GERD (gastroesophageal reflux disease): With small hiatal hernia, chronically on PPI daily (14) BMI 45.0-49.9, adult: Plan Inpatient admission to cardiac stepdown unit Continuous telemetry monitoring Continue amiodarone drip and esmolol drip currently Cardiology consultation, discussed with Dr. Tai We will see how she responds to a small fluid bolus Check magnesium and phosphorus levels, replace if indicated Culp catheter for close monitoring of urine output Currently holding diuretics but anticipate they will need to be resumed Nephrology consultation given chronic kidney disease stage IV and current clinical presentation, discussed with Dr. Roman Check coagulation studies Subcutaneous heparin currently Will need to evaluate rate controlling agents and anticoagulation upon discharge Patient had an echocardiogram in June of this year that showed ejection fraction greater than 70% with severe pulmonary hypertension at outside facility. I do not have the actual echocardiogram report available despite requesting from outside facility. Given apparently new arrhythmia and worsening renal function as well as anticipation of initiation of chronic anticoagulation, will proceed with repeating echocardiogram to have available for management this hospital stay. Has had Doppler ultrasound of the lower extremities within the past 2 months that was unremarkable for DVT Not a candidate for CTA secondary to renal function; body habitus and tachycardia currently limited utility of VQ scan consideration. Embolic event is certainly within the differential diagnosis. Check urinalysis Blood cultures have been collected Has been on oral doxycycline which I am going to hold with continued GI symptoms On lactobacillus We will check stool for C. difficile if diarrhea within next 24 hrs given symptoms present on admission and several courses of antibiotics over the last couple of months Given persistent GI symptoms will increase PPI to twice daily Continue home statin therapy Continue home hydralazine Continue home oxygen Had thyroid function checked within the last 2 months at outside facility with normal TSH and free thyroxine Continue daily prednisone Monitor for need for stress dosing Continue long-acting along with short acting insulin though I have long acting to 50 at bedtime presently due to decrease in oral intake reported and current blood sugar values Continue home iron therapy although reinitiation of iron therapy could be a nidus for increasing GI symptoms Continue stool softeners, holding for diarrhea Continue home hydrocodone, Zanaflex, duloxetine Supportive care otherwise Currently anticipate disposition back to [facility] with follow- up to cardiology and nephrology. She may or may not require ongoing antibiotics, new initiation of oral anticoagulation and rate controlling agents. Findings, concerns and plans were discussed with patient and her son as well as her [id number]-llm who is a nurse at [facility] and all were given an opportunity to ask questions FULL CODE, although patient would not want more than 72 hrs of mechanical ventilation should she require it Attestations Medical Necessity Statement*: Anticipated stay greater than two midnights in a patient with atrial flu tter/fibrillation with rapid ventricular response not responding to multiple initial medications for rate control. She also has acute kidney injury on top of chronic kidney disease stage IV. With comorbid medical conditions as outlined and current presentation, need for frequent adjustment in IV m edications, close monitoring of heart rate and urine output among other care described, meets criteria for inpatient management. At high risk of rapid clinical decline if we are unable to get arrhythmia under control. She has already been hospitalized twice this year with similar individual complaints and at least 1 prior time having been identified as having an arrhythmia that was not at that time associated with rapid ventricular response. and High Time for a total of 95 minutes, includes reviewing past or interval history, examining/interviewing patient, placing orders, updating patient/family/other support, discussing plan of care with staff, communicating with other healthcare providers and documenting encounter Diagnoses Right upper quadrant abdominal pain R10.11 Atrial fibrillation with rapid ventricular response I48.91 Acute kidney injury N17.9 Acute on chronic heart failure with preserved ejection fraction I50.33 UTI (urinary tract infection) N39.0 Insulin dependent type 2 diabetes mellitus E11.9; Z79.4 Anemia D64.9 High risk medication use Z79.899 Dyslipidemia E78.5 CHANNING (obstructive sleep apnea) G47.33 Hypothyroid E03.9 Rheumatoid arthritis with negative rheumatoid factor M06.00 GERD (gastroesophageal reflux disease) K21.9 BMI 45.0-49.9, adult Z68.42
[2022-08-24] MEDS: esmolol drip 2,500 MG/250 ML PREMIX 36.3 MG IV (11:57)
--- NOTE | 2022-08-24 13:46 | P.CONIM_ITS ---
Providers/Reason For Consult Consulting Physician/Specialty*: Josh Roman md / telemedicine Reason for Consult*: COLE on CKD Requesting Physician: Dr Sanjiv Vazquez Attending Physician: Johanna Vazquez MD Primary Care Provider: Fan Pereira MD History of Present Illness History of Present Illness Ayla Montilla is a 66 year old female admitted w/ abd pain and found in a fib w/ RVR. Past med hx includes CKD stage 4- baseline cr 2, morbid obesity, FM, HTN, CHANNING on CPAP/ bipap- does not tolerate. she has chronic leg edema. she has h/o seronegative RA and is s/p therapy with steroids and toclizumab. She has h/o DM foot ulcers- and is following with Dr Pearl of podiatry- recently took abx-she is not sure which one her diuretics have been adjusted recently. she denies po nsaid use Review of Systems Narrative: weak, blurry vision, sob, cp, palps, abd pain, ROONEY, leg edema, nausea. no urinary complaints Medications/Allergies Home Medications Medication Instructions Recorded Confirmed Last Taken Type hydrocodone 5 mg-acetaminophen 325 1 tab PO Q6H PRN Pain 05/14/20 08/24/22 08/23/22 21:22 History mg tablet Home Oxygen Continous #1 ea 05/23/20 08/24/22 Unknown Rx Shower chair #1 ea 05/23/20 08/24/22 Unknown Rx atorvastatin 80 mg tablet (Lipitor) 80 mg PO BEDTIME@20 06/04/20 08/24/22 08/23/22 History pantoprazole 40 mg tablet,delayed 40 mg PO DAILY@0800 07/08/20 08/24/22 08/23/22 History release potassium chloride 20 mEq 20 meq PO BID@08,20 07/08/20 08/24/22 08/23/22 History tablet,extended release(part/cryst) acetaminophen 325 mg tablet 650 mg PO Q6H PRN Pain 10/04/20 08/24/22 08/24/22 02:50 History (Tylenol) docusate sodium 100 mg capsule 100 mg PO BID@0800,2000 10/04/20 08/24/22 08/23/22 History (Colace) prednisone 10 mg tablet 10 mg PO DAILY@0800 04/08/24/22 08/23/22 History triamcinolone acetonide 0.1 % See Rx Instructions .Route .COMPLEX 10/04/20 08/24/22 10/04/20 History topical cream gabapentin 300 mg capsule 300 mg PO BEDTIME@20 11/22/20 08/24/22 08/23/22 History ferrous sulfate 325 mg (65 mg 325 mg PO EVERY OTHER DAY 06/11/21 08/24/22 Unknown History iron) tablet duloxetine 20 mg capsule,delayed 20 mg PO BID@08,20 07/19/21 08/24/22 08/23/22 History release insulin aspart U-100 100 unit/mL See Rx Instructions .Route .COMPLEX 07/19/21 08/24/22 08/22/22 History subcutaneous solution (Novolog U-100 Insulin aspart) insulin glargine 100 unit/mL (3 80 unit SUBCUT BEDTIME@20 07/19/21 08/24/22 08/22/22 History mL) subcutaneous pen (Basaglar KwikPen U-100 Insulin) sennosides 8.6 mg-docusate sodium 1 tab-cap PO BID@08,20 09/22/21 08/24/22 08/23/22 History 50 mg capsule (Senna Plus) Heated and molded inserts #1 ea 05/21/22 08/24/22 Unknown Rx Lactobacillus acidophilus 500 500 mmu cells PO DAILY for loose 06/16/22 08/24/22 Unknown History million cell tablet stools r/t antibiotic therapy bisacodyl 5 mg tablet,delayed 10 mg PO DAILY PRN Constipation 06/16/22 08/24/22 Unknown History release (Dulcolax (bisacodyl)) bumetanide 1 mg tablet 3 mg PO BID@08,14 06/16/22 08/24/22 08/23/22 History camphor-menthol 0.2 %-3.5 % 1 applic topical Q4H PRN Pain 06/16/22 08/24/22 Unknown History topical gel camphor-methyl salicylate-menthol 1 patch topical Q8H PRN Pain 06/16/22 08/24/22 Unknown History topical patch carboxymethylcellulose sodium 1 % 2 drp ophthalmic (eye) BID PRN Dry 06/16/22 08/24/22 Unknown History eye drops (Artificial Tears Eyes (carboxymethylcellulose)) guaifenesin 100 mg/5 mL oral 200 mg PO Q6H PRN Cough 06/16/22 08/24/22 Unknown H istory liquid (Allyson-Tussin) naloxone 2 mg/2 mL syringe kit 2 mg IM Q2M PRN overdose 06/16/22 08/24/22 Unknown History olopatadine 0.1 % eye drops 1 drp ophthalmic (eye) Q12H PRN 06/16/22 08/24/22 Unknown History (Pataday Twice Daily Relief) drainage/itchiness Diabetic shoes with 3 pairs of #1 ea 07/17/22 08/24/22 Unknown Rx inserts doxycycline hyclate 100 mg tablet 100 mg PO BID@08,20 08/24/22 08/24/22 08/23/22 History hydralazine 50 mg tablet 100 mg PO TID@08,14,20 08/24/22 08/24/22 08/23/22 History hydrocodone 5 mg-acetaminophen 325 1 tab PO TID@08,15,22 08/24/22 08/24/22 08/23/22 History mg tablet ketoconazole 2 % topical cream See Rx Instructions .Route .COMPLEX 08/24/22 08/24/22 Unknown History metolazone 5 mg tablet 5 mg PO DAILY@08 08/24/22 08/24/22 08/23/22 History nitroglycerin 0.4 mg sublingual 0.4 mg sublingual Q5M PRN Chest 08/24/22 Unknown History tablet (Nitrostat) Pain simethicone 180 mg capsule 180 mg PO Q4H PRN Acid Reflux 08/24/22 08/24/22 08/24/22 00:30 History tizanidine 4 mg tablet 4 mg PO TID 08/24/22 08/24/22 Unknown History Allergies Allergy/AdvReac Type Severity Reaction Status Date / Time amitriptyline Allergy Unknown Unknown Verified 07/17/22 08:35 insulin degludec Allergy Unknown Verified 08/24/22 08:00 [From Tresiba FlexTouch U-100] Iodinated Contrast Media Allergy Hypertensio Verified 07/17/22 08:35 n nitrofurantoin Allergy Unknown Verified 08/24/22 08:00 [From Macrobid] sulfamethoxazole Allergy Rash Verified 07/17/22 08:35 [From Bactrim] tree and shrub pollen Allergy Unknown Verified 08/24/22 08:00 trimethoprim [From Bactrim] Allergy Rash Verified 07/17/22 08:35 leflunomide AdvReac Intermediate diarrhea Verified 07/17/22 08:35 Current Medications Generic Name Dose Route Start Last Admin Trade Name Freq PRN Reason Stop Dose Admin Diltiazem HCl 100 mg/ Sodium 100 mls @ 0 mls/hr 08/24/22 07:15 08/24/22 09:17 Chloride IV 0 mg/hr .Q0M JOHANN 0 mls/hr Titration Protocol Per Protocol Amiodarone HCl 900 mg/ 518 mls @ 0 mls/hr 08/24/22 08:45 08/24/22 09:15 Dextrose/ IV Miscellaneous IV 1 mg/min Supplies .Q0M JOHANN 34.53 mls/hr Administration Protocol Per Protocol Esmolol HCl 2,500 mg in 250 mls @ 0 mls/hr 08/24/22 11:45 08/24/22 11:57 Brevibloc Drip IV 49.77 mcg/kg/min .Q0M JOHANN 36.3 mls/hr Administration Protocol Per Protocol PFSH Acute PFSH: Medical History (Updated 08/24/22 @ 14:25 by Johanna Vazquez MD) Anemia Iron deficiency and CKD Atrial fibrillation 1st identified in early 2022 during hospital stay at [place], converted to sinus rhythm before discharge Cholelithiasis Chronic kidney disease (CKD) Stage IV, progressing towards stage 5, plan for fistula placement in 10/2022, has followed with Dr Soto Chronic respiratory failure with hypoxia, on home O2 therapy Complicated urinary tract infection history COVID-19 Depression Diastolic CHF Echo 06/2020 EF 69%, normal PAP Dyslipidemia Essential (primary) hypertension Fibromyalgia GERD (gastroesophageal reflux disease) Hilar lymphadenopathy Hypothyroid Impingement syndrome of left shoulder Insulin dependent type 2 diabetes mellitus CHANNING (obstructive sleep apnea) Intolerant to CPAP/Bipap, has tried every kind of mask Pulmonary emphysema determined by X-ray Pulmonary hypertension Severe per external records Pulmonary nodule Rheumatoid arthritis with negative rheumatoid factor Thyroid nodule She has history of biopsy of thyroid nodule that was done at [facility] Vitamin D deficiency Surgical History (Updated 03/13/23 @ 14:15 by Johanna Vazquez MD) H/O esophagogastroduodenoscopy (11/28/20) small hiatal hernia, pedunculated polyp removal from antrum H/O removal of cyst H/O shoulder surgery H/O toe surgery H/O total cystectomy left mid kidney with surgical changes as well History of amputation of right great toe History of hysterectomy Hx of cataract surgery Hx of tonsillectomy Status post colonoscopy (11/28/20) 2cm submucous lipoma in descending colon and internal hemorrhoids otherwise normal Status post placement of other cardiac pacemaker Placed secondary to third-degree AV block in 04/2020, had postplacement pocket infection Family History Mother Cancer Fibromyalgia Arthritis Father Cancer Arthritis Social History Smoking and tobacco status: never smoked Alcohol intake: never Substance/Drug Use: never Housing: Half-Way Current occupational status: disabled Current occupation: disability Current gender identity: Female Vitals/I&O/Wt Last Vital Signs Temp 98.0 F 08/24/22 06:51 Pulse 135 H 08/24/22 12:00 Resp 18 08/24/22 12:00 BP 100/60 08/24/22 12:00 Pulse Ox 99 08/24/22 12:00 O2 Del Method 08/24/22 11:00 O2 Flow Rate 2 08/24/22 11:00 08/23/22 08/24/22 08/24/22 22:59 06:59 14:59 Intake Total 25.417 / 25.417 Balance 25.417 / 25.417 Weight last 48 hrs Weight 121.563 kg Physical Exam Narrative: obese lady in bed, uncomfortable vs noted- hr approx 125- 130 irreg heent- nc/at, eomi, anicteric neck supple lungs dull bases and crackles b/l heart irreg irreg + Pavan abd soft, + bs ext b/l edema red calves neuro- a,a, o x 2+ Data 08/24/22 07:22 08/24/22 07:22 Micro: Microbiology 08/24/22 07:36 Blood Culture - Preliminary Blood SPECIMEN COLLECTED 08/24/22 07:32 Blood Culture - Preliminary Blood SPECIMEN COLLECTED A&P Assessment and plan (1) Acute kidney injury: 66 yr old female CKD stage 4- baseline cr 2, morbid obesity, FM, HTN, CHANNING, chronic leg edema ,seronegative RA and is s/p therapy with steroids and toclizumab, and recent DM foot ulcers. Pt here w/ abd pain, a fib w/ RVR and COLE 1. CKD stage 4 - no significant proteinuria- likely CRS, HTN. Less likely from DM or Obesity related FSGS -albumin 3.5- unlikely nephrotic syndrome -serologies previously negative check chuy, apla, hep serologies -tacluzimab has been associated w/ COLE- usually w/ proteinuria 2. COLE- likely from meds, diuretics, CRS -no hydronephrosis on CT scan -check ua, ur na, osm, pr, cr -PLEASE REPEAT ECHO FOR EFFUSION AND /OR DECREASED EF -check SEP, SIFE, UPEP, UIFE 3. bicarb 31- has known hypercapneia- check abg -can be from diuretics or response to [place] [address]- check echo 5. renal bone mineral metabolism- check vit d, pth, ca, phos -check uric acid monitor in and out avoid nephrotoxins seen and examined w/ RN- telehealth visit informed consent for telehealth obtained from pt time spent 50 + minutes seeing pt and reviewing care Plan as above Consult Attestations Medical Necessity Statement: chf, sob, cole on ckd Time Spent in Patient Care: Greater than 35 minutes (>than 50% of time spent in counselling and/or direct pt care on unit) . Coding Level of Care Code Acute Code for [facility] Fwd Diagnoses Acute kidney injury N17.9
[2022-08-24] MEDS: sodium chloride 0.9% 500 ML IV (13:55)
--- NOTE | 2022-08-24 14:24 | USCV_ITS ---
EladiaAyla renteria Age: 66 Gender: F : 1955 Exam Date: 08/24/2022 15:34 Ordering Phys: Jonah Roman MD Technologist: CT Exam Location: [facility] [place]_ Indication: edema PROCEDURES: The venous duplex Doppler examination of both lower extremities was performed in the standard fashion. In addition, the posterior tibial and peroneal trunk were evaluated. Bilaterally, the common femoral, superficial femoral, profunda femoral, popliteal, posterior tibial, greater saphenous veins, and the peroneal trunk were identified and interrogated in the standard fashion. FINDINGS: Normal 2-D Doppler and augmentation and compressibility throughout the lower extremity venous structures. Additional imaging through the proximal calf veins also reveals no thrombus. Limited evaluation of the greater saphenous vein is patent with no thrombus.. There is subcutaneous right lower extremity edema noted. There is subcutaneous left lower extremity edema noted. CONCLUSIONS No DVT bilateral lower extremities. Dr. Mary Jordan DO (Electronically Signed) Final Date: 25 August 2022 07:29 S
[2022-08-24] MEDS: HYDROcodone-acetaminophen 5-325 mg Tablet 1 TAB PO (14:29)
[2022-08-24] MEDS: tizanidine 4 mg Tablet PO ×2 (14:29→22:05)
[2022-08-24 14:55] LABS: ABG PCO2 50.6 mmHg (35-45); ABG PH Result 7.39 (7.35-7.45); Arterial Blood Gas Hematocrit 30.7 % (37-47); Base Excess ABG 4.7 mmol/L (-2.0-2.0); Blood Gas Allen Test Pos; Blood Gas Operator Identificat BROMA; Blood Gas Sample Site Radial, right; Blood Gas Sample Type Arterial; Carboxyhemoglobin 1.4 %THgb (0.4-20.1); HCO3 ABG 30.6 mmol/L (22-26); HGB O2 Sat 97.1 % (95-100); Ionized Calcium Level - ABG 1.1 mmol/L (1.1-1.4); Methemoglobin 0.4 % (0.4-1.5); Oxygen Device NC; Oxygen Saturation ABG 98.9; Potassium Level - ABG 4.3 mmol/L (3.5-5.0)
[2022-08-24 15:15] LABS: Uric Acid 17.2 mg/dL (2.4-5.7)
[2022-08-24 15:25] LABS: Add Urine Microscopic? YES; Bilirubin Urine Neg (Negative); Blood Urine 2+ (Negative); Glucose Urine UA Norm (Normal); Ketones Urine Negative (Negative); Leukocyte Esterase Urine 2+ (Negative); Nitrate Urine Negative (Negative); Protein Urine Neg (Negative); Urine Appearance Cloudy (CLEAR); Urine Color Light yellow (Yellow); Urobilinogen Urine Neg (Negative); pH Urine 5 (5-7)
[2022-08-24 15:26] LABS: RBC Urine >100 /hpf (0-2); WBC Urine TOO NUMEROUS TO CNT /hpf (0-5)
[2022-08-24 15:34] LABS: Hepatitis C Virus Antibody Non-Reactive (Nonreactive)
[2022-08-24 15:50] LABS: Erythrocyte Sedimentation Rate 46 mm/hr (0-15)
[2022-08-24 16:03] LABS: Potassium, Radom Urine 26 mmol/L; Urine Random Chloride 72 mmol/L; Urine Random Sodium 69 mmol/L
[2022-08-24] MEDS: heparin 5,000 unit/mL INJ 1 mL 5000 UNIT SUBCUT (16:12)
[2022-08-24 16:15] LABS: C Reactive Protein 80.7 mg/L (0.0-4.9)
[2022-08-24] MEDS: sodium chloride 0.9% 250 ML IV (16:20)
[2022-08-24] MEDS: cefTRIAXone 1,000 MG in sodium chloride 0.9% (plus) 50 ML 100 MG IV (16:20)
[2022-08-24 16:23] LABS: Procalcitonin 0.89 ng/mL (0-0.5)
[2022-08-24 16:37] LABS: Glucose Point of Care 187 mg/dL (70-110)
[2022-08-24 16:56] LABS: INR 1.16 (0.8-1.2); Partial Thromboplastin Time 24.9 SECONDS (23.9-36.7)
--- NOTE | 2022-08-24 17:13 | PM.CONSULT ---
Providers/Reason For Consult Consulting Physician/Specialty*: Dr. Vazquez Reason for Consult*: Atrial fibrillation with rapid ventricular response Requesting Physician: Dr. Vazquez Attending Physician: Johanna Vazquez MD Primary Care Provider: Fan Pereira MD History of Present Illness History of Present Illness Ayla Montilla is a 66 year old female past medical history most consistent with paroxysmal atrial fibrillation, recurrent urinary tract infection diastolic heart failure rheumatoid arthritis chronic kidney disease presented with abdominal pain nausea/vomiting few episode noted to be in A-fib with RVR. Blood pressure was borderline low, patient was started on Cardizem drip along with esmolol despite of that she did not slow down, amiodarone was also added and digoxin was given x1. It is the reason we have been asked to assist in patient's care. When I saw the patient she was complaining of mild to moderate abdominal right upper quadrant pain denies fever chills. She was in atrial fibrillation with heart rate around 120s. Blood pressure was stable. Review of Systems Narrative: Admits to chills denies fever admits to abdominal bloating and pain especially in the right upper quadrant Medications/Allergies Home Medications Medication Instructions Recorded Confirmed Last Taken Type hydrocodone 5 mg-acetaminophen 325 1 tab PO Q6H PRN Pain 05/14/20 08/24/22 08/23/22 21:22 History mg tablet Home Oxygen Continous #1 ea 05/23/20 08/24/22 Unknown Rx Shower chair #1 ea 05/23/20 08/24/22 Unknown Rx atorvastatin 80 mg tablet (Lipitor) 80 mg PO BEDTIME@06/04/20 08/24/22 08/23/22 History pantoprazole 40 mg tablet,delayed 40 mg PO DAILY@0800 07/08/20 08/24/22 08/23/22 History release potassium chloride 20 mEq 20 meq PO BID@08,20 07/08/20 08/24/22 08/23/22 History tablet,extended release(part/cryst) acetaminophen 325 mg tablet 650 mg PO Q6H PRN Pain 10/04/20 08/24/22 08/24/22 02:50 History (Tylenol) docusate sodium 100 mg capsule 100 mg PO BID@0800,199910/04/20 08/24/22 08/23/22 History (Colace) prednisone 10 mg tablet 10 mg PO DAILY@0800 10/04/20 08/24/22 08/23/22 History triamcinolone acetonide 0.1 % See Rx Instructions .Route .COMPLEX 10/04/20 08/24/22 10/04/20 History topical cream gabapentin 300 mg capsule 300 mg PO BEDTIME@20 11/22/20 08/24/22 08/23/22 History ferrous sulfate 325 mg (65 mg 325 mg PO EVERY OTHER DAY 06/11/21 08/24/22 Unknown History iron) tablet duloxetine 20 mg capsule,delayed 20 mg PO BID@08,20 07/19/21 08/24/22 08/23/22 History release insulin aspart U-100 100 unit/mL See Rx Instructions .Route .COMPLEX 07/19/21 08/24/22 08/22/22 History subcutaneous solution (Novolog U-100 Insulin aspart) insulin glargine 100 unit/mL (3 80 unit SUBCUT BEDTIME@20 07/19/21 08/24/22 08/22/22 History mL) subcutaneous pen (Basaglar KwikPen U-100 Insulin) sennosides 8.6 mg-docusate sodium 1 tab-cap PO BID@08,20 09/22/21 08/24/22 08/23/22 History 50 mg capsule (Senna Plus) Heated and molded inserts #1 ea 05/21/22 08/24/22 Unknown Rx Lactobacillus acidophilus 500 500 mmu cells PO DAILY for loose 06/16/22 08/24/22 Unknown History million cell tablet stools r/t antibiotic therapy bisacodyl 5 mg tablet,delayed 10 mg PO DAILY PRN Constipation 06/16/22 08/24/22 Unknown History release (Dulcolax (bisacodyl)) bumetanide 1 mg tablet 3 mg PO BID@08,14 06/16/22 08/24/22 08/23/22 History camphor-menthol 0.2 %-3.5 % 1 applic topical Q4H PRN Pain 06/16/22 08/24/22 Unknown History topical gel camphor-methyl salicylate-menthol 1 patch topical Q8H PRN Pain 06/16/22 08/24/22 Unknown History topical patch carboxymethylcellulose sodium 1 % 2 drp ophthalmic (eye) BID PRN Dry 06/16/22 08/24/22 Unknown History eye drops (Artificial Tears Eyes (carboxymethylcellulose)) guaifenesin 100 mg/5 mL oral 200 mg PO Q6H PRN Cough 06/16/22 08/24/22 Unknown History liquid (Allyson-Tussin) naloxone 2 mg/2 mL syringe kit 2 mg IM Q2M PRN overdose 06/16/22 08/24/22 Unknown History olopatadine 0.1 % eye drops 1 drp ophthalmic (eye) Q12H PRN 06/16/22 08/24/22 Unknown History (Pataday Twice Daily Relief) drainage/itchiness Diabetic shoes with 3 pairs of #1 ea 07/17/22 08/24/22 Unknown Rx inserts doxycycline hyclate 100 mg tablet 100 mg PO BID@08,20 08/24/22 08/24/22 08/23/22 History hydralazine 50 mg tablet 100 mg PO TID@08,14,20 08/24/22 08/24/22 08/23/22 History hydrocodone 5 mg-acetaminophen 325 1 tab PO TID@08,15,22 08/24/22 08/24/22 08/23/22 History mg tablet ketoconazole 2 % topical cream See Rx Instructions .Route .COMPLEX 08/24/22 08/24/22 Unknown History metolazone 5 mg tablet 5 mg PO DAILY@08 08/24/22 08/24/22 08/23/22 History nitroglycerin 0.4 mg sublingual 0.4 mg sublingual Q5M PRN Chest 08/24/22 08/24/22 Unknown History tablet (Nitrostat) Pain simethicone 180 mg capsule 180 mg PO Q4H PRN Acid Reflux 08/24/22 08/24/22 08/24/22 00:30 History tizanidine 4 mg tablet 4 mg PO TID 08/24/22 08/24/22 Unknown History Allergies Allergy/AdvReac Type Severity Reaction Status Date / Time amitriptyline Allergy Unknown Unknown Verified 07/17/22 08:35 insulin degludec Allergy Unknown Verified 08/24/22 08:00 [From Gentor ResourcesTouch U-100] Iodinated Contrast Media Allergy Hypertensio Verified 07/17/22 08:35 n nitrofurantoin Allergy Unknown Verified 08/24/22 08:00 [From Macrobid] sulfamethoxazole Allergy Rash Verified 07/17/22 08:35 [From Bactrim] tree and shrub pollen Allergy Unknown Verified 08/24/22 08:00 trimethoprim [From Bactrim] Allergy Rash Verified 07/17/22 08:35 leflunomide AdvReac Intermediate diarrhea Verified 07/17/22 08:35 Current Medications Generic Name Dose Route Start Last Admin Trade Name Leonora PRN Reason Stop Dose Admin Hydrocodone Bitart/Acetaminophen 1 tab 08/24/22 15:00 08/24/22 14:29 Hydrocodone-Acetaminophen 5-325 Mg Tablet PO 1 tab TID@ JOHANN Administration Heparin Sodium (Porcine) 5,000 unit 08/24/22 16:00 08/24/22 16:12 Heparin 5,000 Unit/Ml Inj 1 Ml SUBCUT 5,000 unit Q12H JOHANN Administration Hydralazine HCl 100 mg 08/24/22 14:00 08/24/22 14:29 Hydralazine 50 Mg Tablet PO Not Given TID@ JOHANN Amiodarone HCl 900 mg/ 518 mls @ 0 mls/hr 08/24/22 08:45 08/24/22 09:15 Dextrose/ IV Miscellaneous IV 1 mg/min Supplies .Q0M JOHANN 34.53 mls/hr Administration Protocol Per Protocol Esmolol HCl 2,500 mg in 250 mls @ 0 mls/hr 08/24/22 11:45 08/24/22 16:11 Brevibloc Drip IV 0 mcg/kg/min .Q0M JOHANN 0 mls/hr Titration Protocol Per Protocol Ceftriaxone Sodium 1,000 mg/ 50 mls @ 100 mls/hr 08/24/22 16:30 08/24/22 16:51 Sodium Chloride IV Infused Q24H JOHANN Infusion Protocol Tizanidine HCl 4 mg 08/24/22 15:00 08/24/22 14:29 Tizanidine 4 Mg Tablet PO 4 mg TID JOHANN Administration PFSH Acute PFSH: Medical History Anemia Iron deficiency and CKD Atrial fibrillation 1st identified in early 2022 during hospital stay at [place], converted to sinus rhythm before discharge Cholelithiasis Chronic kidney disease (CKD) Stage IV, progressing towards stage 5, plan for fistula placement in 10/2022, has followed with Dr Soto Chronic respiratory failure with hypoxia, on home O2 therapy Complicated urinary tract infection history COVID-19 Depression Diastolic CHF Echo 06/2020 EF 69%, normal PAP Dyslipidemia Essential (primary) hypertension Fibromyalgia GERD (gastroesophageal reflux disease) With small hiatal hernia Hilar lymphadenopathy History of PFTs 11/2019 mild restriction, normal DLCO, mild decrease in TLC, flow volume loop contour could be suggestive of variable intrathoracic obstruction Hypothyroid Impingement syndrome of left shoulder Insulin dependent type 2 diabetes mellitus Morbid obesity CHANNING (obstructive sleep apnea) Intolerant to CPAP/Bipap, has tried every kind of mask Pulmonary emphysema determined by X-ray Pulmonary hypertension Severe per external records Pulmonary nodule Rheumatoid arthritis with negative rheumatoid factor Thyroid nodule She has history of biopsy of thyroid nodule that was done at [facility] Vitamin D deficiency Surgical History H/O esophagogastroduodenoscopy (11/28/20) small hiatal hernia, pedunculated polyp removal from antrum H/O removal of cyst H/O shoulder surgery H/O toe surgery H/O total cystectomy left mid kidney with surgical changes as well History of amputation of right great toe History of hysterectomy Hx of cataract surgery Hx of tonsillectomy Status post colonoscopy (11/28/20) 2cm submucous lipoma in descending colon and internal hemorrhoids otherwise normal Status post placement of other cardiac pacemaker Placed secondary to third-degree AV block in 04/2020, had postplacement pocket infection Family History Mother Cancer Fibromyalgia Arthritis Father Cancer Arthritis Social History Smoking and tobacco status: never smoked Alcohol intake: never Substance/Drug Use: never Housing: [facility]iary Current occupational status: disabled Current occupation: disability Current gender identity: Female Vitals/I&O/Wt Last Vital Signs Temp 98.7 F 08/24/22 16:23 Pulse 135 H 08/24/22 17:00 Resp 14 08/24/22 17:00 BP 100/58 08/24/22 17:00 Pulse Ox 97 08/24/22 17:00 O2 Del Method 08/24/22 13:56 O2 Flow Rate 3 08/24/22 13:50 08/24/22 08/24/22 08/24/22 06:59 14:59 22:59 Intake Total 25.417 / 25.417 803.67 / 829.087 Output Total 100 / 100 Balance 25.417 / 25.417 703.67 / 729.087 Weight last 48 hrs Weight 268 lb Physical Exam Narrative: Awake oriented but fatigued and lethargic No JVD sinus tachycardia Heart irregularly irregular S1-S2 Lungs decreased breath sound bilaterally Abdomen mildly distended tender in the right upper quadrant CERTIFIED INDUSTRIAL HYGIENIST grossly nonfocal Lower extremity trace edema Urinary Catheter Management: Culp: Cath Placed During This Visit: yes Urinary Catheter Date of Insertion: 08/24/22 Urinary Catheter Time of Insertion: 15:06 Data 08/24/22 07:22 08/24/22 07:22 Micro: Microbiology 08/24/22 07:36 Blood Culture - Preliminary Blood SPECIMEN COLLECTED 08/24/22 07:32 Blood Culture - Preliminary Blood SPECIMEN COLLECTED A&P Assessment and plan (1) Diastolic heart failure: Well compensated. Hold diuresis (2) Atrial fibrillation with rapid ventricular response: Discontinue esmolol, continue IV amiodarone, continue antibiotics for possible sepsis and IV fluid bolus was given, normal saline 100 mill per hour (3) Right upper quadrant abdominal pain: Antibiotics as per medicine Coding Level of Care Code Acute Code for [facility] Fwd Diagnoses Diastolic heart failure I50.30 Atrial fibrillation with rapid ventricular response I48.91 Right upper quadrant abdominal pain R10.11
[2022-08-24] MEDS: digoxin 250 mcg/ml INJ 2 mL 125 MCG IVP (17:35)
[2022-08-24] MEDS: insulin lispro 100 unit/1 mL SUBCUT (17:36)
[2022-08-24] MEDS: ketoconazole Cream 15 gm 1 APPLIC TOPICAL (17:36)
[2022-08-24] MEDS: lactobacillus 1 Tablet 1 TAB PO (17:36)
[2022-08-24] MEDS: triamcinolone 0.1% cream 15 gm 1 APPLIC TOPICAL (17:36)
[2022-08-24] MEDS: sodium chloride 0.9% 1,000 ML 50 ML IV (17:57)
--- NOTE | 2022-08-24 18:35 | PC.NURSE ---
Patient arrived to floor AAOx4, remains in a-fib with RVR and pressures soft. Son at bedside, patient lethargic and c/o pain. BLE inflamed and edemitis. Excoriated under all patients folds, meds per MAR administered. Patients BP dropped to 40s/30s and physician notified with orders placed. Patient resting currently, room clean and clutter free with call light in reach.
--- NOTE | 2022-08-24 19:57 | PC.NURSE ---
Spoke with regarding patients heart rate still running in 130s, BP 116/86. Confirmed wants Amiodarone gtt kept at 1mg/min for the night and added PO Metoprolol 12.5 BID, first dose now.
[2022-08-24] MEDS: metoprolol tartrate 25 mg Tablet 12.5 MG PO (20:09)
[2022-08-24] MEDS: duloxetine 20 mg Capsule PO (20:09)
[2022-08-24] MEDS: docusate sodium 100 mg Capsule PO (20:09)
--- NOTE | 2022-08-24 20:15 | PC.NURSE ---
Spoke with regarding nurses concerns of patient difficult to rouse, needs noxious stimuli to stay awake during assessment, appears to be more confused, continues with uncontrolled afib on amiodarone gtt and BP on lower side. Patient is edemetous receieving IV fluids, 750 bolus on days for low BP, has CKD with elevated BUN and Creatinine. Patient did receieve scheduled NOrco, ordered to hold [place] for now. aware, continue to monitor vitals and level of consciousness. If no improvement may need to repeat ABGS.
[2022-08-24 21:10] LABS: Glucose Point of Care 140 mg/dL (70-110)
--- NOTE | 2022-08-24 22:00 | PC.NURSE ---
Spoke with regarding patients scheduled Lantus and PO hydralizine. Dr Espinosa ordered to hold hydralizine for now and only give 25units of scheduled Lantus due to pts accucheck 140 and not taking PO.
[2022-08-24] MEDS: atorvastatin 40 mg Tablet 80 MG PO (22:04)
[2022-08-24] MEDS: gabapentin 300 mg Capsule PO (22:05)
[2022-08-24] MEDS: insulin glargine 100 units/1 mL 50 UNIT SUBCUT (22:05)
[2022-08-25] VITALS (41 sets, daily range): BP systolic 95–156; BP diastolic 64–107; PULSE 83–127; RESP 10–29; TEMP 36.5–37.4; O2SAT 93–100
[2022-08-25 04:04] LABS: Basophils # 0.1 10^3/uL (0.0-0.1); Basophils % 0.6 %; Eosinophils # 0.1 10^3/uL (0.0-0.8); Eosinophils % 0.9 %; Hematocrit 31.4 % (37.0-47.0); Hemoglobin 9.8 g/dL (11.5-15.3); Lymphocytes # 1.3 10^3/uL (0.8-4.8); Lymphocytes % 11.3 %; Mean Corpuscular HGB Conc 31.2 g/dL (30.0-36.0); Mean Corpuscular Hemoglobin 28.8 pg (28.0-34.0); Mean Corpuscular Volume 92.4 fl (81-99); Mean Platelet Volume 9.6 fL (7.4-10.4); Monocytes # 0.8 10^3/uL (0.2-0.9); Monocytes % 6.6 %; Neutrophils # 9.32 10^3/uL (1.8-7.7); Neutrophils % 79.7 %; Nucleated Red Blood Cells % 0 %; Platelet Count 388 10^3/cmm (130-400); Red Cell Distribution Width 15.9 % (12.1-15.1); White Blood Count 11.7 10^3/uL (4.0-10.0)
[2022-08-25 04:22] LABS: Calcium 8.5 mg/dL (8.5-10.5)
[2022-08-25 04:23] LABS: Alanine Aminotransferase 278 U/L (0-33); Albumin Level 3.2 g/dL (3.5-5.2); Alkaline Phosphatase 179 U/L (35-105); Calcium 8.5 mg/dL (8.5-10.5); Carbon Dioxide 28 mmol/L (22-29); Chloride 88 mmol/L (98-107); Globulin 2.6 g/dL (1.3-4.6); Glomerular Filtration Rate 17.7 mL/min (90-130); Glucose 112 mg/dL (65-115); Iron 38 ug/dL (37-145); Magnesium 1.6 mg/dL (1.7-2.3); Osmolality Calculated 305 mOsm/kg (285-295); Percent Saturation 19.6 % (20-50); Phosphorus 5.8 mg/dL (2.5-4.5); Sodium 132 mmol/L (136-145); Total Bilirubin 0.6 mg/dL (0.15-1.2); Total Iron Binding Capacity 193 mcg/dl; Total Protein 5.8 g/dL (6.6-8.7); Unsaturated Iron Binding 155 ug/dL (112-347)
[2022-08-25 04:28] LABS: Parathyroid Hormone 308.9 pg/mL (15-65)
[2022-08-25 04:31] LABS: Anion Gap 20.5 (5-19); Potassium 4.5 mmol/L (3.5-5.1)
[2022-08-25 04:32] LABS: Aspartate Amino Transferase 703 U/L (0-32)
[2022-08-25 04:38] LABS: Ferritin 13939 ng/mL (15-150)
[2022-08-25 04:40] LABS: Blood Urea Nitrogen 96 mg/dL (8-23)
[2022-08-25 04:41] LABS: 25 Hydroxy Vitamin D 23 ng/mL (30-100)
[2022-08-25] MEDS: heparin 5,000 unit/mL INJ 1 mL 5000 UNIT SUBCUT (04:54)
[2022-08-25 07:05] LABS: Glucose Point of Care 118 mg/dL (70-110)
[2022-08-25] MEDS: duloxetine 20 mg Capsule PO ×2 (08:08→20:33)
[2022-08-25] MEDS: docusate sodium 100 mg Capsule PO ×2 (08:08→20:33)
[2022-08-25] MEDS: pantoprazole DR 40 mg Tablet PO (08:09)
[2022-08-25] MEDS: HYDROcodone-acetaminophen 5-325 mg Tablet 1 TAB PO ×3 (08:09→20:32)
[2022-08-25] MEDS: predniSONE 10 mg Tablet PO (08:09)
--- NOTE | 2022-08-25 08:22 | US_ITS ---
WS: [id number] RIGHT UPPER QUADRANT ULTRASOUND HISTORY: RUQ Abdominal pain, transaminitis COMPARISON: CT abdomen 08/24/2022 Liver: 23.2 cm in length. Liver is mildly enlarged. Coarse echotexture from hepatic steatosis. No mas s or bile duct dilatation. Portal Vein: Normal hepatopetal flow with monophasic waveform. Gallbladder: Normally distended. Very mild gallbladder wall thickening. No pericholecystic fluid. No gallstones. CBD: 0.5 cm Pancreas: Only a small portion of the pancreas is visualized. Right kidney: 10.3 cm in length. Normal size kidney. There is diffuse cortical thinning. Asymmetric c ortical thinning and finished in the upper pole. Maximum diameter of the cortex is 1 cm in the lower pole. No mass. Aorta and IVC: Unremarkable abdominal aorta and IVC. No ascites. US/US abdomen limited [id number] IMPRESSION: 1. No cholelithiasis. 2. Very mild gallbladder wall thickening may be due to hepatocellular disease. 3. Mild hepatic enlargement. 4. Mild diffuse cortical thinning RIGHT kidney.
[2022-08-25] MEDS: triamcinolone 0.1% cream 15 gm 1 APPLIC TOPICAL ×2 (08:34→17:22)
[2022-08-25] MEDS: metoprolol tartrate 25 mg Tablet 12.5 MG PO ×2 (08:34→11:40)
[2022-08-25] MEDS: lactobacillus 1 Tablet 1 TAB PO ×2 (08:34→17:21)
[2022-08-25] MEDS: tizanidine 4 mg Tablet PO ×3 (08:34→20:32)
[2022-08-25] MEDS: ketoconazole Cream 15 gm 1 APPLIC TOPICAL ×2 (08:35→17:22)
--- NOTE | 2022-08-25 10:21 | P.PN_ITS ---
Subjective Subjective: Patient denies any complaint, she remained in rapid ventricular response appeared to be flutter more today Vitals/I&O/Wt Last Vital Signs Temp 98.7 F 08/25/22 09:43 Pulse 125 H 08/25/22 09:43 Resp 18 08/25/22 09:43 BP 154/90 08/25/22 09:43 Pulse Ox 95 08/25/22 09:43 O2 Del Method 08/25/22 08:00 O2 Flow Rate 2 08/25/22 08:00 08/24/22 08/25/22 08/25/22 22:59 06:59 14:59 Intake Total 1053.67 / 1079.087 691.62 / 1770.707 115 / 115 Output Total 350 / 350 150 / 500 Balance 703.67 / 729.087 541.62 / 1270.707 115 / 115 Weight last 48 hrs Weight 268 lb Physical Exam Narrative: Alert awake oriented x3 sitting in the bed No JVD cyanosis icterus Heart regular S1-S2 Abdomen distended mildly tender 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 grossly nonfocal Lower extremity without edema Urinary Catheter Management: Culp: Cath Placed During This Visit: yes Reason for Continuing Indwelling Catheter: Acute Urinary Retention or Obstruction Urinary Catheter Date of Insertion: 08/24/22 Urinary Catheter Time of Insertion: 15:06 Data 08/25/22 03:42 08/25/22 03:42 Micro: Microbiology 08/24/22 07:36 Blood Culture - Preliminary Blood NEGATIVE TO DATE 08/24/22 07:32 Blood Culture - Preliminary Blood NEGATIVE TO DATE A&P Assessment and plan (1) Atrial fibrillation with rapid ventricular response: Will reduce amiodarone 0.5 mg IV, increase metoprolol to 25 mg twice a day. If not slow down will add Cardizem on top of it, continue IV fluid to hydrate patient once euvolemic hopefully she will convert otherwise we have the option of transesophageal echo guided cardioversion over next 24 to 48 hours (2) Acute kidney injury: I will increase IV fluid to 100 mL/h since patient is not in heart failure now (3) Right upper quadrant abdominal pain: As per medicine continue antibiotic Attestations Medical Necessity Statement*: Patient require continued hospitalization for above defined care. Coding Level of Care Code Acute Code for [facility] Diagnoses Atrial fibrillation with rapid ventricular response I48.91 Acute kidney injury N17.9 Right upper quadrant abdominal pain R10.11
[2022-08-25 10:25] LABS: KAPPA LIGHT CHAIN, FREE, SERUM 92.4 mg/L (3.3-19.4); LAMBDA LIGHT CHAIN, FREE, SERU 66.2 mg/L (5.7-26.3)
--- NOTE | 2022-08-25 10:34 | PC.NURSE ---
Physician at bedside assessing patient, gave verbal orders to keep patients IVF running at current rate. Orders placed.
--- NOTE | 2022-08-25 10:34 | PM.PN ---
Subjective Subjective: weak, swollen, less sob. + palps, edema. sitting up in bed Medications: Reviewed: Yes Medication Review Details: Current Medications Acetaminophen (Acetaminophen 325 Mg Tablet) 650 mg PO Q6H PRN PRN Reason: mild pain or temp >/=101 F Hydrocodone Bitart/Acetaminophen (Hydrocodone-Acetaminophen 5-325 Mg Tablet) 1 tab PO TID@,, [facility] Last Admin: 08/25/22 08:09 Dose: 1 tab Hydrocodone Bitart/Acetaminophen (Hydrocodone-Acetaminophen 5-325 Mg Tablet) 1 tab PO Q6H PRN PRN Reason: mod to sev breakthrough pain Atorvastatin Calcium (Atorvastatin 40 Mg Tablet) 80 mg PO BEDTIME [facility] Last Admin: 08/24/22 22:04 Dose: 80 mg Dextrose (Dextrose 50% Syringe 50 Ml) 25 ml IVP ONCE PRN; Protocol PRN Reason: hypoglycemia protocol Dextrose (Dextrose 50% Syringe 50 Ml) 50 ml IVP PRN PRN; Protocol PRN Reason: hypoglycemia protocol Docusate Sodium (Docusate Sodium 100 Mg Capsule) 100 mg PO BID@0800,1999 [facility] Last Admin: 08/25/22 08:08 Dose: 100 mg Duloxetine HCl (Duloxetine 20 Mg Capsule) 20 mg PO BID@08,20 [facility] Last Admin: 08/25/22 08:08 Dose: 20 mg Ferrous Sulfate (Ferrous Sulfate Ec 325 Mg Tablet) 325 mg PO EVERY OTHER DAY [facility] Gabapentin (Gabapentin 300 Mg Capsule) 300 mg PO BEDTIME@20 [facility] Last Admin: 08/24/22 22:05 Dose: 300 mg Glucagon (Glucagon 1 Mg/Ml Inj 1 Ml) 1 mg IM ONCE PRN; Protocol PRN Reason: Adult Acute Hypoglycemia Prot. Heparin Sodium (Porcine) (Heparin 5,000 Unit/Ml Inj 1 Ml) 5,000 unit SUBCUT Q12H [facility] Last Admin: 08/25/22 04:54 Dose: 5,000 unit Hydralazine HCl (Hydralazine 50 Mg Tablet) 100 mg PO TID@,, [facility] Last Admin: 08/24/22 22:00 Dose: Not Given Amiodarone HCl 900 mg/Dextrose/ IV Miscellaneous Supplies 518 mls @ 0 mls/hr IV .Q0M [facility]; Protocol Last Admin: 08/25/22 00:04 Dose: 1 mg/min, 34.53 mls/hr Esmolol HCl (Brevibloc Drip) 2,500 mg in 250 mls @ 0 mls/hr IV .Q0M [facility]; Protocol Last Titration: 08/25/22 00:13 Dose: Infused Dextrose (D5w) 500 mls @ 100 mls/hr IV ONCE PRN; Protocol PRN Reason: Adult Acute Hypoglycemia Prot Ceftriaxone Sodium 1,000 mg/ (Sodium Chloride) 50 mls @ 100 mls/hr IV Q24H [facility]; Protocol Last Titration: 08/24/22 16:51 Dose: Infused Sodium Chloride (Sodium Chloride 0.9%) 1,000 mls @ 50 mls/hr IV .Q20H [facility] Insulin Glargine (Insulin Glargine 100 Units/1 Ml) 50 unit SUBCUT BEDTIME [facility] Last Admin: 08/24/22 22:05 Dose: 50 unit Insulin Human Lispro (Insulin Lispro 100 Unit/1 Ml) 0 unit SUBCUT BEDTIME [facility]; Protocol Last Admin: 08/24/22 21:37 Dose: Not Given Insulin Human Lispro (Insulin Lispro 100 Unit/1 Ml) 0 unit SUBCUT TIDWM [facility]; Protocol Last Admin: 08/25/22 09:32 Dose: Not Given Ketoconazole (Ketoconazole Cream 15 Gm) 1 applic TOPICAL BID [facility] Last Admin: 08/25/22 08:35 Dose: 1 applic Lactobacillus Acidophilus (Lactobacillus 1 Tablet) 1 tab PO BID [facility] Last Admin: 08/25/22 08:34 Dose: 1 tab Metoprolol Tartrate (Metoprolol Tartrate 25 Mg Tablet) 12.5 mg PO BID@0900,2100 [facility] Last Admin: 08/25/22 08:34 Dose: 12.5 mg Naloxone HCl (Naloxone 0.4 Mg/Ml Sdv) 0.4 mg IVP PRN PRN PRN Reason: RESPIRATORY RATE < 8/MIN Nitroglycerin (Nitroglycerin 0.4 Mg Sublingual Tablet) 0.4 mg SUBLINGUAL Q5M PRN PRN Reason: Chest Pain Ondansetron HCl (Ondansetron 2 Mg/Ml Sdv 2 Ml) 4 mg IVP Q6H PRN PRN Reason: NAUSEA AND VOMITING Pantoprazole Sodium (Pantoprazole Dr 40 Mg Tablet) 40 mg PO DAILY@0800 [facility] Last Admin: 08/25/22 08:09 Dose: 40 mg Prednisone (Prednisone 10 Mg Tablet) 10 mg PO DAILY@0800 [facility] Last Admin: 08/25/22 08:09 Dose: 10 mg Simethicone (Simethicone 80 Mg Chew) 160 mg PO QID PRN PRN Reason: FLATULENCE Tizanidine HCl (Tizanidine 4 Mg Tablet) 4 mg PO TID [facility] Last Admin: 08/25/22 08:34 Dose: 4 mg Triamcinolone Acetonide (Triamcinolone 0.1% Cream 15 Gm) 1 applic TOPICAL BID [facility] Last Admin: 08/25/22 08:34 Dose: 1 applic Vitals/I&O/Wt Last Vital Signs Temp 98.7 F 08/25/22 09:43 Pulse 125 H 08/25/22 09:43 Resp 18 08/25/22 09:43 BP 154/90 08/25/22 09:43 Pulse Ox 95 08/25/22 09:43 O2 Del Method 08/25/22 08:00 O2 Flow Rate 2 08/25/22 08:00 08/24/22 08/25/22 08/25/22 22:59 06:59 14:59 Intake Total 1053.67 / 1079.087 691.62 / 1770.707 940 / 940 Output Total 350 / 350 150 / 500 Balance 703.67 / 729.087 541.62 / 1270.707 940 / 940 Weight last 48 hrs Weight 121.563 kg Physical Exam Narrative: obese lady in bed- [facility], On [place] 02 vs noted- hr approx 125- 130 irreg heent- nc/at, eomi, anicteric neck supple lungs dull bases and crackles b/l heart irreg irreg + Pavan abd soft, + bs ext b/l edema red calves neuro- a,a, o x 2+ Urinary Catheter Management: Culp: Cath Placed During This Visit: yes Reason for Continuing Indwelling Catheter: Acute Urinary Retention or Obstruction Urinary Catheter Date of Insertion: 08/24/22 Urinary Catheter Time of Insertion: 15:06 Data 08/25/22 03:42 08/25/22 03:42 Micro: Microbiology 08/24/22 07:36 Blood Culture - Preliminary Blood NEGATIVE TO DATE 08/24/22 07:32 Blood Culture - Preliminary Blood NEGATIVE TO DATE A&P Assessment and plan (1) Acute kidney injury: 66 yr old female CKD stage 4- baseline cr 2, morbid obesity, FM, HTN, CHANNING, chronic leg edema ,seronegative RA and is s/p therapy with steroids and toclizumab, and recent DM foot ulcers. Pt here w/ abd pain, a fib w/ RVR and COLE. no dvt on venous duplex 1. CKD stage 4 - no significant proteinuria- likely CRS, HTN. Less likely from DM or Obesity related FSGS -albumin 3.2- unlikely nephrotic syndrome -serologies previously negative check chuy, apla, hep serologies -tacluzimab has been associated w/ COLE- usually w/ proteinuria -if has proteinuria and not albuminuria- can have secondary amyloidosis- AA from RA- however less likely as albumin is above 3 -normal kappa/lambda ratio 1b. ferritin 09476- Q from RA 2. COLE- likely from meds, diuretics, CRS -no hydronephrosis on CT scan -u/a noted- send serologies as she has > 100 rbc and 2+ leuk est -ur na 69- on diuretics -PLEASE REPEAT ECHO FOR EFFUSION AND /OR DECREASED EF -check SPEP, SIFE, UPEP, UIFE 3.acid /base status- perfectly compensated- respiratory acidosis and [place] [address]- check echo 5. renal bone mineral metabolism- replace vit d, and pth 309 -repeat after vit d repleted -normal ca -start a phos binder- phos is 5.8 -check uric acid 6. increased LFT's- is new. Q shocked liver, Or from congestion 7. hyponatremia- on diuretics- ur na was 69. free water restrict -check tsh -on prednisone 8. replace magnesium 9/ a fib per cardiology -cardiology is giving ivf- from renal perspective can d/c ivf monitor in and out avoid nephrotoxins seen and examined w/ RN- telehealth visit time spent 30 + minutes seeing pt and reviewing care Plan as above Attestations Medical Necessity Statement*: cole, chf Time Spent in Patient Care: 16 - 35 minutes (>than 50% of time spent in counselling and/or direct pt care on unit). Coding Level of Care Code Acute Code for [facility] Diagnoses Acute kidney injury N17.9
[2022-08-25] MEDS: sodium chloride 0.9% 1,000 ML 50 ML IV (10:40)
[2022-08-25 10:58] LABS: PROTEIN, TOTAL 5.9 g/dL (6.1-8.1)
[2022-08-25 11:02] LABS: Anti-Double Strand DNA AB <1 IU/mL
[2022-08-25 11:06] LABS: Glucose Point of Care 169 mg/dL (70-110)
--- NOTE | 2022-08-25 11:10 | PM.PN ---
Subjective Subjective: Patient was seen and examined this morning she was complaining of shortness of breath even with slightest exertion, Currently appears to be in a flutter with heart rate in the upper 120s. Continue to be on amnio drip. Medications: Reviewed: Yes Medication Review Details: Generic Name Dose Route Start Last Admin Trade Name Leonroa PRN Reason Stop Dose Admin Hydrocodone Bitart /Acetaminophen 1 tab 08/24/22 15:00 08/25/22 08:09 Hydrocodone-Acet aminophen 5-325 Mg Tablet PO 1 tab TID@ JOHANN Administration Atorvastatin Calci um 80 mg 08/24/22 21:00 08/24/22 22:04 Atorvastatin 40 Mg Tablet PO 80 mg BEDTIME JOHANN Administration Docusate Sodium 100 mg 08/24/22 20:00 08/25/22 08:08 Docusate Sodium 100 Mg Capsule PO 100 mg BID@0800,1999 JOHANN Administration Duloxetine HCl 20 mg 08/24/22 20:00 08/25/22 08:08 Duloxetine 20 Mg Capsule PO 20 mg BID@, JOHANN Administration Gabapentin 300 mg 08/24/22 20:00 08/24/22 22:05 Gabapentin 300 M g Capsule PO 300 mg BEDTIME@20 JOHANN Administration Heparin Sodium (Po rcine) 5,000 unit 08/24/22 16:00 08/25/22 04:54 Heparin 5,000 Un it/Ml Inj 1 Ml SUBCUT 5,000 unit Q12H JOHANN Administration Hydralazine HCl 100 mg 08/24/22 14:00 08/24/22 22:00 Hydralazine 50 M g Tablet PO Not Given TID@ ON LICENSE OF [facility] Amiodarone HCl 900 mg/ 518 mls @ 0 mls/h r 08/24/22 08:45 08/25/22 00:04 Dextrose/ IV Misce llaneous IV 1 mg/min Supplies .Q0M JOHANN 34.53 mls/hr Administration Protocol Per Protocol Ceftriaxone Sodium 1,000 mg/ 50 mls @ 100 mls/ hr 08/24/22 16:30 08/24/22 16:51 Sodium Chloride IV Infused Q24H JOHANN Infusion Protocol Sodium Chloride 1,000 mls @ 50 ml s/hr 08/25/22 10:30 08/25/22 10:40 Sodium Chloride 0.9% IV 50 mls/hr .Q20H JOHANN Administration Insulin Glargine 50 unit 08/24/22 21:00 08/24/22 22:05 Insulin Glargine 100 Units/1 Ml SUBCUT 50 unit BEDTIME JOHANN Administration Insulin Human Lisp ro 0 unit 08/24/22 21:00 08/24/22 21:37 Insulin Lispro 1 00 Unit/1 Ml SUBCUT Not Given BEDTIME JOHANN Protocol Insulin Human Lisp ro 0 unit 08/24/22 18:00 08/25/22 09:32 Insulin Lispro 1 00 Unit/1 Ml SUBCUT Not Given TIDWM ON LICENSE OF [facility] Protocol Ketoconazole 1 applic 08/24/22 18:00 08/25/22 08:35 Ketoconazole Cre am 15 Gm TOPICAL 1 applic BID JOHANN Administration Lactobacillus Acid ophilus 1 tab 08/24/22 18:00 08/25/22 08:34 Lactobacillus 1 Tablet PO 1 tab BID JOHANN Administration Pantoprazole Sodiu m 40 mg 08/25/22 08:00 08/25/22 08:[address] 40 Mg Tablet PO 40 mg DAILY@0800 JOHANN Administration Prednisone 10 mg 08/25/22 08:00 08/25/22 08:09 Prednisone 10 Mg Tablet PO 10 mg DAILY@0800 JOHANN Administration Tizanidine HCl 4 mg 08/24/22 15:00 08/25/22 08:34 Tizanidine 4 Mg Tablet PO 4 mg TID JOHANN Administration Triamcinolone Acet onide 1 applic 08/24/22 18:00 08/25/22 08:34 Triamcinolone 0. 1% Cream 15 Gm TOPICAL 1 applic BID JOHANN Administration Vitals/I&O/Wt Last Vital Signs Temp 98.7 F 08/25/22 09:43 Pulse 123 H 08/25/22 10:45 Resp 13 08/25/22 10:45 BP 141/95 08/25/22 10:45 Pulse Ox 96 08/25/22 10:45 O2 Del Method 08/25/22 08:00 O2 Flow Rate 2 08/25/22 08:00 08/24/22 08/25/22 08/25/22 22:59 06:59 14:59 Intake Total 1053.67 / 1079.087 691.62 / 1770.707 940 / 940 Output Total 350 / 350 150 / 500 Balance 703.67 / 729.087 541.62 / 1270.707 940 / 940 Weight last 48 hrs Weight 121.563 kg Physical Exam Const: COMMON NORMALS: patient oriented x3 HENMT: COMMON NORMALS: normocephalic and atraumatic HEAD & SCALP: normocephalic and atraumatic Resp: COMMON NORMALS: clear to auscultation bilaterally EFFORT & INSPECTION: Yes symmetric chest movement AUSCULTATION: clear to auscultation bilaterally Cardio: COMMON NORMALS: regular rate, regular rhythm, S1 normal heart sound present, S2 normal heart sound present, No gallops present (Cardio), No murmurs present (Cardio), No rub (Cardio) and Peripheral pulses 2+ throughout RATE: regular rate RHYTHM: regular rhythm HEART SOUNDS: S1 normal heart sound present and S2 normal heart sound present PERIPHERAL PULSES: Peripheral pulses 2+ throughout GI: COMMON NORMALS: Normal to inspection, nondistended, normoactive bowel sounds present, Soft to palpation, non-tender, No hepatosplenomegaly present and no masses AUSCULTATION: Yes normoactive bowel sounds PALPATION: Yes Soft to palpation and Yes No hepatosplenomegaly present RECTAL EXAM: deferred Extremity: NARRATIVE EXTREMITY EXAM: 3+ b/l lower extremity pitting edema Neuro: COMMON NORMALS: patient oriented x3 Urinary Catheter Management: Culp: Cath Placed During This Visit: yes Reason for Continuing Indwelling Catheter: Acute Urinary Retention or Obstruction Urinary Catheter Date of Insertion: 08/24/22 Urinary Catheter Time of Insertion: 15:06 Data 08/25/22 03:42 08/25/22 03:42 Micro: Microbiology 08/24/22 07:36 Blood Culture - Preliminary Blood NEGATIVE TO DATE 08/24/22 07:32 Blood Culture - Preliminary Blood NEGATIVE TO DATE A&P Assessment and plan (1) Right upper quadrant abdominal pain: Chronic at this point in time. Could be gallbladder colic but suspect secondary to hepatic congestion/contraction. Not currently consistent with acute cholecystitis. Ultrasound on August 19 from outside source did not show any pericholecystic fluid though there was some gallbladder wall thickening. No mention of stones. Common bile duct was 4.3 mm. In addition to the abdominal pain, has had nausea, vomiting and loose stools as well. Azotemia may a contributor to current nausea and vomiting but symptoms have been recently present at levels I would not expect to cause GI symptoms. EGD and colonoscopy were done in 2020 with finding of small hiatal hernia and 1 antral polyp that was removed along with submucosal lipoma on the colonoscopy. Medication effect also within the differential. She is currently on treatment for urinary tract infection. Has a history of recurrent UTIs which can contribute to GI symptoms. Family also indicates a history of renal stones. None were noted on imaging with no obstructive process in the urinary tree. This is patient's primary complaint. (2) Atrial fibrillation with rapid ventricular response: Appears to have been identified initially in July of this year when twelve-lead EKG at outside facility showed atrial flutter. Rate was 100 or below at the time. Like this admission patient's primary complaint was abdominal pain and GI symptoms. Onset of RVR appears to have been within the last 24 to 48 hours. Patient has known diastolic CHF, untreated sleep apnea due to intolerance of CPAP/BiPAP, progressively worsening chronic kidney disease and BMI of 49, among other chronic diagnoses that might contribute. Clinically she looks a bit dry. She has had adjustments to her diuretic regimen recently initially with a decrease and diuretic dose followed by resumption of previous 3 mg twice daily Bumex dosing along with metolazone. She has not responded to diltiazem in the emergency room. Amiodarone drip has been initiated without any improvement and esmolol drip was subsequently started with slight improvement with heart rate from 140s to 120s. She is not on any chronic anticoagulation nor chronic rate controlling agents though she does have a permanent pacemaker due to a history of third-degree AV block back in 2019. (3) Acute kidney injury: On top of chronic kidney disease stage IV. Patient is on the schedule to have a fistula placed in October of this year and as it is anticipated that she will eventually need dialysis. Baseline creatinine probably around 2 or just above though difficult to ascertain if she has significant variability between acute clinical presentations and values at discharge when she is probably more adequately diuresed. Azotemia to the degree she is presenting with today is higher however. Well having some nausea and vomiting. She has minimal itching that does not appear worse than baseline. Mental status has been okay. Follows with Dr. Soto clinic outpatient. (4) Acute on chronic heart failure with preserved ejection fraction: Known to have severe pulmonary hypertension. While she may be total body volume overloaded, appears intravascularly dry presently. Appears to have a narrow window between under and overdiuresis on review of some previous records. (5) UTI (urinary tract infection): Present on admission, organism unknown, on treatment with doxycycline prior to admission initiated on 08/18/2022. Has a history of recurrent UTIs. 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 (9) Dyslipidemia: On chronic statin therapy (10) CHANNING (obstructive sleep apnea): Untreated due to intolerant of CPAP or BiPAP despite trying every combination of mask. Does use oxygen by nasal cannula. (11) Hypothyroid: Diagnosis per old records. Not on chronic treatment. Recent TSH and free T4 at outside facility normal in July 2022. (12) Rheumatoid arthritis with negative rheumatoid factor: Treated with oral prednisone and as needed pain medications. Not on any biologic agents currently though had previously been on Actemra. (13) GERD (gastroesophageal reflux disease): With small hiatal hernia, chronically on PPI daily (14) BMI 45.0-49.9, adult: (15) Transaminitis: (16) Severe pulmonary hypertension: (17) Status post placement of other cardiac pacemaker: Plan 66-year-old female with past medical history of hypertension diabetes, CKD stage4, recurrent UTI,HFpEF, morbid obesity, hypothyroidism,RA on prednisone, obstructive sleep apnea, Anemia, resident at [facility] came in with chief complaint of left upper quadrant abdominal pain, nausea and vomiting daily, a tightness sensation in her chest and shortness of breath.? The abdominal pain has been going on for more than a month now.? She was found to be in A-fib with RVR and had to be started on initially on esmolol drip, followed by amiodarone drip as she became hypotensive on esmolol drip. Currently she is being managed for. Assessment: A-fib with RVR: Follow-up 2D echo TSH: Currently on amiodarone drip,As well as metoprolol tartrate 25 mg p.o. twice daily CHADVASC score of: 4 , (hypertension diabetes, CHF, female sex) On therapeutic anticoagulation with [email or web address] on board, for possible ESTHELA cardioversion, if she fails to respond to current antiarrhythmic as well as lane blocking agent. COLE on CKD stage IV: Baseline serum creatinine is around 2 Admission serum creatinine 2.7 CT abdomen and pelvis without contrast: Has not shown any obstructive uropathy Currently on gentle IV hydration Monitor BMP Monitor intake output charting Avoid nephrotoxic's Nephrology on board Patient was scheduled to have fistula as outpatient OCTOBER, it was planned by her primary talent development director. History of recurrent UTI: Urine culture has also grown ESBL in the past appears to be likely colonization/ Currently she is on ceftriaxone Follow blood culture Urine culture She was on doxycycline recently as outpatient for 10 days Transaminitis: AST 28--: 703 ALT 40 -->278 ALP:202 ---->179 CT abdomen and pelvis has shown cholelithiasis, without evidence of acute cholecystitis For now we will do repeat ultrasound abdomen Monitor CMP Closely monitor LFTs as patient has been started on amiodarone H/O HFpEF : Has been on Bumex as outpatient, currently on hold Monitor intake output charting Monitor daily weight Monitor electrolytes History of hypertension: Continue hydralazine, metoprolol History of diabetes: Continue Lantus 50 subcu at bedtime,LDSSI, monitor fingerstick glucose, diabetic diet History of hypothyroidism: Continue levothyroxine History of rheumatoid arthritis: Continue prednisone, has been on Actemra in the past History of sleep apnea: Has been on BiPAP in the past History of severe pulmonary hypertension: Could be related to sleep apnea as well as morbid obesity and heart failure Pulmonary follow-up as outpatient CODE STATUS: Full code DVT prophylaxis: Currently on therapeutic anticoagulation Attestations Medical Necessity Statement*: Patient needs to be in hospital management of A-fib RVR. Coding Level of Care Code 06067 Diagnoses Right upper quadrant abdominal pain R10.11 Atrial fibrillation with rapid ventricular response I48.91 Acute kidney injury N17.9 Acute on chronic heart failure with preserved ejection fraction I50.33 UTI (urinary tract infection) N39.0 Insulin dependent type 2 diabetes mellitus E11.9; Z79.4 Anemia D64.9 High risk medication use Z79.899 Dyslipidemia E78.5 CHANNING (obstructive sleep apnea) G47.33 Hypothyroid E03.9 Rheumatoid arthritis with negative rheumatoid factor M06.00 GERD (gastroesophageal reflux disease) K21.9 BMI 45.0-49.9, adult Z68.42 Transaminitis R74.01 Severe pulmonary hypertension I27.20 Status post placement of other cardiac pacemaker Z95.0
[2022-08-25] MEDS: insulin lispro 100 unit/1 mL SUBCUT ×3 (11:39→20:33)
[2022-08-25] MEDS: enoxaparin 120 mg/0.8 mL Syringe SUBCUT (11:39)
[2022-08-25] MEDS: sevelamer 800 mg Tablet PO ×2 (11:39→17:21)
[2022-08-25] MEDS: sodium chloride 0.9% 500 ML IV (11:40)
[2022-08-25] MEDS: ergocalciferol (vitamin D2) 50,000 Unit Capsule 50000 UNIT PO (12:03)
[2022-08-25 12:07] LABS: Hepatitis C Virus Antibody Non-Reactive (Nonreactive)
--- NOTE | 2022-08-25 14:22 | USCV_ITS ---
Ayla Montilla Age: 66 Gender: F : 1955 Exam Date: 08/25/2022 22:52 Ordering Phys: Jonha Roman MD Technologist: ALFREDO Exam Location: [facility] [place] Indication: atrial fibrillation with RVR and CHF. History of pacer 2017. BP: 100 / 58 HR: 90 Rhythm: Atrial fibrillation Technical Quality: Technically difficult study MEASUREMENTS (Male / Female) Normal Values 2D ECHO LV Diastolic Diameter PLAX 4.5 cm 4.2 - 5.9 / 3.9 - 5.3 cm LV Systolic Diameter PLAX 2.8 cm IVS Diastolic Thickness 1.3 cm 0.6 - 1.0 / 0.6 - 0.9 cm IVS Systolic Thickness 1.6 cm LVPW Diastolic Thickness 1.7 cm 0.6 - 1.0 / 0.6 - 0.9 cm LVPW Systolic Thickness 1.8 cm LVOT Diameter 1.9 cm LV Ejection Fraction 2D Teich 68.8 % LV Ejection Fraction MOD 2C 68.0 % LV Ejection Fraction 2C AL 69.2 % LA Diameter 4.2 cm LA Width 4.5 cm LA Height 5.8 cm RA Width 3.5 cm RA Height 4.9 cm Aorta at Sinotubular Diameter 2.9 cm IVC Diameter 2.0 cm M-MODE Aortic Annulus Diameter 2.0 cm LA Ao Ratio MM 2.1 MV E Point Septal Separation 0.2 cm DOPPLER AV Peak Velocity 124.0 cm/s LVOT Peak Velocity 68.0 cm/s AV Area Cont Eq vti 1.6 cm squared AV Area Cont Eq pk 1.5 cm squared MV Peak Velocity 183.0 cm/s MV Area PHT 4.6 cm squared MV E' Velocity 87.5 cm/s Mitral E to MV E' Ratio 20.0 Mitral E to LV E' Lateral Ratio 15.5 Mitral E to LV E' Septal Ratio 28.8 TR Peak Velocity 278.0 cm/s TR Peak Gradient 30.9 mmHg TV Peak E Velocity 87.0 cm/s Right Atrial Pressure 10.0 mmHg Pulmonary Artery Systolic Pressu 40.9 mmHg PV Peak Velocity 95.0 cm/s RV Acceleration Time 0.1 s RV Ejection Time 0.3 s RV AcT/ET 0.4 FINDINGS Left Ventricle Normal left ventricular size, systolic function and wall thickness, with no regional wall motion abnormalities. Left ventricular ejection fraction is estimated at 60 %.Severely increased left ventricular filling pressure. Right Ventricle The right ventricle is normal in size and function. Right Atrium The right atrium is normal in size. Left Atrium Moderately increased left atrial size. Mitral Valve Moderately thickened mitral valve. Moderate mitral annular calcification. Moderate mitral valve regurgitation. Aortic Valve Mild aortic valve calcification. No aortic valve stenosis. Mild aortic valve regurgitation. Tricuspid Valve [id number] tricuspid valve regurgitation. . Pulmonic Valve Structurally normal pulmonic valve without significant stenosis. There is no pulmonic regurgitation. Pericardium Normal pericardium without effusion. Aorta Normal ascending aorta dimension. IVC The inferior vena cava appears normal. CONCLUSIONS 1-Normal left ventricular size, systolic function and wall thickness, with no regional wall motion abnormalities. Left ventricular ejection fraction is estimated at 60 %.Severely increased left ventricular filling pressure. 2-Moderately increased left atrial size. 3-Moderately thickened mitral valve. Moderate mitral annular calcification. Moderate mitral valve regurgitation. 4-Mild aortic valve calcification. No aortic valve stenosis. Mild aortic valve regurgitation. 8-Mafa-da-moderate tricuspid valve regurgitation. . 6-Right atrial pressure is around 10 mm of mercury. Jesus Tai MD (Electronically Signed) Final Date: 26 August 2022 18:20 S
[2022-08-25 14:38] LABS: ALBUMIN 2.7 g/dL (3.8-4.8); ALPHA 1 GLOBULIN 0.6 g/dL (0.2-0.3); BETA 1 GLOBULIN 0.4 g/dL (0.4-0.6); BETA 2 GLOBULIN 0.4 g/dL (0.2-0.5); GAMMA GLOBULIN 0.8 g/dL (0.8-1.7)
[2022-08-25] MEDS: cefTRIAXone 1,000 MG in sodium chloride 0.9% (plus) 50 ML 100 MG IV (15:40)
[2022-08-25 16:03] LABS: Total Volume, Urine 700 mL
[2022-08-25 16:03] LABS: Total Volume Urine 700 ml
[2022-08-25 16:13] LABS: Urine Creatinine 103 mg/dL (28-217)
[2022-08-25 16:21] LABS: Urine Total Protein 4.3 mg/dL (0-150); Urine Total Protein 24 Hour 30.1 mg/24hr (0-150)
[2022-08-25 18:49] LABS: Glucose Point of Care 175 mg/dL (70-110)
[2022-08-25 20:23] LABS: Glucose Point of Care 225 mg/dL (70-110)
[2022-08-25] MEDS: atorvastatin 40 mg Tablet 80 MG PO (20:31)
[2022-08-25] MEDS: metoprolol tartrate 25 mg Tablet PO (20:32)
[2022-08-25] MEDS: insulin glargine 100 units/1 mL 50 UNIT SUBCUT (20:32)
[2022-08-25] MEDS: gabapentin 300 mg Capsule PO (20:32)
[2022-08-26] VITALS (29 sets, daily range): BP systolic 96–174; BP diastolic 66–89; PULSE 65–110; RESP 11–23; TEMP 36.6–37; O2SAT 76–96
[2022-08-26 04:36] LABS: Basophils % 0.4 %; Eosinophils # 0.1 10^3/uL (0.0-0.8); Eosinophils % 0.7 %; Hematocrit 30.7 % (37.0-47.0); Hemoglobin 9.1 g/dL (11.5-15.3); Lymphocytes % 9.9 %; Mean Corpuscular HGB Conc 29.6 g/dL (30.0-36.0); Mean Corpuscular Volume 94.5 fl (81-99); Monocytes # 0.7 10^3/uL (0.2-0.9); Monocytes % 6.7 %; Neutrophils # 8.47 10^3/uL (1.8-7.7); Neutrophils % 81.7 %; Nucleated Red Blood Cells % 0 %; Platelet Count 310 10^3/cmm (130-400); Red Blood Count 3.25 10^6/uL (4.1-5.3); Red Cell Distribution Width 15.5 % (12.1-15.1); White Blood Count 10.4 10^3/uL (4.0-10.0)
[2022-08-26] MEDS: sodium chloride 0.9% 1,000 ML 50 ML IV (04:47)
[2022-08-26 04:54] LABS: Alanine Aminotransferase 245 U/L (0-33); Albumin Level 2.8 g/dL (3.5-5.2); Alkaline Phosphatase 183 U/L (35-105); Aspartate Amino Transferase 317 U/L (0-32); Calcium 8.3 mg/dL (8.5-10.5); Carbon Dioxide 28 mmol/L (22-29); Chloride 90 mmol/L (98-107); Globulin 3.3 g/dL (1.3-4.6); Glomerular Filtration Rate 17.7 mL/min (90-130); Glucose 160 mg/dL (65-115); Magnesium 1.7 mg/dL (1.7-2.3); Osmolality Calculated 310 mOsm/kg (285-295); Phosphorus 5.2 mg/dL (2.5-4.5); Sodium 133 mmol/L (136-145); Thyroid Stimulating Hormone 1.83 uIU/mL (0.27-4.20); Total Bilirubin 0.5 mg/dL (0.15-1.2); Total Protein 6.1 g/dL (6.6-8.7)
[2022-08-26 04:55] LABS: Anion Gap 19.3 (5-19); Potassium 4.3 mmol/L (3.5-5.1)
[2022-08-26 04:56] LABS: Blood Urea Nitrogen 99 mg/dL (8-23)
[2022-08-26 07:04] LABS: Glucose Point of Care 146 mg/dL (70-110)
[2022-08-26] MEDS: insulin lispro 100 unit/1 mL SUBCUT ×4 (08:14→20:54)
--- NOTE | 2022-08-26 08:25 | P.PN_ITS ---
Subjective Subjective: swollen. feels better as HR better controlled on amiodarone. is weak, swollen, palps, sob, abd and chest pain. Medications: Reviewed: Yes Medication Review Details: Current Medications Acetaminophen (Acetaminophen 325 Mg Tablet) 650 mg PO Q6H PRN PRN Reason: mild pain or temp >/=101 F Hydrocodone Bitart/Acetaminophen (Hydrocodone-Acetaminophen 5-325 Mg Tablet) 1 tab PO TID@,, [facility] Last Admin: 08/25/22 20:32 Dose: 1 tab Hydrocodone Bitart/Acetaminophen (Hydrocodone-Acetaminophen 5-325 Mg Tablet) 1 tab PO Q6H PRN PRN Reason: mod to sev breakthrough pain Amiodarone HCl (Amiodarone 200 Mg Tablet) 400 mg PO BID [facility] Atorvastatin Calcium (Atorvastatin 40 Mg Tablet) 80 mg PO BEDTIME [facility] Last Admin: 08/25/22 20:31 Dose: 80 mg Dextrose (Dextrose 50% Syringe 50 Ml) 25 ml IVP ONCE PRN; Protocol PRN Reason: hypoglycemia protocol Dextrose (Dextrose 50% Syringe 50 Ml) 50 ml IVP PRN PRN; Protocol PRN Reason: hypoglycemia protocol Docusate Sodium (Docusate Sodium 100 Mg Capsule) 100 mg PO BID@0800,2000 [facility] Last Admin: 08/25/22 20:33 Dose: 100 mg Duloxetine HCl (Duloxetine 20 Mg Capsule) 20 mg PO BID@, [facility] Last Admin: 08/25/22 20:33 Dose: 20 mg Enoxaparin Sodium (Enoxaparin 120 Mg/0.8 Ml Syringe) 120 mg SUBCUT Q24H [facility] Last Admin: 08/25/22 11:39 Dose: 120 mg Ergocalciferol (Ergocalciferol (Vitamin D2) 50,000 Unit Capsule) 50,000 unit PO Q7D [facility] Last Admin: 08/25/22 12:03 Dose: 50,000 unit Ferrous Sulfate (Ferrous Sulfate Ec 325 Mg Tablet) 325 mg PO EVERY OTHER DAY [facility] Gabapentin (Gabapentin 300 Mg Capsule) 300 mg PO BEDTIME@20 [facility] Last Admin: 08/25/22 20:32 Dose: 300 mg Glucagon (Glucagon 1 Mg/Ml Inj 1 Ml) 1 mg IM ONCE PRN; Protocol PRN Reason: Adult Acute Hypoglycemia Prot. Hydralazine HCl (Hydralazine 50 Mg Tablet) 100 mg PO TID@,,20 [facility] Last Admin: 08/24/22 22:00 Dose: Not Given Amiodarone HCl 900 mg/Dextrose/ IV Miscellaneous Supplies 518 mls @ 0 mls/hr IV .Q0M JOHANN; Protocol Last Admin: 08/25/22 21:22 Dose: 0.5 mg/min, 17.27 mls/hr Dextrose (D5w) 500 mls @ 100 mls/hr IV ONCE PRN; Protocol PRN Reason: Adult Acute Hypoglycemia Prot Ceftriaxone Sodium 1,000 mg/ (Sodium Chloride) 50 mls @ 100 mls/hr IV Q24H [facility]; Protocol Last Titration: 08/25/22 16:46 Dose: Infused Sodium Chloride (Sodium Chloride 0.9%) 1,000 mls @ 50 mls/hr IV .Q20H [facility] Last Admin: 08/26/22 04:47 Dose: 50 mls/hr Insulin Glargine (Insulin Glargine 100 Units/1 Ml) 50 unit SUBCUT BEDTIME [facility] Last Admin: 08/25/22 20:32 Dose: 50 unit Insulin Human Lispro (Insulin Lispro 100 Unit/1 Ml) 0 unit SUBCUT BEDTIME [facility]; Protocol Last Admin: 08/25/22 20:33 Dose: 3 unit Insulin Human Lispro (Insulin Lispro 100 Unit/1 Ml) 0 unit SUBCUT TIDWM [facility]; Protocol Last Admin: 08/26/22 08:14 Dose: 2 unit Ketoconazole (Ketoconazole Cream 15 Gm) 1 applic TOPICAL BID [facility] Last Admin: 08/25/22 17:22 Dose: 1 applic Lactobacillus Acidophilus (Lactobacillus 1 Tablet) 1 tab PO BID [facility] Last Admin: 08/25/22 17:21 Dose: 1 tab Metoprolol Tartrate (Metoprolol Tartrate 25 Mg Tablet) 25 mg PO BID@0900,2100 [facility] Last Admin: 08/25/22 20:32 Dose: 25 mg Naloxone HCl (Naloxone 0.4 Mg/Ml Sdv) 0.4 mg IVP PRN PRN PRN Reason: RESPIRATORY RATE < 8/MIN Nitroglycerin (Nitroglycerin 0.4 Mg Sublingual Tablet) 0.4 mg SUBLINGUAL Q5M PRN PRN Reason: Chest Pain Ondansetron HCl (Ondansetron 2 Mg/Ml Sdv 2 Ml) 4 mg IVP Q6H PRN PRN Reason: NAUSEA AND VOMITING Pantoprazole Sodium (Pantoprazole Dr 40 Mg Tablet) 40 mg PO DAILY@0800 [facility] Last Admin: 08/25/22 08:09 Dose: 40 mg Prednisone (Prednisone 10 Mg Tablet) 10 mg PO DAILY@0800 [facility] Last Admin: 08/25/22 08:09 Dose: 10 mg Sevelamer Carbonate (Sevelamer 800 Mg Tablet) 800 mg PO TIDWM [facility] Last Admin: 08/25/22 17:21 Dose: 800 mg Simethicone (Simethicone 80 Mg Chew) 160 mg PO QID PRN PRN Reason: FLATULENCE Tizanidine HCl (Tizanidine 4 Mg Tablet) 4 mg PO TID [facility] Last Admin: 08/25/22 20:32 Dose: 4 mg Triamcinolone Acetonide (Triamcinolone 0.1% Cream 15 Gm) 1 applic TOPICAL BID [facility] Last Admin: 08/25/22 17:22 Dose: 1 applic Vitals/I&O/Wt Last Vital Signs Temp 97.8 F 08/26/22 08:00 Pulse 90 08/26/22 08:00 Resp 22 H 08/26/22 08:00 BP 126/72 08/26/22 08:00 Pulse Ox 94 08/26/22 08:00 O2 Del Method 08/26/22 08:00 O2 Flow Rate 2 08/26/22 04:46 08/25/22 08/26/22 08/26/22 22:59 06:59 14:59 Intake Total 672.207 / 2553.410 1000 / 3553.410 Output Total 75 / 425 400 / 825 Balance 597.207 / 2128.410 600 / 2728.410 Physical Exam Narrative: obese lady in bed- siiitng up On NC 02 vs noted- hr approx 90-100 irreg heent- nc/at, eomi, anicteric neck supple lungs dull bases and crackles b/l heart irreg irreg + Pavan abd soft, + bs ext b/l edema red calves neuro- a,a, o x 3, moves all extremities Urinary Catheter Management: Culp: Cath Placed During This Visit: yes Reason for Continuing Indwelling Catheter: Accurate Measurement of Urinary Output in Critically Ill Patients Urinary Catheter Date of Insertion: 08/24/22 Urinary Catheter Time of Insertion: 15:06 Data 08/26/22 03:32 08/26/22 03:32 Micro: Microbiology 08/24/22 07:36 Blood Culture - Preliminary Blood NEGATIVE TO DATE 08/24/22 07:32 Blood Culture - Preliminary Blood NEGATIVE TO DATE A&P Assessment and plan (1) Acute kidney injury: 66 yr old female CKD stage 4- baseline cr 2, morbid obesity, FM, HTN, CHANNING, chronic leg edema ,seronegative RA and is s/p therapy with steroids and toclizumab, and recent DM foot ulcers. Pt here w/ abd pain, a fib w/ RVR and COLE. no dvt on venous duplex 1. CKD stage 4 - no significant proteinuria- likely CRS, HTN. Less likely from DM or Obesity related FSGS -albumin 3.2- unlikely nephrotic syndrome -serologies previously negative -chuy neg -await apla, hep serologies -tacluzimab has been associated w/ COLE- usually w/ proteinuria -if has proteinuria and not albuminuria- can have secondary amyloidosis- AA from RA- however less likely as albumin is above 3 -normal kappa/lambda ratio 1b. ferritin 03835- Q from RA 2. COLE- likely from meds, diuretics, CRS -no hydronephrosis on CT scan -u/a noted- send serologies as she has > 100 rbc and 2+ leuk est -ur na 69- on diuretics -PLEASE REPEAT ECHO FOR EFFUSION AND /OR DECREASED EF -serum immunofixation so far negative -cr remains stable d/c ivf start diuretics as needed- as she appears volume overloaded 3.acid /base status- perfectly compensated- respiratory acidosis and [place] [address]- check echo 5. renal bone mineral metabolism- replace vit d, and pth 309 -repeat after vit d repleted -normal ca -start a phos binder- phos is 5.8 -check uric acid 6. increased LFT's- is new. Q shocked liver, Or from congestion -lft's are improving 7. hyponatremia- on diuretics- ur na was 69. free water restrict -check tsh -on prednisone 8. replace magnesium 9/ a fib per cardiology improving w/ a fub 10. [place] [address]- consider heme or GI eval 11. cultures are negative avoid nephrotoxins seen and examined w/ RN- telehealth visit time spent 30 minutes seeing pt and reviewing care Plan as above Attestations Medical Necessity Statement*: cole, a fib, Q uti, volume overloaded Time Spent in Patient Care: 16 - 35 minutes (>than 50% of time spent in counselling and/or direct pt care on unit) . Coding Level of Care Code Acute Code for Chg Fwd Diagnoses Acute kidney injury N17.9
[2022-08-26] MEDS: tizanidine 4 mg Tablet PO ×3 (08:43→20:55)
[2022-08-26] MEDS: sevelamer 800 mg Tablet PO ×3 (08:43→17:23)
[2022-08-26] MEDS: predniSONE 10 mg Tablet PO (08:43)
[2022-08-26] MEDS: docusate sodium 100 mg Capsule PO ×2 (08:43→20:55)
[2022-08-26] MEDS: duloxetine 20 mg Capsule PO ×2 (08:43→20:55)
[2022-08-26] MEDS: amiodarone 200 mg Tablet 400 MG PO ×2 (08:43→17:23)
[2022-08-26] MEDS: pantoprazole DR 40 mg Tablet PO (08:44)
[2022-08-26] MEDS: metoprolol tartrate 25 mg Tablet PO (08:44)
[2022-08-26] MEDS: lactobacillus 1 Tablet 1 TAB PO ×2 (08:51→17:25)
[2022-08-26] MEDS: HYDROcodone-acetaminophen 5-325 mg Tablet 1 TAB PO ×3 (08:56→20:55)
[2022-08-26] MEDS: ketoconazole Cream 15 gm 1 APPLIC TOPICAL ×2 (09:13→17:24)
[2022-08-26] MEDS: triamcinolone 0.1% cream 15 gm 1 APPLIC TOPICAL ×2 (09:14→17:24)
[2022-08-26 10:41] LABS: Anti-Nuclear Antibody Pattern Nuclear, Homogeneous; Anti-Nuclear Antibody Screen POSITIVE (NEGATIVE); Anti-Nuclear Antibody Titer 1:40 titer
[2022-08-26 11:56] LABS: Glucose Point of Care 174 mg/dL (70-110)
[2022-08-26] MEDS: enoxaparin 120 mg/0.8 mL Syringe SUBCUT (12:02)
[2022-08-26 13:11] LABS: CREATININE, 24 HOUR URINE 0.69 g/24 h (0.50-2.15); PROTEIN, TOTAL, 24 HR UR 392 mg/24 h (<150); Protein/Creatinine Ratio 0.571 (<0.150); Protein/Creatinine Ratio 571 mg/g creat (<150)
--- NOTE | 2022-08-26 13:30 | P.PN_ITS ---
Subjective Subjective: [facility] controlled heart rate Medications: Reviewed: Yes Medication Review Details: Current Medications Acetaminophen (Acetaminophen 325 Mg Tablet) 650 mg PO Q6H PRN PRN Reason: mild pain or temp >/=101 F Hydrocodone Bitart/Acetaminophen (Hydrocodone-Acetaminophen 5-325 Mg Tablet) 1 tab PO TID@,, [facility] Last Admin: 08/25/22 20:32 Dose: 1 tab Hydrocodone Bitart/Acetaminophen (Hydrocodone-Acetaminophen 5-325 Mg Tablet) 1 tab PO Q6H PRN PRN Reason: mod to sev breakthrough pain Amiodarone HCl (Amiodarone 200 Mg Tablet) 400 mg PO BID [facility] Atorvastatin Calcium (Atorvastatin 40 Mg Tablet) 80 mg PO BEDTIME [facility] Last Admin: 08/25/22 20:31 Dose: 80 mg Dextrose (Dextrose 50% Syringe 50 Ml) 25 ml IVP ONCE PRN; Protocol PRN Reason: hypoglycemia protocol Dextrose (Dextrose 50% Syringe 50 Ml) 50 ml IVP PRN PRN; Protocol PRN Reason: hypoglycemia protocol Docusate Sodium (Docusate Sodium 100 Mg Capsule) 100 mg PO BID@0800,1999 [facility] Last Admin: 08/25/22 20:33 Dose: 100 mg Duloxetine HCl (Duloxetine 20 Mg Capsule) 20 mg PO BID@, [facility] Last Admin: 08/25/22 20:33 Dose: 20 mg Enoxaparin Sodium (Enoxaparin 120 Mg/0.8 Ml Syringe) 120 mg SUBCUT Q24H [facility] Last Admin: 08/25/22 11:39 Dose: 120 mg Ergocalciferol (Ergocalciferol (Vitamin D2) 50,000 Unit Capsule) 50,000 unit PO Q7D [facility] Last Admin: 08/25/22 12:03 Dose: 50,000 unit Ferrous Sulfate (Ferrous Sulfate Ec 325 Mg Tablet) 325 mg PO EVERY OTHER DAY [facility] Gabapentin (Gabapentin 300 Mg Capsule) 300 mg PO BEDTIME@20 [facility] Last Admin: 08/25/22 20:32 Dose: 300 mg Glucagon (Glucagon 1 Mg/Ml Inj 1 Ml) 1 mg IM ONCE PRN; Protocol PRN Reason: Adult Acute Hypoglycemia Prot. Hydralazine HCl (Hydralazine 50 Mg Tablet) 100 mg PO TID@,, [facility] Last Admin: 08/24/22 22:00 Dose: Not Given Amiodarone HCl 900 mg/Dextrose/ IV Miscellaneous Supplies 518 mls @ 0 mls/hr IV .Q0M [facility]; Protocol Last Admin: 08/25/22 21:22 Dose: 0.5 mg/min, 17.27 mls/hr Dextrose (D5w) 500 mls @ 100 mls/hr IV ONCE PRN; Protocol PRN Reason: Adult Acute Hypoglycemia Prot Ceftriaxone Sodium 1,000 mg/ (Sodium Chloride) 50 mls @ 100 mls/hr IV Q24H [facility]ANN; Protocol Last Titration: 08/25/22 16:46 Dose: Infused Sodium Chloride (Sodium Chloride 0.9%) 1,000 mls @ 50 mls/hr IV .Q20H [facility] Last Admin: 08/26/22 04:47 Dose: 50 mls/hr Insulin Glargine (Insulin Glargine 100 Units/1 Ml) 50 unit SUBCUT BEDTIME [facility] Last Admin: 08/25/22 20:32 Dose: 50 unit Insulin Human Lispro (Insulin Lispro 100 Unit/1 Ml) 0 unit SUBCUT BEDTIME [facility]; Protocol Last Admin: 08/25/22 20:33 Dose: 3 unit Insulin Human Lispro (Insulin Lispro 100 Unit/1 Ml) 0 unit SUBCUT TIDWM [facility]; Protocol Last Admin: 08/26/22 08:14 Dose: 2 unit Ketoconazole (Ketoconazole Cream 15 Gm) 1 applic TOPICAL BID [facility] Last Admin: 08/25/22 17:22 Dose: 1 applic Lactobacillus Acidophilus (Lactobacillus 1 Tablet) 1 tab PO BID [facility] Last Admin: 08/25/22 17:21 Dose: 1 tab Metoprolol Tartrate (Metoprolol Tartrate 25 Mg Tablet) 25 mg PO BID@0900,2100 [facility] Last Admin: 08/25/22 20:32 Dose: 25 mg Naloxone HCl (Naloxone 0.4 Mg/Ml Sdv) 0.4 mg IVP PRN PRN PRN Reason: RESPIRATORY RATE < 8/MIN Nitroglycerin (Nitroglycerin 0.4 Mg Sublingual Tablet) 0.4 mg SUBLINGUAL Q5M PRN PRN Reason: Chest Pain Ondansetron HCl (Ondansetron 2 Mg/Ml Sdv 2 Ml) 4 mg IVP Q6H PRN PRN Reason: NAUSEA AND VOMITING Pantoprazole Sodium (Pantoprazole Dr 40 Mg Tablet) 40 mg PO DAILY@0800 [facility] Last Admin: 08/25/22 08:09 Dose: 40 mg Prednisone (Prednisone 10 Mg Tablet) 10 mg PO DAILY@0800 [facility] Last Admin: 08/25/22 08:09 Dose: 10 mg Sevelamer Carbonate (Sevelamer 800 Mg Tablet) 800 mg PO TIDWM [facility] Last Admin: 08/25/22 17:21 Dose: 800 mg Simethicone (Simethicone 80 Mg Chew) 160 mg PO QID PRN PRN Reason: FLATULENCE Tizanidine HCl (Tizanidine 4 Mg Tablet) 4 mg PO TID [facility] Last Admin: 08/25/22 20:32 Dose: 4 mg Triamcinolone Acetonide (Triamcinolone 0.1% Cream 15 Gm) 1 applic TOPICAL BID [facility] Last Admin: 08/25/22 17:22 Dose: 1 applic Vitals/I&O/Wt Last Vital Signs Temp 97.8 F 08/26/22 08:00 Pulse 90 08/26/22 09:07 Resp 22 H 08/26/22 08:00 BP 126/72 08/26/22 08:00 Pulse Ox 96 08/26/22 09:07 O2 Del Method 08/26/22 09:07 O2 Flow Rate 2 08/26/22 09:07 08/25/22 08/26/22 08/26/22 22:59 06:59 14:59 Intake Total 672.207 / 2553.410 1000 / 3553.410 1360 / 1360 Output Total 75 / 425 400 / 825 Balance 597.207 / 2128.410 600 / 2728.410 1360 / 1360 Physical Exam Narrative: Alert awake oriented x3 No JVD cyanosis icterus Heart irregularly irregular S1-S2 Abdomen distended mildly tender [employer] grossly nonfocal Lower extremity without edema Urinary Catheter Management: Culp: Cath Placed During This Visit: yes Reason for Continuing Indwelling Catheter: Accurate Measurement of Urinary Output in Critically Ill Patients Urinary Catheter Date of Insertion: 08/24/22 Urinary Catheter Time of Insertion: 15:06 Data 08/26/22 03:32 08/26/22 03:32 A&P Assessment and plan (1) Atrial fibrillation with rapid ventricular response: Rate control overall feeling better agree with switching her to p.o. amiodarone continue p.o. metoprolol which will be increased to 37.5 mg twice daily. Con tinue anticoagulation switch to apixaban when okay with medicine (2) Acute kidney injury: Continue IV fluid (3) Right upper quadrant abdominal pain: Antibiotics as per medicine Attestations Medical Necessity Statement*: Patient require continuation hospitalization for above defined care Coding Level of Care Code Acute Code for [facility] Fwd Diagnoses Atrial fibrillation with rapid ventricular response I48.91 Acute kidney injury N17.9 Right upper quadrant abdominal pain R10.11
--- NOTE | 2022-08-26 14:09 | PM.PN ---
Subjective Subjective: Patient was seen and examined this morning she was complaining of shortness of breath,and told that she is feeling congested, heart rate is better controlled, though she continued to be in A-fib/flutter, IV fluid has been discontinued. Medications: Reviewed: Yes Medication Review Details: Generic Name Dose Route Start Last Admin Trade Name Leonora PRN Reason Stop Dose Admin Hydrocodone Bitart /Acetaminophen 1 tab 08/24/22 15:00 08/26/22 08:56 Hydrocodone-Acet aminophen 5-325 Mg Tablet PO 1 tab TID@ JOHANN Administration Amiodarone HCl 400 mg 08/26/22 09:00 08/26/22 08:43 Amiodarone 200 M g Tablet PO 400 mg BID JOHANN Administration Atorvastatin Calci um 80 mg 08/24/22 21:00 08/25/22 20:31 Atorvastatin 40 Mg Tablet PO 80 mg BEDTIME JOHANN Administration Docusate Sodium 100 mg 08/24/22 20:00 08/26/22 08:43 Docusate Sodium 100 Mg Capsule PO 100 mg BID@0800,2000 JOHANN Administration Duloxetine HCl 20 mg 08/24/22 20:00 08/26/22 08:43 Duloxetine 20 Mg Capsule PO 20 mg BID@08 JOHANN Administration Enoxaparin Sodium 120 mg 08/25/22 12:00 08/26/22 12:02 Enoxaparin 120 M g/0.8 Ml Syringe SUBCUT 120 mg Q24H JOHANN Administration Ergocalciferol 50,000 unit 08/25/22 12:00 08/25/22 12:03 Ergocalciferol ( Vitamin D2) 50,000 Unit Capsule PO 50,000 unit Q7D JOHANN Administration Gabapentin 300 mg 08/24/22 20:00 08/25/22 20:32 Gabapentin 300 M g Capsule PO 300 mg BEDTIME@20 JOHANN Administration Hydralazine HCl 100 mg 08/24/22 14:00 08/24/22 22:00 Hydralazine 50 M g Tablet PO Not Given TID@ JOHANN Amiodarone HCl 900 mg/ 518 mls @ 0 mls/h r 08/24/22 08:45 08/25/22 21:22 Dextrose/ IV Misce llaneous IV 0.5 mg/min Supplies .Q0M JOHANN 17.27 mls/hr Administration Protocol Per Protocol Ceftriaxone Sodium 1,000 mg/ 50 mls @ 100 mls/ hr 08/24/22 16:30 08/25/22 16:46 Sodium Chloride IV Infused Q24H JOHANN Infusion Protocol Insulin Glargine 50 unit 08/24/22 21:00 08/25/22 20:32 Insulin Glargine 100 Units/1 Ml SUBCUT 50 unit BEDTIME JOHANN Administration Insulin Human Lisp ro 0 unit 08/24/22 21:00 08/25/22 20:33 Insulin Lispro 1 00 Unit/1 Ml SUBCUT 3 unit BEDTIME JOHANN Administration Protocol Insulin Human Lisp ro 0 unit 08/24/22 18:00 08/26/22 12:02 Insulin Lispro 1 00 Unit/1 Ml SUBCUT 2 unit TIDWM JOHANN Administration Protocol Ketoconazole 1 applic 08/24/22 18:00 08/26/22 09:13 Ketoconazole Cre am 15 Gm TOPICAL 1 applic BID JOHANN Administration Lactobacillus Acid ophilus 1 tab 08/24/22 18:00 08/26/22 08:51 Lactobacillus 1 Tablet PO 1 tab BID JOHANN Administration Pantoprazole Sodiu m 40 mg 08/25/22 08:00 08/26/22 08:[address] 40 Mg Tablet PO 40 mg DAILY@0800 JOHANN Administration Prednisone 10 mg 08/25/22 08:00 08/26/22 08:43 Prednisone 10 Mg Tablet PO 10 mg DAILY@0800 JOHANN Administration Sevelamer Carbonat e 800 mg 08/25/22 12:00 08/26/22 12:02 Sevelamer 800 Mg Tablet PO 800 mg TIDWM JOHANN Administration Tizanidine HCl 4 mg 08/24/22 15:00 08/26/22 08:43 Tizanidine 4 Mg Tablet PO 4 mg TID JOHANN Administration Triamcinolone Acet onide 1 applic 08/24/22 18:00 08/26/22 09:14 Triamcinolone 0. 1% Cream 15 Gm TOPICAL 1 applic BID JOHANN Administration Vitals/I&O/Wt Last Vital Signs Temp 97.8 F 08/26/22 08:00 Pulse 76 08/26/22 12:00 Resp 23 H 08/26/22 12:00 BP 120/74 08/26/22 12:00 Pulse Ox 94 08/26/22 12:00 O2 Del Method 08/26/22 12:00 O2 Flow Rate 2 08/26/22 09:07 08/25/22 08/26/22 08/26/22 22:59 06:59 14:59 Intake Total 672.207 / 2553.410 1000 / 3553.410 1600 / 1600 Output Total 75 / 425 400 / 825 Balance 597.207 / 2128.410 600 / 2728.410 1600 / 1600 Physical Exam Const: COMMON NORMALS: patient oriented x3 HENMT: COMMON NORMALS: normocephalic and atraumatic HEAD & SCALP: normocephalic and atraumatic Resp: EFFORT & INSPECTION: Yes symmetric chest movement OTHER: Bilateral crackles in both the lungs field, diminished air entry bilaterally Cardio: COMMON NORMALS: regular rate, regular rhythm, S1 normal heart sound present, S2 normal heart sound present, No gallops present (Cardio), No murmurs present (Cardio), No rub (Cardio) and Peripheral pulses 2+ throughout RATE: regular rate RHYTHM: regular rhythm HEART SOUNDS: S1 normal heart sound present and S2 normal heart sound present PERIPHERAL PULSES: Peripheral pulses 2+ throughout GI: COMMON NORMALS: Normal to inspection, nondistended, normoactive bowel sounds present, Soft to palpation, non-tender, No hepatosplenomegaly present and no masses AUSCULTATION: Yes normoactive bowel sounds PALPATION: Yes Soft to palpation and Yes No hepatosplenomegaly present RECTAL EXAM: deferred Extremity: NARRATIVE EXTREMITY EXAM: 3+ b/l lower extremity pitting edema Neuro: COMMON NORMALS: patient oriented x3 Urinary Catheter Management: Culp: Cath Placed During This Visit: yes Reason for Continuing Indwelling Catheter: Accurate Measurement of Urinary Output in Critically Ill Patients Urinary Catheter Date of Insertion: 08/24/22 Urinary Catheter Time of Insertion: 15:06 Data 08/26/22 03:32 08/26/22 03:32 A&P Assessment and plan (1) Right upper quadrant abdominal pain: Chronic at this point in time. Could be gallbladder colic but suspect secondary to hepatic congestion/contraction. Not currently consistent with acute cholecystitis. Ultrasound on August 19 from outside source did not show any pericholecystic fluid though there was some gallbladder wall thickening. No mention of stones. Common bile duct was 4.3 mm. In addition to the abdominal pain, has had nausea, vomiting and loose stools as well. Azotemia may a contributor to current nausea and vomiting but symptoms have been recently present at levels I would not expect to cause GI symptoms. EGD and colonoscopy were done in 2020 with finding of small hiatal hernia and 1 antral polyp that was removed along with submucosal lipoma on the colonoscopy. Medication effect also within the differential. She is currently on treatment for urinary tract infection. Has a history of recurrent UTIs which can contribute to GI symptoms. Family also indicates a history of renal stones. None were noted on imaging with no obstructive process in the urinary tree. This is patient's primary complaint. (2) Atrial fibrillation with rapid ventricular response: Appears to have been identified initially in July of this year when twelve-lead EKG at outside facility showed atrial flutter. Rate was 100 or below at the time. Like this admission patient's primary complaint was abdominal pain and GI symptoms. Onset of RVR appears to have been within the last 24 to 48 hours. Patient has known diastolic CHF, untreated sleep apnea due to intolerance of CPAP/BiPAP, progressively worsening chronic kidney disease and BMI of 49, among other chronic diagnoses that might contribute. Clinically she looks a bit dry. She has had adjustments to her diuretic regimen recently initially with a decrease and diuretic dose followed by resumption of previous 3 mg twice daily Bumex dosing along with metolazone. She has not responded to diltiazem in the emergency room. Amiodarone drip has been initiated without any improvement and esmolol drip was subsequently started with slight improvement with heart rate from 140s to 120s. She is not on any chronic anticoagulation nor chronic rate controlling agents though she does have a permanent pacemaker due to a history of third-degree AV block back in 2019. (3) Acute kidney injury: On top of chronic kidney disease stage IV. Patient is on the schedule to have a fistula placed in October of this year and as it is anticipated that she will eventually need dialysis. Baseline creatinine probably around 2 or just above though difficult to ascertain if she has significant variability between acute clinical presentations and values at discharge when she is probably more adequately diuresed. Azotemia to the degree she is presenting with today is higher however. Well having some nausea and vomiting. She has minimal itching that does not appear worse than baseline. Mental status has been okay. Follows with Dr. Soto clinic outpatient. (4) Acute on chronic heart failure with preserved ejection fraction: Known to have severe pulmonary hypertension. While she may be total body volume overloaded, appears intravascularly dry presently. Appears to have a narrow window between under and overdiuresis on review of some previous records. (5) UTI (urinary tract infection): Present on admission, organism unknown, on treatment with doxycycline prior to admission initiated on 08/18/2022. Has a history of recurrent UTIs. 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 (9) Dyslipidemia: On chronic statin therapy (10) CHANNING (obstructive sleep apnea): Untreated due to intolerant of CPAP or BiPAP despite trying every combination of mask. Does use oxygen by nasal cannula. (11) Hypothyroid: Diagnosis per old records. Not on chronic treatment. Recent TSH and free T4 at outside facility normal in July 2022. (12) Rheumatoid arthritis with negative rheumatoid factor: Treated with oral prednisone and as needed pain medications. Not on any biologic agents currently though had previously been on Actemra. (13) GERD (gastroesophageal reflux disease): With small hiatal hernia, chronically on PPI daily (14) BMI 45.0-49.9, adult: (15) Transaminitis: (16) Severe pulmonary hypertension: (17) Status post placement of other cardiac pacemaker: Plan 66-year-old female with past medical history of hypertension diabetes, CKD stage4, recurrent UTI,HFpEF, morbid obesity, hypothyroidism,RA on prednisone, obstructive sleep apnea, Anemia, resident at [facility] came in with chief complaint of left upper quadrant abdominal pain, nausea and vomiting daily, a tightness sensation in her chest and shortness of breath.? The abdominal pain has been going on for more than a month now.? She was found to be in A-fib with RVR and had to be started on initially on esmolol drip, followed by amiodarone drip as she became hypotensive on esmolol drip. Currently she is being managed for. Assessment: A-fib with RVR: Follow-up 2D echo TSH: Currently on amiodarone drip,As well as metoprolol tartrate 25 mg p.o. twice daily CHADVASC score of: 4 , (hypertension diabetes, CHF, female sex) On therapeutic anticoagulation with Lovenox Cardiology on board, for possible ESTHELA cardioversion, if she fails to respond to current antiarrhythmic as well as lane blocking agent. COLE on CKD stage IV: Baseline serum creatinine is around 2 Admission serum creatinine 2.7 CT abdomen and pelvis without contrast: Has not shown any obstructive uropathy Currently on gentle IV hydration Monitor BMP Monitor intake output charting Avoid nephrotoxic's Nephrology on board Patient was scheduled to have fistula as outpatient OCTOBER, it was planned by her primary forder operator. History of recurrent UTI: Urine culture has also grown ESBL in the past appears to be likely colonization/ Currently she is on ceftriaxone Follow blood culture: NTD Urine culture She was on doxycycline recently as outpatient for 10 days Transaminitis: Could be possibly secondary to congestive hepatopathy AST 28--: 703--> 317 ALT 40 -->278--> 245 ALP:202 ---->179 ---> 183 CT abdomen and pelvis has shown cholelithiasis, without evidence of acute cholecystitis ultrasound abdomen: No cholelithiasis.Very mild gallbladder wall thickening may be due to hepatocellular disease. Mild hepatic enlargement. Monitor CMP Closely monitor LFTs as patient has been started on amiodarone H/O HFpEF : Has been on Bumex as outpatient, currently on hold Monitor intake output charting Monitor daily weight Monitor electrolytes History of hypertension: Continue hydralazine, metoprolol History of diabetes: Continue Lantus 30 subcu at bedtime,LDSSI, monitor fingerstick glucose, diabetic diet History of hypothyroidism: Continue levothyroxine History of rheumatoid arthritis: Continue prednisone, has been on Actemra in the past History of sleep apnea: Has been on BiPAP in the past History of severe pulmonary hypertension: Could be related to sleep apnea as well as morbid obesity and heart failure Pulmonary follow-up as outpatient CODE STATUS: Full code DVT prophylaxis: Currently on therapeutic anticoagulation Attestations Medical Necessity Statement*: In Hospital for management A-fib with RVR Coding Level of Care Code 25732 Diagnoses Right upper quadrant abdominal pain R10.11 Atrial fibrillation with rapid ventricular response I48.91 Acute kidney injury N17.9 Acute on chronic heart failure with preserved ejection fraction I50.33 UTI (urinary tract infection) N39.0 Insulin dependent type 2 diabetes mellitus E11.9; Z79.4 Anemia D64.9 High risk medication use Z79.899 Dyslipidemia E78.5 CHANNING (obstructive sleep apnea) G47.33 Hypothyroid E03.9 Rheumatoid arthritis with negative rheumatoid factor M06.00 GERD (gastroesophageal reflux disease) K21.9 BMI 45.0-49.9, adult Z68.42 Transaminitis R74.01 Severe pulmonary hypertension I27.20 Status post placement of other cardiac pacemaker Z95.0
[2022-08-26 16:35] LABS: Glucose Point of Care 183 mg/dL (70-110)
[2022-08-26] MEDS: cefTRIAXone 1,000 MG in sodium chloride 0.9% (plus) 50 ML 100 MG IV (16:44)
[2022-08-26 20:49] LABS: Glucose Point of Care 173 mg/dL (70-110)
[2022-08-26] MEDS: atorvastatin 40 mg Tablet 80 MG PO (20:54)
[2022-08-26] MEDS: gabapentin 300 mg Capsule PO (20:55)
[2022-08-26] MEDS: metoprolol tartrate 25 mg Tablet 37.5 MG PO (20:55)
[2022-08-26] MEDS: insulin glargine 100 units/1 mL 30 UNIT SUBCUT (21:08)
[2022-08-27] VITALS (27 sets, daily range): BP systolic 108–133; BP diastolic 66–89; PULSE 69–111; RESP 9–31; TEMP 36.6; O2SAT 89–98
[2022-08-27 04:09] LABS: Basophils # 0.1 10^3/uL (0.0-0.1); Basophils % 0.6 %; Eosinophils # 0.1 10^3/uL (0.0-0.8); Eosinophils % 0.9 %; Hematocrit 33.3 % (37.0-47.0); Hemoglobin 9.8 g/dL (11.5-15.3); Lymphocytes # 1.3 10^3/uL (0.8-4.8); Lymphocytes % 11.5 %; Mean Corpuscular HGB Conc 29.4 g/dL (30.0-36.0); Mean Corpuscular Hemoglobin 27.7 pg (28.0-34.0); Mean Corpuscular Volume 94.1 fl (81-99); Mean Platelet Volume 9.7 fL (7.4-10.4); Monocytes # 0.7 10^3/uL (0.2-0.9); Monocytes % 6.3 %; Neutrophils # 8.65 10^3/uL (1.8-7.7); Neutrophils % 79.9 %; Nucleated Red Blood Cells % 0 %; Platelet Count 349 10^3/cmm (130-400); Red Blood Count 3.54 10^6/uL (4.1-5.3); Red Cell Distribution Width 15.8 % (12.1-15.1); White Blood Count 10.8 10^3/uL (4.0-10.0)
[2022-08-27 04:30] LABS: Alanine Aminotransferase 254 U/L (0-33); Alkaline Phosphatase 171 U/L (35-105); Anion Gap 18.4 (5-19); Aspartate Amino Transferase 261 U/L (0-32); Calcium 8.6 mg/dL (8.5-10.5); Carbon Dioxide 27 mmol/L (22-29); Chloride 91 mmol/L (98-107); Globulin 3.5 g/dL (1.3-4.6); Glomerular Filtration Rate 15.7 mL/min (90-130); Glucose 131 mg/dL (65-115); Magnesium 1.9 mg/dL (1.7-2.3); Osmolality Calculated 308 mOsm/kg (285-295); Phosphorus 5.8 mg/dL (2.5-4.5); Potassium 4.4 mmol/L (3.5-5.1); Sodium 132 mmol/L (136-145); Total Bilirubin 0.4 mg/dL (0.15-1.2); Total Protein 6.5 g/dL (6.6-8.7)
[2022-08-27 04:49] LABS: Blood Urea Nitrogen 103 mg/dL (8-23)
[2022-08-27 06:18] LABS: Glucose Point of Care 123 mg/dL (70-110)
[2022-08-27] MEDS: pantoprazole DR 40 mg Tablet PO (08:50)
[2022-08-27] MEDS: lactobacillus 1 Tablet 1 TAB PO ×2 (08:50→18:04)
[2022-08-27] MEDS: HYDROcodone-acetaminophen 5-325 mg Tablet 1 TAB PO ×3 (08:50→20:50)
[2022-08-27] MEDS: sevelamer 800 mg Tablet PO ×3 (08:50→18:02)
[2022-08-27] MEDS: predniSONE 10 mg Tablet PO (08:50)
[2022-08-27] MEDS: docusate sodium 100 mg Capsule PO ×2 (08:50→20:50)
[2022-08-27] MEDS: metoprolol tartrate 25 mg Tablet 37.5 MG PO ×2 (08:51→20:49)
[2022-08-27] MEDS: amiodarone 200 mg Tablet 400 MG PO ×2 (08:51→18:02)
[2022-08-27] MEDS: tizanidine 4 mg Tablet PO ×3 (08:52→20:49)
[2022-08-27] MEDS: duloxetine 20 mg Capsule PO ×2 (08:52→20:50)
[2022-08-27] MEDS: triamcinolone 0.1% cream 15 gm 1 APPLIC TOPICAL ×2 (08:53→18:03)
[2022-08-27] MEDS: ketoconazole Cream 15 gm 1 APPLIC TOPICAL ×2 (08:53→18:02)
--- NOTE | 2022-08-27 10:44 | P.PN_ITS ---
Subjective Subjective: weak, nausea, cramps, sob, edema, coy, still w/ palps and edema. denies cp. + tremors. poor appetite Medications: Reviewed: Yes Medication Review Details: Current Medications Acetaminophen (Acetaminophen 325 Mg Tablet) 650 mg PO Q6H PRN PRN Reason: mild pain or temp >/=101 F Hydrocodone Bitart/Acetaminophen (Hydrocodone-Acetaminophen 5-325 Mg Tablet) 1 tab PO TID@,, [facility] Last Admin: 08/27/22 08:50 Dose: 1 tab Hydrocodone Bitart/Acetaminophen (Hydrocodone-Acetaminophen 5-325 Mg Tablet) 1 tab PO Q6H PRN PRN Reason: mod to sev breakthrough pain Amiodarone HCl (Amiodarone 200 Mg Tablet) 400 mg PO BID [facility] Last Admin: 08/27/22 08:51 Dose: 400 mg Atorvastatin Calcium (Atorvastatin 40 Mg Tablet) 80 mg PO BEDTIME [facility] Last Admin: 08/26/22 20:54 Dose: 80 mg Dextrose (Dextrose 50% Syringe 50 Ml) 25 ml IVP ONCE PRN; Protocol PRN Reason: hypoglycemia protocol Dextrose (Dextrose 50% Syringe 50 Ml) 50 ml IVP PRN PRN; Protocol PRN Reason: hypoglycemia protocol Docusate Sodium (Docusate Sodium 100 Mg Capsule) 100 mg PO BID@0800,2000 [facility] Last Admin: 08/27/22 08:50 Dose: 100 mg Duloxetine HCl (Duloxetine 20 Mg Capsule) 20 mg PO BID@08,20 [facility] Last Admin: 08/27/22 08:52 Dose: 20 mg Enoxaparin Sodium (Enoxaparin 120 Mg/0.8 Ml Syringe) 120 mg SUBCUT Q24H [facility] Last Admin: 08/26/22 12:02 Dose: 120 mg Ergocalciferol (Ergocalciferol (Vitamin D2) 50,000 Unit Capsule) 50,000 unit PO Q7D [facility] Last Admin: 08/25/22 12:03 Dose: 50,000 unit Gabapentin (Gabapentin 300 Mg Capsule) 300 mg PO BEDTIME@20 [facility] Last Admin: 08/26/22 20:55 Dose: 300 mg Glucagon (Glucagon 1 Mg/Ml Inj 1 Ml) 1 mg IM ONCE PRN; Protocol PRN Reason: Adult Acute Hypoglycemia Prot. Hydralazine HCl (Hydralazine 50 Mg Tablet) 100 mg PO TID@08,14,20 [facility] Last Admin: 08/24/22 22:00 Dose: Not Given Amiodarone HCl 900 mg/Dextrose/ IV Miscellaneous Supplies 518 mls @ 0 mls/hr IV .Q0M [facility]; Protocol Last Admin: 08/27/22 01:56 Dose: 0.5 mg/min, 17.27 mls/hr Dextrose (D5w) 500 mls @ 100 mls/hr IV ONCE PRN; Protocol PRN Reason: Adult Acute Hypoglycemia Prot Ceftriaxone Sodium 1,000 mg/ (Sodium Chloride) 50 mls @ 100 mls/hr IV Q24H [facility]; Protocol Last Infusion: 08/26/22 20:08 Dose: Infused Insulin Glargine (Insulin Glargine 100 Units/1 Ml) 30 unit SUBCUT BEDTIME [facility] Last Admin: 08/26/22 21:08 Dose: 30 unit Insulin Human Lispro (Insulin Lispro 100 Unit/1 Ml) 0 unit SUBCUT BEDTIME [facility]; Protocol Last Admin: 08/26/22 20:54 Dose: 1 unit Insulin Human Lispro (Insulin Lispro 100 Unit/1 Ml) 0 unit SUBCUT TIDWM [facility]; Protocol Last Admin: 08/27/22 08:52 Dose: Not Given Ketoconazole (Ketoconazole Cream 15 Gm) 1 applic TOPICAL BID [facility] Last Admin: 08/27/22 08:53 Dose: 1 applic Lactobacillus Acidophilus (Lactobacillus 1 Tablet) 1 tab PO BID [facility] Last Admin: 08/27/22 08:50 Dose: 1 tab Metoprolol Tartrate (Metoprolol Tartrate 25 Mg Tablet) 37.5 mg PO BID@0900,2100 [facility] Last Admin: 08/27/22 08:51 Dose: 37.5 mg Naloxone HCl (Naloxone 0.4 Mg/Ml Sdv) 0.4 mg IVP PRN PRN PRN Reason: RESPIRATORY RATE < 8/MIN Nitroglycerin (Nitroglycerin 0.4 Mg Sublingual Tablet) 0.4 mg SUBLINGUAL Q5M PRN PRN Reason: Chest Pain Ondansetron HCl (Ondansetron 2 Mg/Ml Sdv 2 Ml) 4 mg IVP Q6H PRN PRN Reason: NAUSEA AND VOMITING Pantoprazole Sodium (Pantoprazole Dr 40 Mg Tablet) 40 mg PO DAILY@0800 [facility] Last Admin: 08/27/22 08:50 Dose: 40 mg Prednisone (Prednisone 10 Mg Tablet) 10 mg PO DAILY@0800 [facility] Last Admin: 08/27/22 08:50 Dose: 10 mg Sevelamer Carbonate (Sevelamer 800 Mg Tablet) 800 mg PO TIDWM [facility] Last Admin: 08/27/22 08:50 Dose: 800 mg Simethicone (Simethicone 80 Mg Chew) 160 mg PO QID PRN PRN Reason: FLATULENCE Tizanidine HCl (Tizanidine 4 Mg Tablet) 4 mg PO TID [facility] Last Admin: 08/27/22 08:52 Dose: 4 mg Triamcinolone Acetonide (Triamcinolone 0.1% Cream 15 Gm) 1 applic TOPICAL BID [facility] Last Admin: 08/27/22 08:53 Dose: 1 applic Vitals/I&O/Wt Last Vital Signs Temp 97.9 F 08/27/22 07:48 Pulse 101 H 08/27/22 07:48 Resp 18 08/27/22 07:48 BP 108/80 08/27/22 07:48 Pulse Ox 92 08/27/22 07:48 O2 Del Method 08/27/22 07:48 O2 Flow Rate 2 08/27/22 07:22 08/26/22 08/27/22 08/27/22 22:59 06:59 14:59 Intake Total 350 / 1950 518 / 2468 360 / 360 Output Total 500 / 500 300 / 800 Balance -150 / 1450 218 / 1668 360 / 360 Physical Exam Narrative: obese lady in bed- p On NC 02 vs noted- hr controlled and irreg heent- nc/at, eomi, anicteric neck supple lungs dull bases and crackles b/l heart irreg irreg + Pavan abd soft, + bs ext b/l edema increased red calves neuro- a,a, o x 3, moves all extremities. + asterixis vs tremors Urinary Catheter Management: Culp: Cath Placed During This Visit: yes Reason for Continuing Indwelling Catheter: Accurate Measurement of Urinary Out put in Critically Ill Patients Urinary Catheter Date of Insertion: 08/24/22 Urinary Catheter Time of Insertion: 15:06 Data 08/27/22 03:38 08/27/22 03:38 Other data: echo- ?CONCLUSIONS ?1-Normal left ventricular size, systolic function and wall ?thickness, with no regional wall motion abnormalities.? Left ?ventricular ejection fraction is estimated at 60 %.Severely ?increased left ventricular filling pressure.? ?2-Moderately increased left atrial size. ?3-Moderately thickened mitral valve. Moderate mitral annular ?calcification. Moderate mitral valve regurgitation. ?4-Mild aortic valve calcification. No aortic valve stenosis. ?Mild aortic valve regurgitation. ?3-Ttlk-ak-moderate tricuspid valve regurgitation. .? ?6-Right atrial pressure is around 10 mm of mercur A&P Assessment and plan (1) Acute kidney injury: 66 yr old female CKD stage 4- baseline cr 2, morbid obesity, FM, HTN, CHANNING, chronic leg edema ,seronegative RA and is s/p therapy with steroids and toclizumab, and recent DM foot ulcers. Pt here w/ abd pain, a fib w/ RVR and COLE. no dvt on venous duplex 1. CKD stage 4 - no significant proteinuria- likely CRS, HTN. Less likely from DM or Obesity related FSGS -albumin 3.2- unlikely nephrotic syndrome -serologies previously negative -chuy 1:40 + -can not send apla. - hep serologies negative -tacluzimab has been associated w/ COLE- usually w/ proteinuria -if has proteinuria and not albuminuria- can have secondary amyloidosis- AA from RA- however less likely as albumin is above 3 -normal kappa/lambda ratio 1b. ferritin 37460- Q from RA 2. COLE- likely from meds, diuretics, CRS -no hydronephrosis on CT scan -u/a noted- send serologies as she has > 100 rbc and 2+ leuk est chuy + only 1:40, anti ds dna and ssa/ ssl/ sofie neg -ur na 69- on diuretics -serum immunofixation so far negative -cr increased overnight- even though HR improved and now off ivf 3.acid /base status- perfectly compensated- respiratory acidosis and [place] [address]- nl ef and LV wall thickness. however moderate MR and severly increased LV filling pressure- will start lasix 5. renal bone mineral metabolism- replace vit d, and pth 309 -repeat after vit d repleted -normal ca -phos binder- phos is 5.8 - uric acid of 17.2- likely dry and /or from diuretics 6. increased LFT's- is new. Q shocked liver, Or from congestion -lft's are slowly improving to plateauing 7. hyponatremia- on diuretics- ur na was 69. free water restrict - tsh -normal -on prednisone -likely chf- start lasix 8. replace magnesium 9/ a fib per cardiology improving w/ amiodarone 10. [place] [address]- consider heme or GI eval - hgb up to 9.8 11. cultures are negative avoid nephrotoxins seen and examined w/ RN- telehealth visit time spent 30 + minutes seeing pt and reviewing care echo- ?CONCLUSIONS ?1-Normal left ventricular size, systolic function and wall ?thickness, with no regional wall motion abnormalities.? Left ?ventricular ejection fraction is estimated at 60 %.Severely ?increased left ventricular filling pressure.? ?2-Moderately increased left atrial size. ?3-Moderately thickened mitral valve. Moderate mitral annular ?calcification. Moderate mitral valve regurgitation. ?4-Mild aortic valve calcification. No aortic valve stenosis. ?Mild aortic valve regurgitation. ?8-Qheg-ix-moderate tricuspid valve regurgitation. .? ?6-Right atrial pressure is around 10 mm of mercur Plan see above -volume overloaded- start lasix Attestations Medical Necessity Statement*: a fib, chf, cole on ckd stage 3 Time Spent in Patient Care: 16 - 35 minutes (>than 50% of time spent in counselling and/or direct pt care on unit) . Coding Level of Care Code Acute Code for Chg Fwd Diagnoses Acute kidney injury N17.9
[2022-08-27 10:52] LABS: Glucose Point of Care 150 mg/dL (70-110)
[2022-08-27 11:30] LABS: ALBUMIN 63 %; ALPHA-1-GLOBULINS 2 %; ALPHA-2-GLOBULINS 9 %; BETA GLOBULINS 12 %; GAMMA GLOBULINS 14 %
[2022-08-27 11:38] LABS: Uric Acid 17.8 mg/dL (2.4-5.7)
[2022-08-27] MEDS: enoxaparin 120 mg/0.8 mL Syringe SUBCUT (11:59)
[2022-08-27] MEDS: FUROsemide 10 mg/mL SDV 4mL 40 MG IVP (12:00)
[2022-08-27] MEDS: insulin lispro 100 unit/1 mL SUBCUT ×3 (12:00→20:49)
[2022-08-27 12:27] LABS: HIV 1 & 2 Antibody Non-Reactive (Non-Reactiv); HIV 1 & 2 Antigen Non-Reactive (Non-Reactiv)
--- NOTE | 2022-08-27 13:18 | PM.PN ---
Subjective Subjective: Patient was seen and examined this morning, continues to be in A-fib with better controlled heart rate. Complains of generalized weakness shortness of breath. Has received Lasix 40 IV one-time dose today. Medications: Reviewed: Yes Medication Review Details: Generic Name Dose Route Start Last Admin Trade Name Leonora PRN Reason Stop Dose Admin Hydrocodone Bitart /Acetaminophen 1 tab 08/24/22 15:00 08/27/22 08:50 Hydrocodone-Acet aminophen 5-325 Mg Tablet PO 1 tab TID@ JOHANN Administration Amiodarone HCl 400 mg 08/26/22 09:00 08/27/22 08:51 Amiodarone 200 M g Tablet PO 400 mg BID JOHANN Administration Atorvastatin Calci um 80 mg 08/24/22 21:00 08/26/22 20:54 Atorvastatin 40 Mg Tablet PO 80 mg BEDTIME JOHANN Administration Docusate Sodium 100 mg 08/24/22 20:00 08/27/22 08:50 Docusate Sodium 100 Mg Capsule PO 100 mg BID@0800,2000 JOHANN Administration Duloxetine HCl 20 mg 08/24/22 20:00 08/27/22 08:52 Duloxetine 20 Mg Capsule PO 20 mg BID@08,20 JOHANN Administration Enoxaparin Sodium 120 mg 08/25/22 12:00 08/27/22 11:59 Enoxaparin 120 M g/0.8 Ml Syringe SUBCUT 120 mg Q24H JOHANN Administration Ergocalciferol 50,000 unit 08/25/22 12:00 08/25/22 12:03 Ergocalciferol ( Vitamin D2) 50,000 Unit Capsule PO 50,000 unit Q7D JOHANN Administration Amiodarone HCl 900 mg/ 518 mls @ 0 mls/h r 08/24/22 08:45 08/27/22 01:56 Dextrose/ IV Misce llaneous IV 0.5 mg/min Supplies .Q0M JOHANN 17.27 mls/hr Administration Protocol Per Protocol Ceftriaxone Sodium 1,000 mg/ 50 mls @ 100 mls/ hr 08/24/22 16:30 08/26/22 20:08 Sodium Chloride IV Infused Q24H JOHANN Infusion Protocol Insulin Glargine 30 unit 08/26/22 21:00 08/26/22 21:08 Insulin Glargine 100 Units/1 Ml SUBCUT 30 unit BEDTIME JOHANN Administration Insulin Human Lisp ro 0 unit 08/24/22 21:00 08/26/22 20:54 Insulin Lispro 1 00 Unit/1 Ml SUBCUT 1 unit BEDTIME JOHANN Administration Protocol Insulin Human Lisp ro 0 unit 08/24/22 18:00 08/27/22 12:00 Insulin Lispro 1 00 Unit/1 Ml SUBCUT 2 unit TIDWM JOHANN Administration Protocol Ketoconazole 1 applic 08/24/22 18:00 08/27/22 08:53 Ketoconazole Cre am 15 Gm TOPICAL 1 applic BID JOHANN Administration Lactobacillus Acid ophilus 1 tab 08/24/22 18:00 08/27/22 08:50 Lactobacillus 1 Tablet PO 1 tab BID JOHANN Administration Metoprolol Tartrat e 37.5 mg 08/26/22 21:00 08/27/22 08:51 Metoprolol Tartr ate 25 Mg Tablet PO 37.5 mg BID@0900,2100 JOHANN Administration Pantoprazole Sodiu m 40 mg 08/25/22 08:00 08/27/22 08:[address] 40 Mg Tablet PO 40 mg DAILY@0800 JOHANN Administration Prednisone 10 mg 08/25/22 08:00 08/27/22 08:50 Prednisone 10 Mg Tablet PO 10 mg DAILY@0800 JOHANN Administration Sevelamer Carbonat e 800 mg 08/25/22 12:00 08/27/22 12:00 Sevelamer 800 Mg Tablet PO 800 mg TIDWM JOHANN Administration Tizanidine HCl 4 mg 08/24/22 15:00 08/27/22 08:52 Tizanidine 4 Mg Tablet PO 4 mg TID JOHANN Administration Triamcinolone Acet onide 1 applic 08/24/22 18:00 08/27/22 08:53 Triamcinolone 0. 1% Cream 15 Gm TOPICAL 1 applic BID JOHANN Administration Vitals/I&O/Wt Last Vital Signs Temp 97.9 F 08/27/22 07:48 Pulse 101 H 08/27/22 07:48 Resp 18 08/27/22 07:48 BP 108/80 08/27/22 07:48 Pulse Ox 92 08/27/22 07:48 O2 Del Method 08/27/22 07:48 O2 Flow Rate 2 08/27/22 07:22 08/26/22 08/27/22 08/27/22 22:59 06:59 14:59 Intake Total 350 / 1950 518 / 2468 360 / 360 Output Total 500 / 500 300 / 800 Balance -150 / 1450 218 / 1668 360 / 360 Physical Exam Const: COMMON NORMALS: patient oriented x3 HENMT: COMMON NORMALS: normocephalic and atraumatic HEAD & SCALP: normocephalic and atraumatic Resp: COMMON NORMALS: clear to auscultation bilaterally EFFORT & INSPECTION: Yes symmetric chest movement AUSCULTATION: clear to auscultation bilaterally OTHER: Bilateral crackles in both the lungs field, diminished air entry bilaterally Cardio: COMMON NORMALS: regular rate, regular rhythm, S1 normal heart sound present, S2 normal heart sound present, No gallops present (Cardio), No murmurs present (Cardio), No rub (Cardio) and Peripheral pulses 2+ throughout RATE: regular rate RHYTHM: regular rhythm HEART SOUNDS: S1 normal heart sound present and S2 normal heart sound present PERIPHERAL PULSES: Peripheral pulses 2+ throughout GI: COMMON NORMALS: Normal to inspection, nondistended, normoactive bowel sounds present, Soft to palpation, non-tender, No hepatosplenomegaly present and no masses AUSCULTATION: Yes normoactive bowel sounds PALPATION: Yes Soft to palpation and Yes No hepatosplenomegaly present RECTAL EXAM: deferred Extremity: NARRATIVE EXTREMITY EXAM: 3+ b/l lower extremity pitting edema Neuro: COMMON NORMALS: patient oriented x3 Urinary Catheter Management: Culp: Cath Placed During This Visit: yes Reason for Continuing Indwelling Catheter: Accurate Measurement of Urinary Output in Critically Ill Patients Urinary Catheter Date of Insertion: 08/24/22 Urinary Catheter Time of Insertion: 15:06 Data 08/27/22 03:38 08/27/22 03:38 A&P Assessment and plan (1) Right upper quadrant abdominal pain: Chronic at this point in time. Could be gallbladder colic but suspect secondary to hepatic congestion/contraction. Not currently consistent with acute cholecystitis. Ultrasound on August 19 from outside source did not show any pericholecystic fluid though there was some gallbladder wall thickening. No mention of stones. Common bile duct was 4.3 mm. In addition to the abdominal pain, has had nausea, vomiting and loose stools as well. Azotemia may a contributor to current nausea and vomiting but symptoms have been recently present at levels I would not expect to cause GI symptoms. EGD and colonoscopy were done in 2020 with finding of small hiatal hernia and 1 antral polyp that was removed along with submucosal lipoma on the colonoscopy. Medication effect also within the differential. She is currently on treatment for urinary tract infection. Has a history of recurrent UTIs which can contribute to GI symptoms. Family also indicates a history of renal stones. None were noted on imaging with no obstructive process in the urinary tree. This is patient's primary complaint. (2) Atrial fibrillation with rapid ventricular response: Appears to have been identified initially in July of this year when twelve-lead EKG at outside facility showed atrial flutter. Rate was 100 or below at the time. Like this admission patient's primary complaint was abdominal pain and GI symptoms. Onset of RVR appears to have been within the last 24 to 48 hours. Patient has known diastolic CHF, untreated sleep apnea due to intolerance of CPAP/BiPAP, progressively worsening chronic kidney disease and BMI of 49, among other chronic diagnoses that might contribute. Clinically she looks a bit dry. She has had adjustments to her diuretic regimen recently initially with a decrease and diuretic dose followed by resumption of previous 3 mg twice daily Bumex dosing along with metolazone. She has not responded to diltiazem in the emergency room. Amiodarone drip has been initiated without any improvement and esmolol drip was subsequently started with slight improvement with heart rate from 140s to 120s. She is not on any chronic anticoagulation nor chronic rate controlling agents though she does have a permanent pacemaker due to a history of third-degree AV block back in 2019. (3) Acute kidney injury: On top of chronic kidney disease stage IV. Patient is on the schedule to have a fistula placed in October of this year and as it is anticipated that she will eventually need dialysis. Baseline creatinine probably around 2 or just above though difficult to ascertain if she has significant variability between acute clinical presentations and values at discharge when she is probably more adequately diuresed. Azotemia to the degree she is presenting with today is higher however. Well having some nausea and vomiting. She has minimal itching that does not appear worse than baseline. Mental status has been okay. Follows with Dr. Soto clinic outpatient. (4) Acute on chronic heart failure with preserved ejection fraction: Known to have severe pulmonary hypertension. While she may be total body volume overloaded, appears intravascularly dry presently. Appears to have a narrow window between under and overdiuresis on review of some previous records. (5) UTI (urinary tract infection): Present on admission, organism unknown, on treatment with doxycycline prior to admission initiated on 08/18/2022. Has a history of recurrent UTIs. 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 (9) Dyslipidemia: On chronic statin therapy (10) CHANNING (obstructive sleep apnea): Untreated due to intolerant of CPAP or BiPAP despite trying every combination of mask. Does use oxygen by nasal cannula. (11) Hypothyroid: Diagnosis per old records. Not on chronic treatment. Recent TSH and free T4 at outside facility normal in July 2022. (12) Rheumatoid arthritis with negative rheumatoid factor: Treated with oral prednisone and as needed pain medications. Not on any biologic agents currently though had previously been on Actemra. (13) GERD (gastroesophageal reflux disease): With small hiatal hernia, chronically on PPI daily (14) BMI 45.0-49.9, adult: (15) Transaminitis: (16) Severe pulmonary hypertension: (17) Status post placement of other cardiac pacemaker: Plan 66-year-old female with past medical history of hypertension diabetes, CKD stage4, recurrent UTI,HFpEF, morbid obesity, hypothyroidism,RA on prednisone, obstructive sleep apnea, Anemia, resident at [facility] came in with chief complaint of left upper quadrant abdominal pain, nausea and vomiting daily, a tightness sensation in her chest and shortness of breath.? The abdominal pain has been going on for more than a month now.? She was found to be in A-fib with RVR and had to be started on initially on esmolol drip, followed by amiodarone drip as she became hypotensive on esmolol drip. Currently she is being managed for. Assessment: A-fib with RVR: Follow-up 2D echo TSH: Currently on amiodarone drip,As well as metoprolol tartrate 25 mg p.o. twice daily CHADVASC score of: 4 , (hypertension diabetes, CHF, female sex) On therapeutic anticoagulation with [facility] on board, for possible ESTHELA cardioversion, if she fails to respond to current antiarrhythmic as well as lane blocking agent. 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 History of recurrent UTI: Urine culture has also grown ESBL in the past appears to be likely colonization/ Currently she is on ceftriaxone Follow blood culture: NTD Urine culture She was on doxycycline recently as outpatient for 10 days Transaminitis: Could be possibly secondary to congestive hepatopathy AST 28--: 703--> 317-->261 ALT 40 -->278--> 245 -->254 ALP:202 ---->179 ---> 183 --> 171 CT abdomen and pelvis has shown cholelithiasis, without evidence of acute cholecystitis ultrasound abdomen: No cholelithiasis.Very mild gallbladder wall thickening may be due to hepatocellular disease. Mild hepatic enlargement. Monitor CMP Closely monitor LFTs as patient has been started on amiodarone H/O HFpEF : Has been on Bumex as outpatient, currently on hold Monitor intake output charting Monitor daily weight Monitor electrolytes History of hypertension: Continue hydralazine, metoprolol History of diabetes: Continue Lantus 30 subcu at bedtime,LDSSI, monitor fingerstick glucose, diabetic diet History of hypothyroidism: Continue levothyroxine History of rheumatoid arthritis: Continue prednisone, has been on Actemra in the past History of sleep apnea: Has been on BiPAP in the past History of severe pulmonary hypertension: Could be related to sleep apnea as well as morbid obesity and heart failure Pulmonary follow-up as outpatient CODE STATUS: Full code DVT prophylaxis: Currently on therapeutic anticoagulation Attestations Medical Necessity Statement*: Needs to be in hospital management of A-fib acute kidney injury. Coding Level of Care Code 65999 Diagnoses Right upper quadrant abdominal pain R10.11 Atrial fibrillation with rapid ventricular response I48.91 Acute kidney injury N17.9 Acute on chronic heart failure with preserved ejection fraction I50.33 UTI (urinary tract infection) N39.0 Insulin dependent type 2 diabetes mellitus E11.9; Z79.4 Anemia D64.9 High risk medication use Z79.899 Dyslipidemia E78.5 CHANNING (obstructive sleep apnea) G47.33 Hypothyroid E03.9 Rheumatoid arthritis with negative rheumatoid factor M06.00 GERD (gastroesophageal reflux disease) K21.9 BMI 45.0-49.9, adult Z68.42 Transaminitis R74.01 Severe pulmonary hypertension I27.20 Status post placement of other cardiac pacemaker Z95.0
--- NOTE | 2022-08-27 15:38 | PC.NURSE ---
urine is thick,mucous threads and sediment noted.u.o. is marginal despite dose of iv lasix.madden catheter irrigated with 50 cc sterile ns.return of 50 cc obtained.
--- NOTE | 2022-08-27 17:44 | PM.PN ---
Subjective Subjective: Heart rate is under control remains in atrial fibrillation Medications: Reviewed: Yes Medication Review Details: Generic Name Dose Route Start Last Admin Trade Name Leonora PRN Reason Stop Dose Admin Hydrocodone Bitart /Acetaminophen 1 tab 08/24/22 15:00 08/27/22 08:50 Hydrocodone-Acet aminophen 5-325 Mg Tablet PO 1 tab TID@ JOHANN Administration Amiodarone HCl 400 mg 08/26/22 09:00 08/27/22 08:51 Amiodarone 200 M g Tablet PO 400 mg BID JOHANN Administration Atorvastatin Calci um 80 mg 08/24/22 21:00 08/26/22 20:54 Atorvastatin 40 Mg Tablet PO 80 mg BEDTIME JOHANN Administration Docusate Sodium 100 mg 08/24/22 20:00 08/27/22 08:50 Docusate Sodium 100 Mg Capsule PO 100 mg BID@0800,1999 JOHANN Administration Duloxetine HCl 20 mg 08/24/22 20:00 08/27/22 08:52 Duloxetine 20 Mg Capsule PO 20 mg BID@ JOHANN Administration Enoxaparin Sodium 120 mg 08/25/22 12:00 08/27/22 11:59 Enoxaparin 120 M g/0.8 Ml Syringe SUBCUT 120 mg Q24H JOHANN Administration Ergocalciferol 50,000 unit 08/25/22 12:00 08/25/22 12:03 Ergocalciferol ( Vitamin D2) 50,000 Unit Capsule PO 50,000 unit Q7D JOHANN Administration Amiodarone HCl 900 mg/ 518 mls @ 0 mls/h r 08/24/22 08:45 08/27/22 01:56 Dextrose/ IV Misce llaneous IV 0.5 mg/min Supplies .Q0M JOHANN 17.27 mls/hr Administration Protocol Per Protocol Ceftriaxone Sodium 1,000 mg/ 50 mls @ 100 mls/ hr 08/24/22 16:30 08/26/22 20:08 Sodium Chloride IV Infused Q24H [facility] Infusion Protocol Insulin Glargine 30 unit 08/26/22 21:00 08/26/22 21:08 Insulin Glargine 100 Units/1 Ml SUBCUT 30 unit BEDTIME JOHANN Administration Insulin Human Lisp ro 0 unit 08/24/22 21:00 08/26/22 20:54 Insulin Lispro 1 00 Unit/1 Ml SUBCUT 1 unit BEDTIME JOHANN Administration Protocol Insulin Human Lisp ro 0 unit 08/24/22 18:00 08/27/22 12:00 Insulin Lispro 1 00 Unit/1 Ml SUBCUT 2 unit TIDWM JOHANN Administration Protocol Ketoconazole 1 applic 08/24/22 18:00 08/27/22 08:53 Ketoconazole Cre am 15 Gm TOPICAL 1 applic BID JOHANN Administration Lactobacillus Acid ophilus 1 tab 08/24/22 18:00 08/27/22 08:50 Lactobacillus 1 Tablet PO 1 tab BID JOHANN Administration Metoprolol Tartrat e 37.5 mg 08/26/22 21:00 08/27/22 08:51 Metoprolol Tartr ate 25 Mg Tablet PO 37.5 mg BID@0900,2100 JOHANN Administration Pantoprazole Sodiu m 40 mg 08/25/22 08:00 08/27/22 08:[address] 40 Mg Tablet PO 40 mg DAILY@0800 JOHANN Administration Prednisone 10 mg 08/25/22 08:00 08/27/22 08:50 Prednisone 10 Mg Tablet PO 10 mg DAILY@0800 JOHANN Administration Sevelamer Carbonat e 800 mg 08/25/22 12:00 08/27/22 12:00 Sevelamer 800 Mg Tablet PO 800 mg TIDWM JOHANN Administration Tizanidine HCl 4 mg 08/24/22 15:00 08/27/22 08:52 Tizanidine 4 Mg Tablet PO 4 mg TID JOHANN Administration Triamcinolone Acet onide 1 applic 08/24/22 18:00 08/27/22 08:53 Triamcinolone 0. 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 amiodarone and metoprolol. Continue anticoagulation (2) Acute kidney injury: Due to worsening of swelling of lower extremity may need diuresis (3) Right upper quadrant abdominal pain: Antibiotics as per medicine Attestations Medical Necessity Statement*: Require continuation of hospitalization for above defined care Coding Level of Care Code Acute Code for [facility] Diagnoses Atrial fibrillation with rapid ventricular response I48.91 Acute kidney injury N17.9 Right upper quadrant abdominal pain R10.11
[2022-08-27 17:58] LABS: Glucose Point of Care 206 mg/dL (70-110)
[2022-08-27] MEDS: cefTRIAXone 1,000 MG in sodium chloride 0.9% (plus) 50 ML 100 MG IV (18:01)
[2022-08-27 20:44] LABS: Glucose Point of Care 168 mg/dL (70-110)
[2022-08-27] MEDS: gabapentin 100 mg Capsule PO (20:49)
[2022-08-27] MEDS: atorvastatin 40 mg Tablet 80 MG PO (20:49)
[2022-08-27] MEDS: insulin glargine 100 units/1 mL 30 UNIT SUBCUT (20:50)
[2022-08-28] VITALS (28 sets, daily range): BP systolic 109–128; BP diastolic 64–93; PULSE 60–97; RESP 9–24; TEMP 35.7–36.7; O2SAT 90–100
[2022-08-28 05:23] LABS: Basophils % 0.3 %; Eosinophils % 0.4 %; Hematocrit 31.5 % (37.0-47.0); Hemoglobin 9.3 g/dL (11.5-15.3); Lymphocytes # 1.8 10^3/uL (0.8-4.8); Mean Corpuscular HGB Conc 29.5 g/dL (30.0-36.0); Mean Corpuscular Volume 94.9 fl (81-99); Mean Platelet Volume 10.3 fL (7.4-10.4); Monocytes # 0.7 10^3/uL (0.2-0.9); Monocytes % 6.5 %; Neutrophils % 74.7 %; Nucleated Red Blood Cells % 0 %; Platelet Count 355 10^3/cmm (130-400); Red Blood Count 3.32 10^6/uL (4.1-5.3); Red Cell Distribution Width 15.8 % (12.1-15.1); White Blood Count 10.6 10^3/uL (4.0-10.0)
--- NOTE | 2022-08-28 05:47 | PC.NURSE ---
Informed Dr Espinosa of patient's decreased output of 150ml this shift. Dr Roman is following.
[2022-08-28 05:49] LABS: Alanine Aminotransferase 206 U/L (0-33); Albumin Level 2.9 g/dL (3.5-5.2); Alkaline Phosphatase 158 U/L (35-105); Anion Gap 19.8 (5-19); Aspartate Amino Transferase 169 U/L (0-32); Calcium 8.1 mg/dL (8.5-10.5); Carbon Dioxide 26 mmol/L (22-29); Chloride 86 mmol/L (98-107); Globulin 3.4 g/dL (1.3-4.6); Glomerular Filtration Rate 12.7 mL/min (90-130); Glucose 286 mg/dL (65-115); Magnesium 1.9 mg/dL (1.7-2.3); Osmolality Calculated 307 mOsm/kg (285-295); Phosphorus 6.5 mg/dL (2.5-4.5); Potassium 4.8 mmol/L (3.5-5.1); Sodium 127 mmol/L (136-145); Total Bilirubin 0.4 mg/dL (0.15-1.2); Total Protein 6.3 g/dL (6.6-8.7); Uric Acid 17.7 mg/dL (2.4-5.7)
[2022-08-28 05:54] LABS: Blood Urea Nitrogen 105 mg/dL (8-23)
[2022-08-28 06:25] LABS: Glucose Point of Care 99 mg/dL (70-110)
--- NOTE | 2022-08-28 07:16 | PC.NURSE ---
Report taken from Elizabeth Araiza RN
[2022-08-28] MEDS: amiodarone 200 mg Tablet 400 MG PO ×2 (08:55→18:07)
[2022-08-28] MEDS: sevelamer 800 mg Tablet PO ×3 (08:55→18:07)
[2022-08-28] MEDS: tizanidine 4 mg Tablet PO ×3 (08:55→21:58)
[2022-08-28] MEDS: metoprolol tartrate 25 mg Tablet 37.5 MG PO ×2 (08:56→21:58)
[2022-08-28] MEDS: ketoconazole Cream 15 gm 1 APPLIC TOPICAL ×2 (08:58→18:08)
[2022-08-28] MEDS: predniSONE 10 mg Tablet PO (08:58)
[2022-08-28] MEDS: duloxetine 20 mg Capsule PO ×2 (08:58→19:43)
[2022-08-28] MEDS: pantoprazole DR 40 mg Tablet PO (08:58)
[2022-08-28] MEDS: lactobacillus 1 Tablet 1 TAB PO ×2 (08:58→18:07)
[2022-08-28] MEDS: triamcinolone 0.1% cream 15 gm 1 APPLIC TOPICAL ×2 (08:58→18:08)
[2022-08-28] MEDS: HYDROcodone-acetaminophen 5-325 mg Tablet 1 TAB PO ×2 (08:58→22:32)
[2022-08-28] MEDS: docusate sodium 100 mg Capsule PO ×2 (08:58→19:43)
--- NOTE | 2022-08-28 09:03 | PC.NURSE ---
Physician orders to stop amiodarone gtt, transitioning to PO amiodarone.
--- NOTE | 2022-08-28 10:40 | P.PN_ITS ---
Subjective Subjective: Patient is feeling better heart rate is under control still in A- fib Medications: Reviewed: Yes Medication Review Details: Generic Name Dose Route Start Last Admin Trade Name Leonora PRN Reason Stop Dose Admin Hydrocodone Bitart /Acetaminophen 1 tab 08/24/22 15:00 08/27/22 08:50 Hydrocodone-Acet aminophen 5-325 Mg Tablet PO 1 tab TID@ JOHANN Administration Amiodarone HCl 400 mg 08/26/22 09:00 08/27/22 08:51 Amiodarone 200 M g Tablet PO 400 mg BID JOHANN Administration Atorvastatin Calci um 80 mg 08/24/22 21:00 08/26/22 20:54 Atorvastatin 40 Mg Tablet PO 80 mg BEDTIME JOHANN Administration Docusate Sodium 100 mg 08/24/22 20:00 08/27/22 08:50 Docusate Sodium 100 Mg Capsule PO 100 mg BID@0800,2000 JOHANN Administration Duloxetine HCl 20 mg 08/24/22 20:00 08/27/22 08:52 Duloxetine 20 Mg Capsule PO 20 mg BID@ JOHANN Administration Enoxaparin Sodium 120 mg 08/25/22 12:00 08/27/22 11:59 Enoxaparin 120 M g/0.8 Ml Syringe SUBCUT 120 mg Q24H JOHANN Administration Ergocalciferol 50,000 unit 08/25/22 12:00 08/25/22 12:03 Ergocalciferol ( Vitamin D2) 50,000 Unit Capsule PO 50,000 unit Q7D JOHANN Administration Amiodarone HCl 900 mg/ 518 mls @ 0 mls/h r 08/24/22 08:45 08/27/22 01:56 Dextrose/ IV Misce llaneous IV 0.5 mg/min Supplies .Q0M JOHANN 17.27 mls/hr Administration Protocol Per Protocol Ceftriaxone Sodium 1,000 mg/ 50 mls @ 100 mls/ hr 08/24/22 16:30 08/26/22 20:08 Sodium Chloride IV Infused Q24H [facility] Infusion Protocol Insulin Glargine 30 unit 08/26/22 21:00 08/26/22 21:08 Insulin Glargine 100 Units/1 Ml SUBCUT 30 unit BEDTIME JOHANN Administration Insulin Human Lisp ro 0 unit 08/24/22 21:00 08/26/22 20:54 Insulin Lispro 1 00 Unit/1 Ml SUBCUT 1 unit BEDTIME JOHANN Administration Protocol Insulin Human Lisp ro 0 unit 08/24/22 18:00 08/27/22 12:00 Insulin Lispro 1 00 Unit/1 Ml SUBCUT 2 unit TIDWM JOHANN Administration Protocol Ketoconazole 1 applic 08/24/22 18:00 08/27/22 08:53 Ketoconazole Cre am 15 Gm TOPICAL 1 applic BID JOHANN Administration Lactobacillus Acid ophilus 1 tab 08/24/22 18:00 08/27/22 08:50 Lactobacillus 1 Tablet PO 1 tab BID JOHANN Administration Metoprolol Tartrat e 37.5 mg 08/26/22 21:00 08/27/22 08:51 Metoprolol Tartr ate 25 Mg Tablet PO 37.5 mg BID@0900,2100 JOHANN Administration Pantoprazole Sodiu m 40 mg 08/25/22 08:00 08/27/22 08:[address] 40 Mg Tablet PO 40 mg DAILY@0800 JOHANN Administration Prednisone 10 mg 08/25/22 08:00 08/27/22 08:50 Prednisone 10 Mg Tablet PO 10 mg DAILY@0800 JOHANN Administration Sevelamer Carbonat e 800 mg 08/25/22 12:00 08/27/22 12:00 Sevelamer 800 Mg Tablet PO 800 mg TIDWM JOHANN Administration Tizanidine HCl 4 mg 08/24/22 15:00 08/27/22 08:52 Tizanidine 4 Mg Tablet PO 4 mg TID JOHANN Administration Triamcinolone Acet onide 1 applic 08/24/22 18:00 08/27/22 08:53 Triamcinolone 0. 1% Cream 15 Gm TOPICAL 1 applic BID JOHANN Administration Vitals/I&O/Wt Last Vital Signs Temp 98.0 F 08/28/22 07:47 Pulse 96 08/28/22 08:00 Resp 14 08/28/22 07:47 BP 128/91 08/28/22 07:47 Pulse Ox 90 08/28/22 08:00 O2 Del Method 08/28/22 08:00 O2 Flow Rate 2 08/28/22 08:00 08/27/22 08/28/22 08/28/22 22:59 06:59 14:59 Intake Total 650 / 1250 450 / 1700 518 / 518 Output Total 100 / 100 150 / 250 Balance 550 / 1150 300 / 1450 518 / 518 Physical Exam Narrative: Patient is awake and oriented x3 No JVD cyanosis icterus Heart irregularly irregular S1-S2 Abdomen distended mildly tender [employer] grossly nonfocal Lower extremity 2+ edema Urinary Catheter Management: Culp: Cath Placed During This Visit: yes Reason for Continuing Indwelling Catheter: Accurate Measurement of Urinary Output in Critically Ill Patients Urinary Catheter Date of Insertion: 08/24/22 Urinary Catheter Time of Insertion: 15:06 Data 08/28/22 04:10 08/28/22 04:10 A&P Assessment and plan (1) Atrial fibrillation with rapid ventricular response: Rate controlled, will consider dropping amiodarone to 400 once a day (2) Acute kidney injury: As per nephrology (3) Right upper quadrant abdominal pain: Continue antibiotics as per medicine (4) Diastolic heart failure: Continue IV diuresis as per nephrology Attestations Medical Necessity Statement*: Patient require continuation hospitalization for above defined care for Coding Level of Care Code Acute Code for [facility] Diagnoses Atrial fibrillation with rapid ventricular response I48.91 Acute kidney injury N17.9 Right upper quadrant abdominal pain R10.11 Diastolic heart failure I50.30
[2022-08-28 11:36] LABS: Glucose Point of Care 165 mg/dL (70-110)
[2022-08-28] MEDS: enoxaparin 120 mg/0.8 mL Syringe SUBCUT (12:19)
[2022-08-28] MEDS: insulin lispro 100 unit/1 mL SUBCUT ×3 (12:19→21:57)
--- NOTE | 2022-08-28 13:26 | PM.PN ---
Subjective Subjective: feels tired, swollen, denies chest pain, dyspnea Vitals/I&O/Wt Last Vital Signs Temp 98.0 F 08/28/22 07:47 Pulse 96 08/28/22 08:00 Resp 14 08/28/22 07:47 BP 128/91 08/28/22 07:47 Pulse Ox 90 08/28/22 08:00 O2 Del Method 08/28/22 08:00 O2 Flow Rate 2 08/28/22 08:00 08/27/22 08/28/22 08/28/22 22:59 06:59 14:59 Intake Total 650 / 1250 450 / 1700 518 / 518 Output Total 100 / 100 150 / 250 Balance 550 / 1150 300 / 1450 518 / 518 Physical Exam Const: COMMON NORMALS: no acute distress and alert Extremity: NARRATIVE EXTREMITY EXAM: edema Neuro: SENSORIUM/ORIENTATION: Yes alert Urinary Catheter Management: Culp: Cath Placed During This Visit: yes Reason for Continuing Indwelling Catheter: Accurate Measurement of Urinary Output in Critically Ill Patients Urinary Catheter Date of Insertion: 08/24/22 Urinary Catheter Time of Insertion: 15:06 Data 08/28/22 04:10 08/28/22 04:10 Other Labs: elevated transaminases uric acid 17.7 phos 6.5, PTH 309 TSAT 20, [place] [address] Ca 8.1, alb 2.9 CT Abd/Pel: Radiologist's impression: Right kidney: Normal size kidney with no mass or hydronephrosis. Left kidney: Normal size. Postsurgical changes along the mid kidney are unchanged. No obstruction. Other data: seen via telemedicine with assistance of RN A&P Assessment and plan (1) Acute kidney injury: Plan 1. Acute kidney injury, chronic kidney disease, minimal urine output 2. volume overload 3. anemia, high ferritin 4. CHF, atrial fibrillation 5. hyperphosphatemia, secondary hyperparathryroidism Recommend: IV furosemide 40 mg BID to start. Increase if needed to achieve negative fluid balance. Discussed indications for dialysis. Plan for AVF in October. May need dialysis via tunneled HD catheter prior to maturation of AVF. Discussed with hospitalist Attestations Medical Necessity Statement*: see above Time Spent in Patient Care: 16 - 35 minutes Coding Level of Care Code Acute Code for g Fwd Diagnoses Acute kidney injury N17.9
--- NOTE | 2022-08-28 14:29 | PM.PN ---
Subjective Subjective: Patient was seen and examined this morning, continues to be in A-fib with better controlled heart rate. Amiodarone drip has been discontinued, currently she is on p.o. amiodarone, will continue with loading dose protocol, and subsequently will transition to maintenance dose. Patient is currently complaining of generalized weakness, feels swollen.Minimal urine output with IV Lasix 40 given yesterday. Medications: Reviewed: Yes Medication Review Details: Generic Name Dose Route Start Last Admin Trade Name Leonora PRN Reason Stop Dose Admin Hydrocodone Bitart /Acetaminophen 1 tab 08/24/22 15:00 08/28/22 08:58 Hydrocodone-Acet aminophen 5-325 Mg Tablet PO 1 tab TID@ JOHANN Administration Amiodarone HCl 400 mg 08/26/22 09:00 08/28/22 08:55 Amiodarone 200 M g Tablet PO 400 mg BID JOHANN Administration Atorvastatin Calci um 80 mg 08/24/22 21:00 08/27/22 20:49 Atorvastatin 40 Mg Tablet PO 80 mg BEDTIME JOHANN Administration Docusate Sodium 100 mg 08/24/22 20:00 08/28/22 08:58 Docusate Sodium 100 Mg Capsule PO 100 mg BID@0800,2000 JOHANN Administration Duloxetine HCl 20 mg 08/24/22 20:00 08/28/22 08:58 Duloxetine 20 Mg Capsule PO 20 mg BID@08,20 JOHANN Administration Enoxaparin Sodium 120 mg 08/25/22 12:00 08/28/22 12:19 Enoxaparin 120 M g/0.8 Ml Syringe SUBCUT 120 mg Q24H JOHANN Administration Ergocalciferol 50,000 unit 08/25/22 12:00 08/25/22 12:03 Ergocalciferol ( Vitamin D2) 50,000 Unit Capsule PO 50,000 unit Q7D JOHANN Administration Gabapentin 100 mg 08/27/22 20:00 08/27/22 20:49 Gabapentin 100 M g Capsule PO 100 mg BEDTIME@20 JOHANN Administration Amiodarone HCl 900 mg/ 518 mls @ 0 mls/h r 08/24/22 08:45 08/28/22 09:02 Dextrose/ IV Misce llaneous IV Infused Supplies .Q0M JOHANN Titration Protocol Per Protocol Ceftriaxone Sodium 1,000 mg/ 50 mls @ 100 mls/ hr 08/24/22 16:30 08/27/22 19:15 Sodium Chloride IV Infused Q24H JOHANN Infusion Protocol Insulin Glargine 30 unit 08/26/22 21:00 08/27/22 20:50 Insulin Glargine 100 Units/1 Ml SUBCUT 30 unit BEDTIME JOHANN Administration Insulin Human Lisp ro 0 unit 08/24/22 21:00 08/27/22 20:49 Insulin Lispro 1 00 Unit/1 Ml SUBCUT 1 unit BEDTIME JOHANN Administration Protocol Insulin Human Lisp ro 0 unit 08/24/22 18:00 08/28/22 12:19 Insulin Lispro 1 00 Unit/1 Ml SUBCUT 2 unit TIDWM JOHANN Administration Protocol Ketoconazole 1 applic 08/24/22 18:00 08/28/22 08:58 Ketoconazole Cre am 15 Gm TOPICAL 1 applic BID JOHANN Administration Lactobacillus Acid ophilus 1 tab 08/24/22 18:00 08/28/22 08:58 Lactobacillus 1 Tablet PO 1 tab BID JOHANN Administration Metoprolol Tartrat e 37.5 mg 08/26/22 21:00 08/28/22 08:56 Metoprolol Tartr ate 25 Mg Tablet PO 37.5 mg BID@0900,2100 JOHANN Administration Pantoprazole Sodiu m 40 mg 08/25/22 08:00 08/28/22 08:[address] 40 Mg Tablet PO 40 mg DAILY@0800 JOHANN Administration Prednisone 10 mg 08/25/22 08:00 08/28/22 08:58 Prednisone 10 Mg Tablet PO 10 mg DAILY@0800 JOHANN Administration Sevelamer Carbonat e 800 mg 08/25/22 12:00 08/28/22 12:19 Sevelamer 800 Mg Tablet PO 800 mg TIDWM JOHANN Administration Tizanidine HCl 4 mg 08/24/22 15:00 08/28/22 08:55 Tizanidine 4 Mg Tablet PO 4 mg TID JOHANN Administration Triamcinolone Acet onide 1 applic 08/24/22 18:00 08/28/22 08:58 Triamcinolone 0. 1% Cream 15 Gm TOPICAL 1 applic BID JOHANN Administration Vitals/I&O/Wt Last Vital Signs Temp 98.0 F 08/28/22 07:47 Pulse 96 08/28/22 08:00 Resp 14 08/28/22 07:47 BP 128/91 08/28/22 07:47 Pulse Ox 90 08/28/22 08:00 O2 Del Method 08/28/22 08:00 O2 Flow Rate 2 08/28/22 08:00 08/27/22 08/28/22 08/28/22 22:59 06:59 14:59 Intake Total 650 / 1250 450 / 1700 518 / 518 Output Total 100 / 100 150 / 250 Balance 550 / 1150 300 / 1450 518 / 518 Physical Exam Const: COMMON NORMALS: patient oriented x3 HENMT: COMMON NORMALS: normocephalic and atraumatic HEAD & SCALP: normocephalic and atraumatic Resp: COMMON NORMALS: clear to auscultation bilaterally EFFORT & INSPECTION: Yes symmetric chest movement AUSCULTATION: clear to auscultation bilaterally OTHER: Bilateral crackles in both the lungs field, diminished air entry bilaterally Cardio: COMMON NORMALS: regular rate, regular rhythm, S1 normal heart sound present, S2 normal heart sound present, No gallops present (Cardio), No murmurs present (Cardio), No rub (Cardio) and Peripheral pulses 2+ throughout RATE: regular rate RHYTHM: regular rhythm HEART SOUNDS: S1 normal heart sound present and S2 normal heart sound present PERIPHERAL PULSES: Peripheral pulses 2+ throughout GI: COMMON NORMALS: Normal to inspection, nondistended, normoactive bowel sounds present, Soft to palpation, non-tender, No hepatosplenomegaly present and no masses AUSCULTATION: Yes normoactive bowel sounds PALPATION: Yes Soft to palpation and Yes No hepatosplenomegaly present RECTAL EXAM: deferred Extremity: NARRATIVE EXTREMITY EXAM: 3+ b/l lower extremity pitting edema Neuro: COMMON NORMALS: patient oriented x3 Urinary Catheter Management: Culp: Cath Placed During This Visit: yes Reason for Continuing Indwelling Catheter: Accurate Measurement of Urinary Output in Critically Ill Patients Urinary Catheter Date of Insertion: 08/24/22 Urinary Catheter Time of Insertion: 15:06 Data 08/28/22 04:10 08/28/22 04:10 A&P Assessment and plan (1) Right upper quadrant abdominal pain: Chronic at this point in time. Could be gallbladder colic but suspect secondary to hepatic congestion/contraction. Not currently consistent with acute cholecystitis. Ultrasound on August 19 from outside source did not show any pericholecystic fluid though there was some gallbladder wall thickening. No mention of stones. Common bile duct was 4.3 mm. In addition to the abdominal pain, has had nausea, vomiting and loose stools as well. Azotemia may a contributor to current nausea and vomiting but symptoms have been recently present at levels I would not expect to cause GI symptoms. EGD and colonoscopy were done in 2020 with finding of small hiatal hernia and 1 antral polyp that was removed along with submucosal lipoma on the colonoscopy. Medication effect also within the differential. She is currently on treatment for urinary tract infection. Has a history of recurrent UTIs which can contribute to GI symptoms. Family also indicates a history of renal stones. None were noted on imaging with no obstructive process in the urinary tree. This is patient's primary complaint. (2) Atrial fibrillation with rapid ventricular response: Appears to have been identified initially in July of this year when twelve-lead EKG at outside facility showed atrial flutter. Rate was 100 or below at the time. Like this admission patient's primary complaint was abdominal pain and GI symptoms. Onset of RVR appears to have been within the last 24 to 48 hours. Patient has known diastolic CHF, untreated sleep apnea due to intolerance of CPAP/BiPAP, progressively worsening chronic kidney disease and BMI of 49, among other chronic diagnoses that might contribute. Clinically she looks a bit dry. She has had adjustments to her diuretic regimen recently initially with a decrease and diuretic dose followed by resumption of previous 3 mg twice daily Bumex dosing along with metolazone. She has not responded to diltiazem in the emergency room. Amiodarone drip has been initiated without any improvement and esmolol drip was subsequently started with slight improvement with heart rate from 140s to 120s. She is not on any chronic anticoagulation nor chronic rate controlling agents though she does have a permanent pacemaker due to a history of third-degree AV block back in 2020. (3) Acute kidney injury: On top of chronic kidney disease stage IV. Patient is on the schedule to have a fistula placed in October of this year and as it is anticipated that she will eventually need dialysis. Baseline creatinine probably around 2 or just above though difficult to ascertain if she has significant variability between acute clinical presentations and values at discharge when she is probably more adequately diuresed. Azotemia to the degree she is presenting with today is higher however. Well having some nausea and vomiting. She has minimal itching that does not appear worse than baseline. Mental status has been okay. Follows with Dr. Soto clinic outpatient. (4) Acute on chronic heart failure with preserved ejection fraction: Known to have severe pulmonary hypertension. While she may be total body volume overloaded, appears intravascularly dry presently. Appears to have a narrow window between under and overdiuresis on review of some previous records. (5) UTI (urinary tract infection): Present on admission, organism unknown, on treatment with doxycycline prior to admission initiated on 08/18/2022. Has a history of recurrent UTIs. 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 (9) Dyslipidemia: On chronic statin therapy (10) CHANNING (obstructive sleep apnea): Untreated due to intolerant of CPAP or BiPAP despite trying every combination of mask. Does use oxygen by nasal cannula. (11) Hypothyroid: Diagnosis per old records. Not on chronic treatment. Recent TSH and free T4 at outside facility normal in July 2022. (12) Rheumatoid arthritis with negative rheumatoid factor: Treated with oral prednisone and as needed pain medications. Not on any biologic agents currently though had previously been on Actemra. (13) GERD (gastroesophageal reflux disease): With small hiatal hernia, chronically on PPI daily (14) BMI 45.0-49.9, adult: (15) Transaminitis: (16) Severe pulmonary hypertension: (17) Status post placement of other cardiac pacemaker: Plan 66-year-old female with past medical history of hypertension diabetes, CKD stage4, recurrent UTI,HFpEF, morbid obesity, hypothyroidism,RA on prednisone, obstructive sleep apnea, Anemia, resident at [facility] came in with chief complaint of left upper quadrant abdominal pain, nausea and vomiting daily, a tightness sensation in her chest and shortness of breath.? The abdominal pain has been going on for more than a month now.? She was found to be in A-fib with RVR and had to be started on initially on esmolol drip, followed by amiodarone drip as she became hypotensive on esmolol drip. Currently she is being managed for. Assessment: A-fib with RVR: Follow-up 2D echo TSH: Currently on amiodarone drip,As well as metoprolol tartrate 25 mg p.o. twice daily CHADVASC score of: 4 , (hypertension diabetes, CHF, female sex) On therapeutic anticoagulation with [facility] on board, for possible ESTHELA cardioversion, if she fails to respond to current antiarrhythmic as well as lane blocking agent. COLE on CKD stage IV: Baseline serum creatinine is around 2 Admission serum creatinine 2.7 CT abdomen and pelvis without contrast: Has not shown any obstructive uropathy Currently on gentle IV hydration Monitor BMP Monitor intake output charting Avoid nephrotoxic's Nephrology on board Patient was scheduled to have fistula as outpatient OCTOBER, it was planned by her primary cardiopulmonary supervisor. History of recurrent UTI: Urine culture has also grown ESBL in the past appears to be likely colonization/ Currently she is on ceftriaxone Follow blood culture: NTD Urine culture She was on doxycycline recently as outpatient for 10 days Transaminitis: Could be possibly secondary to congestive hepatopathy AST 28--: 703--> 317-->261 ALT 40 -->278--> 245 -->254 ALP:202 ---->179 ---> 183 --> 171 CT abdomen and pelvis has shown cholelithiasis, without evidence of acute cholecystitis ultrasound abdomen: No cholelithiasis.Very mild gallbladder wall thickening may be due to hepatocellular disease. Mild hepatic enlargement. Monitor CMP Closely monitor LFTs as patient has been started on amiodarone HFpEF : Decompensated Has been on Bumex as outpatient, currently on hold. Currently on Lasix 40 IV twice daily Monitor intake output charting Monitor daily weight Monitor electrolytes History of hypertension: Continue hydralazine, metoprolol History of diabetes: Continue Lantus 30 subcu at bedtime,LDSSI, monitor fingerstick glucose, diabetic diet History of hypothyroidism: Continue levothyroxine History of rheumatoid arthritis: Continue prednisone, has been on Actemra in the past History of sleep apnea: Has been on BiPAP in the past History of severe pulmonary hypertension: Could be related to sleep apnea as well as morbid obesity and heart failure Pulmonary follow-up as outpatient CODE STATUS: Full code DVT prophylaxis: Currently on therapeutic anticoagulation Attestations Medical Necessity Statement*: Needs to be in hospital for management of COLE, A-fib. Coding Level of Care Code 48771 Diagnoses Right upper quadrant abdominal pain R10.11 Atrial fibrillation with rapid ventricular response I48.91 Acute kidney injury N17.9 Acute on chronic heart failure with preserved ejection fraction I50.33 UTI (urinary tract infection) N39.0 Insulin dependent type 2 diabetes mellitus E11.9; Z79.4 Anemia D64.9 High risk medication use Z79.899 Dyslipidemia E78.5 CHANNING (obstructive sleep apnea) G47.33 Hypothyroid E03.9 Rheumatoid arthritis with negative rheumatoid factor M06.00 GERD (gastroesophageal reflux disease) K21.9 BMI 45.0-49.9, adult Z68.42 Transaminitis R74.01 Severe pulmonary hypertension I27.20 Status post placement of other cardiac pacemaker Z95.0
[2022-08-28] MEDS: cefTRIAXone 1,000 MG in sodium chloride 0.9% (plus) 50 ML 100 MG IV (16:11)
[2022-08-28] MEDS: FUROsemide 10 mg/mL SDV 4mL 40 MG IVP (16:12)
[2022-08-28 18:12] LABS: Glucose Point of Care 171 mg/dL (70-110)
[2022-08-28] MEDS: gabapentin 100 mg Capsule PO (19:43)
[2022-08-28 21:23] LABS: Glucose Point of Care 157 mg/dL (70-110)
[2022-08-28] MEDS: insulin glargine 100 units/1 mL 30 UNIT SUBCUT (21:57)
[2022-08-28] MEDS: atorvastatin 40 mg Tablet 80 MG PO (21:58)
--- NOTE | 2022-08-28 22:26 | PC.NURSE ---
Spoke with regarding patients scheduled pain medication discontinued, appeared that it was due to be renewed and wasn't. The patient is complaining of 7/ack pain requesting her medication. The patients PRN Durham is also on hold due to patient lethargy when she was first admitted. took the hold off the PRN Durham so the patient can be medicated for pain tonight.
[2022-08-29] VITALS (22 sets, daily range): BP systolic 113–124; BP diastolic 77–97; PULSE 67–101; RESP 10–25; TEMP 35.7–36.7; O2SAT 94–100
[2022-08-29] MEDS: FUROsemide 10 mg/mL SDV 4mL 40 MG IVP ×2 (02:35→13:47)
[2022-08-29 06:25] LABS: Glucose Point of Care 116 mg/dL (70-110)
--- NOTE | 2022-08-29 07:54 | PM.PN ---
Subjective Subjective: no new complaints Vitals/I&O/Wt Last Vital Signs Temp 98.0 F 08/29/22 04:00 Pulse 85 08/29/22 07:42 Resp 18 08/29/22 04:00 BP 124/82 08/29/22 04:00 Pulse Ox 95 08/29/22 07:42 O2 Del Method 08/29/22 07:42 O2 Flow Rate 2 08/29/22 07:42 08/28/22 08/29/22 08/29/22 22:59 06:59 14:59 Intake Total 630 / 1268 490 / 1758 Output Total 250 / 250 400 / 650 Balance 380 / 1018 90 / 1108 Physical Exam Const: COMMON NORMALS: no acute distress and alert Extremity: NARRATIVE EXTREMITY EXAM: + edema Neuro: SENSORIUM/ORIENTATION: Yes alert Urinary Catheter Management: Culp: Cath Placed During This Visit: yes Reason for Continuing Indwelling Catheter: Acute Urinary Retention or Obstruction Urinary Catheter Date of Insertion: 08/24/22 Urinary Catheter Time of Insertion: 15:06 Data 08/28/22 04:10 08/28/22 04:10 Micro: Microbiology 08/24/22 07:36 Blood Culture - Final Blood NO GROWTH AFTER 5 DAYS 08/24/22 07:32 Blood Culture - Final Blood NO GROWTH AFTER 5 DAYS Other data: seen via telemedicine with assistance of RN at bedside A&P Assessment and plan (1) Acute kidney injury: Plan 1. Acute kidney injury, chronic kidney disease, urine output better, BUN rising 2. volume overload, CHF, atrial fibrillation 3. hyponatremia improved 4. anemia, high ferritin 5. hyperphosphatemia, secondary hyperparathryroidism Recommend: continue IV furosemide 40 mg BID. Increase if needed to achieve negative fluid balance. Discussed indications for dialysis. Recommend HD start if no improvement in 48h. Consult surgery for tunneled HD catheter placement Wednesday. Attestations Medical Necessity Statement*: see above Time Spent in Patient Care: 16 - 35 minutes Coding Level of Care Code Acute Code for g Fwd Diagnoses Acute kidney injury N17.9
[2022-08-29] MEDS: tizanidine 4 mg Tablet PO ×3 (08:24→21:16)
[2022-08-29] MEDS: amiodarone 200 mg Tablet 400 MG PO ×2 (08:24→18:16)
[2022-08-29] MEDS: metoprolol tartrate 25 mg Tablet 37.5 MG PO ×2 (08:25→21:16)
[2022-08-29] MEDS: duloxetine 20 mg Capsule PO ×2 (08:27→21:16)
[2022-08-29] MEDS: pantoprazole DR 40 mg Tablet PO (08:27)
[2022-08-29] MEDS: sevelamer 800 mg Tablet PO ×3 (08:27→18:16)
[2022-08-29] MEDS: predniSONE 10 mg Tablet PO (08:28)
[2022-08-29] MEDS: ketoconazole Cream 15 gm 1 APPLIC TOPICAL ×2 (08:29→18:17)
[2022-08-29] MEDS: triamcinolone 0.1% cream 15 gm 1 APPLIC TOPICAL ×2 (08:29→18:17)
[2022-08-29] MEDS: docusate sodium 100 mg Capsule PO (08:31)
[2022-08-29] MEDS: HYDROcodone-acetaminophen 5-325 mg Tablet 1 TAB PO ×3 (08:32→22:48)
[2022-08-29] MEDS: lactobacillus 1 Tablet 1 TAB PO (08:32)
[2022-08-29 09:40] LABS: Anion Gap 17.8 (5-19); Calcium 8.6 mg/dL (8.5-10.5); Carbon Dioxide 30 mmol/L (22-29); Chloride 89 mmol/L (98-107); Creatinine Clr Calc Pharmacy 19.0806; Glomerular Filtration Rate 12.3 mL/min (90-130); Glucose 115 mg/dL (65-115); Potassium 4.8 mmol/L (3.5-5.1); Sodium 132 mmol/L (136-145)
[2022-08-29 10:06] LABS: Osmolality Calculated 311 mOsm/kg (285-295)
[2022-08-29 10:07] LABS: Blood Urea Nitrogen 113 mg/dL (8-23)
[2022-08-29 11:26] LABS: Vit D 1,25 (Oh)2, Total 20 pg/mL (18-72); Vit D2 1,25 (Oh)2 9 pg/mL; Vit D3 1,25 (Oh)2 11 pg/mL
[2022-08-29 11:29] LABS: Glucose Point of Care 142 mg/dL (70-110)
--- NOTE | 2022-08-29 12:00 | P.PN_ITS ---
Subjective Subjective: Denies any complaint. Medications: Reviewed: Yes Medication Review Details: Generic Name Dose Route Start Last Admin Trade Name Leonora PRN Reason Stop Dose Admin Hydrocodone Bitart /Acetaminophen 1 tab 08/24/22 15:00 08/28/22 08:58 Hydrocodone-Acet aminophen 5-325 Mg Tablet PO 1 tab TID@ JOHANN Administration Amiodarone HCl 400 mg 08/26/22 09:00 08/28/22 08:55 Amiodarone 200 M g Tablet PO 400 mg BID JOHANN Administration Atorvastatin Calci um 80 mg 08/24/22 21:00 08/27/22 20:49 Atorvastatin 40 Mg Tablet PO 80 mg BEDTIME JOHANN Administration Docusate Sodium 100 mg 08/24/22 20:00 08/28/22 08:58 Docusate Sodium 100 Mg Capsule PO 100 mg BID@0800,2000 JOHANN Administration Duloxetine HCl 20 mg 08/24/22 20:00 08/28/22 08:58 Duloxetine 20 Mg Capsule PO 20 mg BID@08, JHOANN Administration Enoxaparin Sodium 120 mg 08/25/22 12:00 08/28/22 12:19 Enoxaparin 120 M g/0.8 Ml Syringe SUBCUT 120 mg Q24H JOHANN Administration Ergocalciferol 50,000 unit 08/25/22 12:00 08/25/22 12:03 Ergocalciferol ( Vitamin D2) 50,000 Unit Capsule PO 50,000 unit Q7D JOHANN Administration Gabapentin 100 mg 08/27/22 20:00 08/27/22 20:49 Gabapentin 100 M g Capsule PO 100 mg BEDTIME@20 JOHANN Administration Amiodarone HCl 900 mg/ 518 mls @ 0 mls/h r 08/24/22 08:45 08/28/22 09:02 Dextrose/ IV Misce llaneous IV Infused Supplies .Q0M JOHANN Titration Protocol Per Protocol Ceftriaxone Sodium 1,000 mg/ 50 mls @ 100 mls/ hr 08/24/22 16:30 08/27/22 19:15 Sodium Chloride IV Infused Q24H JOHANN Infusion Protocol Insulin Glargine 30 unit 08/26/22 21:00 08/27/22 20:50 Insulin Glargine 100 Units/1 Ml SUBCUT 30 unit BEDTIME JOHANN Administration Insulin Human Lisp ro 0 unit 08/24/22 21:00 08/27/22 20:49 Insulin Lispro 1 00 Unit/1 Ml SUBCUT 1 unit BEDTIME JOHANN Administration Protocol Insulin Human Lisp ro 0 unit 08/24/22 18:00 08/28/22 12:19 Insulin Lispro 1 00 Unit/1 Ml SUBCUT 2 unit TIDWM JOHANN Administration Protocol Ketoconazole 1 applic 08/24/22 18:00 08/28/22 08:58 Ketoconazole Cre am 15 Gm TOPICAL 1 applic BID JOHANN Administration Lactobacillus Acid ophilus 1 tab 08/24/22 18:00 08/28/22 08:58 Lactobacillus 1 Tablet PO 1 tab BID JOHANN Administration Metoprolol Tartrat e 37.5 mg 08/26/22 21:00 08/28/22 08:56 Metoprolol Tartr ate 25 Mg Tablet PO 37.5 mg BID@0900,2100 JOHANN Administration Pantoprazole Sodiu m 40 mg 08/25/22 08:00 08/28/22 08:[address] 40 Mg Tablet PO 40 mg DAILY@0800 JOHANN Administration Prednisone 10 mg 08/25/22 08:00 08/28/22 08:58 Prednisone 10 Mg Tablet PO 10 mg DAILY@0800 JOHANN Administration Sevelamer Carbonat e 800 mg 08/25/22 12:00 08/28/22 12:19 Sevelamer 800 Mg Tablet PO 800 mg TIDWM JOHANN Administration Tizanidine HCl 4 mg 08/24/22 15:00 08/28/22 08:55 Tizanidine 4 Mg Tablet PO 4 mg TID JOHANN Administration Triamcinolone Acet onide 1 applic 08/24/22 18:00 08/28/22 08:58 Triamcinolone 0. 1% Cream 15 Gm TOPICAL 1 applic BID JOHANN Administration Vitals/I&O/Wt Last Vital Signs Temp 98.0 F 08/29/22 04:00 Pulse 98 08/29/22 08:00 Resp 21 H 08/29/22 08:00 BP 124/82 08/29/22 08:00 Pulse Ox 95 08/29/22 07:42 O2 Del Method 08/29/22 07:42 O2 Flow Rate 2 08/29/22 07:42 08/28/22 08/29/22 08/29/22 22:59 06:59 14:59 Intake Total 630 / 1268 490 / 1758 480 / 480 Output Total 250 / 250 400 / 650 Balance 380 / 1018 90 / 1108 480 / 480 Physical Exam Narrative: Patient is awake and oriented x3, laying in the bed No JVD cyanosis icterus Heart irregularly irregular S1-S2 Abdomen distended mildly tender [employer] grossly nonfocal Lower extremity 2+ edema but improving Urinary Catheter Management: Culp: Cath Placed During This Visit: yes Reason for Continuing Indwelling Catheter: Acute Urinary Retention or Ob struction Urinary Catheter Date of Insertion: 08/24/22 Urinary Catheter Time of Insertion: 15:06 Data 08/28/22 04:10 08/29/22 09:08 Micro: Microbiology 08/24/22 07:36 Blood Culture - Final Blood NO GROWTH AFTER 5 DAYS 08/24/22 07:32 Blood Culture - Final Blood NO GROWTH AFTER 5 DAYS A&P Assessment and plan (1) Atrial fibrillation with rapid ventricular response: Rate controlled continue medicine continue anticoagulation (2) Acute kidney injury: Nephrology on the case (3) Right upper quadrant abdominal pain: Continue antibiotics as per medicine (4) Diastolic heart failure: Continue diuresis Attestations Medical Necessity Statement*: Patient require continuation hospitalization for above defined care Coding Level of Care Code Acute Code for [facility] Fwd Diagnoses Atrial fibrillation with rapid ventricular response I48.91 Acute kidney injury N17.9 Right upper quadrant abdominal pain R10.11 Diastolic heart failure I50.30
--- NOTE | 2022-08-29 13:32 | PM.PN ---
Subjective Subjective: Patient was seen and examined this morning, no acute events overnight, continues to be in A-fib. Currently she is on IV diuresis, with uptrending BUN and serum creatinine. Medications: Reviewed: Yes Medication Review Details: Generic Name Dose Route Start Last Admin Trade Name Freq PRN Reason Stop Dose Admin Hydrocodone Bitart /Acetaminophen 1 tab 08/24/22 13:50 08/29/22 08:32 Hydrocodone-Acet aminophen 5-325 Mg Tablet PO 1 tab Q6H PRN Administration mod to sev breakt hrough pain Amiodarone HCl 400 mg 08/26/22 09:00 08/29/22 08:24 Amiodarone 200 M g Tablet PO 400 mg BID JOHANN Administration Atorvastatin Calci um 80 mg 08/24/22 21:00 08/28/22 21:58 Atorvastatin 40 Mg Tablet PO 80 mg BEDTIME JOHANN Administration Docusate Sodium 100 mg 08/24/22 20:00 08/29/22 08:31 Docusate Sodium 100 Mg Capsule PO 100 mg BID@0800,2000 JOHANN Administration Duloxetine HCl 20 mg 08/24/22 20:00 08/29/22 08:27 Duloxetine 20 Mg Capsule PO 20 mg BID@08,20 JOHANN Administration Enoxaparin Sodium 120 mg 08/25/22 12:00 08/28/22 12:19 Enoxaparin 120 M g/0.8 Ml Syringe SUBCUT 120 mg Q24H JOHANN Administration Ergocalciferol 50,000 unit 08/25/22 12:00 08/25/22 12:03 Ergocalciferol ( Vitamin D2) 50,000 Unit Capsule PO 50,000 unit Q7D JOHANN Administration Furosemide 40 mg 08/28/22 14:30 08/29/22 02:35 Furosemide 10 Mg /Ml Sdv 4ml IVP 40 mg Q12H JOHANN Administration Gabapentin 100 mg 08/27/22 20:00 08/28/22 19:43 Gabapentin 100 M g Capsule PO 100 mg BEDTIME@20 JOHANN Administration Amiodarone HCl 900 mg/ 518 mls @ 0 mls/h r 08/24/22 08:45 08/28/22 09:02 Dextrose/ IV Misce llaneous IV Infused Supplies .Q0M JOHANN Titration Protocol Per Protocol Ceftriaxone Sodium 1,000 mg/ 50 mls @ 100 mls/ hr 08/24/22 16:30 08/28/22 16:55 Sodium Chloride IV Infused Q24H JOHANN Infusion Protocol Insulin Glargine 30 unit 08/26/22 21:00 08/28/22 21:57 Insulin Glargine 100 Units/1 Ml SUBCUT 30 unit BEDTIME JOHANN Administration Insulin Human Lisp ro 0 unit 08/24/22 21:00 08/28/22 21:57 Insulin Lispro 1 00 Unit/1 Ml SUBCUT 1 unit BEDTIME JOHANN Administration Protocol Insulin Human Lisp ro 0 unit 08/24/22 18:00 08/29/22 12:46 Insulin Lispro 1 00 Unit/1 Ml SUBCUT Not Given TIDWM [facility] Protocol Ketoconazole 1 applic 08/24/22 18:00 08/29/22 08:29 Ketoconazole Cre am 15 Gm TOPICAL 1 applic BID JOHANN Administration Lactobacillus Acid ophilus 1 tab 08/24/22 18:00 08/29/22 08:32 Lactobacillus 1 Tablet PO 1 tab BID JOHANN Administration Metoprolol Tartrat e 37.5 mg 08/26/22 21:00 08/29/22 08:25 Metoprolol Tartr ate 25 Mg Tablet PO 37.5 mg BID@0900,2100 JOHANN Administration Pantoprazole Sodiu m 40 mg 08/25/22 08:00 08/29/22 08:[address] 40 Mg Tablet PO 40 mg DAILY@0800 JOHANN Administration Prednisone 10 mg 08/25/22 08:00 08/29/22 08:28 Prednisone 10 Mg Tablet PO 10 mg DAILY@0800 JOHANN Administration Sevelamer Carbonat e 800 mg 08/25/22 12:00 08/29/22 08:27 Sevelamer 800 Mg Tablet PO 800 mg TIDWM JOHANN Administration Tizanidine HCl 4 mg 08/24/22 15:00 08/29/22 08:24 Tizanidine 4 Mg Tablet PO 4 mg TID JOHANN Administration Triamcinolone Acet onide 1 applic 08/24/22 18:00 08/29/22 08:29 Triamcinolone 0. 1% Cream 15 Gm TOPICAL 1 applic BID JOHANN Administration Vitals/I&O/Wt Last Vital Signs Temp 96.3 F L 08/29/22 09:00 Pulse 93 08/29/22 12:00 Resp 15 08/29/22 12:00 BP 113/88 08/29/22 12:00 Pulse Ox 95 08/29/22 07:42 O2 Del Method 08/29/22 07:42 O2 Flow Rate 2 08/29/22 07:42 08/28/22 08/29/22 08/29/22 22:59 06:59 14:59 Intake Total 630 / 1268 490 / 1758 480 / 480 Output Total 250 / 250 400 / 650 Balance 380 / 1018 90 / 1108 480 / 480 Physical Exam Const: COMMON NORMALS: patient oriented x3 HENMT: COMMON NORMALS: normocephalic and atraumatic HEAD & SCALP: normocephalic and atraumatic Resp: COMMON NORMALS: clear to auscultation bilaterally EFFORT & INSPECTION: Yes symmetric chest movement AUSCULTATION: clear to auscultation bilaterally OTHER: Bilateral crackles in both the lungs field, diminished air entry bilaterally Cardio: COMMON NORMALS: regular rate, regular rhythm, S1 normal heart sound present, S2 normal heart sound present, No gallops present (Cardio), No murmurs present (Cardio), No rub (Cardio) and Peripheral pulses 2+ throughout RATE: regular rate RHYTHM: regular rhythm HEART SOUNDS: S1 normal heart sound present and S2 normal heart sound present PERIPHERAL PULSES: Peripheral pulses 2+ throughout GI: COMMON NORMALS: Normal to inspection, nondistended, normoactive bowel sounds present, Soft to palpation, non-tender, No hepatosplenomegaly present and no masses AUSCULTATION: Yes normoactive bowel sounds PALPATION: Yes Soft to palpation and Yes No hepatosplenomegaly present RECTAL EXAM: deferred Extremity: NARRATIVE EXTREMITY EXAM: 3+ b/l lower extremity pitting edema Neuro: COMMON NORMALS: patient oriented x3 Urinary Catheter Management: Culp: Cath Placed During This Visit: yes Reason for Continuing Indwelling Catheter: Acute Urinary Retention or Obstruction Urinary Catheter Date of Insertion: 08/24/22 Urinary Catheter Time of Insertion: 15:06 Data 08/28/22 04:10 08/29/22 09:08 Micro: Microbiology 08/29/22 05:55 C.difficile Toxin B Gene (PCR) - Final Stool - Stool Aspirate 08/24/22 07:36 Blood Culture - Final Blood NO GROWTH AFTER 5 DAYS 08/24/22 07:32 Blood Culture - Final Blood NO GROWTH AFTER 5 DAYS A&P Assessment and plan (1) Right upper quadrant abdominal pain: Chronic at this point in time. Could be gallbladder colic but suspect secondary to hepatic congestion/contraction. Not currently consistent with acute cholecystitis. Ultrasound on August 19 from outside source did not show any pericholecystic fluid though there was some gallbladder wall thickening. No mention of stones. Common bile duct was 4.3 mm. In addition to the abdominal pain, has had nausea, vomiting and loose stools as well. Azotemia may a contributor to current nausea and vomiting but symptoms have been recently present at levels I would not expect to cause GI symptoms. EGD and colonoscopy were done in 2020 with finding of small hiatal hernia and 1 antral polyp that was removed along with submucosal lipoma on the colonoscopy. Medication effect also within the differential. She is currently on treatment for urinary tract infection. Has a history of recurrent UTIs which can contribute to GI symptoms. Family also indicates a history of renal stones. None were noted on imaging with no obstructive process in the urinary tree. This is patient's primary complaint. (2) Atrial fibrillation with rapid ventricular response: Appears to have been identified initially in July of this year when twelve-lead EKG at outside facility showed atrial flutter. Rate was 100 or below at the time. Like this admission patient's primary complaint was abdominal pain and GI symptoms. Onset of RVR appears to have been within the last 24 to 48 hours. Patient has known diastolic CHF, untreated sleep apnea due to intolerance of CPAP/BiPAP, progressively worsening chronic kidney disease and BMI of 49, among other chronic diagnoses that might contribute. Clinically she looks a bit dry. She has had adjustments to her diuretic regimen recently initially with a decrease and diuretic dose followed by resumption of previous 3 mg twice daily Bumex dosing along with metolazone. She has not responded to diltiazem in the emergency room. Amiodarone drip has been initiated without any improvement and esmolol drip was subsequently started with slight improvement with heart rate from 140s to 120s. She is not on any chronic anticoagulation nor chronic rate controlling agents though she does have a permanent pacemaker due to a history of third-degree AV block back in 2019. (3) Acute kidney injury: On top of chronic kidney disease stage IV. Patient is on the schedule to have a fistula placed in October of this year and as it is anticipated that she will eventually need dialysis. Baseline creatinine probably around 2 or just above though difficult to ascertain if she has significant variability between acute clinical presentations and values at discharge when she is probably more adequately diuresed. Azotemia to the degree she is presenting with today is higher however. Well having some nausea and vomiting. She has minimal itching that does not appear worse than baseline. Mental status has been okay. Follows with Dr. Soto clinic outpatient. (4) Acute on chronic heart failure with preserved ejection fraction: Known to have severe pulmonary hypertension. While she may be total body volume overloaded, appears intravascularly dry presently. Appears to have a narrow window between under and overdiuresis on review of some previous records. (5) UTI (urinary tract infection): Present on admission, organism unknown, on treatment with doxycycline prior to admission initiated on 08/18/2022. Has a history of recurrent UTIs. 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 (9) Dyslipidemia: On chronic statin therapy (10) CHANNING (obstructive sleep apnea): Untreated due to intolerant of CPAP or BiPAP despite trying every combination of mask. Does use oxygen by nasal cannula. (11) Hypothyroid: Diagnosis per old records. Not on chronic treatment. Recent TSH and free T4 at outside facility normal in July 2022. (12) Rheumatoid arthritis with negative rheumatoid factor: Treated with oral prednisone and as needed pain medications. Not on any biologic agents currently though had previously been on Actemra. (13) GERD (gastroesophageal reflux disease): With small hiatal hernia, chronically on PPI daily (14) BMI 45.0-49.9, adult: (15) Transaminitis: (16) Severe pulmonary hypertension: (17) Status post placement of other cardiac pacemaker: Plan 66-year-old female with past medical history of hypertension diabetes, CKD stage4, recurrent UTI,HFpEF, morbid obesity, hypothyroidism,RA on prednisone, obstructive sleep apnea, Anemia, resident at [facility] came in with chief complaint of left upper quadrant abdominal pain, nausea and vomiting daily, a tightness sensation in her chest and shortness of breath.? The abdominal pain has been going on for more than a month now.? She was found to be in A-fib with RVR and had to be started on initially on esmolol drip, followed by amiodarone drip as she became hypotensive on esmolol drip. Currently she is being managed for. Assessment: A-fib with RVR: Follow-up 2D echo TSH: Currently on amiodarone drip,As well as metoprolol tartrate 25 mg p.o. twice daily CHADVASC score of: 4 , (hypertension diabetes, CHF, female sex) On therapeutic anticoagulation with Lovenox Cardiology on board, for possible ESTHELA cardioversion, if she fails to respond to current antiarrhythmic as well as lane blocking agent. COLE on CKD stage IV: Baseline serum creatinine is around 2 Admission serum creatinine 2.7 CT abdomen and pelvis without contrast: Has not shown any obstructive uropathy Currently on gentle IV hydration Monitor BMP Monitor intake output charting Avoid nephrotoxic's Nephrology on board Patient was scheduled to have fistula as outpatient OCTOBER, it was planned by her primary accounts receivable administrator. Nephrology intends to continue with IV diuresis, if no improvement in overall, renal function, then the plan is to place PermCath on Wednesday, and start patient on hemodialysis. History of recurrent UTI: Urine culture has also grown ESBL in the past appears to be likely colonization/ Currently she is on ceftriaxone Follow blood culture: NTD Urine culture She was on doxycycline recently as outpatient for 10 days Transaminitis: Could be possibly secondary to congestive hepatopathy AST 28--: 703--> 317-->261-->169 ALT 40 -->278--> 245 -->254-->206 ALP:202 ---->179 ---> 183 --> 171-->158 CT abdomen and pelvis has shown cholelithiasis, without evidence of acute cholecystitis ultrasound abdomen: No cholelithiasis.Very mild gallbladder wall thickening may be due to hepatocellular disease. Mild hepatic enlargement. Monitor CMP Closely monitor LFTs as patient has been started on amiodarone HFpEF : Decompensated Has been on Bumex as outpatient, currently on hold. Currently on Lasix 40 IV twice daily Monitor intake output charting Monitor daily weight Monitor electrolytes History of hypertension: Continue hydralazine, metoprolol History of diabetes: Continue Lantus 30 subcu at bedtime,LDSSI, monitor fingerstick glucose, diabetic diet History of hypothyroidism: Continue levothyroxine History of rheumatoid arthritis: Continue prednisone, has been on Actemra in the past History of sleep apnea: Has been on BiPAP in the past History of severe pulmonary hypertension: Could be related to sleep apnea as well as morbid obesity and heart failure Pulmonary follow-up as outpatient CODE STATUS: Full code DVT prophylaxis: Currently on therapeutic anticoagulation Attestations Medical Necessity Statement*: Needs to be in hospital for management of A-fib and, COLE and CKD. Coding Level of Care Code 02881 Diagnoses Right upper quadrant abdominal pain R10.11 Atrial fibrillation with rapid ventricular response I48.91 Acute kidney injury N17.9 Acute on chronic heart failure with preserved ejection fraction I50.33 UTI (urinary tract infection) N39.0 Insulin dependent type 2 diabetes mellitus E11.9; Z79.4 Anemia D64.9 High risk medication use Z79.899 Dyslipidemia E78.5 CHANNING (obstructive sleep apnea) G47.33 Hypothyroid E03.9 Rheumatoid arthritis with negative rheumatoid factor M06.00 GERD (gastroesophageal reflux disease) K21.9 BMI 45.0-49.9, adult Z68.42 Transaminitis R74.01 Severe pulmonary hypertension I27.20 Status post placement of other cardiac pacemaker Z95.0
[2022-08-29] MEDS: enoxaparin 120 mg/0.8 mL Syringe SUBCUT (13:46)
[2022-08-29] MEDS: cefTRIAXone 1,000 MG in sodium chloride 0.9% (plus) 50 ML 100 MG IV (15:51)
[2022-08-29 16:58] LABS: Glucose Point of Care 161 mg/dL (70-110)
[2022-08-29] MEDS: insulin lispro 100 unit/1 mL SUBCUT ×2 (18:16→22:24)
[2022-08-29 21:10] LABS: Glucose Point of Care 152 mg/dL (70-110)
[2022-08-29] MEDS: gabapentin 100 mg Capsule PO (21:15)
[2022-08-29] MEDS: atorvastatin 40 mg Tablet 80 MG PO (21:15)
[2022-08-29] MEDS: insulin glargine 100 units/1 mL 30 UNIT SUBCUT (22:23)
[2022-08-30] VITALS (12 sets, daily range): BP systolic 96–152; BP diastolic 61–96; PULSE 70–105; RESP 12–22; TEMP 36.3–36.8; O2SAT 92–99
[2022-08-30] MEDS: FUROsemide 10 mg/mL SDV 4mL 40 MG IVP ×2 (02:44→15:15)
[2022-08-30 06:34] LABS: Glucose Point of Care 188 mg/dL (70-110)
[2022-08-30] MEDS: insulin lispro 100 unit/1 mL SUBCUT ×4 (08:25→20:28)
[2022-08-30] MEDS: metoprolol tartrate 25 mg Tablet 37.5 MG PO ×2 (08:28→20:40)
[2022-08-30] MEDS: amiodarone 200 mg Tablet 400 MG PO ×2 (08:28→09:00)
[2022-08-30] MEDS: pantoprazole DR 40 mg Tablet PO (08:28)
[2022-08-30] MEDS: duloxetine 20 mg Capsule PO ×2 (08:28→20:42)
[2022-08-30] MEDS: sevelamer 800 mg Tablet PO ×3 (08:28→17:06)
[2022-08-30] MEDS: predniSONE 10 mg Tablet PO (08:29)
[2022-08-30] MEDS: tizanidine 4 mg Tablet PO ×3 (08:29→20:27)
[2022-08-30] MEDS: ketoconazole Cream 15 gm 1 APPLIC TOPICAL ×2 (08:32→17:07)
--- NOTE | 2022-08-30 08:41 | PM.PN ---
Subjective Subjective: No new complaints, out of bed to chair. n Vitals/I&O/Wt Last Vital Signs Temp 98.1 F 08/30/22 07:45 Pulse 99 08/30/22 07:45 Resp 12 08/30/22 07:45 BP 126/85 08/30/22 08:27 Pulse Ox 96 08/30/22 07:45 O2 Del Method 08/30/22 07:45 O2 Flow Rate 2 08/29/22 20:00 08/29/22 08/30/22 08/30/22 22:59 06:59 14:59 Intake Total 50 / 530 480 / 1010 Output Total 550 / 550 300 / 850 Balance -500 / -20 180 / 160 Physical Exam Const: COMMON NORMALS: no acute distress and alert Back/Pelvis: OTHER: edema Neuro: SENSORIUM/ORIENTATION: Yes alert Urinary Catheter Management: Culp: Cath Placed During This Visit: yes Reason for Continuing Indwelling Catheter: Accurate Measurement of Urinary Output in Critically Ill Patients Urinary Catheter Date of Insertion: 08/24/22 Urinary Catheter Time of Insertion: 15:06 Data 08/28/22 04:10 08/29/22 09:08 Other Labs: today serum Na 129, BUN 123 Micro: Microbiology 08/29/22 05:55 C.difficile Toxin B Gene (PCR) - Final Stool - Stool Aspirate 08/24/22 07:36 Blood Culture - Final Blood NO GROWTH AFTER 5 DAYS 08/24/22 07:32 Blood Culture - Final Blood NO GROWTH AFTER 5 DAYS A&P Assessment and plan (1) Acute kidney injury: Plan 1. Acute kidney injury, chronic kidney disease, urine output better, BUN rising 2. volume overload, CHF, atrial fibrillation 3. hyponatremia, hypervolemic 4. anemia, high ferritin 5. hyperphosphatemia, secondary hyperparathryroidism Recommend: continue IV furosemide 40 mg BID. Recommend starting HD to improve volume status and clear uremic toxins. Check CBC, PT, PTT, hold lovenox. Consult surgery for tunneled HD catheter placement. Attestations Medical Necessity Statement*: see above Time Spent in Patient Care: 16 - 35 minutes Coding Level of Care Code Acute Code for Chg Fwd Diagnoses Acute kidney injury N17.9
[2022-08-30 08:52] LABS: Anion Gap 15.9 (5-19); Calcium 8.4 mg/dL (8.5-10.5); Carbon Dioxide 30 mmol/L (22-29); Chloride 88 mmol/L (98-107); Glomerular Filtration Rate 13.6 mL/min (90-130); Glucose 138 mg/dL (65-115); Potassium 4.9 mmol/L (3.5-5.1); Sodium 129 mmol/L (136-145)
[2022-08-30 09:48] LABS: Osmolality Calculated 310 mOsm/kg (285-295)
[2022-08-30 09:51] LABS: Blood Urea Nitrogen 123 mg/dL (8-23)
[2022-08-30] MEDS: lactobacillus 1 Tablet 1 TAB PO ×2 (10:19→17:06)
[2022-08-30] MEDS: triamcinolone 0.1% cream 15 gm 1 APPLIC TOPICAL ×2 (10:19→17:07)
[2022-08-30 11:47] LABS: Basophils % 0.1 %; Eosinophils % 0.2 %; Hematocrit 36.4 % (37.0-47.0); Hemoglobin 10.8 g/dL (11.5-15.3); INR 1.19 (0.8-1.2); Mean Corpuscular HGB Conc 29.7 g/dL (30.0-36.0); Mean Corpuscular Hemoglobin 28.6 pg (28.0-34.0); Mean Corpuscular Volume 96.3 fl (81-99); Monocytes # 0.6 10^3/uL (0.2-0.9); Monocytes % 6.4 %; Neutrophils # 7.87 10^3/uL (1.8-7.7); Neutrophils % 82.4 %; Nucleated Red Blood Cells % 0 %; Platelet Count 307 10^3/cmm (130-400); Red Blood Count 3.78 10^6/uL (4.1-5.3); White Blood Count 9.6 10^3/uL (4.0-10.0)
[2022-08-30 11:48] LABS: Partial Thromboplastin Time 37.6 SECONDS (23.9-36.7)
[2022-08-30 12:03] LABS: Glucose Point of Care 206 mg/dL (70-110)
[2022-08-30] MEDS: enoxaparin 120 mg/0.8 mL Syringe SUBCUT (12:11)
--- NOTE | 2022-08-30 13:24 | P.PN_ITS ---
Subjective Subjective: Heart rate is better controlled, sitting in chair, shortness of breath is improved. Medications: Reviewed: Yes Medication Review Details: Generic Name Dose Route Start Last Admin Trade Name Freq PRN Reason Stop Dose Admin Hydrocodone Bitart /Acetaminophen 1 tab 08/24/22 13:50 08/29/22 22:48 Hydrocodone-Acet aminophen 5-325 Mg Tablet PO 1 tab Q6H PRN Administration mod to sev breakt hrough pain Amiodarone HCl 400 mg 08/30/22 09:00 08/30/22 09:00 Amiodarone 200 M g Tablet PO 400 mg DAILY JOHANN Administration Atorvastatin Calci um 80 mg 08/24/22 21:00 08/29/22 21:15 Atorvastatin 40 Mg Tablet PO 80 mg BEDTIME JOHANN Administration Docusate Sodium 100 mg 08/24/22 20:00 08/30/22 08:30 Docusate Sodium 100 Mg Capsule PO Not Given BID@0800,2000 JOHANN Duloxetine HCl 20 mg 08/24/22 20:00 08/30/22 08:28 Duloxetine 20 Mg Capsule PO 20 mg BID@08,20 JOHANN Administration Enoxaparin Sodium 120 mg 08/25/22 12:00 08/30/22 12:11 Enoxaparin 120 M g/0.8 Ml Syringe SUBCUT 120 mg Q24H JOHANN Administration Ergocalciferol 50,000 unit 08/25/22 12:00 08/25/22 12:03 Ergocalciferol ( Vitamin D2) 50,000 Unit Capsule PO 50,000 unit Q7D JOHANN Administration Furosemide 40 mg 08/28/22 14:30 08/30/22 02:44 Furosemide 10 Mg /Ml Sdv 4ml IVP 40 mg Q12H JOHANN Administration Gabapentin 100 mg 08/27/22 20:00 08/29/22 21:15 Gabapentin 100 M g Capsule PO 100 mg BEDTIME@20 JOHANN Administration Ceftriaxone Sodium 1,000 mg/ 50 mls @ 100 mls/ hr 08/24/22 16:30 08/29/22 16:50 Sodium Chloride IV Infused Q24H JOHANN Infusion Protocol Insulin Glargine 30 unit 08/26/22 21:00 08/29/22 22:23 Insulin Glargine 100 Units/1 Ml SUBCUT 30 unit BEDTIME JOHANN Administration Insulin Human Lisp ro 0 unit 08/24/22 21:00 08/29/22 22:24 Insulin Lispro 1 00 Unit/1 Ml SUBCUT 1 unit BEDTIME JOHANN Administration Protocol Insulin Human Lisp ro 0 unit 08/24/22 18:00 08/30/22 12:11 Insulin Lispro 1 00 Unit/1 Ml SUBCUT 4 unit TIDWM JOHANN Administration Protocol Ketoconazole 1 applic 08/24/22 18:00 08/30/22 08:32 Ketoconazole Cre am 15 Gm TOPICAL 1 applic BID JOHANN Administration Lactobacillus Acid ophilus 1 tab 08/24/22 18:00 08/30/22 10:19 Lactobacillus 1 Tablet PO 1 tab BID JOHANN Administration Metoprolol Tartrat e 37.5 mg 08/26/22 21:00 08/30/22 08:28 Metoprolol Tartr ate 25 Mg Tablet PO 37.5 mg BID@0900,2100 JOHANN Administration Pantoprazole Sodiu m 40 mg 08/25/22 08:00 08/30/22 08:[address] 40 Mg Tablet PO 40 mg DAILY@0800 JOHANN Administration Prednisone 10 mg 08/25/22 08:00 08/30/22 08:29 Prednisone 10 Mg Tablet PO 10 mg DAILY@0800 JOHANN Administration Sevelamer Carbonat e 800 mg 08/25/22 12:00 08/30/22 12:11 Sevelamer 800 Mg Tablet PO 800 mg TIDWM JOHANN Administration Tizanidine HCl 4 mg 08/24/22 15:00 08/30/22 08:29 Tizanidine 4 Mg Tablet PO 4 mg TID JOHANN Administration Triamcinolone Acet onide 1 applic 08/24/22 18:00 08/30/22 10:19 Triamcinolone 0. 1% Cream 15 Gm TOPICAL 1 applic BID JOHANN Administration Vitals/I&O/Wt Last Vital Signs Temp 98.1 F 08/30/22 07:45 Pulse 92 08/30/22 11:42 Resp 16 08/30/22 11:42 BP 113/75 08/30/22 11:42 Pulse Ox 96 08/30/22 11:42 O2 Del Method 08/30/22 11:42 O2 Flow Rate 2 08/30/22 08:00 08/29/22 08/30/22 08/30/22 22:59 06:59 14:59 Intake Total 50 / 530 480 / 1010 360 / 360 Output Total 550 / 550 300 / 850 Balance -500 / -20 180 / 160 360 / 360 Physical Exam Const: COMMON NORMALS: patient oriented x3 HENMT: COMMON NORMALS: normocephalic and atraumatic HEAD & SCALP: normocephalic and atraumatic Resp: COMMON NORMALS: clear to auscultation bilaterally EFFORT & INSPECTION: Yes symmetric chest movement AUSCULTATION: clear to auscultation bilaterally OTHER: Bilateral crackles in both the lungs field, diminished air entry bilaterally Cardio: COMMON NORMALS: regular rate, regular rhythm, S1 normal heart sound present, S2 normal heart sound present, No gallops present (Cardio), No murmurs present (Cardio), No rub (Cardio) and Peripheral pulses 2+ throughout RATE: regular rate RHYTHM: regular rhythm HEART SOUNDS: S1 normal heart sound present and S2 normal heart sound present PERIPHERAL PULSES: Peripheral pulses 2+ throughout GI: COMMON NORMALS: Normal to inspection, nondistended, normoactive bowel sounds present, Soft to palpation, non-tender, No hepatosplenomegaly present and no masses AUSCULTATION: Yes normoactive bowel sounds PALPATION: Yes Soft to palpation and Yes No hepatosplenomegaly present RECTAL EXAM: deferred Extremity: NARRATIVE EXTREMITY EXAM: 3+ b/l lower extremity pitting edema Neuro: COMMON NORMALS: patient oriented x3 Urinary Catheter Management: Culp: Cath Placed During This Visit: yes Reason for Continuing Indwelling Catheter: Accurate Measurement of Urinary Output in Critically Ill Patients Urinary Catheter Date of Insertion: 08/24/22 Urinary Catheter Time of Insertion: 15:06 Data 08/30/22 08:00 08/30/22 08:00 Micro: Microbiology 08/29/22 05:55 C.difficile Toxin B Gene (PCR) - Final Stool - Stool Aspirate A&P Assessment and plan (1) Right upper quadrant abdominal pain: Chronic at this point in time. Could be gallbladder colic but suspect secondary to hepatic congestion/contraction. Not currently consistent with acute cholecystitis. Ultrasound on August 19 from outside source did not show any pericholecystic fluid though there was some gallbladder wall thickening. No me ntion of stones. Common bile duct was 4.3 mm. In addition to the abdominal pain, has had nausea, vomiting and loose stools as well. Azotemia may a contributor to current nausea and vomiting but symptoms have been recently present at levels I would not expect to cause GI symptoms. EGD and colonoscopy were done in 2020 with finding of small hiatal hernia and 1 antral polyp that was removed along with submucosal lipoma on the colonoscopy. Medication effect also within the differential. She is currently on treatment for urinary tract infection. Has a history of recurrent UTIs which can contribute to GI symptoms. Family also indicates a history of renal stones. None were noted on imaging with no obstructive process in the urinary tree. This is patient's primary complaint. (2) Atrial fibrillation with rapid ventricular response: Appears to have been identified initially in July of this year when twelve- lead EKG at outside facility showed atrial flutter. Rate was 100 or below at the time. Like this admission patient's primary complaint was abdominal pain and GI symptoms. Onset of RVR appears to have been within the last 24 to 48 hours. Patient has known diastolic CHF, untreated sleep apnea due to intolerance of CPAP/BiPAP, progressively worsening chronic kidney disease and BMI of 49, among other chronic diagnoses that might contribute. Clinically she looks a bit dry. She has had adjustments to her diuretic regimen recently initially with a decrease and diuretic dose followed by resumption of previous 3 mg twice daily Bumex dosing along with metolazone. She has not responded to diltiazem in the emergency room. Amiodarone drip has been initiated without any improvement and esmolol drip was subsequently started with slight improvement with heart rate from 140s to 120s. She is not on any chronic anticoagulation nor chronic rate controlling agents though she does have a permanent pacemaker due to a history of third-degree AV block back in 2019. (3) Acute kidney injury: On top of chronic kidney disease stage IV. Patient is on the schedule to have a fistula placed in October of this year and as it is anticipated that she will eventually need dialysis. Baseline creatinine probably around 2 or just above though difficult to ascertain if she has significant variability between acute clinical presentations and values at discharge when she is probably more adequately diuresed. Azotemia to the degree she is presenting with today is higher however. Well having some nausea and vomiting. She has minimal itching that does not appear worse than baseline. Mental status has been okay. Follows with Dr. Soto clinic outpatient. (4) Acute on chronic heart failure with preserved ejection fraction: Known to have severe pulmonary hypertension. While she may be total body volume overloaded, appears intravascularly dry presently. Appears to have a narrow window between under and overdiuresis on review of some previous records. (5) UTI (urinary tract infection): Present on admission, organism unknown, on treatment with doxycycline prior to admission initiated on 08/18/2022. Has a history of recurrent UTIs. 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 (9) Dyslipidemia: On chronic statin therapy (10) CHANNING (obstructive sleep apnea): Untreated due to intolerant of CPAP or BiPAP despite trying every combination of mask. Does use oxygen by nasal cannula. (11) Hypothyroid: Diagnosis per old records. Not on chronic treatment. Recent TSH and free T4 at outside facility normal in July 2022. (12) Rheumatoid arthritis with negative rheumatoid factor: Treated with oral prednisone and as needed pain medications. Not on any biologic agents currently though had previously been on Actemra. (13) GERD (gastroesophageal reflux disease): With small hiatal hernia, chronically on PPI daily (14) BMI 45.0-49.9, adult: (15) Transaminitis: (16) Severe pulmonary hypertension: (17) Status post placement of other cardiac pacemaker: Plan 66-year-old female with past medical history of hypertension diabetes, CKD stage4, recurrent UTI,HFpEF, morbid obesity, hypothyroidism,RA on prednisone, obstructive sleep apnea, Anemia, resident at [facility] came in with chief complaint of left upper quadrant abdominal pain, nausea and vomiting daily, a tightness sensation in her chest and shortness of breath.? The abdominal pain has been going on for more than a month now.? She was found to be in A-fib with RVR and had to be started on initially on esmolol drip, followed by amiodarone drip as she became hypotensive on esmolol drip. Currently she is being managed for. Assessment: A-fib with RVR: Follow-up 2D echo TSH: Was on amiodarone drip, has been transitioned to amiodarone 400 mg p.o. daily, Metoprolol tartrate 37.5 mg p.o. twice daily CHADVASC score of: 4 , (hypertension diabetes, CHF, female sex) On therapeutic anticoagulation with Lovenox COLE on CKD stage IV: Baseline serum creatinine is around 2 Admission serum creatinine 2.7 CT abdomen and pelvis without contrast: Has not shown any obstructive uropathy Currently on gentle IV hydration Monitor BMP Monitor intake output charting Avoid nephrotoxic's Nephrology on board Patient was scheduled to have fistula as outpatient OCTOBER, it was planned by her primary java android developer. Nephrology intends to continue with IV diuresis, Current plan is for PermCath placement, possibly sometime next week, depending upon the availability. of Surgeon on-call Therapeutic anticoagulation with Lovenox has been kept on hold. History of recurrent UTI: Urine culture has also grown ESBL in the past appears to be likely colonization/ Completed ceftriaxone course, was discontinued on 08/30 Follow blood culture: NTD Urine culture She was on doxycycline recently as outpatient for 10 days Transaminitis: Could be possibly secondary to congestive hepatopathy AST 28--: 703--> 317-->261-->169 ALT 40 -->278--> 245 -->254-->206 ALP:202 ---->179 ---> 183 --> 171-->158 CT abdomen and pelvis has shown cholelithiasis, without evidence of acute cholecystitis ultrasound abdomen: No cholelithiasis.Very mild gallbladder wall thickening may be due to hepatocellular disease. Mild hepatic enlargement. Monitor CMP Closely monitor LFTs as patient has been started on amiodarone HFpEF : Decompensated Has been on Bumex as outpatient, currently on hold. Currently on Lasix 40 IV twice daily Monitor intake output charting Monitor daily weight Monitor electrolytes History of hypertension: Continue hydralazine, metoprolol History of diabetes: Continue Lantus 30 subcu at bedtime,LDSSI, monitor fingerstick glucose, diabetic diet History of hypothyroidism: Continue levothyroxine History of rheumatoid arthritis: Continue prednisone, has been on Actemra in the past History of sleep apnea: Has been on BiPAP in the past History of severe pulmonary hypertension: Could be related to sleep apnea as well as morbid obesity and heart failure Pulmonary follow-up as outpatient CODE STATUS: Full code DVT prophylaxis: Currently on therapeutic anticoagulation Attestations Medical Necessity Statement*: Needs to be in hospital for management of end- stage renal disease, need for initiation of hemodialysis. Coding Level of Care Code 18141 Diagnoses Right upper quadrant abdominal pain R10.11 Atrial fibrillation with rapid ventricular response I48.91 Acute kidney injury N17.9 Acute on chronic heart failure with preserved ejection fraction I50.33 UTI (urinary tract infection) N39.0 Insulin dependent type 2 diabetes mellitus E11.9; Z79.4 Anemia D64.9 High risk medication use Z79.899 Dyslipidemia E78.5 CHANNING (obstructive sleep apnea) G47.33 Hypothyroid E03.9 Rheumatoid arthritis with negative rheumatoid factor M06.00 GERD (gastroesophageal reflux disease) K21.9 BMI 45.0-49.9, adult Z68.42 Transaminitis R74.01 Severe pulmonary hypertension I27.20 Status post placement of other cardiac pacemaker Z95.0
[2022-08-30 16:54] LABS: Glucose Point of Care 237 mg/dL (70-110)
--- NOTE | 2022-08-30 17:40 | P.PN_ITS ---
Subjective Subjective: Rate controlled patient is sleepy today Medications: Reviewed: Yes Medication Review Details: Generic Name Dose Route Start Last Admin Trade Name Freq PRN Reason Stop Dose Admin Hydrocodone Bitart /Acetaminophen 1 tab 08/24/22 13:50 08/29/22 22:48 Hydrocodone-Acet aminophen 5-325 Mg Tablet PO 1 tab Q6H PRN Administration mod to sev breakt hrough pain Amiodarone HCl 400 mg 08/30/22 09:00 08/30/22 09:00 Amiodarone 200 M g Tablet PO 400 mg DAILY JOHANN Administration Atorvastatin Calci um 80 mg 08/24/22 21:00 08/29/22 21:15 Atorvastatin 40 Mg Tablet PO 80 mg BEDTIME JOHANN Administration Docusate Sodium 100 mg 08/24/22 20:00 08/30/22 08:30 Docusate Sodium 100 Mg Capsule PO Not Given BID@0800,1999 JOHANN Duloxetine HCl 20 mg 08/24/22 20:00 08/30/22 08:28 Duloxetine 20 Mg Capsule PO 20 mg BID@08,20 JOHANN Administration Enoxaparin Sodium 120 mg 08/25/22 12:00 08/30/22 12:11 Enoxaparin 120 M g/0.8 Ml Syringe SUBCUT 120 mg Q24H JOHANN Administration Ergocalciferol 50,000 unit 08/25/22 12:00 08/25/22 12:03 Ergocalciferol ( Vitamin D2) 50,000 Unit Capsule PO 50,000 unit Q7D JOHANN Administration Furosemide 40 mg 08/28/22 14:30 08/30/22 02:44 Furosemide 10 Mg /Ml Sdv 4ml IVP 40 mg Q12H JOHANN Administration Gabapentin 100 mg 08/27/22 20:00 08/29/22 21:15 Gabapentin 100 M g Capsule PO 100 mg BEDTIME@20 JOHANN Administration Ceftriaxone Sodium 1,000 mg/ 50 mls @ 100 mls/ hr 08/24/22 16:30 08/29/22 16:50 Sodium Chloride IV Infused Q24H JOHANN Infusion Protocol Insulin Glargine 30 unit 08/26/22 21:00 08/29/22 22:23 Insulin Glargine 100 Units/1 Ml SUBCUT 30 unit BEDTIME JOHANN Administration Insulin Human Lisp ro 0 unit 08/24/22 21:00 08/29/22 22:24 Insulin Lispro 1 00 Unit/1 Ml SUBCUT 1 unit BEDTIME JOHANN Administration Protocol Insulin Human Lisp ro 0 unit 08/24/22 18:00 08/30/22 12:11 Insulin Lispro 1 00 Unit/1 Ml SUBCUT 4 unit TIDWM JOHANN Administration Protocol Ketoconazole 1 applic 08/24/22 18:00 08/30/22 08:32 Ketoconazole Cre am 15 Gm TOPICAL 1 applic BID JOHANN Administration Lactobacillus Acid ophilus 1 tab 08/24/22 18:00 08/30/22 10:19 Lactobacillus 1 Tablet PO 1 tab BID JOHANN Administration Metoprolol Tartrat e 37.5 mg 08/26/22 21:00 08/30/22 08:28 Metoprolol Tartr ate 25 Mg Tablet PO 37.5 mg BID@0900,2100 JOHANN Administration Pantoprazole Sodiu m 40 mg 08/25/22 08:00 08/30/22 08:[address] 40 Mg Tablet PO 40 mg DAILY@0800 JOHANN Administration Prednisone 10 mg 08/25/22 08:00 08/30/22 08:29 Prednisone 10 Mg Tablet PO 10 mg DAILY@0800 JOHANN Administration Sevelamer Carbonat e 800 mg 08/25/22 12:00 08/30/22 12:11 Sevelamer 800 Mg Tablet PO 800 mg TIDWM JOHANN Administration Tizanidine HCl 4 mg 08/24/22 15:00 08/30/22 08:29 Tizanidine 4 Mg Tablet PO 4 mg TID JOHANN Administration Triamcinolone Acet onide 1 applic 08/24/22 18:00 08/30/22 10:19 Triamcinolone 0. 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 Lower extremity 1+ edema Urinary Catheter Management: Culp: Cath Placed During This Visit: yes Reason for Continuing Indwelling Catheter: Accurate Measurement of Urinary Output in Critically Ill Patients Urinary Catheter Date of Insertion: 08/24/22 Urinary Catheter Time of Insertion: 15:06 Data 08/30/22 08:00 08/30/22 08:00 Micro: Microbiology 08/29/22 05:55 C.difficile Toxin B Gene (PCR) - Final Stool - Stool Aspirate A&P Assessment and plan (1) Atrial fibrillation with rapid ventricular response: Rate controlled continue medicine continue anticoagulation (2) Acute kidney injury: Nephrology on board (3) Right upper quadrant abdominal pain: Improving. As per med treatment (4) Diastolic heart failure: Continue IV diuresis Attestations Medical Necessity Statement*: Patient require continuation hospitalization for above defined care. Coding Level of Care Code Acute Code for [facility] Diagnoses Atrial fibrillation with rapid ventricular response I48.91 Acute kidney injury N17.9 Right upper quadrant abdominal pain R10.11 Diastolic heart failure I50.30
[2022-08-30] MEDS: atorvastatin 40 mg Tablet 80 MG PO (20:27)
[2022-08-30] MEDS: insulin glargine 100 units/1 mL 30 UNIT SUBCUT (20:28)
[2022-08-30] MEDS: gabapentin 100 mg Capsule PO (20:41)
[2022-08-30] MEDS: HYDROcodone-acetaminophen 5-325 mg Tablet 1 TAB PO (20:41)
[2022-08-31] VITALS (9 sets, daily range): BP systolic 109–152; BP diastolic 73–88; PULSE 89–106; RESP 18–26; TEMP 36.5–36.6; O2SAT 97–100
[2022-08-31] MEDS: FUROsemide 10 mg/mL SDV 4mL 40 MG IVP ×2 (02:40→14:05)
[2022-08-31] MEDS: acetaminophen 325 mg Tablet 650 MG PO (02:40)
[2022-08-31 03:29] LABS: Basophils % 0.4 %; Eosinophils % 0.4 %; Hematocrit 35.5 % (37.0-47.0); Hemoglobin 10.5 g/dL (11.5-15.3); Lymphocytes # 1.2 10^3/uL (0.8-4.8); Lymphocytes % 11.1 %; Mean Corpuscular HGB Conc 29.6 g/dL (30.0-36.0); Mean Corpuscular Hemoglobin 28.2 pg (28.0-34.0); Mean Corpuscular Volume 95.4 fl (81-99); Mean Platelet Volume 9.9 fL (7.4-10.4); Monocytes # 0.9 10^3/uL (0.2-0.9); Monocytes % 8.2 %; Neutrophils # 8.41 10^3/uL (1.8-7.7); Neutrophils % 78.8 %; Nucleated Red Blood Cells % 0 %; Platelet Count 260 10^3/cmm (130-400); Red Blood Count 3.72 10^6/uL (4.1-5.3); Red Cell Distribution Width 16.3 % (12.1-15.1); White Blood Count 10.7 10^3/uL (4.0-10.0)
[2022-08-31] MEDS: HYDROcodone-acetaminophen 5-325 mg Tablet 1 TAB PO ×2 (05:38→15:42)
[2022-08-31 07:44] LABS: Basophils % 0.2 %; Eosinophils # 0.1 10^3/uL (0.0-0.8); Eosinophils % 0.6 %; Hematocrit 39.3 % (37.0-47.0); Hemoglobin 11.7 g/dL (11.5-15.3); Lymphocytes # 1.1 10^3/uL (0.8-4.8); Lymphocytes % 11.1 %; Mean Corpuscular HGB Conc 29.8 g/dL (30.0-36.0); Mean Platelet Volume 9.9 fL (7.4-10.4); Monocytes # 0.7 10^3/uL (0.2-0.9); Monocytes % 7.1 %; Neutrophils # 7.66 10^3/uL (1.8-7.7); Neutrophils % 80.2 %; Nucleated Red Blood Cells % 0 %; Platelet Count 269 10^3/cmm (130-400); Red Blood Count 4.18 10^6/uL (4.1-5.3); Red Cell Distribution Width 16.2 % (12.1-15.1); White Blood Count 9.6 10^3/uL (4.0-10.0)
[2022-08-31 07:45] LABS: Glucose Point of Care 158 mg/dL (70-110)
[2022-08-31 08:09] LABS: Alanine Aminotransferase 77 U/L (0-33); Albumin Level 3.6 g/dL (3.5-5.2); Alkaline Phosphatase 186 U/L (35-105); Anion Gap 16.7 (5-19); Aspartate Amino Transferase 19 U/L (0-32); Calcium 8.9 mg/dL (8.5-10.5); Carbon Dioxide 32 mmol/L (22-29); Chloride 89 mmol/L (98-107); Globulin 3.5 g/dL (1.3-4.6); Glomerular Filtration Rate 15.7 mL/min (90-130); Glucose 173 mg/dL (65-115); Phosphorus 5.6 mg/dL (2.5-4.5); Potassium 4.7 mmol/L (3.5-5.1); Sodium 133 mmol/L (136-145); Total Bilirubin 0.4 mg/dL (0.15-1.2); Total Protein 7.1 g/dL (6.6-8.7)
[2022-08-31] MEDS: amiodarone 200 mg Tablet 400 MG PO (08:17)
[2022-08-31] MEDS: docusate sodium 100 mg Capsule PO ×2 (08:17→20:14)
[2022-08-31] MEDS: duloxetine 20 mg Capsule PO ×2 (08:17→20:14)
[2022-08-31] MEDS: tizanidine 4 mg Tablet PO ×3 (08:18→20:14)
[2022-08-31] MEDS: sevelamer 800 mg Tablet PO ×3 (08:18→17:32)
[2022-08-31] MEDS: lactobacillus 1 Tablet 1 TAB PO ×2 (08:18→17:32)
[2022-08-31] MEDS: predniSONE 10 mg Tablet PO (08:18)
[2022-08-31] MEDS: hyDRALAzine 25 mg Tablet PO ×2 (08:18→14:05)
[2022-08-31 08:19] LABS: Blood Urea Nitrogen 119 mg/dL (8-23); Osmolality Calculated 318 mOsm/kg (285-295)
[2022-08-31] MEDS: metoprolol tartrate 25 mg Tablet 37.5 MG PO (08:19)
[2022-08-31] MEDS: pantoprazole DR 40 mg Tablet PO (08:19)
[2022-08-31] MEDS: insulin lispro 100 unit/1 mL SUBCUT ×4 (08:19→20:15)
[2022-08-31] MEDS: ketoconazole Cream 15 gm 1 APPLIC TOPICAL ×2 (08:20→17:55)
[2022-08-31] MEDS: triamcinolone 0.1% cream 15 gm 1 APPLIC TOPICAL ×2 (08:20→17:32)
--- NOTE | 2022-08-31 09:42 | P.PN_ITS ---
Subjective Subjective: Patient is feeling better. 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 Continue anticoagulation (2) Acute kidney injury: Nephrology on board. May need dialysis (3) Right upper quadrant abdominal pain: Improving. As per med treatment (4) Diastolic heart failure: Continue IV diuresis Attestations Medical Necessity Statement*: Care expected to cross 2 midnights. Coding Level of Care Code Acute Code for [facility] Diagnoses Atrial fibrillation with rapid ventricular response I48.91 Acute kidney injury N17.9 Right upper quadrant abdominal pain R10.11 Diastolic heart failure I50.30
--- NOTE | 2022-08-31 09:50 | P.PN_ITS ---
Subjective Subjective: Currently on 2 L FiO2, urine output around 800 cc, has bilateral lower extremity edema Medications: Reviewed: Yes Vitals/I&O/Wt Last Vital Signs Temp 98 F 08/31/22 03:35 Pulse 93 08/31/22 08:00 Resp 18 08/31/22 08:00 BP 152/78 08/31/22 08:00 Pulse Ox 100 08/31/22 03:35 O2 Del Method 08/31/22 08:00 O2 Flow Rate 2 08/31/22 08:00 08/30/22 08/31/22 08/31/22 22:59 06:59 14:59 Intake Total 840 / 1560 250 / 250 Output Total 750 / 750 800 / 1550 Balance 90 / 810 -800 / 10 250 / 250 Physical Exam Narrative: Patient is awake alert, no acute distress On 2 L FiO2 3+ lower extremity edema Urinary Catheter Management: Culp: Cath Placed During This Visit: yes Reason for Continuing Indwelling Catheter: Other Urinary Catheter Date of Insertion: 08/24/22 Urinary Catheter Time of Insertion: 15:06 Data 08/31/22 07:27 08/31/22 07:27 A&P Assessment and plan (1) Acute kidney injury: Plan 1. Acute kidney injury, chronic kidney disease, urine output reasonable, BUN above 100 -BUN and creatinine trending down slightly but patient has significant edema/anasarca -Planned for tunnel catheter and hemodialysis initiation 2. volume overload, CHF, atrial fibrillation 3. hyponatremia, hypervolemic 4. anemia, high ferritin 5. hyperphosphatemia, secondary hyperparathryroidism Recommend: continue IV furosemide 40 mg BID. Recommend starting HD to improve volume status and clear uremic toxins. Check CBC, PT, PTT, hold lovenox. Consulted surgery for tunneled HD catheter placement. Attestations Medical Necessity Statement*: Patient require continuation hospitalization for above defined care. Coding Level of Care Code Acute Code for [facility] Diagnoses Acute kidney injury N17.9
[2022-08-31] MEDS: enoxaparin 120 mg/0.8 mL Syringe SUBCUT (10:28)
[2022-08-31] MEDS: metoprolol tartrate 25 mg Tablet 12.5 MG PO (10:33)
[2022-08-31 11:25] LABS: Glucose Point of Care 223 mg/dL (70-110)
[2022-08-31 15:52] LABS: Hepatitis B Core AB, Total Non-Reactive (Nonreactive); Hepatitis B Surface Antigen Non-Reactive (Nonreactive)
--- NOTE | 2022-08-31 16:01 | P.PN_ITS ---
Subjective Subjective: Hospital course, labs appreciated. Today morning on examination patient sitting in chair. Denies any nausea, vomiting, headache. States she is feeling a lot better. States breathing is at baseline. Currently saturating more than 95% on 2 L. Has remained hemodynamically stable and afebrile. Culp catheter in place. Asking if she can walk. States she has not walked since she remained in the hospital. Vitals/I&O/Wt Last Vital Signs Temp 97.8 F 08/31/22 12:00 Pulse 94 08/31/22 13:56 Resp 18 08/31/22 12:00 BP 109/73 08/31/22 12:00 Pulse Ox 98 08/31/22 12:00 O2 Del Method 08/31/22 12:00 O2 Flow Rate 2 08/31/22 12:00 08/31/22 08/31/22 08/31/22 06:59 14:59 22:59 Intake Total 487 / 487 Output Total 800 / 1550 Balance -800 / 10 487 / 487 Physical Exam Const: COMMON NORMALS: patient oriented x3 HENMT: COMMON NORMALS: normocephalic and atraumatic HEAD & SCALP: normocephalic and atraumatic Resp: COMMON NORMALS: clear to auscultation bilaterally EFFORT & INSPECTION: Yes symmetric chest movement AUSCULTATION: clear to auscultation bilaterally OTHER: Bilateral crackles in both the lungs field, diminished air entry bilaterally Cardio: COMMON NORMALS: regular rate, regular rhythm, S1 normal heart sound present, S2 normal heart sound present, No gallops present (Cardio), No murmurs present (Cardio), No rub (Cardio) and Peripheral pulses 2+ throughout RATE: regular rate RHYTHM: regular rhythm HEART SOUNDS: S1 normal heart sound present and S2 normal heart sound present PERIPHERAL PULSES: Peripheral pulses 2+ throughout GI: COMMON NORMALS: Normal to inspection, nondistended, normoactive bowel sounds present, Soft to palpation, non-tender, No hepatosplenomegaly present and no masses AUSCULTATION: Yes normoactive bowel sounds PALPATION: Yes Soft to palpation and Yes No hepatosplenomegaly present RECTAL EXAM: deferred Extremity: NARRATIVE EXTREMITY EXAM: 3+ b/l lower extremity pitting edema Neuro: COMMON NORMALS: patient oriented x3 Urinary Catheter Management: Culp: Cath Placed During This Visit: yes Reason for Continuing Indwelling Catheter: Other Urinary Catheter Date of Insertion: 08/24/22 Urinary Catheter Time of Insertion: 15:06 Data 08/31/22 07:27 08/31/22 07:27 A&P Assessment and plan (1) Atrial fibrillation with rapid ventricular response: (2) Acute kidney injury: (3) Acute on chronic heart failure with preserved ejection fraction: (4) UTI (urinary tract infection): (5) Right upper quadrant abdominal pain: (6) 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 (9) Dyslipidemia: On chronic statin therapy (10) CHANNING (obstructive sleep apnea): (11) Hypothyroid: (12) Rheumatoid arthritis with negative rheumatoid factor: Treated with oral prednisone and as needed pain medications. Not on any biologic agents currently though had previously been on Actemra. (13) GERD (gastroesophageal reflux disease): With small hiatal hernia, chronically on PPI daily (14) BMI 45.0-49.9, adult: (15) Transaminitis: (16) Severe pulmonary hypertension: (17) Status post placement of other cardiac pacemaker: (18) Uremia: Plan 66-year-old female with past medical history of hypertension diabetes, CKD stage4, recurrent UTI,HFpEF, morbid obesity, hypothyroidism,RA on prednisone, obstructive sleep apnea, Anemia, resident at [facility] came in with chief complaint of left upper quadrant abdominal pain, nausea and vomiting daily, a tightness sensation in her chest and shortness of breath.? The abdominal pain has been going on for more than a month now.? She was found to be in A-fib with RVR and had to be started on initially on esmolol drip, followed by amiodarone drip as she became hypotensive on esmolol drip. Currently she is being managed for. Assessment: A-fib with RVR: Rate controlled. Continue with amiodarone 400 mg oral daily. Increase metoprolol to 50 mg twice daily. CHADVASC score of: 4 , (hypertension diabetes, CHF, female sex) On therapeutic anticoagulation with Lovenox. We will plan to discharge on oral anticoagulation. COLE on CKD stage IV: Baseline serum creatinine is around 2. Being worked up as an outpatient for possible dialysis with plan for placement of dialysis catheter and may. Creatinine seems to have plateaued currently. BUN elevated of more than 100 but baseline seems to be around 90 as well. Patient does not seem to have any uremic symptoms. Decent urine output. Medical reconciliation done for nephrotoxic drugs. Nephrology on board. Plan for permacath placement but unfortunately surgery is not available this week during hospitalization. We will try to continue to monitor. If patient remains stable without any symptoms can plan [facility] with plan for permacath placement as an outpatient at the earliest. History of recurrent UTI: Urine culture has also grown ESBL in the past appears to be likely colonization/ Completed ceftriaxone course, was discontinued on 08/30 Follow blood culture: NTD No current urinary symptoms. Transaminitis: Could be possibly secondary to congestive hepatopathy. Currently resolved to resolving. CT abdomen pelvis was concerning for cholelithiasis without cholecystitis. Cholelithiasis ruled out on upper quadrant ultrasound. Continue to monitor CMP daily. HFpEF : Getting compensated. Echocardiogram done during hospitalization shows EF of 60% with severely increased LV filling pressures, moderate LA enlargement, moderate MR, mild AI, mild to moderate TR with right atrial pressure of 10 mmHg Continue with IV Lasix 40 mg twice daily. Strict input output charting. History of hypertension: Goal blood pressure less than 140/90 mmHg. Blood pressure slightly running on the lower side. Decrease dose of hydralazine to 25 mg twice daily, metoprolol metoprolol 50 mg twice daily History of diabetes: Continue Lantus 30 subcu at bedtime,LDSSI, monitor fingerstick glucose, diabetic diet History of hypothyroidism: Continue levothyroxine History of rheumatoid arthritis: Continue prednisone, has been on Actemra in the past History of sleep apnea: Has been on BiPAP in the past History of severe pulmonary hypertension: Could be related to sleep apnea as well as morbid obesity and heart failure Pulmonary follow-up as outpatient CODE STATUS: Full code Renal dialysis diabetic diet DVT prophylaxis: Currently on therapeutic anticoagulation Discussed in detail with patient regarding further plans. Discussed that patient does need dialysis long-term but unfortunately as surgical team is not available going forward if patient remains stable plan will be to [facility] as she currently remains stable without any uremic symptoms and her uremia is resolving and coming down to her baseline and patient is making decent amount of urine. Attestations Medical Necessity Statement*: Requires further hospitalization for management of COLE on CKD requiring dialysis, atrial fibrillation with diastolic heart failure while medications were further adjusted Diagnoses Atrial fibrillation with rapid ventricular response I48.91 Acute kidney injury N17.9 Acute on chronic heart failure with preserved ejection fraction I50.33 UTI (urinary tract infection) N39.0 Right upper quadrant abdominal pain R10.11 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
--- NOTE | 2022-08-31 16:05 | PC.SOCIAL ---
IMM UPDATED Imm dated and initialed, copy given to patient and copy placed in chart.
[2022-08-31 16:12] LABS: Hepatitis B Surface AB 3.5 (11.5-1000)
[2022-08-31 17:15] LABS: Calcium 8.5 mg/dL (8.5-10.5); Carbon Dioxide 31 mmol/L (22-29); Chloride 91 mmol/L (98-107); Glomerular Filtration Rate 17.7 mL/min (90-130); Glucose 170 mg/dL (65-115); Sodium 133 mmol/L (136-145)
[2022-08-31 17:27] LABS: Glucose Point of Care 199 mg/dL (70-110)
[2022-08-31 17:39] LABS: Blood Urea Nitrogen 124 mg/dL (8-23); Osmolality Calculated 320 mOsm/kg (285-295)
[2022-08-31] MEDS: metoprolol tartrate 50 mg Tablet PO (20:14)
[2022-08-31] MEDS: gabapentin 100 mg Capsule PO (20:14)
[2022-08-31] MEDS: atorvastatin 40 mg Tablet 80 MG PO (20:14)
[2022-08-31] MEDS: insulin glargine 100 units/1 mL 30 UNIT SUBCUT (20:15)
[2022-09-01] VITALS (8 sets, daily range): BP systolic 118–162; BP diastolic 79–109; PULSE 86–120; RESP 16–20; TEMP 36.4–36.8; O2SAT 97–100
[2022-09-01] MEDS: FUROsemide 10 mg/mL SDV 4mL 40 MG IVP ×2 (02:10→14:05)
[2022-09-01] MEDS: HYDROcodone-acetaminophen 5-325 mg Tablet 1 TAB PO (03:29)
[2022-09-01 04:52] LABS: Basophils % 0.3 %; Eosinophils # 0.1 10^3/uL (0.0-0.8); Eosinophils % 0.6 %; Hematocrit 36.2 % (37.0-47.0); Hemoglobin 10.8 g/dL (11.5-15.3); Lymphocytes # 1.1 10^3/uL (0.8-4.8); Lymphocytes % 11.9 %; Mean Corpuscular HGB Conc 29.8 g/dL (30.0-36.0); Mean Corpuscular Hemoglobin 28.2 pg (28.0-34.0); Mean Corpuscular Volume 94.5 fl (81-99); Monocytes # 0.7 10^3/uL (0.2-0.9); Monocytes % 8.3 %; Neutrophils # 6.89 10^3/uL (1.8-7.7); Neutrophils % 78.1 %; Nucleated Red Blood Cells % 0 %; Platelet Count 235 10^3/cmm (130-400); Red Blood Count 3.83 10^6/uL (4.1-5.3); Red Cell Distribution Width 16.3 % (12.1-15.1); White Blood Count 8.8 10^3/uL (4.0-10.0)
[2022-09-01 05:11] LABS: Alanine Aminotransferase 58 U/L (0-33); Albumin Level 3.3 g/dL (3.5-5.2); Alkaline Phosphatase 140 U/L (35-105); Anion Gap 16.7 (5-19); Aspartate Amino Transferase 14 U/L (0-32); Calcium 8.7 mg/dL (8.5-10.5); Carbon Dioxide 32 mmol/L (22-29); Chloride 92 mmol/L (98-107); Globulin 3.6 g/dL (1.3-4.6); Glomerular Filtration Rate 15.7 mL/min (90-130); Glucose 184 mg/dL (65-115); Potassium 4.7 mmol/L (3.5-5.1); Sodium 136 mmol/L (136-145); Total Bilirubin 0.4 mg/dL (0.15-1.2); Total Protein 6.9 g/dL (6.6-8.7)
[2022-09-01 05:33] LABS: Blood Urea Nitrogen 126 mg/dL (8-23); Osmolality Calculated 327 mOsm/kg (285-295)
[2022-09-01 06:25] LABS: Glucose Point of Care 184 mg/dL (70-110)
[2022-09-01] MEDS: insulin lispro 100 unit/1 mL SUBCUT ×3 (08:13→16:44)
[2022-09-01] MEDS: lactobacillus 1 Tablet 1 TAB PO ×2 (08:13→16:44)
[2022-09-01] MEDS: predniSONE 10 mg Tablet PO (08:14)
[2022-09-01] MEDS: amiodarone 200 mg Tablet 400 MG PO (08:14)
[2022-09-01] MEDS: tizanidine 4 mg Tablet PO ×2 (08:14→14:04)
[2022-09-01] MEDS: docusate sodium 100 mg Capsule PO (08:14)
[2022-09-01] MEDS: sevelamer 800 mg Tablet PO ×3 (08:14→16:44)
[2022-09-01] MEDS: pantoprazole DR 40 mg Tablet PO (08:14)
[2022-09-01] MEDS: duloxetine 20 mg Capsule PO (08:14)
[2022-09-01] MEDS: triamcinolone 0.1% cream 15 gm 1 APPLIC TOPICAL ×2 (08:15→16:45)
[2022-09-01] MEDS: metoprolol tartrate 50 mg Tablet 75 MG PO (08:27)
[2022-09-01 11:33] LABS: Glucose Point of Care 160 mg/dL (70-110)
[2022-09-01] MEDS: ergocalciferol (vitamin D2) 50,000 Unit Capsule 50000 UNIT PO (13:53)
--- NOTE | 2022-09-01 15:18 | P.TS_ITS ---
Transfer Summary Providers Date of Admission: 08/24/22 11:57 Date of Discharge/Transfer: 09/01/22 Attending Provider at Admission: Johanna Vazquez MD Attending Provider at Transfer: George Montaño MD Consults: Cardiology: Dr. Tai Telenephrology Primary Care Provider: Fan Pereira MD Transfer Plans: Anticipated date of transfer: 09/01/22 . Receiving Facility: [facility] . Receiving Provider: Dr. Castillo . Diagnoses at Discharge Discharge Diagnosis (1) Atrial fibrillation with rapid ventricular response: Status: Acute (2) Acute kidney injury: Status: Acute (3) Acute on chronic heart failure with preserved ejection fraction: Status: Acute (4) UTI (urinary tract infection): Status: Acute (5) Right upper quadrant abdominal pain: Status: Acute (6) Insulin dependent type 2 diabetes mellitus: Status: Chronic (7) Anemia: Status: Acute Permanent problem details: Iron deficiency and CKD (8) High risk medication use: Status: Chronic Permanent problem details: on daily prednisone (9) Dyslipidemia: Status: Chronic (10) CHANNING (obstructive sleep apnea): Status: Chronic Permanent problem details: Intolerant to CPAP/Bipap, has tried every kind of mask (11) Hypothyroid: Status: Chronic (12) Rheumatoid arthritis with negative rheumatoid factor: Status: Chronic (13) GERD (gastroesophageal reflux disease): Status: Chronic Permanent problem details: With small hiatal hernia (14) BMI 45.0-49.9, adult: Status: Chronic (15) Transaminitis: Status: Acute (16) Severe pulmonary hypertension: Status: Acute (17) Status post placement of other cardiac pacemaker: Status: Chronic Permanent problem details: Placed secondary to third-degree AV block in 04/2020, had postplacement pocket infection (18) Uremia: Status: Acute Reason for Visit Reason for Visit RUQ pain Brief History: History as per HPI: Admitted on 08/24: Ayla Montilla is a 66 year old female resident at [facility] who presented to the emergency room with chief complaint of left upper quadrant abdominal pain, nausea and vomiting daily, a tightness sensation in her chest and shortness of breath.? The abdominal pain has been going on for more than a month now.? She had an abdominal ultrasound performed on 08/19/22 that showed some gallbladder wall thickening and hepatomegaly per verbal report from nurse at [place].? They are going to fax the study. Previous evaluation has shown hepatic enlargement and biliary sludge but no obstructive process.? She does still have her gallbladder.? She vomits at least once a day and at times will get to the point of dry heaving.? She is almost always nauseated nowadays.? She takes simethicone with some relief.? She has loose stools 2-3 times a day.? Denies any issues with constipation.? She recently started back on iron and has been noted to have some blackening of her stools but no definite bright red blood.? She does have frequent urinary tract infections and is currently on doxycycline for urinary tract infection identified on August 18 with plan for 10 days of treatment.? Patient has been hospitalized twice this year at [facility].? At one of these stays she was found to have atrial fibrillation.? It sounds like it was transient with conversion to sinus rhythm prior to discharge.? She is not known to have chronic atrial fibrillation.? She does have chronic diastolic CHF with preserved ejection fraction and known sleep apnea with intolerance to CPAP or BiPAP therapy.? She also has progressively worsening chronic kidney disease.? She follows with Dr. Doe here for cardiology and has been followed at Dr. Soto's office for nephrology.? She is on the schedule to get fistula placement in October of this year as it is anticipated she will eventually need dialysis.? Her surfboard maker recently decreased her Bumex dosing, sounds like secondary to worsening renal function but after about 4 days dosing was increased back to usual 3 mg twice daily of Bumex because of increasing peripheral edema.? According to her [id number] who is a nurse at [place], she always has 2+ edema to her lower extremities.? It may be slightly more than usual presently.? She has a chronic nonproductive cough.? While she does not have actual chest pain she feels like everything is pushing up towards her chest creating a tightness like sensation.? Sounds like some orthopnea related to this.? Has been having dyspnea with exertion.? No recent fevers.? No new sores.? Chronically on oxygen at 2 L. Outside records obtained and reviewed.? Hospitalized at [facility] from June 18 to 2022 with cellulitis and CHF.? She was treated with broad- spectrum antibiotics and diuresis.? Echocardiogram during that stay showed ejection fraction greater than 70% and evidence of severe pulmonary hypertension.? She was again hospitalized on July 21 with symptoms similar today including abdominal pain, nausea, vomiting and diarrhea.? Records indicate that she was in atrial flutter at presentation though does not appear to have [place] d rapid ventricular response at that time.? She was discharged on July 25 with primary diagnosis of abdominal pain and urinary tract infection.? Does not appear that she required any treatment or intervention for arrhythmia.? Discharge physical exam indicates regular rhythm.? Twelve-lead EKG shows wide- complex rhythm that appears to be atrial flutter by my interpretation with mention of right bundle branch block and left anterior fascicular block.? Was in bigeminy at the time as well.? Review of our records shows that she had been on Eliquis in the past or at least it was on her home medication list starting in September 2021.? It quit appearing on her home medication list in May 2022.? No rate controlling agents.? BUN and creatinine on July 25 of this year were 83/2.4 at [facility].? CRP the same date was 6.60 and procalcitonin was 0.33.? White count at that time was 14,000 with a hemoglobin of 9.6 and platelet count 358.? On July 21 of this year BUN and creatinine were 56/1.9.? Urinalysis during the July hospital stay was abnormal with positive nitrites and leukocyte esterase though I do not have any culture results for review.? TSH at the time was 4.61 with free thyroxine of 1.65.? BNP at the time was 229 with normal range of 0-100 and high-sensitivity troponin was 49.8 within their normal range.? Chest x-ray at that time showed no acute abnormalities. Hospital Course Hospital Course Patient was admitted to the hospital further evaluation and management of atrial fibrillation with rapid response, congestive heart failure, COLE on CKD and a possibility of UTI along with right upper quadrant pain. On admission she was started on Cardizem drip which caused patient to drop blood pressures after which she was transition over to amiodarone drip and cardiology was consulted. She tolerated treatment well and her heart rate was well controlled. She was started on aggressive IV diuresis with IV Bumex though the treatment was limited given COLE on CKD. Nephrology was consulted. Patient responded well to the treatment and her symptoms of atrial fibrillation and congestive heart failure have resolved. Patient has had worsening of her renal functions with worsening of her uremia and creatinine of around 3. As per review of outside records patient was due to have vascular procedure done at [facility] for initiation of dialysis as an outpatient. Given worsening of her renal functions with symptoms concerning for uremia including tremors and episodes of confusion plan was to start dialysis sooner after placement of permacath. Unfortunately surgical team is not available in the hospital currently for next 1 week. Care was further discussed with patient's family and nephrology in detail. Given concerns for uremic symptoms along with persistent significant uremia transfer was sought to a hospital where dialysis catheter placement would be done as soon as possible. Care was discussed at [facility] where patient was due to get her vascular procedure on October 23. Patient was eventually accepted by Dr. Castillo at [facility] and is being transferred in hemodynamically stable condition. Physical Exam Const: COMMON NORMALS: no acute distress, patient oriented x3 and alert GENERAL APPEARANCE: cooperative and comfortable ORIENTATION/CONSCIOUSNESS: Yes awake, Yes oriented to person, Yes oriented to place and Yes oriented to time OTHER: Occasional episodes of confusion with episodes of tremors HENMT: COMMON NORMALS: normocephalic, atraumatic and hearing grossly normal bilaterally HEAD & SCALP: normocephalic and atraumatic Resp: COMMON NORMALS: normal respiratory effort, No retractions, No use of accessory muscles and clear to auscultation bilaterally EFFORT & INSPECTION: Yes symmetric chest movement AUSCULTATION: clear to auscultation bilaterally Cardio: COMMON NORMALS: regular rate, regular rhythm, S1 normal heart sound present, S2 normal heart sound present, No gallops present (Cardio), No murmurs present (Cardio), No rub (Cardio) and Peripheral pulses 2+ throughout RATE: regular rate and tachycardic RHYTHM: regular rhythm and abnormal rhythm irregularly irregular HEART SOUNDS: S1 normal heart sound present and S2 normal heart sound present PERIPHERAL PULSES: Peripheral pulses 2+ throughout GI: COMMON NORMALS: Normal to inspection, nondistended, normoactive bowel sounds present, Soft to palpation, non-tender, No hepatosplenomegaly present and no masses AUSCULTATION: Yes normoactive bowel sounds PALPATION: Yes Soft to palpation, No Tenderness to palpation present (GI), No Guarding due to palpation present (GI) and Yes No hepatosplenomegaly present RECTAL EXAM: deferred Extremity: COMMON NORMALS: normal to inspection, capillary refill normal and no calf tenderness GENERAL: Yes edema Neuro: COMMON NORMALS: patient oriented x3 SENSORIUM/ORIENTATION: Yes aler t, Yes oriented to person, Yes oriented to place and Yes oriented to time Skin: COMMON NORMALS: no rashes or lesions noted GENERAL SKIN EXAM: no rashes or lesions noted WOUNDS: Yes surgical site (Left upper chest wall incision approximately 4.5 cm in length appears to be) Details: size and other Urinary Catheter Management: Culp: Cath Placed During This Visit: yes Reason for Continuing Indwelling Catheter: Other Urinary Catheter Date of Insertion: 08/24/22 Urinary Catheter Time of Insertion: 15:06 TS Data Studies Completed and Pending Pending at discharge Category Date Time Status CBC Auto Diff [Complete Blood Count w/Auto] AM LABS Lab 09/02/22 04:00 Ordered Phospholipase A2 Receptor AB Routine Lab 08/27/22 03:38 Received Labs from last 24 hours 09/01/22 09/01/22 09/01/22 11:28 06:21 04:14 WBC RBC Hgb Hct MCV MCH MCHC RDW Plt Count MPV Neut % (Auto) Lymph % (Auto) [place] % (Auto) Eos % (Auto) Baso % (Auto) Neut # (Auto) Lymph # (Auto) [place] # (Auto) Eos # (Auto) Baso # (Auto) Nucleated RBC % (auto) Nucleated RBCs # Sodium 136 Potassium 4.7 Chloride 92 L Carbon Dioxide 32 H Anion Gap 16.7 BUN 126 H* Creatinine 3.0 H GFR Calculation 15.7 L Glucose 184 H POC Glucose 160 H 184 H Calculated Osmolality 327 H Calcium 8.7 Total Bilirubin 0.4 AST 14 ALT 58 H Alkaline Phosphatase 140 H Total Protein 6.9 Albumin 3.3 L Globulin 3.6 Hep Bs Antigen Hep Bs Antibody Hep B Core Total Ab 09/01/22 08/31/22 08/31/22 04:14 17:25 16:33 WBC 8.8 RBC 3.83 L Hgb 10.8 L Hct 36.2 L MCV 94.5 MCH 28.2 MCHC 29.8 L RDW 16.3 H Plt Count 235 MPV 10.0 Neut % (Auto) 78.1 Lymph % (Auto) 11.9 [place]mer % (Auto) 8.3 Eos % (Auto) 0.6 Baso % (Auto) 0.3 Neut # (Auto) 6.89 Lymph # (Auto) 1.1 [place]mer # (Auto) 0.7 Eos # (Auto) 0.1 Baso # (Auto) 0.0 Nucleated RBC % (auto) 0 Nucleated RBCs # 0.0 Sodium 133 L Potassium 5.0 Chloride 91 L Carbon Dioxide 31 H Anion Gap 16.0 BUN 124 H* Creatinine 2.7 H GFR Calculation 17.7 L Glucose 170 H POC Glucose 199 H Calculated Osmolality 320 H Calcium 8.5 Total Bilirubin AST ALT Alkaline Phosphatase Total Protein Albumin Globulin Hep Bs Antigen Hep Bs Antibody Hep B Core Total Ab 08/30/22 08:00 WBC RBC Hgb Hct MCV MCH MCHC RDW Plt Count MPV Neut % (Auto) Lymph % (Auto) [place] % (Auto) Eos % (Auto) Baso % (Auto) Neut # (Auto) Lymph # (Auto) [place] # (Auto) Eos # (Auto) Baso # (Auto) Nucleated RBC % (auto) Nucleated RBCs # Sodium Potassium Chloride Carbon Dioxide Anion Gap BUN Creatinine GFR Calculation Glucose POC Glucose Calculated Osmolality Calcium Total Bilirubin AST ALT Alkaline Phosphatase Total Protein Albumin Globulin Hep Bs Antigen Non-reactive Hep Bs Antibody 3.5 L Hep B Core Total Ab Non-reactive Completed Studies During Hospitalization Category Date Time Status CT abdomen pelvis wo con [id number] Stat Cat Scan 08/24/22 07:35 Completed XR chest 1V portable [id number] Stat Exams 08/24/22 07:08 Completed CV. echo complete* [id number] Stat Ultrasound 08/25/22 14:22 Completed US abdomen limited [id number] Routine Ultrasound 08/25/22 08:22 Completed US venous duplex lower extremity bilat [CV venous Ultrasound 08/24/22 14:24 [place] [id number]] Routine Laboratory Last Values WBC 8.8 10^3/uL (4.0-10.0) 09/01/22 04:14 RBC 3.83 10^6/uL (4.1-5.3) L 09/01/22 04:14 Hgb 10.8 g/dL (11.5-15.3) L 09/01/22 04:14 Hct 36.2 % (37.0-47.0) L 09/01/22 04:14 MCV 94.5 fl (81-99) 09/01/22 04:14 MCH 28.2 pg (28.0-34.0) 09/01/22 04:14 MCHC 29.8 g/dL (30.0-36.0) L 09/01/22 04:14 RDW 16.3 % (12.1-15.1) H 09/01/22 04:14 Plt Count 235 10^3/cmm (130-400) 09/01/22 04:14 MPV 10.0 fL (7.4-10.4) 09/01/22 04:14 Neut % (Auto) 78.1 % 09/01/22 04:14 Lymph % (Auto) 11.9 % 09/01/22 04:14 Parmer % (Auto) 8.3 % 09/01/22 04:14 Eos % (Auto) 0.6 % 09/01/22 04:14 Baso % (Auto) 0.3 % 09/01/22 04:14 Neut # (Auto) 6.89 10^3/uL (1.8-7.7) 09/01/22 04:14 Lymph # (Auto) 1.1 10^3/uL (0.8-4.8) 09/01/22 04:14 [place]mer # (Auto) 0.7 10^3/uL (0.2-0.9) 09/01/22 04:14 Eos # (Auto) 0.1 10^3/uL (0.0-0.8) 09/01/22 04:14 Baso # (Auto) 0.0 10^3/uL (0.0-0.1) 09/01/22 04:14 Nucleated RBC % (auto) 0 % 09/01/22 04:14 Nucleated RBCs # 0.0 /100WBC 09/01/22 04:14 ESR 46 mm/hr (0-15) H 08/24/22 07:22 PT 15.50 SECONDS (12.1-14.9) H 08/30/22 08:00 INR 1.19 (0.8-1.2) 08/30/22 08:00 APTT 37.6 SECONDS (23.9-36.7) H 08/30/22 08:00 Specimen Type Arterial 08/24/22 14:40 Sample Site Radial, right 08/24/22 14:40 ABG pH 7.39 (7.35-7.45) 08/24/22 14:40 ABG pCO2 50.6 mmHg (35-45) H 08/24/22 14:40 ABG pO2 100.0 mmHg (80.0-100.0) 08/24/22 14:40 ABG HCO3 30.6 mmol/L (22-26) H 08/24/22 14:40 ABG O2 Saturation 98.9 08/24/22 14:40 ABG Base Excess 4.7 mmol/L (-2.0-2.0) H 08/24/22 14:40 Artem Test Pos 08/24/22 14:40 A-a O2 Gradient Not Reportable 08/24/22 14:40 Hematocrit 30.7 % (37-47) L 08/24/22 14:40 Hgb O2 Saturation 97.1 % (95-100) 08/24/22 14:40 Carboxyhemoglobin 1.4 %THgb (0.4-20.1) 08/24/22 14:40 Methemoglobin 0.4 % (0.4-1.5) 08/24/22 14:40 Total Hemoglobin 10.0 g/dL (12-16) L 08/24/22 14:40 Sodium 133.0 mmol/L (131-143) 08/24/22 14:40 Potassium 4.3 mmol/L (3.5-5.0) 08/24/22 14:40 Glucose 195.0 mg/dL (70-115) H 08/24/22 14:40 Ionized Calcium 1.1 mmol/L (1.1-1.4) 08/24/22 14:40 O2 Delivery Device Nc 08/24/22 14:40 O2 Liters/Min 3.0 % 08/24/22 14:40 Pc Support Specialist ID Broma 08/24/22 14:40 Sodium 136 mmol/L (136-145) 09/01/22 04:14 Potassium 4.7 mmol/L (3.5-5.1) 09/01/22 04:14 Chloride 92 mmol/L (98-107) L 09/01/22 04:14 Carbon Dioxide 32 mmol/L (22-29) H 09/01/22 04:14 Anion Gap 16.7 (5-19) 09/01/22 04:14 BUN 126 mg/dL (8-23) H* 09/01/22 04:14 Creatinine 3.0 mg/dL (0.5-0.9) H 09/01/22 04:14 GFR Calculation 15.7 mL/min (90-130) L 09/01/22 04:14 Glucose 184 mg/dL (65-115) H 09/01/22 04:14 POC Glucose 160 mg/dL (70-110) H 09/01/22 11:28 Calculated Osmolality 327 mOsm/kg (285-295) H 09/01/22 04:14 Uric Acid 17.7 mg/dL (2.4-5.7) H 08/28/22 04:10 Calcium 8.7 mg/dL (8.5-10.5) 09/01/22 04:14 Phosphorus 5.6 mg/dL (2.5-4.5) H 08/31/22 07:27 Magnesium 1.9 mg/dL (1.7-2.3) 08/28/22 04:10 Iron 38 ug/dL (37-145) 08/25/22 03:42 TIBC 193 mcg/dl 08/25/22 03:42 % Saturation 19.6 % (20-50) L 08/25/22 03:42 Unsat Iron Binding 155 ug/dL (112-347) 08/25/22 03:42 Ferritin 68572 ng/mL (15-150) H 08/25/22 03:42 Total Bilirubin 0.4 mg/dL (0.15-1.2) 09/01/22 04:14 AST 14 U/L (0-32) 09/01/22 04:14 ALT 58 U/L (0-33) H 09/01/22 04:14 Alkaline Phosphatase 140 U/L (35-105) H 09/01/22 04:14 C-Reactive Protein 80.7 mg/L (0.0-4.9) H 08/24/22 14:45 NT-Pro-B Natriuret Pep 16519 pg/mL (0-125) H 08/24/22 07:22 Total Protein 6.9 g/dL (6.6-8.7) 09/01/22 04:14 Albumin 3.3 g/dL (3.5-5.2) L 09/01/22 04:14 Globulin 3.6 g/dL (1.3-4.6) 09/01/22 04:14 Nxsjk-9-Jbktralyy 2 % 08/24/22 15:04 Kcfli-1-Diyvqveee 9 % 08/24/22 15:04 Beta Globulins 12 % 08/24/22 15:04 Ikcq-8-Bznedlue 0.4 g/dL (0.4-0.6) 08/24/22 14:45 Gcpu-8-Newrhcfy 0.4 g/dL (0.2-0.5) 08/24/22 14:45 Gamma Globulins 14 % 08/24/22 15:04 Abnorm Protein Band 1 Not Reportable 08/24/22 14:45 Lipase 30 U/L (13-60) 08/24/22 07:22 25-OH Vitamin D Total 23 ng/mL (30-100) L 08/25/22 03:42 1,25 Dihydroxy Vit D2 9 pg/mL 08/24/22 14:45 1,25 Dihydroxy Vit D3 11 pg/mL 08/24/22 14:45 Procalcitonin 0.89 ng/mL (0-0.5) H 08/24/22 14:45 TSH 1.83 uIU/mL (0.27-4.20) 08/26/22 03:32 PTH Intact 308.9 pg/mL (15-65) H 08/25/22 03:42 Calcium (PTH Intact) 8.5 mg/dL (8.5-10.5) 08/25/22 03:42 Urine Color Light yellow (Yellow) 08/24/22 15:04 Urine Appearance Cloudy (CLEAR) A 08/24/22 15:04 Urine pH 5 (5-7) 08/24/22 15:04 Ur Specific [place] 1.010 (1.005-1.030) 08/24/22 15:04 Urine Protein Neg (Negative) 08/24/22 15:04 Urine Glucose (UA) Norm (Normal) 08/24/22 15:04 Urine Ketones Negative (Negative) 08/24/22 15:04 Urine Blood 2+ (Negative) H 08/24/22 15:04 Urine Nitrate Negative (Negative) 08/24/22 15:04 Urine Bilirubin Neg (Negative) 08/24/22 15:04 Urine Urobilinogen Neg mg/dL (Negative) 08/24/22 15:04 Ur Leukocyte Esterase 2+ (Negative) H 08/24/22 15:04 Urine RBC >100 /hpf (0-2) H 08/24/22 15:04 Urine WBC Too numerous to cnt /hpf (0-5) H 08/24/22 15:04 Ur Squamous Epith Cells None /hpf (0-5) 08/24/22 15:04 Amorphous Sediment Not Reportable 08/24/22 15:04 Urine Bacteria None /hpf (NONE) 08/24/22 15:04 Ur Random Sodium 69 mmol/L 08/24/22 15:04 Ur Random Potassium 26 mmol/L 08/24/22 15:04 Ur Random Chloride 72 mmol/L 08/24/22 15:04 Urine Total Volume 700 ml 08/25/22 15:04 Urine Creatinine 103 mg/dL (28-217) 08/25/22 15:04 Ur Creatinine 24 Hour 721.0 mg/dL (601-1689) 08/25/22 15:04 Ur Total Protein 24 Hr 30.1 mg/24hr (0-150) 08/24/22 15:04 Ur Total Protein 24 Hr 392 mg/24 h (<150) H 08/24/22 15:04 Protein/Creatinin Ratio 571 mg/g creat (<150) H 08/24/22 15:04 Protein/Creat Ratio 24h 0.571 (<0.150) H 08/24/22 15:04 Urine Total Protein 4.3 mg/dL (0-150) 08/24/22 15:04 Urine Albumin 63 % 08/24/22 15:04 U Abnormal Prot Band 1 Not Reportable 08/24/22 15:04 U Abnormal Prot Band 2 Not Reportable 08/24/22 15:04 U Abnormal Prot Band 3 Not Reportable 08/24/22 15:04 Urine PEP Interpret See note 08/24/22 15:04 Pro Electrophoresis Int See note 08/24/22 14:45 Serum Immunofixation See note 08/24/22 14:45 PRERNA Screen Positive (NEGATIVE) A 08/24/22 14:45 PERRNA Titer 1:40 titer H 08/24/22 14:45 PRERNA Pattern Nuclear, homogeneous A 08/24/22 14:45 Anti-ds DNA IgG Ab <1 IU/mL 08/24/22 14:45 Free [place] Light Chains 92.4 mg/L (3.3-19.4) H 08/24/22 14:45 Free [place] Light Chain 66.2 mg/L (5.7-26.3) H 08/24/22 14:45 Free [place]/Lambda Ratio 1.40 (0.26-1.65) 08/24/22 14:45 Hep Bs Antigen Non-reactive (Nonreactive) 08/30/22 08:00 Hep Bs Antibody 3.5 (11.5-1000) L 08/30/22 08:00 Hep B Core Total Ab Non-reactive (Nonreactive) 08/30/22 08:00 Hepatitis C Antibody Non-reactive (Nonreactive) 08/25/22 03:42 HIV 1&2 Ab & HIV 1 Ag Non-reactive (Non-Reactiv) 08/27/22 03:38 HIV 1&2 Antibody Non-reactive (Non-Reactiv) 08/27/22 03:38 Radiology Impressions Chest X-Ray 08/24/22 07:08 IMPRESSION: Stable abnormal chest without acute abnormality. Elevated central pulmonary venous pressure. Abdomen/Pelvis CT 08/24/22 07:35 IMPRESSION: 1. New small bilateral pleural effusions, small amount of ascites and diffuse soft tissue anasarca. Likely from fluid overload. 2. Mildly enlarged heart with a small pericardial effusion. 3. Cholelithiasis without evidence for acute cholecystitis. Additional evaluation by ultrasound can be obtained if clinically thought necessary. 4. No bile duct dilatation. 5. Postsurgical changes LEFT kidney. Echocardiogram: CONCLUSIONS ?1-Normal left ventricular size, systolic function and wall ?thickness, with no regional wall motion abnormalities.? Left ?ventricular ejection fraction is estimated at 60 %.Severely ?increased left ventricular filling pressure.? ?2-Moderately increased left atrial size. ?3-Moderately thickened mitral valve. Moderate mitral annular ?calcification. Moderate mitral valve regurgitation. ?4-Mild aortic valve calcification. No aortic valve stenosis. ?Mild aortic valve regurgitation. ?9-Reyh-fc-moderate tricuspid valve regurgitation. .? ?6-Right atrial pressure is around 10 mm of mercury. ?Jesus Tai MD ?(Electronically Signed) ?Final Date:? ? ? 26 August 2022 ? 18:20 Abdomen Ultrasound 08/25/22 08:22 IMPRESSION: 1. No cholelithiasis. 2. Very mild gallbladder wall thickening may be due to hepatocellular disease. 3. Mild hepatic enlargement. 4. Mild diffuse cortical thinning RIGHT kidney. Recent Clincial Data Last Vital Signs Temp 98.2 F 09/01/22 11:24 Pulse 120 H 09/01/22 14:00 Resp 18 09/01/22 11:24 BP 138/92 09/01/22 11:24 Pulse Ox 97 09/01/22 11:24 O2 Del Method 09/01/22 11:24 O2 Flow Rate 2 09/01/22 07:58 Vital Signs Temp Pulse Resp BP Pulse Ox O2 Del Method O2 Del Method 09/01/22 14:00 120 H 09/01/22 11:24 98.2 F 113 H 18 138/92 97 Nasal Cannula 09/01/22 07:58 104 H 98 Nasal Cannula 09/01/22 07:31 98.1 F 98 16 162/96 98 Nasal Cannula 09/01/22 05:51 98 09/01/22 03:40 98.1 F 105 H 16 139/109 99 Nasal Cannula O2 Flow Rate O2 Flow Rate 09/01/22 14:00 09/01/22 11:24 09/01/22 07:58 2 09/01/22 07:31 09/01/22 05:51 09/01/22 03:40 2 Intake & Output/Weight 08/30/22 08/31/22 09/01/22 09/02/22 06:59 06:59 06:59 06:59 Intake Total 1010 / 1010 1560 / 1560 762 / 762 360 / 360 Output Total 850 / 850 1550 / 1550 1800 / 1800 Balance 160 / 160 -1038 / -1038 360 / 360 Vitals Last Vital Signs Temp 98.2 F 09/01/22 11:24 Pulse 120 H 09/01/22 14:00 Resp 18 09/01/22 11:24 BP 138/92 09/01/22 11:24 Pulse Ox 97 09/01/22 11:24 O2 Del Method 09/01/22 11:24 O2 Flow Rate 2 09/01/22 07:58 TS Medications Medications Acetaminophen (Acetaminophen 325 Mg Tablet) 650 mg PO Q6H PRN PRN Reason: mild pain or temp >/=101 F Last Admin: 08/31/22 02:40 Dose: 650 mg Hydrocodone Bitart/Acetaminophen (Hydrocodone-Acetaminophen 5-325 Mg Tablet) 1 tab PO Q6H PRN PRN Reason: mod to sev breakthrough pain Last Admin: 09/01/22 03:29 Dose: 1 tab Amiodarone HCl (Amiodarone 200 Mg Tablet) 400 mg PO DAILY [facility] Last Admin: 09/01/22 08:14 Dose: 400 mg Atorvastatin Calcium (Atorvastatin 40 Mg Tablet) 80 mg PO BEDTIME [facility] Last Admin: 08/31/22 20:14 Dose: 80 mg Dextrose (Dextrose 50% Syringe 50 Ml) 25 ml IVP ONCE PRN; Protocol PRN Reason: hypoglycemia protocol Dextrose (Dextrose 50% Syringe 50 Ml) 50 ml IVP PRN PRN; Protocol PRN Reason: hypoglycemia protocol Docusate Sodium (Docusate Sodium 100 Mg Capsule) 100 mg PO BID@0800,2000 [facility] Last Admin: 09/01/22 08:14 Dose: 100 mg Duloxetine HCl (Duloxetine 20 Mg Capsule) 20 mg PO BID@08,20 [facility] Last Admin: 09/01/22 08:14 Dose: 20 mg Enoxaparin Sodium (Enoxaparin 120 Mg/0.8 Ml Syringe) 120 mg 1 mg/kg (120 mg) SUBCUT Q24H [facility] Last Admin: 09/01/22 08:31 Dose: Not Given Ergocalciferol (Ergocalciferol (Vitamin D2) 50,000 Unit Capsule) 50,000 unit PO Q7D [facility] Last Admin: 09/01/22 13:53 Dose: 50,000 unit Furosemide (Furosemide 10 Mg/Ml Sdv 4ml) 40 mg IVP Q12H [facility] Last Admin: 09/01/22 14:05 Dose: 40 mg Gabapentin (Gabapentin 100 Mg Capsule) 100 mg PO BEDTIME@20 [facility] Last Admin: 08/31/22 20:14 Dose: 100 mg Glucagon (Glucagon 1 Mg/Ml Inj 1 Ml) 1 mg IM ONCE PRN; Protocol PRN Reason: Adult Acute Hypoglycemia Prot. Hydralazine HCl (Hydralazine 25 Mg Tablet) 25 mg PO TID@08,,20 [facility] Last Admin: 08/31/22 14:05 Dose: 25 mg Dextrose (D5w) 500 mls @ 100 mls/hr IV ONCE PRN; Protocol PRN Reason: Adult Acute Hypoglycemia Prot Insulin Glargine (Insulin Glargine 100 Units/1 Ml) 30 unit SUBCUT BEDTIME [facility] Last Admin: 08/31/22 20:15 Dose: 30 unit Insulin Human Lispro (Insulin Lispro 100 Unit/1 Ml) 0 unit SUBCUT BEDTIME [facility]; Protocol Last Admin: 08/31/22 20:15 Dose: 2 unit Insulin Human Lispro (Insulin Lispro 100 Unit/1 Ml) 0 unit SUBCUT TIDWM [facility]; Protocol Last Admin: 09/01/22 13:02 Dose: 2 unit Ketoconazole (Ketoconazole Cream 15 Gm) 1 applic TOPICAL BID [facility] Last Admin: 09/01/22 08:15 Dose: Not Given Lactobacillus Acidophilus (Lactobacillus 1 Tablet) 1 tab PO BID [facility] Last Admin: 09/01/22 08:13 Dose: 1 tab Metoprolol Tartrate (Metoprolol Tartrate 50 Mg Tablet) 75 mg PO BID@0900,2100 [facility] Last Admin: 09/01/22 08:27 Dose: 75 mg Naloxone HCl (Naloxone 0.4 Mg/Ml Sdv) 0.4 mg IVP PRN PRN PRN Reason: RESPIRATORY RATE < 8/MIN Nitroglycerin (Nitroglycerin 0.4 Mg Sublingual Tablet) 0.4 mg SUBLINGUAL Q5M PRN PRN Reason: Chest Pain Ondansetron HCl (Ondansetron 2 Mg/Ml Sdv 2 Ml) 4 mg IVP Q6H PRN PRN Reason: NAUSEA AND VOMITING Pantoprazole Sodium (Pantoprazole Dr 40 Mg Tablet) 40 mg PO DAILY@0800 [facility] Last Admin: 09/01/22 08:14 Dose: 40 mg Prednisone (Prednisone 10 Mg Tablet) 10 mg PO DAILY@0800 [facility] Last Admin: 09/01/22 08:14 Dose: 10 mg Sevelamer Carbonate (Sevelamer 800 Mg Tablet) 800 mg PO TIDWM [facility] Last Admin: 09/01/22 13:03 Dose: 800 mg Simethicone (Simethicone 80 Mg Chew) 160 mg PO QID PRN PRN Reason: FLATULENCE Tizanidine HCl (Tizanidine 4 Mg Tablet) 4 mg PO TID [facility] Last Admin: 09/01/22 14:04 Dose: 4 mg Triamcinolone Acetonide (Triamcinolone 0.1% Cream 15 Gm) 1 applic TOPICAL BID [facility] Last Admin: 09/01/22 08:15 Dose: 1 applic Discontinued Medications Hydrocodone Bitart/Acetaminophen (Hydrocodone-Acetaminophen 5-325 Mg Tablet) 1 tab PO TID@ [facility] Last Admin: 08/28/22 08:58 Dose: 1 tab Amiodarone HCl (Amiodarone 200 Mg Tablet) 400 mg PO BID [facility] Last Admin: 08/30/22 08:28 Dose: 400 mg Digoxin (Digoxin 250 Mcg/Ml Inj 2 Ml) 125 mcg IVP NOW ONE Stop: 08/24/22 17:29 Last Admin: 08/24/22 17:35 Dose: 125 mcg Diltiazem HCl (Diltiazem 5 Mg/Ml Sdv 5 Ml) 20 mg IVP ONCE ONE Stop: 08/24/22 07:09 Last Admin: 08/24/22 07:14 Dose: 20 mg Enoxaparin Sodium (Enoxaparin 120 Mg/0.8 Ml Syringe) 120 mg SUBCUT Q24H [facility] Last Admin: 08/30/22 12:11 Dose: 120 mg Ferrous Sulfate (Ferrous Sulfate Ec 325 Mg Tablet) 325 mg PO EVERY OTHER DAY [facility] Furosemide (Furosemide 10 Mg/Ml Sdv 4ml) 40 mg IVP ONCE ONE Stop: 08/24/22 08:41 Last Admin: 08/24/22 09:05 Dose: 40 mg Furosemide (Furosemide 10 Mg/Ml Sdv 4ml) 40 mg IVP ONCE ONE Stop: 08/27/22 10:58 Last Admin: 08/27/22 12:00 Dose: 40 mg Gabapentin (Gabapentin 300 Mg Capsule) 300 mg PO BEDTIME@20 [facility] Last Admin: 08/26/22 20:55 Dose: 300 mg Heparin Sodium (Porcine) (Heparin 5,000 Unit/Ml Inj 1 Ml) 5,000 unit SUBCUT Q12H [facility] Last Admin: 08/25/22 04:54 Dose: 5,000 unit Hydralazine HCl (Hydralazine 50 Mg Tablet) 100 mg PO TID@08,14,20 [facility] Last Admin: 08/24/22 22:00 Dose: Not Given Diltiazem HCl 100 mg/ Sodium (Chloride) 100 mls @ 0 mls/hr IV .Q0M [facility]; Protocol Last Titration: 08/24/22 13:53 Dose: Infused Amiodarone HCl 900 mg/Dextrose/ IV Miscellaneous Supplies 518 mls @ 0 mls/hr IV .Q0M [facility]; Protocol Last Titration: 08/28/22 09:02 Dose: Infused Esmolol HCl (Brevibloc Drip) 2,500 mg in 250 mls @ 0 mls/hr IV .Q0M [facility]; Protocol Last Titration: 08/25/22 00:13 Dose: Infused Sodium Chloride (Sodium Chloride 0.9%) 500 mls @ 500 mls/hr IV .Q1H ONE Stop: 08/24/22 14:29 Last Infusion: 08/24/22 15:30 Dose: Infused Ceftriaxone Sodium 1,000 mg/ (Sodium Chloride) 50 mls @ 100 mls/hr IV Q24H [facility]; Protocol Last Infusion: 08/29/22 16:50 Dose: Infused Sodium Chloride (Sodium Chloride 0.9%) 250 mls @ 250 mls/hr IV ONCE ONE Stop: 08/24/22 17:05 Last Infusion: 08/24/22 17:30 Dose: Infused Sodium Chloride (Sodium Chloride 0.9%) 1,000 mls @ 100 mls/hr IV .Q10H [facility] Stop: 08/25/22 12:00 Last Infusion: 08/25/22 10:27 Dose: Infused Sodium Chloride (Sodium Chloride 0.9%) 1,000 mls @ 50 mls/hr IV .Q20H [facility] Last Infusion: 08/26/22 08:56 Dose: Infused Sodium Chloride (Sodium Chloride 0.9%) 500 mls @ 500 mls/hr IV ONCE ONE Stop: 08/25/22 12:04 Last Infusion: 08/25/22 13:15 Dose: Infused Insulin Glargine (Insulin Glargine 100 Units/1 Ml) 50 unit SUBCUT BEDTIME [facility] Last Admin: 08/25/22 20:32 Dose: 50 unit Metoprolol Tartrate (Metoprolol Tartrate 25 Mg Tablet) 12.5 mg PO BID@0900,2100 [facility] Last Admin: 08/25/22 08:34 Dose: 12.5 mg Metoprolol Tartrate (Metoprolol Tartrate 25 Mg Tablet) 25 mg PO BID@0900,2100 [facility] Last Admin: 08/26/22 08:44 Dose: 25 mg Metoprolol Tartrate (Metoprolol Tartrate 25 Mg Tablet) 12.5 mg PO ONCE ONE Stop: 08/25/22 11:08 Last Admin: 08/25/22 11:40 Dose: 12.5 mg Metoprolol Tartrate (Metoprolol Tartrate 25 Mg Tablet) 37.5 mg PO BID@0900,2100 [facility] Last Admin: 08/31/22 08:19 Dose: 37.5 mg Metoprolol Tartrate (Metoprolol Tartrate 50 Mg Tablet) 50 mg PO BID@0900,2100 [facility] Last Admin: 08/31/22 20:14 Dose: 50 mg Metoprolol Tartrate (Metoprolol Tartrate 25 Mg Tablet) 12.5 mg PO ONCE ONE Stop: 08/31/22 10:24 Last Admin: 08/31/22 10:33 Dose: 12.5 mg Morphine Sulfate (Morphine 4 Mg/Ml Sdv 1 Ml) 2 mg IVP ONCE ONE Stop: 08/24/22 10:13 Last Admin: 08/24/22 10:15 Dose: 2 mg Pantoprazole Sodium (Pantoprazole Dr 40 Mg Tablet) 40 mg PO DAILY@0800 [facility] Allergies amitriptyline Allergy (Unknown, Verified 07/17/22 08:35) Unknown insulin degludec [From Tresiba FlexTouch U-100] Allergy (Verified 08/24/22 08:00) Unknown Iodinated Contrast Media Allergy (Verified 07/17/22 08:35) Hypertension nitrofurantoin [From Macrobid] Allergy (Verified 08/24/22 08:00) Unknown sulfamethoxazole [From Bactrim] Allergy (Verified 07/17/22 08:35) Rash tree and shrub pollen Allergy (Verified 08/24/22 08:00) Unknown trimethoprim [From Bactrim] Allergy (Verified 07/17/22 08:35) Rash leflunomide Adverse Reaction (Intermediate, Verified 07/17/22 08:35) diarrhea Home Medications hydrocodone 5 mg-acetaminophen 325 mg tablet 1 tab PO Q6H PRN Pain 05/14/20 [History Confirmed 08/24/22] Home Oxygen Continous #1 ea 05/23/20 [Rx Confirmed 08/24/22] Shower chair #1 ea 05/23/20 [Rx Confirmed 08/24/22] atorvastatin 80 mg tablet (Lipitor) 80 mg PO BEDTIME@20 06/04/20 [History Confirmed 08/24/22] pantoprazole 40 mg tablet,delayed release 40 mg PO DAILY@0800 07/08/20 [History Confirmed 08/24/22] potassium chloride 20 mEq tablet,extended release(part/cryst) 20 meq PO BID@08,07/08/20 [History Confirmed 08/24/22] acetaminophen 325 mg tablet (Tylenol) 650 mg PO Q6H PRN Pain 10/04/20 [History Confirmed 08/24/22] docusate sodium 100 mg capsule (Colace) 100 mg PO BID@08,199910/04/20 [History Confirmed 08/24/22] prednisone 10 mg tablet 10 mg PO DAILY@0800 10/04/20 [History Confirmed 08/24/22] triamcinolone acetonide 0.1 % topical cream See Rx Instructions .Route .COMPLEX 10/04/20 [History Confirmed 08/24/22] gabapentin 300 mg capsule 300 mg PO BEDTIME@11/22/20 [History Confirmed 08/24/22] ferrous sulfate 325 mg (65 mg iron) tablet 325 mg PO EVERY OTHER DAY 06/11/21 [History Confirmed 08/24/22] duloxetine 20 mg capsule,delayed release 20 mg PO BID@07/19/21 [History Confirmed 08/24/22] insulin aspart U-100 100 unit/mL subcutaneous solution (Novolog U-100 Insulin aspart) See Rx Instructions .Route .COMPLEX 07/19/21 [History Confirmed 08/24/22] insulin glargine 100 unit/mL (3 mL) subcutaneous pen (Basaglar KwikPen U-100 Insulin) 80 unit SUBCUT BEDTIME@07/19/21 [History Confirmed 08/24/22] sennosides 8.6 mg-docusate sodium 50 mg capsule (Senna Plus) 1 tab-cap PO BID@,09/22/21 [History Confirmed 08/24/22] Heated and molded inserts #1 ea 05/21/22 [Rx Confirmed 08/24/22] Lactobacillus acidophilus 500 million cell tablet 500 mmu cells PO DAILY for l oose stools r/t antibiotic therapy 06/16/22 [History Confirmed 08/24/22] bisacodyl 5 mg tablet,delayed release (Dulcolax (bisacodyl)) 10 mg PO DAILY PRN Constipation 06/16/22 [History Confirmed 08/24/22] bumetanide 1 mg tablet 3 mg PO BID@08,14 06/16/22 [History Confirmed 08/24/22] camphor-menthol 0.2 %-3.5 % topical gel 1 applic topical Q4H PRN Pain 06/16/22 [History Confirmed 08/24/22] camphor-methyl salicylate-menthol topical patch 1 patch topical Q8H PRN Pain 06/16/22 [History Confirmed 08/24/22] carboxymethylcellulose sodium 1 % eye drops (Artificial Tears (carboxymethylcellulose)) 2 drp ophthalmic (eye) BID PRN Dry Eyes 06/16/22 [History Confirmed 08/24/22] guaifenesin 100 mg/5 mL oral liquid (Allyson-Tussin) 200 mg PO Q6H PRN Cough 06/16/22 [History Confirmed 08/24/22] naloxone 2 mg/2 mL syringe kit 2 mg IM Q2M PRN overdose 06/16/22 [History Confirmed 08/24/22] olopatadine 0.1 % eye drops (Pataday Twice Daily Relief) 1 drp ophthalmic (eye) Q12H PRN drainage/itchiness 06/16/22 [History Confirmed 08/24/22] Diabetic shoes with 3 pairs of inserts #1 ea 07/17/22 [Rx Confirmed 08/24/22] doxycycline hyclate 100 mg tablet 100 mg PO BID@08,20 08/24/22 [History Confirmed 08/24/22] hydralazine 50 mg tablet 100 mg PO TID@08,14,08/24/22 [History Confirmed 08/24/22] hydrocodone 5 mg-acetaminophen 325 mg tablet 1 tab PO TID@08,15,08/24/22 [History Confirmed 08/24/22] ketoconazole 2 % topical cream See Rx Instructions .Route .COMPLEX 08/24/22 [History Confirmed 08/24/22] metolazone 5 mg tablet 5 mg PO DAILY@08 08/24/22 [History Confirmed 08/24/22] nitroglycerin 0.4 mg sublingual tablet (Nitrostat) 0.4 mg sublingual Q5M PRN Chest Pain 08/24/22 [History Confirmed 08/24/22] simethicone 180 mg capsule 180 mg PO Q4H PRN Acid Reflux 08/24/22 [History Confirmed 08/24/22] tizanidine 4 mg tablet 4 mg PO TID 08/24/22 [History Confirmed 08/24/22] Discharge Plan Discharge Patient Disposition: Home Condition: Stable Prescriptions: No Action hydrocodone-acetaminophen 5-325 mg tablet 1 tab PO Q6H PRN (Reason: Pain) (DME) Home Oxygen Continous See Rx Instructions .Route .MEDSUPPLY Qty: 1 0RF Rx Instructions: As directed (DME) Shower chair See Rx Instructions .Route .MEDSUPPLY Qty: 1 0RF Rx Instructions: As directed atorvastatin [Lipitor] 80 mg tablet 80 mg PO BEDTIME@20 ferrous sulfate 325 mg (65 mg iron) tablet 325 mg PO EVERY OTHER DAY Senna Plus 8.6-50 mg capsule 1 tab-cap PO BID@08,20 ([facility] [place]) Diabetic shoes with 3 pairs of inserts See Rx Instructions .Route .MEDSUPPLY Qty: 1 0RF Rx Instructions: As directed to [facility] (DME) Heated and molded inserts See Rx Instructions .Route .MEDSUPPLY Qty: 1 0RF Rx Instructions: As directed to [facility] [place] potassium chloride 20 mEq tablet,ER particles/crystals 20 meq PO BID@08,20 pantoprazole 40 mg tablet,delayed release (DR/EC) 40 mg PO DAILY@0800 docusate sodium [Colace] 100 mg Capsule 100 mg PO BID@0800,2000 acetaminophen [Tylenol] 325 mg Tablet 650 mg PO Q6H MDD 3g PRN (Reason: Pain) prednisone 10 mg Tablet 10 mg PO DAILY@0800 triamcinolone acetonide 0.1 % cream See Rx Instructions .ROUTE .COMPLEX Rx Instructions: applic topically TO BILATERAL LEGS EVERY DAY AND EVENING SHIFT FOR CELLULITIS gabapentin 300 mg capsule 300 mg PO BEDTIME@20 duloxetine 20 mg capsule,delayed release(DR/EC) 20 mg PO BID@08,20 insulin aspart U-100 [Novolog U-100 Insulin aspart] 100 unit/mL Solution See Rx Instructions .ROUTE .COMPLEX Rx Instructions: 40 units with meals plus sliding scale 140-175=1 unit 176-200=2 units 201-250=3 units 251-299=5 units 300-999=7 units insulin glargine [Basaglar KwikPen U-100 Insulin] 100 unit/mL (3 mL) insulin pen 80 unit SUBCUT BEDTIME@20 [place] 5-325 mg Tablet 1 tab PO TID@08,15,22 metolazone 5 mg tablet 5 mg PO DAILY@08 Nitrostat 0.4 mg Tablet, Sublingual 0.4 mg SUBLINGUAL Q5M PRN (Reason: Chest Pain) Rx Instructions: do not exceed 3 doses per episode ketoconazole 2 % cream See Rx Instructions .ROUTE .COMPLEX Rx Instructions: apply to abd fold/groin topically every day and evening shift for yeast for 14 days doxycycline hyclate 100 mg tablet 100 mg PO BID@08,20 Rx Instructions: for 10 days (start 08/18/22) hydralazine 50 mg tablet 100 mg PO TID@08,14,20 simethicone 180 mg Capsule 180 mg PO Q4H PRN (Reason: Acid Reflux) tizanidine 4 mg Tablet 4 mg PO TID guaifenesin [Allyson-Tussin] 100 mg/5 mL Liquid 200 mg PO Q6H PRN (Reason: Cough) olopatadine [Pataday Twice Daily Relief] 0.1 % Drops 1 drp OPHTHALMIC (EYE) Q12H PRN (Reason: drainage/itchiness) bumetanide 1 mg Tablet 3 mg PO BID@08,14 bisacodyl [Dulcolax (bisacodyl)] 5 mg Tablet,Delayed Release (Dr/Ec) 10 mg PO DAILY PRN (Reason: Constipation) Salonpas Adhesive Patch,Medicated 1 patch TOPICAL Q8H PRN (Reason: Pain) Lactobacillus acidophilus [Acidophilus] 500 million cell Tablet 500 mmu cells PO DAILY Biofreeze 0.2-3.5 % Gel 1 applic TOPICAL Q4H PRN (Reason: Pain) Rx Instructions: rub in gently and completely Artificial Tears (cmc) 1 % Drops 2 drp OPHTHALMIC (EYE) BID PRN (Reason: Dry Eyes) naloxone 2 mg/2 mL Syringe Kit 2 mg IM Q2M PRN (Reason: overdose) Discharge Orders: Transfer Out of Facility (Order); Ordered 09/01/22 Ordered By: George Montaño Referrals: Fan Pereira MD [Primary Care Provider] - Patient Instructions: Opioid Safety Transfer Attestations Time Spent in Transfer Care: greater than 30 min Specific Discharge Activities: educating patient, educating and/or supporting family/caregiver, discussing with pcp/other providers, discussing with lining caser/social workers/dc planners, documenting/other paperwork and evaluating patient/reviewing data Status at Transfer: Cognitive status at transfer: cognitively intact ; Behavioral status at transfer: cooperative ; Functional status at transfer: uses cane/walker ; Overall status at transfer: patient is progressing back to baseline Quality Metrics Clinical Quality Measures [ No reported AMI, CVA or VTE this stay] Coding Level of Care Code 71635 Total time (in minutes) for Discharge: 70 Diagnoses Atrial fibrillation with rapid ventricular response I48.91 Acute kidney injury N17.9 Acute on chronic heart failure with preserved ejection fraction I50.33 UTI (urinary tract infection) N39.0 Right upper quadrant abdominal pain R10.11 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
[2022-09-01 16:26] LABS: Glucose Point of Care 202 mg/dL (70-110)
[2022-09-01] MEDS: metoprolol tartrate 1 mg/1 mL SDV 5 mL 5 MG IVP (16:45)
--- NOTE | 2022-09-01 17:51 | PM.PN ---
Subjective Subjective: Patient is stable. Vitals/I&O/Wt Last Vital Signs Temp 97.9 F 09/01/22 16:00 Pulse 100 09/01/22 16:00 Resp 20 H 09/01/22 16:00 BP 118/79 09/01/22 16:00 Pulse Ox 100 09/01/22 16:00 O2 Del Method 09/01/22 16:00 O2 Flow Rate 2 09/01/22 07:58 09/01/22 09/01/22 09/01/22 06:59 14:59 22:59 Intake Total 360 / 360 Output Total 1000 / 1800 700 / 700 Balance -1000 / -1038 360 / 360 -700 / -340 Physical Exam Narrative: Patient is awake and oriented x3 No JVD cyanosis icterus Heart irregularly irregular S1-S2 Abdomen distended mildly tender SCRAP HOOKER grossly nonfocal Lower extremity 1+ edema Urinary Catheter Management: Culp: Cath Placed During This Visit: yes Reason for Continuing Indwelling Catheter: Other Urinary Catheter Date of Insertion: 08/24/22 Urinary Catheter Time of Insertion: 15:06 Data 09/01/22 04:14 09/01/22 04:14 A&P Assessment and plan (1) Atrial fibrillation with rapid ventricular response: Heart rate is controlled. Continue anticoagulation (2) Acute kidney injury: Nephrology on board. Plans for dialysis per nephrology (3) Right upper quadrant abdominal pain: Improving. As per med treatment (4) Diastolic heart failure: Continue diuresis Attestations Medical Necessity Statement*: Care expected to cross 2 midnights. Coding Level of Care Code Acute Code for [facility] Diagnoses Atrial fibrillation with rapid ventricular response I48.91 Acute kidney injury N17.9 Right upper quadrant abdominal pain R10.11 Diastolic heart failure I50.30
--- NOTE | 2022-09-01 18:28 | P.PN_ITS ---
Subjective Subjective: pt confused Medications: Reviewed: Yes Vitals/I&O/Wt Last Vital Signs Temp 97.9 F 09/01/22 16:00 Pulse 100 09/01/22 16:00 Resp 20 H 09/01/22 16:00 BP 118/79 09/01/22 16:00 Pulse Ox 100 09/01/22 16:00 O2 Del Method 09/01/22 16:00 O2 Flow Rate 2 09/01/22 07:58 09/01/22 09/01/22 09/01/22 06:59 14:59 22:59 Intake Total 360 / 360 Output Total 1000 / 1800 700 / 700 Balance -1000 / -1038 360 / 360 -700 / -340 Physical Exam Narrative: Patient is somnolent ,arousable On 2 L FiO2 3+ lower extremity edema Urinary Catheter Management: Culp: Cath Placed During This Visit: yes Reason for Continuing Indwelling Catheter: Other Urinary Catheter Date of Insertion: 08/24/22 Urinary Catheter Time of Insertion: 15:06 Data 09/01/22 04:14 09/01/22 04:14 A&P Assessment and plan (1) Acute kidney injury: Plan 1. Acute kidney injury on chronic kidney disease 3 , urine output reasonable, BUN above 126 , with altered mental status -patient has significant edema/anasarca -Precommeded hemodialysis initiation 2. volume overload, CHF, atrial fibrillation 3. hyponatremia, hypervolemic 4. anemia, high ferritin 5. hyperphosphatemia, secondary hyperparathryroidism Recommend: continue IV furosemide 40 mg BID. Recommend starting HD to improve volume status and clear uremic toxins. Check CBC, PT, PTT, hold lovenox. C Attestations Medical Necessity Statement*: Requires further hospitalization for management of COLE on CKD requiring dialysis, atrial fibrillation with diastolic heart failu re while medications were further adjusted Coding Level of Care Code Acute Code for [facility] Diagnoses Acute kidney injury N17.9
[2022-09-03 16:40] LABS: Phospholipase A2 Elisa IgG <4 RU/mL; Phospholipase A2 IFA AB NEGATIVE (NEGATIVE)
== END 2022-09-01 18:15 | disposition short-term general hospital (02) | DRG 682 ==
LOC: ER 08:19 → CSU 12:27
PROVIDERS: Hospitalist; Internal Medicine; Internal Medicine Nephrology; Admitting Provider Hospitalist; Emergency Provider Family Medicine; PCP Family Medicine; Visit Provider Student in an Organized Health Care Education/Training Program
DX: N17.9 Acute kidney failure, unspecified (principal); I50.33 Acute on chronic diastolic (congestive) heart failure; I13.0 Hypertensive heart and chronic kidney disease with heart failure and stage 1 through stage 4 chronic kidney disease, or unspecified chronic kidney disease; E87.1 Hypo-osmolality and hyponatremia; N39.0 Urinary tract infection, site not specified; J96.11 Chronic respiratory failure with hypoxia; Z68.42 Body mass index [BMI] 45.0-49.9, adult; N18.4 Chronic kidney disease, stage 4 (severe); I48.0 Paroxysmal atrial fibrillation; E11.22 Type 2 diabetes mellitus with diabetic chronic kidney disease; D63.1 Anemia in chronic kidney disease; E21.3 Hyperparathyroidism, unspecified; Z99.81 Dependence on supplemental oxygen; I27.20 Pulmonary hypertension, unspecified; Z79.891 Long term (current) use of opiate analgesic; Z79.52 Long term (current) use of systemic steroids; Z79.4 Long term (current) use of insulin; D50.9 Iron deficiency anemia, unspecified; Z86.16 Personal history of COVID-19; F32.A Depression, unspecified; E78.5 Hyperlipidemia, unspecified; M79.7 Fibromyalgia; K21.9 Gastro-esophageal reflux disease without esophagitis; E03.9 Hypothyroidism, unspecified; E66.01 Morbid (severe) obesity due to excess calories; G47.33 Obstructive sleep apnea (adult) (pediatric); J43.9 Emphysema, unspecified; M06.00 Rheumatoid arthritis without rheumatoid factor, unspecified site; Z89.411 Acquired absence of right great toe; Z95.0 Presence of cardiac pacemaker
CPT/HCPCS: 12345; 36415; 36416; 51702; 71045; 74176; 76705; 80048; 80051; 80053; 81001; 82306; 82310; 82330; 82436; 82570; 82652; 82728; 82805; 82962; 83520; 83540; 83550; 83690; 83735; 83880; 83883; 83970; 84100; 84133; 84145; 84155; 84156; 84165; 84166; 84300; 84443; 84550; 85025; 85610; 85651; 85730; 86038; 86140; 86225; 86255; 86334; 86705; 86706; 86803; 87040; 87340; 87493; 87806; 93005; 93306; 93970; 96365; 96366; 96372; 96375; 96376; 97110; 97162; 99291; A9270; J0282; J0696; J1160; J1644; J1650; J1815; J1940; J2270; J3490; J7030; J7040; J7050; J7060; J7512; Q3014